=== PATIENT | female | born 1950 | race Caucasian/White ===

== ENCOUNTER 2016-06-29 18:26 | Inpatient (IN) | payer MEDICARE, BC ==
[2016-06-29] MEDS ORDERED: NITROGLYCERIN/D5W 250 ML IV PRN (18:30)
[2016-06-29] MEDS ORDERED: IPRATROPIUM/ALBUTEROL 0.5-2.5 MG/3 ML AMPUL NEB ONE (18:30)
[2016-06-29] MEDS ORDERED: METHYLPREDNISOLONE INJ 125 MG/2 ML SDV IV ONE (18:30)
[2016-06-29] MEDS ORDERED: ALBUTEROL SULFATE 0.083% NEB 2.5 MG/3 ML AMPUL NEB ONE (18:30)
--- NOTE | 2016-06-29 18:35 | ER Document Report ---
ED Respiratory Problem - General Stated Complaint: RESPIRATORY DISTRESS Time seen by provider: 18:32 Mode of Arrival: Medic Information source: Emergency Med Personnel TRAVEL OUTSIDE OF THE [place] IN LAST 30 DAYS: No - HPI Patient complains to provider of: CHF, COPD, Cough, Short of breath Onset: Other - Worsening over the past few days Duration: Worse/persistent Quality of pain: No pain Severity: Severe Context: Hx CHF, Hx COPD Short of Breath: Severe Chest pain/discomfort: Tightness Cough: Nonproductive Associated symptoms: Congestion, Cough, Difficulty breathing, Short of breath, Wheezing Similar symptoms previously: Yes Notes: Patient is a 66-year-old female who was brought to the emergency room by EMS in respiratory distress, patient's respiratory symptoms are worsening over the past few days, when EMS arrived at the house patient was hypoxic, prompting emergency, patient denies any chest pain, otherwise information is difficult to obtain because of her level of respiratory distress - Related Data Allergies/Adverse Reactions: Heparin Analogues [Heparin Agents] Allergy (Unknown, Verified 03/29/15 12:22) latex [Latex] Allergy (Unknown, Verified 03/29/15 12:22) Penicillins Allergy (Unknown, Verified 03/29/15 12:22) vancomycin [Vancomycin] Allergy (Unknown, Verified 04/01/15 22:46) itching rash egg [Egg] Allergy (Verified 03/29/15 12:22) sulfamethoxazole [From Bactrim] Allergy (Verified 03/29/15 12:22) trimethoprim [From Bactrim] Allergy (Verified 03/29/15 12:22) Home Medications: Current Home Medications Albuterol Sulfate [Ventolin 0.042% Neb 1.25 mg/3 ml Ampul] 1 vial NEB Q4HP PRN 06/29/16 [History] Alprazolam [Alprazolam] 0.5 mg PO TIDP PRN 06/29/16 [History] Fish Oil/Dha/Epa [Fish Oil 1,200 mg Fish Oil] 2 cap PO DAILY 06/29/16 [History] Fluticasone Propionate [Flovent Hfa] 2 puff IH BID 06/29/16 [History] Hydrocodone/Acetaminophen [Hydrocodon-Acetaminoph 7.5-325] 1 each PO Q4HP PRN [History] Insulin Aspart [Novolog Flexpen] 15 - 30 unit SUBCUT AC 06/29/16 [History] Insulin Glargine,Hum.rec.anlog [Bear Gorman] 60 unit SUBCUT DAILY 06/29/16 [ History] Metoprolol Tartrate 12.5 mg PO BID 06/29/16 [History] Warfarin Sodium [Warfarin Sodium] 5 mg PO ASDIR 06/29/16 [History] Past Medical History - General Information source: Emergency Med Personnel - Social History Smoking Status: Unknown if Ever Smoked Family History: Reviewed & Not Pertinent - Past Medical History Cardiac Medical History: Reports: Hx Atrial Fibrillation, Hx Hypercholesterolemia Pulmonary Medical History: Reports: Hx Asthma, Hx COPD, Hx Pneumonia, Hx Respiratory Failure, Hx Sleep Apnea Neurological Medical History: Denies: Hx Seizures Endocrine Medical History: Reports: Hx Diabetes Mellitus Type 2 Musculoskeltal Medical History: Reports Hx Arthritis Past Surgical History: Reports: Hx Cholecystectomy, Hx Hysterectomy, Hx Orthopedic Surgery - right rotator cuff. Denies: Hx Pacemaker - Immunizations Hx Diphtheria, Pertussis, Tetanus Vaccination: Yes Hx Pneumococcal Vaccination: 03/21/12 Review of Systems - Review of Systems Constitutional: No symptoms reported EENT: No symptoms reported Cardiovascular: No symptoms reported Respiratory: See HPI Gastrointestinal: No symptoms reported Genitourinary: No symptoms reported Female Genitourinary: No symptoms reported Musculoskeletal: No symptoms reported Skin: No symptoms reported Hematologic/Lymphatic: No symptoms reported Neurological/Psychological: No symptoms reported -: Yes All other systems reviewed and negative Physical Exam - Vital signs Vitals: Resp Pulse Ox 28 H 97 06/29/16 18:30 06/29/16 18:30 Interpretation: Normal - General General appearance: Alert In distress: Moderate - HEENT Head: Normocephalic, Atraumatic Eyes: Normal Conjunctiva: Normal Extraocular movements intact: Yes Eyelashes: Normal Pupils: PERRL Nasal: Normal Mouth/Lips: Normal Mucous membranes: Normal Pharynx: Normal Neck: Normal - Respiratory Respiratory status: Respiratory distress Chest status: Nontender Breath sounds: Decreased air movement, Rales, Wheezing Chest palpation: Normal - Cardiovascular Rhythm: Regular Heart sounds: Normal auscultation Murmur: No - Abdominal Inspection: Morbidly Obese Distension: Distended Bowel sounds: Normal Tenderness: Nontender Organomegaly: No organomegaly - Back Back: Normal - Extremities General upper extremity: Normal inspection, Nontender, Normal color, Normal ROM , Normal temperature General lower extremity: Normal inspection, Nontender, Edema, Normal color, Normal ROM, Normal temperature. No: Maggi's sign - Neurological Neuro grossly intact: Yes Cognition: Normal [place] Coma Scale Eye Opening: Spontaneous [place] Coma Scale Verbal: Oriented [place] Coma Scale Motor: Obeys Commands [place] Coma Scale Total: 15 Sensory: Normal - Psychological Associated symptoms: Normal affect, Normal mood - Skin Skin Temperature: Warm Skin Moisture: Dry Skin Color: Normal Location of irregularity: Generalized - Eczema Course - Vital Signs Vital signs: Temp Pulse Resp BP Pulse Ox 98.0 F 69 22 H 134/67 H 99 06/29/16 18:58 06/30/16 02:07 06/30/16 03:47 06/30/16 03:47 06/30/16 03:47 - Laboratory Result Diagrams: 06/29/16 18:30 06/29/16 18:30 Laboratory results interpreted by me: 06/29/16 06/29/16 06/29/16 18:30 18:30 18:30 WBC 17.9 H RBC 3.57 L Hgb 10.9 L Hct 34.0 L RDW 17.2 H Seg Neutrophils % 90.6 H Lymphocytes % 5.2 L Absolute Neutrophils 16.2 H PT APTT Carbonic Acid ABG pH ABG pCO2 ABG pO2 ABG HCO3 ABG Total CO2 ABG O2 Saturation Sodium 145.1 H Chloride 97 L Carbon Dioxide 38 H Est GFR (Non-Af Amer) 56 L Glucose 246 H Creatine Kinase < 20 L NT-Pro-B Natriuret Pep 2660 H Urine Protein Urine Glucose (UA) 06/29/16 06/29/16 06/29/16 18:30 18:30 21:09 WBC RBC Hgb Hct RDW Seg Neutrophils % Lymphocytes % Absolute Neutrophils PT 32.8 H APTT 43.9 H Carbonic Acid 2.48 H ABG pH 7.28 L ABG pCO2 82.3 H* ABG pO2 181.9 H ABG HCO3 38.0 H ABG Total CO2 40.5 H ABG O2 Saturation 99.0 H Sodium Chloride Carbon Dioxide Est GFR (Non-Af Amer) Glucose Creatine Kinase NT-Pro-B Natriuret Pep Urine Protein 30 H Urine Glucose (UA) 150 H 06/29/16 21:13 WBC RBC Hgb Hct RDW Seg Neutrophils % Lymphocytes % Absolute Neutrophils PT APTT Carbonic Acid 2.18 H ABG pH ABG pCO2 72.3 H* ABG pO2 ABG HCO3 39.3 H ABG Total CO2 41.5 H ABG O2 Saturation Sodium Chloride Carbon Dioxide Est GFR (Non-Af Amer) Glucose Creatine Kinase NT-Pro-B Natriuret Pep Urine Protein Urine Glucose (UA) Procedures - Additional Procedures ABG Time performed: 21:13 Additional Procedures: ABG - Right antecubital space using ultrasound guidance Critical Care Note - Critical Care Note Total time excluding time spent on procedures (mins): 45 Comments: Patient with respiratory distress on arrival, requiring immediate BiPAP placement, multiple re-evaluations and admission to [facility] Discharge - Discharge Clinical Impression: COPD exacerbation Pneumonia Qualifiers: Pneumonia type: due to unspecified organism Laterality: bilateral Lung location : unspecified part of lung Qualified Code(s): J18.9 - Pneumonia, unspecified organism Condition: Serious Disposition: ADMITTED INPATIENT Admitting Provider: Hospitalist Unit Admitted: [facility]
[2016-06-29 18:54] LABS: ABSOLUTE BASOPHILS # (AUTO) 0.1 10^3/uL (0.0-0.2); ABSOLUTE EOSINOPHILS # (AUTO) 0.1 10^3/uL (0.0-0.6); ABSOLUTE LYMPHOCYTES (AUTO) 0.9 10^3/uL (0.5-4.7); ABSOLUTE MONOCYTES (AUTO) 0.6 10^3/uL (0.1-1.4); ABSOLUTE NEUT (AUTO) 16.2 10^3/uL (1.7-8.2); BASOPHILS % (AUTO) 0.3 % (0-2); EOSINOPHILS % (AUTO) 0.3 % (0-6); HEMOGLOBIN 10.9 g/dL (12.0-15.5); HGB HCT DIFFERENCE -1.3; LYMPHOCYTES % (AUTO) 5.2 % (13-45); MEAN CORPUSCULAR HEMOGLOBIN 30.6 pg (27.0-33.4); MEAN CORPUSCULAR HGB CONC 32.2 g/dL (32.0-36.0); MEAN CORPUSCULAR VOLUME 95 fl (80-97); MONOCYTES % (AUTO) 3.6 % (3-13); RED BLOOD COUNT 3.57 10^6/uL (3.72-5.28); RED CELL DISTRIBUTION WIDTH 17.2 % (11.5-14.0); SEGMENTED NEUTROPHILS % (AUTO) 90.6 % (42-78); WHITE BLOOD COUNT 17.9 10^3/uL (4.0-10.5)
[2016-06-29 18:56] LABS: ARTERIAL BLOOD BASE EXCESS 8.5 mmol/L
[2016-06-29 19:05] LABS: PARTIAL THROMBOPLASTIN TIME 43.9 SEC (23.5-35.8); PROTHROMBIN TIME 32.8 SEC (11.4-15.4)
[2016-06-29 19:20] LABS: ALANINE AMINOTRANSFERASE 25 U/L (9-52); ALBUMIN 3.8 g/dL (3.5-5.0); ALKALINE PHOSPHATASE 75 U/L (38-126); ANION GAP 10 (5-19); ASPARTATE AMINO TRANSFERASE 17 U/L (14-36); BILIRUBIN,DIRECT 0.3 mg/dL (0.0-0.4); BILIRUBIN,TOTAL 0.9 mg/dL (0.2-1.3); BLOOD UREA NITROGEN 19 mg/dL (7-20); CALCIUM 9.4 mg/dL (8.4-10.2); CARBON DIOXIDE 38 mmol/L (22-30); CHLORIDE 97 mmol/L (98-107); CREATININE RESULT 0.99 mg/dL (0.52-1.25); GLUCOSE 246 mg/dL (75-110); POTASSIUM 4.6 mmol/L (3.6-5.0); SODIUM 145.1 mmol/L (137-145); TOTAL PROTEIN 7.1 g/dL (6.3-8.2)
[2016-06-29 19:24] LABS: CREATINE KINASE < 20 U/L (30-135)
[2016-06-29 19:32] LABS: CREATINE KINASE MB 0.61 ng/mL (<4.55); TROPONIN I 0.013 ng/mL
[2016-06-29] MEDS ORDERED: LEVOFLOXACIN 750 MG/D5W RTU 150 ML IV ONE (19:50)
[2016-06-29 21:41] LABS: APPEARANCE,URINE CLEAR; BILIRUBIN,URINE NEGATIVE (NEGATIVE); GLUCOSE, URINE 150 mg/dL (NEGATIVE); KETONES,URINE NEGATIVE (NEGATIVE); LEUKOCYTE ESTERASE,URINE NEGATIVE (NEGATIVE); NITRITE,URINE NEGATIVE (NEGATIVE); PROTEIN,URINE 30 mg/dL (NEGATIVE); URINE SPECIFIC GRAVITY 1.009; UROBILINOGEN,URINE NEGATIVE mg/dL (<2.0)
[2016-06-29 21:47] LABS: ARTERIAL BLOOD BASE EXCESS 11.1 mmol/L
[2016-06-29] MEDS ORDERED: IPRATROPIUM/ALBUTEROL 0.5-2.5 MG/3 ML AMPUL NEB PRN (22:19)
[2016-06-29] MEDS: NORMAL SALINE 1000 ML 1,000 ML IV SCH (22:56)
[2016-06-29] MEDS ORDERED: CEFTRIAXONE 1 GM/D5W RTU 1 GM/50 ML RTUPB IV ONE (23:00)
[2016-06-29 23:02] LABS: PROTHROMBIN TIME 33.9 SEC (11.4-15.4)
[2016-06-29 23:23] LABS: CREATINE KINASE MB 0.68 ng/mL (<4.55)
[2016-06-29] MEDS ORDERED: ALPRAZOLAM 0.5 MG TABLET PO PRN (23:29)
[2016-06-29 23:30] LABS: TROPONIN I 0.052 ng/mL
[2016-06-29] MEDS ORDERED: DEXTROSE 40% GEL 15 GM TUBE PO PRN ×2 (23:30)
[2016-06-29] MEDS ORDERED: GLUCAGON,HUMAN RECOMB 1 MG INJ IM PRN (23:30)
[2016-06-29] MEDS ORDERED: DEXTROSE 50%-WATER 25 GM/50 ML DISP.SYRIN IV PRN ×2 (23:30)
[2016-06-29] MEDS ORDERED: METOPROLOL TARTRATE 25 MG TABLET PO ONE (23:59)
--- NOTE | 2016-06-30 00:58 | PDOC H&P ---
History of Present Illness Admission Date/PCP: 06/29/16 22:20 Patient complains of: Shortness of breath History of Present Illness: YAMILETH RENAE is a 66 year old female with an extensive past medical history of mechanical aortic valve on Coumadin, atrial fibrillation, insulin dependent diabetes, obstructive sleep apnea, COPD, anxiety and morbid obesity with a BMI greater than 50. She had been her usual state of health until approximately 12 hours prior to presentation developing shortness of breath and nonproductive cough prompting her to take a dose of alprazolam. Shortly after noted by family in respiratory distress EMS was called and she was brought to the emergency room for evaluation where she's found to have a PCO2 of greater than 80 and difficulty maintaining arousal, a chest x-ray showing edema versus pneumonia she is placed on BiPAP, empiric antibiotics referred to the hospitalist for admission. Patient is currently a poor historian and unable to provide additional history. Past Medical History Cardiac Medical History: Reports: Atrial Fibrillation, Hyperlipidema Pulmonary Medical History: Reports: Asthma, Chronic Obstructive Pulmonary Disease (COPD), Pneumonia, Respiratory Failure, Sleep Apnea Neurological Medical History: Denies: Seizures Endocrine Medical History: Reports: Diabetes Mellitus Type 2 Musculoskeltal Medical History: Reports: Arthritis Psychiatric Medical History: Reports: General Anxiety Disorder Hematology: Reports: Anemia Past Surgical History Past Surgical History: Reports: Cholecystectomy, Hysterectomy, Orthopedic Surgery - right rotator cuff Denies: Pacemaker Social History Information Source: Patient, Relative, [facility] Records Lives with: Family Smoking Status: Unknown if Ever Smoked Frequency of Alcohol Use: None Hx Recreational Drug Use: No Hx Prescription Drug Abuse: No - Advance Directive Resuscitation Status: Full Code Family History Family History: Reviewed & Not Pertinent Parental Family History Reviewed: Yes Children Family History Reviewed: Yes Sibling(s) Family History Reviewed.: Yes Medication/Allergy Home Medications: Albuterol Sulfate [Ventolin Hfa] 1 - 2 puff IH Q4 PRN 03/29/15 Ascorbic Acid [Vitamin C 500 mg Tablet] 500 mg PO BID 03/29/15 Ferrous Sulfate [Feosol 325 mg Tablet] 325 mg PO BID 03/29/15 Loratadine 10 mg PO DAILY 03/29/15 Montelukast Sodium 10 mg PO DAILY 03/29/15 Ranitidine HCl 150 mg PO BID 03/29/15 Simvastatin 80 mg PO DAILY 03/29/15 Sitagliptin Phosphate [Januvia] 100 mg PO DAILY 03/29/15 Acidoph/L.bulg/Bif.b/S.thermop [Bacid Caplet] 1 each PO BID #22 tablet 04/04/15 Albuterol Sulfate [Ventolin 0.042% Neb 1.25 mg/3 ml Ampul] 1 vial NEB Q4HP PRN 06/29/16 Alprazolam [Alprazolam] 0.5 mg PO TIDP PRN 06/29/16 Fish Oil/Dha/Epa [Fish Oil 1,200 mg Fish Oil] 2 cap PO DAILY 06/29/16 Fluticasone Propionate [Flovent Hfa] 2 puff IH BID 06/29/16 Hydrocodone/Acetaminophen [Hydrocodon-Acetaminoph 7.5-325] 1 each PO Q4HP PRN Insulin Aspart [Novolog Flexpen] 15 - 30 unit SUBCUT AC 06/29/16 Insulin Glargine,Hum.rec.anlog [Toujeo Solostar] 60 unit SUBCUT DAILY 06/29/16 Metoprolol Tartrate 12.5 mg PO BID 06/29/16 Warfarin Sodium [Warfarin Sodium] 5 mg PO ASDIR 06/29/16 Allergies/Adverse Reactions: Heparin Analogues [Heparin Agents] Allergy (Unknown, Verified 03/29/15 12:22) latex [Latex] Allergy (Unknown, Verified 03/29/15 12:22) Penicillins Allergy (Unknown, Verified 03/29/15 12:22) vancomycin [Vancomycin] Allergy (Unknown, Verified 04/01/15 22:46) itching rash egg [Egg] Allergy (Verified 03/29/15 12:22) sulfamethoxazole [From Bactrim] Allergy (Verified 03/29/15 12:22) trimethoprim [From Bactrim] Allergy (Verified 03/29/15 12:22) Review of Systems ROS unobtainable: Due to mental status Physical Exam Vital Signs: Temp Pulse Resp BP Pulse Ox 98.0 F 21 H 135/111 H 98 06/29/16 18:58 06/30/16 00:15 06/30/16 00:01 06/30/16 00:15 Intake & Output 06/28/16 06/29/16 06/30/16 11:59 11:59 11:59 Weight 122.8 kg General appearance: PRESENT: disheveled, mild distress, morbidly obese Head exam: PRESENT: atraumatic, normocephalic Eye exam: PRESENT: conjunctiva pink, EOMI, PERRLA. ABSENT: scleral icterus Ear exam: PRESENT: normal external ear exam Mouth exam: PRESENT: moist, tongue midline Neck exam: ABSENT: carotid bruit, JVD, lymphadenopathy, thyromegaly Respiratory exam: PRESENT: accessory muscle use, crackles, decreased breath sounds, prolonged expiratory phas, rales, rhonchi, symmetrical, tachypnea. ABSENT: stridor, wheezes Cardiovascular exam: PRESENT: irregular rhythm, RRR. ABSENT: diastolic murmur, rubs, systolic murmur Pulses: PRESENT: normal dorsalis pedis pul Vascular exam: PRESENT: normal capillary refill GI/Abdominal exam: PRESENT: normal bowel sounds, soft. ABSENT: distended, guarding, mass, organolmegaly, rebound, tenderness Rectal exam: PRESENT: deferred Extremities exam: PRESENT: full ROM, pedal edema, +1 edema, other - Chronic changes of venous insufficiency and stasis. ABSENT: calf tenderness, clubbing Neurological exam: PRESENT: altered, oriented to person, CN II-XII grossly intact Skin exam: PRESENT: dry, intact, warm, other - Right leg significant chronic changes of venous stasis and scarring. ABSENT: cyanosis, rash Results Laboratory Results: 06/29/16 06/29/16 22:43 22:43 Creatine Kinase < 20 L CK-MB (CK-2) 0.68 Troponin I 0.052 Impressions: Chest X-Ray 06/29/16 18:30 IMPRESSION: Worsened [id number] interstitial and small airspace markings may indicate pulmonary edema or multifocal pneumonia. Assessment & Plan - Diagnosis (1) Morbid obesity with alveolar hypoventilation Is this a current diagnosis for this admission?: YesPlan: Acute respiratory failure triggered by use of Xanax, morbid obesity hypoventilation without BiPAP use and pneumonia. Empiric antibiotics, Albuterol Atrovent, BiPAP, avoiding excessive sedation and Xanax discontinued without risk of withdrawal as rarely used. (2) Anxiety Is this a current diagnosis for this admission?: YesPlan: Reassurance avoiding benzodiazepine, mental health referral as outpatient (3) COPD exacerbation Is this a current diagnosis for this admission?: YesPlan: Albuterol and Atrovent, continue BiPAP (4) Pneumonia Qualifiers: Pneumonia type: due to unspecified organism Laterality: bilateral Lung location: unspecified part of lung Qualified Code(s): J18.9 - Pneumonia , unspecified organism Is this a current diagnosis for this admission?: YesPlan: Very faint opacities will monitor follow-up CBC and cultures. Levaquin initiated in the emergency room his change to Rocephin and azithromycin given EKG with prolonged QT interval I'm concerned for recent C. difficile colitis and excessive antibiotic use. (5) Long QT interval Is this a current diagnosis for this admission?: YesPlan: Avoid medications prolonging QT interval (6) Anticoagulated Is this a current diagnosis for this admission?: YesPlan: Patient received Levaquin and will anticipate supratherapeutic INR and reduce Coumadin from 5 mg to 4 mg daily at bedtime, with daily INR - Time Time Spent: 50 to 70 Minutes - Inpatient Certification Medical Necessity: Need Close Monitoring Due to Risk of Patient Decompensation
[2016-06-30] MEDS: IPRATROPIUM/ALBUTEROL 0.5-2.5 MG/3 ML AMPUL NEB SCH ×4 (02:07→20:03)
[2016-06-30] MEDS: NORMAL SALINE 1000 ML 1,000 ML IV SCH ×2 (04:59→11:13)
[2016-06-30 05:21] LABS: HEMATOCRIT 30.6 % (36.0-47.0); HEMOGLOBIN 10.2 g/dL (12.0-15.5); MEAN CORPUSCULAR HEMOGLOBIN 31.3 pg (27.0-33.4); MEAN CORPUSCULAR HGB CONC 33.2 g/dL (32.0-36.0); MEAN CORPUSCULAR VOLUME 94 fl (80-97); RED BLOOD COUNT 3.25 10^6/uL (3.72-5.28); WHITE BLOOD COUNT 9.9 10^3/uL (4.0-10.5)
[2016-06-30 05:32] LABS: ANION GAP 9 (5-19); BLOOD UREA NITROGEN 22 mg/dL (7-20); CALCIUM 8.9 mg/dL (8.4-10.2); CARBON DIOXIDE 35 mmol/L (22-30); CHLORIDE 98 mmol/L (98-107); CREATININE RESULT 0.94 mg/dL (0.52-1.25); GLUCOSE 344 mg/dL (75-110); POTASSIUM 4.5 mmol/L (3.6-5.0)
[2016-06-30 05:34] LABS: CREATINE KINASE < 20 U/L (30-135); CREATINE KINASE MB 0.8 ng/mL (<4.55); TROPONIN I 0.033 ng/mL
[2016-06-30 05:53] LABS: BAND NEUTROPHILS % (MANUAL) 1 % (3-5); BASOPHILS % (MANUAL) 0 % (0-2); EOSINOPHILS % (MANUAL) 0 % (0-6); LYMPHOCYTES % (MANUAL) 3 % (13-45); TOTAL CELLS COUNTED 100; TOXIC GRANULATION 1+
[2016-06-30 05:54] LABS: ANISOCYTOSIS 1+; OVALOCYTES SLIGHT; POIKILOCYTOSIS SLIGHT; POLYCHROMASIA SLIGHT; TEAR DROP CELLS SLIGHT
[2016-06-30 07:06] LABS: APPEARANCE,URINE CLEAR; BILIRUBIN,URINE NEGATIVE (NEGATIVE); GLUCOSE, URINE >=500 mg/dL (NEGATIVE); KETONES,URINE NEGATIVE (NEGATIVE); LEUKOCYTE ESTERASE,URINE NEGATIVE (NEGATIVE); NITRITE,URINE NEGATIVE (NEGATIVE); PROTEIN,URINE 30 mg/dL (NEGATIVE); URINE SPECIFIC GRAVITY 1.009; UROBILINOGEN,URINE NEGATIVE mg/dL (<2.0)
--- NOTE | 2016-06-30 07:32 | EKG REPORT ---
SEVERITY:- ABNORMAL ECG - ATRIAL FLUTTER, A-RATE 312 REPOL ABNRM SUGGESTS ISCHEMIA, LATERAL LEADS BORDERLINE PROLONGED QT INTERVAL : Confirmed by: Dario Solis MD 30-Jun-2016 07:32:20
[2016-06-30] MEDS: INSULIN LISPRO 100 UNIT/ML 3 ML VIAL SUBCUT PRN ×4 (09:20→23:20)
[2016-06-30] MEDS: MONTELUKAST SODIUM 10 MG TABLET PO SCH (09:31)
[2016-06-30] MEDS: GUAIFENESIN 600 MG TABLET.SA PO SCH ×2 (09:31→21:52)
[2016-06-30] MEDS: FERROUS SULFATE 325 MG TABLET PO SCH ×2 (09:31→18:34)
[2016-06-30] MEDS: AZITHROMYCIN 500 MG in DEXTROSE 5%-WATER 250 ML IV SCH (09:33)
[2016-06-30] MEDS: METOPROLOL TARTRATE 25 MG TABLET PO SCH ×2 (09:48→18:34)
[2016-06-30] MEDS: LACTOBACILLUS ACIDOPHILUS 250 MG TAB PO SCH ×2 (09:48→18:34)
[2016-06-30] MEDS ORDERED: INSULIN GLARGINE,HUM.REC.ANLOG 300 UNIT/3 ML INSULN.PEN SUBCUT SCH ×2 (10:00)
[2016-06-30 11:22] LABS: CREATINE KINASE MB 0.98 ng/mL (<4.55); TROPONIN I 0.016 ng/mL
--- NOTE | 2016-06-30 17:33 | PDOC PROGRESS REPORT ---
Subjective Progress Note for:: 06/30/16 Subjective:: Patient states she's feeling better He still has a lot of wheezing But she can tolerate being off BiPAP during meals Mentation is excellent No fever no chills Physical Exam Vital Signs: Temp Pulse Resp BP Pulse Ox 99.1 F 76 22 H 127/32 H 93 06/30/16 16:57 06/30/16 16:57 06/30/16 16:57 06/30/16 16:57 06/30/16 16:57 Intake & Output 06/29/16 06/30/16 07/01/16 00:59 00:59 00:59 Weight 122.8 kg 121.5 kg General appearance: PRESENT: mild distress, well-developed, well-nourished Head exam: PRESENT: atraumatic, normocephalic Eye exam: PRESENT: conjunctiva pink, EOMI, PERRLA. ABSENT: scleral icterus Ear exam: PRESENT: normal external ear exam Mouth exam: PRESENT: moist, tongue midline Neck exam: ABSENT: carotid bruit, JVD, lymphadenopathy, thyromegaly Respiratory exam: PRESENT: decreased breath sounds, wheezes. ABSENT: accessory muscle use, rales, rhonchi Cardiovascular exam: PRESENT: RRR. ABSENT: diastolic murmur, rubs, systolic murmur Pulses: PRESENT: normal dorsalis pedis pul Vascular exam: PRESENT: normal capillary refill GI/Abdominal exam: PRESENT: normal bowel sounds, soft. ABSENT: distended, guarding, mass, organolmegaly, rebound, tenderness Rectal exam: PRESENT: deferred Extremities exam: PRESENT: full ROM. ABSENT: calf tenderness, clubbing, pedal edema Neurological exam: PRESENT: alert, awake, oriented to person, oriented to place , oriented to time, oriented to situation, CN II-XII grossly intact. ABSENT: motor sensory deficit Psychiatric exam: PRESENT: appropriate affect, normal mood Skin exam: PRESENT: dry, intact, warm. ABSENT: cyanosis, rash Results Laboratory Results: 06/30/16 04:53 06/30/16 04:53 06/30/16 06/30/16 06/30/16 04:53 04:53 06:34 WBC 9.9 RBC 3.25 L Hgb 10.2 L Hct 30.6 L MCV 94 MCH 31.3 MCHC 33.2 RDW 17.0 H Plt Count 131 L Seg Neutrophils % Not Reportable Lymphocytes % Not Reportable Monocytes % Not Reportable Eosinophils % Not Reportable Basophils % Not Reportable Absolute Neutrophils Not Reportable Absolute Lymphocytes Not Reportable Absolute Monocytes Not Reportable Absolute Eosinophils Not Reportable Absolute Basophils Not Reportable Sodium 142.0 Potassium 4.5 Chloride 98 Carbon Dioxide 35 H Anion Gap 9 BUN 22 H Creatinine 0.94 Est GFR ( Amer) > 60 Est GFR (Non-Af Amer) > 60 Glucose 344 H Calcium 8.9 Urine Color YELLOW Urine Appearance CLEAR Urine pH 5.0 Ur Specific Richards 1.009 Urine Protein 30 H Urine Glucose (UA) >=500 H Urine Ketones NEGATIVE Urine Blood NEGATIVE Urine Nitrite NEGATIVE Ur Leukocyte Esterase NEGATIVE Urine WBC (Auto) 1 Urine RBC (Auto) 0 06/29/16 06/29/16 06/30/16 22:43 22:43 04:53 Creatine Kinase < 20 L < 20 L CK-MB (CK-2) 0.68 Troponin I 0.052 06/30/16 06/30/16 06/30/16 04:53 10:35 10:35 Creatine Kinase 22 L CK-MB (CK-2) 0.80 0.98 Troponin I 0.033 0.016 Impressions: Chest X-Ray 06/29/16 18:30 IMPRESSION: Worsened [id number] interstitial and small airspace markings may indicate pulmonary edema or multifocal pneumonia. Assessment & Plan - Diagnosis (1) COPD exacerbation Is this a current diagnosis for this admission?: Yes (2) Pneumonia Qualifiers: Pneumonia type: due to unspecified organism Laterality: bilateral Lung location: unspecified part of lung Qualified Code(s): J18.9 - Pneumonia , unspecified organism Is this a current diagnosis for this admission?: Yes (3) Morbid obesity with alveolar hypoventilation Is this a current diagnosis for this admission?: Yes (5) Anticoagulated Is this a current diagnosis for this admission?: Yes - Time Time Spent with patient: Continue present management We will add inhaled steroids Increase Lantus as her blood sugars are over 300; BiPAP when necessary Time Spent with patient: 25-34 minutes
[2016-06-30] MEDS: CEFTRIAXONE 1 GM/D5W RTU 50 ML IV SCH (17:55)
[2016-06-30] MEDS: BUDESONIDE NEB 0.5 MG/2 ML AMPUL NEB SCH (20:07)
[2016-06-30] MEDS ORDERED: CALCIUM CARBONATE 500 MG TABLET PO PRN (20:54)
[2016-06-30] MEDS ORDERED: LACTULOSE SYRUP 20 GM/30 ML UDCUP PO ONE (21:15)
[2016-06-30 21:48] LABS: CREATINE KINASE MB 1.14 ng/mL (<4.55); TROPONIN I 0.015 ng/mL
[2016-06-30] MEDS: SIMVASTATIN 40 MG TABLET PO SCH (21:51)
[2016-06-30] MEDS: CALCIUM CARBONATE 500 MG TAB.CHEW PO PRN (21:52)
[2016-06-30] MEDS ORDERED: WARFARIN SODIUM 4 MG TABLET PO SCH (22:00)
[2016-07-01] MEDS: IPRATROPIUM/ALBUTEROL 0.5-2.5 MG/3 ML AMPUL NEB SCH ×4 (02:16→19:05)
[2016-07-01] MEDS: INSULIN GLARGINE,HUM.REC.ANLOG 300 UNIT/3 ML INSULN.PEN SUBCUT SCH (05:30)
[2016-07-01 05:44] LABS: PROTHROMBIN TIME 34.3 SEC (11.4-15.4)
[2016-07-01 06:16] LABS: CREATINE KINASE MB 0.87 ng/mL (<4.55); TROPONIN I 0.019 ng/mL
[2016-07-01] MEDS: BUDESONIDE NEB 0.5 MG/2 ML AMPUL NEB SCH ×2 (07:52→19:05)
[2016-07-01] MEDS: INSULIN LISPRO 100 UNIT/ML 3 ML VIAL SUBCUT PRN ×3 (08:16→18:09)
[2016-07-01] MEDS: CALCIUM CARBONATE 500 MG TAB.CHEW PO PRN (09:59)
[2016-07-01] MEDS: METOPROLOL TARTRATE 25 MG TABLET PO SCH (10:00)
[2016-07-01] MEDS: GUAIFENESIN 600 MG TABLET.SA PO SCH ×2 (10:00→21:17)
[2016-07-01] MEDS: LACTOBACILLUS ACIDOPHILUS 250 MG TAB PO SCH ×2 (10:01→18:09)
[2016-07-01] MEDS: MONTELUKAST SODIUM 10 MG TABLET PO SCH (10:01)
[2016-07-01] MEDS: FERROUS SULFATE 325 MG TABLET PO SCH ×2 (10:02→18:08)
[2016-07-01] MEDS: CEFTRIAXONE 1 GM/D5W RTU 50 ML IV SCH (10:02)
[2016-07-01] MEDS: AZITHROMYCIN 500 MG in DEXTROSE 5%-WATER 250 ML IV SCH (10:04)
[2016-07-01] MEDS ORDERED: BUMETANIDE INJ/PF 1 MG/4 ML SDV IV SCH ×2 (10:30→22:00)
--- NOTE | 2016-07-01 10:35 | Physician Advisory Note ---
Physician Advisor ProgressNote .: Pursuant to the plan for [facility], I have reviewed the medical record for this patient. Physician Advisor Statement: Very nice H&P documentation of Ac REsp Failure w/hypercapnea, accessory muscle use, difficulty maintaining arousal, needing Bipap. Possible documentation opportunities if attending agrees: 1. "Acute Hypercapneic Respiratory Failure" 2. "Bilat shafer-lobar PNA, suspect gram-neg given underlying COPD" As always, if concerned about any unstable VS or abnormal labs, please comment on them & note what doing about them, & please document each day the potential clinical problems you are concerned could occur if pt not kept in hospital for tx at this time. Thanks for your help with documentation accuracy/specificity improvement! Marce Griffith MD [facility] Physician Advisor, Fellow of Hospital Medicine
[2016-07-01] MEDS ORDERED: BUMETANIDE INJ/PF 1 MG/4 ML SDV IV ONE (11:30)
[2016-07-01 14:00] LABS: CREATINE KINASE MB 1.02 ng/mL (<4.55)
[2016-07-01 14:02] LABS: TROPONIN I < 0.012 ng/mL
[2016-07-01] MEDS ORDERED: PANTOPRAZOLE SODIUM 40 MG VIAL IV ONE (16:00)
[2016-07-01] MEDS: NORMAL SALINE 100 ML with PANTOPRAZOLE SODIUM 80 MG IV PRN ×2 (16:13)
[2016-07-01] MEDS ORDERED: PHYTONADIONE 5 MG TABLET PO ONE (19:00)
--- NOTE | 2016-07-01 19:04 | PDOC CONSULTATION ---
Consultation Consult Date: 07/01/16 Attending physician:: LEONOR GONZALEZ Consult reason:: Possible GI bleed. chronic anemia. previous history of Dieulafoy lesion History of Present Illness Admission Date/PCP: 06/29/16 22:20 History of Present Illness: Patient is admitted by Dr Dozier has been having respiratory difficulty, however when I saw her she was comfortable on room air she has a chronic anemia and was noted to have low H/H. she had previous had a Dieulafoy lesion cauterized by Dr Andres in the past she has an aortic valve replacement and is on chronic anticoagulation Coumadin is being adjusted spoke with Dr Dozier patient having some dark stools patient states has nausea and no appetite denies any weight loss patient denies any dysphagia or odynophagia ? if does have a source of bleeding which may need repeat ablation patient is willing to proceed will adjust her INR slightly downwards prior to her procedure due to her mechanical aortic valve, INR should be between 2.5 and 3.5 Past Medical History Cardiac Medical History: Reports: Atrial Fibrillation, Hyperlipidema Pulmonary Medical History: Reports: Asthma, Chronic Obstructive Pulmonary Disease (COPD), Pneumonia, Respiratory Failure, Sleep Apnea Neurological Medical History: Denies: Seizures Endocrine Medical History: Reports: Diabetes Mellitus Type 2 Musculoskeltal Medical History: Reports: Arthritis Psychiatric Medical History: Reports: General Anxiety Disorder Denies: Depression Hematology: Reports: Anemia Past Surgical History Past Surgical History: Reports: Cholecystectomy, Hysterectomy, Orthopedic Surgery - right rotator cuff Denies: Pacemaker Social History Lives with: Family Smoking Status: Former Smoker Cigarettes Packs Per Day: 3 Number of Years Smokin Last Time Smoked: 2006 Frequency of Alcohol Use: None Hx Recreational Drug Use: No Drugs: None Hx Prescription Drug Abuse: No - Advance Directive Resuscitation Status: Full Code Family History Family History: Reviewed & Not Pertinent Parental Family History Reviewed: Yes Children Family History Reviewed: Unknown Sibling(s) Family History Reviewed.: Unknown Medication/Allergy Home Medications: Acidoph/L.bulg/Bif.b/S.thermop [Bacid Caplet] 1 tab PO BID 06/30/16 Albuterol Sulfate [Ventolin 0.042% Neb 1.25 mg/3 ml Ampul] 1 vial NEB RTQ6HP PRN 06/30/16 Albuterol Sulfate [Ventolin HFA MDI 18 GM] 1 puff IH Q4HP PRN 06/30/16 Alprazolam [Xanax 0.5 mg Tablet] 0.5 mg PO TIDP PRN 06/30/16 Ascorbic Acid [Vitamin C 500 mg Tablet] 500 mg PO BID 06/30/16 Ferrous Sulfate [Feosol 325 mg Tablet] 325 mg PO BID 06/30/16 Fish Oil/Dha/Epa [Fish Oil 1,200 mg Fish Oil] 2 each PO DAILY 06/30/16 Fluticasone Propionate [Flonase Nasal [place] 50 Mcg/[place] 16 gm] 2 spray NASL DAILY 06/30/16 Fluticasone Propionate [Flovent HFA 220 mcg MDI] 2 puff IH BID 06/30/16 Furosemide [Lasix] 80 mg PO DAILY 06/30/16 Gabapentin [Neurontin 300 mg Capsule] 300 mg PO Q8 06/30/16 Hydrocodone/Acetaminophen [[place] 7.5-325 mg Tablet] 1 tab PO Q6HP PRN 06/30/16 Insulin Aspart [Novolog Flexpen] 15 unit SUBCUT AC 06/30/16 Insulin Glargine,Hum.rec.anlog [[place] Solostar] 60 unit SQ DAILY 06/30/16 Loratadine [Claritin 10 mg Tablet] 10 mg PO DAILY 06/30/16 Metoprolol Tartrate [Lopressor 25 mg Tablet] 12.5 mg PO Q12 06/30/16 Montelukast Sodium [Singulair 10 mg Tablet] 10 mg PO QHS 06/30/16 Olopatadine HCl [Pataday] 1 drop OU DAILY 06/30/16 Ranitidine HCl [Zantac] 150 mg PO BID 06/30/16 Simvastatin [Zocor 80 mg Tablet] 80 mg PO QHS 06/30/16 Sitagliptin Phosphate [Januvia] 100 mg PO DAILY 06/30/16 Warfarin Sodium [Coumadin 5 mg Tablet] 2.5 mg PO MOWEFR@219906/30/16 Warfarin Sodium [Coumadin 5 mg Tablet] 5 mg PO SUTUTHSA@219906/30/16 Allergies/Adverse Reactions: Heparin Analogues [Heparin Agents] Allergy (Unknown, Verified 03/29/15 12:22) latex [Latex] Allergy (Unknown, Verified 03/29/15 12:22) Penicillins Allergy (Unknown, Verified 03/29/15 12:22) vancomycin [Vancomycin] Allergy (Unknown, Verified 04/01/15 22:46) itching rash egg [Egg] Allergy (Verified 03/29/15 12:22) sulfamethoxazole [From Bactrim] Allergy (Verified 03/29/15 12:22) trimethoprim [From Bactrim] Allergy (Verified 03/29/15 12:22) Review of Systems Constitutional: ABSENT: fever(s), headache(s), night sweats, weakness Eyes: ABSENT: visual disturbances Ears: ABSENT: hearing changes Nose, Mouth, and Throat: ABSENT: mouth pain Cardiovascular: PRESENT: dyspnea on exertion, orthropnea Respiratory: ABSENT: hemoptysis Gastrointestinal: PRESENT: melena. ABSENT: diarrhea, dysphagia, hematochezia Genitourinary: ABSENT: dysuria, hematuria Integumentary: ABSENT: lesions, pruritus Endocrine: ABSENT: polydipsia, polyphagia, polyuria Hematologic/Lymphatic: ABSENT: easy bruising Physical Exam Vital Signs: Temp Pulse Resp BP Pulse Ox 99.0 F 68 20 144/83 H 97 07/01/16 15:46 07/01/16 15:46 07/01/16 15:46 07/01/16 15:46 07/01/16 16:00 Intake & Output 06/30/16 07/01/16 07/02/16 06:59 06:59 06:59 Intake Total 402 400 Output Total 600 1800 Balance -198 -1400 Weight 122.8 kg 121.8 kg General appearance: PRESENT: mild distress, morbidly obese Head exam: PRESENT: atraumatic, normocephalic Eye exam: PRESENT: EOMI, PERRLA. ABSENT: nystagmus, periorbital swelling, scleral icterus Mouth exam: ABSENT: neck supple Throat exam: ABSENT: tonsillar exudate, tonsillogmegaly Neck exam: ABSENT: meningismus, tenderness, thyromegaly Respiratory exam: PRESENT: rales, symmetrical, tachypnea Cardiovascular exam: PRESENT: RRR, +S1, +S2 GI/Abdominal exam: PRESENT: diminished bowel sounds, soft. ABSENT: Piña's sign, rebound, rigid, tenderness Musculoskeletal exam: PRESENT: full ROM Neurological exam: PRESENT: oriented to time, oriented to situation, reflexes normal, CN II-XII grossly intact Psychiatric exam: PRESENT: appropriate affect Skin exam: PRESENT: normal color. ABSENT: mottled, pallor, petechiae, urticaria , vesicles Results Laboratory Results: 06/30/16 04:53 06/30/16 04:53 07/01/16 11:30 Stool Occult Blood POSITIVE 07/01/16 11:30 Sputum Gram Stain - Final 07/01/16 11:30 Sputum Sputum Culture - Final 06/29/16 06/29/16 06/30/16 22:43 22:43 04:53 Creatine Kinase < 20 L < 20 L CK-MB (CK-2) 0.68 Troponin I 0.052 06/30/16 06/30/16 06/30/16 04:53 10:35 10:35 Creatine Kinase 22 L CK-MB (CK-2) 0.80 0.98 Troponin I 0.033 0.016 06/30/16 06/30/16 07/01/16 21:10 21:10 05:10 Creatine Kinase 27 L 21 L CK-MB (CK-2) 1.14 Troponin I 0.015 07/01/16 07/01/16 07/01/16 05:10 13:10 13:10 Creatine Kinase 30 CK-MB (CK-2) 0.87 1.02 Troponin I 0.019 < 0.012 Impressions: Chest X-Ray 06/29/16 18:30 IMPRESSION: Worsened [id number] interstitial and small airspace markings may indicate pulmonary edema or multifocal pneumonia. Assessment & Plan - Diagnosis (1) GI bleed Qualifiers: GI bleed type/associated pathology: melena Qualified Code(s): K92.1 - Melena Plan: history of Dieulafoy's lesion in the past having symptoms of bleeding and needs anticoagulation she will need EGD to see if there is a lesion that needs to be ablated Dr Dozier to make corrections in her INR prior to her procedure Risks, benefits and alternatives are explained to the patient in detail Further recommendations to follow patient is willing to proceed - Time Time Spent: 50 to 70 Minutes
--- NOTE | 2016-07-01 20:09 | PDOC PROGRESS REPORT ---
Subjective Progress Note for:: 07/01/16 Subjective:: Patient's breathing is a lot better, but she started having tarry stools She did have a history of GI bleed with Dieulafoy lesions that had to be cauterized on the prior admission She remains hemodynamically stable with a stable H&H A GI consult was called and Dr. Herrera will perform endoscopy in a.m. Physical Exam Vital Signs: Temp Pulse Resp BP Pulse Ox 99.0 F 79 28 H 144/83 H 99 07/01/16 15:46 07/01/16 19:03 07/01/16 19:03 07/01/16 15:46 07/01/16 19:03 Intake & Output 06/30/16 07/01/16 07/02/16 00:59 00:59 00:59 Intake Total 10 792 Output Total 2400 Balance 10 -1608 Weight 122.8 kg 121.5 kg 121.8 kg General appearance: PRESENT: no acute distress, well-developed, well-nourished Head exam: PRESENT: atraumatic, normocephalic Eye exam: PRESENT: conjunctiva pink, EOMI, PERRLA. ABSENT: scleral icterus Ear exam: PRESENT: normal external ear exam Mouth exam: PRESENT: moist, tongue midline Neck exam: ABSENT: carotid bruit, JVD, lymphadenopathy, thyromegaly Respiratory exam: PRESENT: decreased breath sounds. ABSENT: rales, rhonchi, wheezes Cardiovascular exam: PRESENT: RRR. ABSENT: diastolic murmur, rubs, systolic murmur Pulses: PRESENT: normal dorsalis pedis pul Vascular exam: PRESENT: normal capillary refill GI/Abdominal exam: PRESENT: normal bowel sounds, soft. ABSENT: distended, guarding, mass, organolmegaly, rebound, tenderness Rectal exam: PRESENT: deferred Extremities exam: PRESENT: full ROM. ABSENT: calf tenderness, clubbing, pedal edema Neurological exam: PRESENT: alert, awake, oriented to person, oriented to place , oriented to time, oriented to situation, CN II-XII grossly intact. ABSENT: motor sensory deficit Psychiatric exam: PRESENT: appropriate affect, normal mood. ABSENT: homicidal ideation, suicidal ideation Skin exam: PRESENT: dry, intact, warm. ABSENT: cyanosis, rash Results Laboratory Results: 06/30/16 04:53 06/30/16 04:53 07/01/16 11:30 Stool Occult Blood POSITIVE 07/01/16 11:30 Sputum Gram Stain - Final 07/01/16 11:30 Sputum Sputum Culture - Final 06/29/16 06/29/16 06/30/16 22:43 22:43 04:53 Creatine Kinase < 20 L < 20 L CK-MB (CK-2) 0.68 Troponin I 0.052 06/30/16 06/30/16 06/30/16 04:53 10:35 10:35 Creatine Kinase 22 L CK-MB (CK-2) 0.80 0.98 Troponin I 0.033 0.016 06/30/16 06/30/16 07/01/16 21:10 21:10 05:10 Creatine Kinase 27 L 21 L CK-MB (CK-2) 1.14 Troponin I 0.015 07/01/16 07/01/16 07/01/16 05:10 13:10 13:10 Creatine Kinase 30 CK-MB (CK-2) 0.87 1.02 Troponin I 0.019 < 0.012 Impressions: Chest X-Ray 06/29/16 18:30 IMPRESSION: Worsened [id number] interstitial and small airspace markings may indicate pulmonary edema or multifocal pneumonia. Assessment & Plan - Diagnosis (1) COPD exacerbation Is this a current diagnosis for this admission?: Yes (2) Pneumonia Qualifiers: Pneumonia type: due to unspecified organism Laterality: bilateral Lung location: unspecified part of lung Qualified Code(s): J18.9 - Pneumonia , unspecified organism Is this a current diagnosis for this admission?: Yes (3) Morbid obesity with alveolar hypoventilation Is this a current diagnosis for this admission?: Yes (5) Anticoagulated Is this a current diagnosis for this admission?: YesPlan: We INR is 3 We will give the patient 2.5 mg of vitamin K to reverse mildly Recheck PT INR in a.m. Patient may need FFP prior to endoscopy Serial H&H (6) Upper GI bleed Is this a current diagnosis for this admission?: Yes - Time Time Spent with patient: 25-34 minutes
[2016-07-01] MEDS: SIMVASTATIN 40 MG TABLET PO SCH (21:17)
--- NOTE | 2016-07-01 23:04 | CONSULTATION REPORT E ---
Consultation Report NAME: YAMILETH RENAE : 1950 AGE: 66Y DATE: 07/01/2016 305 A TO: PERCY PENNY M.D. FROM: ORIANA SALINAS M.D. Requesting Physician REASON FOR CONSULTATION: Patient with history of Dieulafoy lesion in the gastric area. HISTORY OF PRESENT ILLNESS: The patient noted to have dark stools several times this morning, positive for Hemoccult. The patient initially admitted for respiratory difficulty. PAST MEDICAL HISTORY: History of cauterization of Dieulafoy bleeding. She had at least 3 and the last one was done by Dr. Andres about 3 years ago. These apparently were cauterized. The patient has been on Coumadin for aortic valve replacements since 2002 and her INR is 3.2. The rest of the past medical history: History of atrial fibrillation, hyperlipidemia, history of asthma, COPD, pneumonia, respiratory failure, sleep apnea. Endocrine history: Diabetes mellitus type 2. Musculoskeletal history: Arthritis. PAST SURGICAL HISTORY: Aortic valve replacement at [facility] in [place] in 2002 and since then has been on Coumadin, cholecystectomy, hysterectomy, and right rotator cuff surgery. SOCIAL HISTORY: She lives with her family. Former smoker, about 3 packs a day. Number of years of smoking: about 40 years. Last time smoked was in 2006. Denies alcohol or drug use. FAMILY HISTORY: Noncontributory. ALLERGIES: HEPARIN ANALOGS, LATEX, PENICILLINS, VANCOMYCIN, SULFAS. REVIEW OF SYSTEMS: The patient denies any abdominal pain. Denies any fever or night sweats, no hemoptysis. Positive melena, dyspnea on exertion, orthopnea and difficulty breathing. PHYSICAL EXAMINATION: VITAL SIGNS: Temperature 99 degrees Fahrenheit, pulse 68, respiratory 20, BP 144/83, pulse oximetry 97. GENERAL: The patient is alert and oriented x3. Appears to be in mild distress and morbidly obese. HEENT: Normocephalic. NECK: Supple. No thyromegaly. LUNGS: Occasional rales and tachypneic. HEART: Regular sinus rhythm. ABDOMEN: Soft, nontender. EXTREMITIES: Full range of motion. NEUROLOGIC: Alert and oriented x3. PSYCHIATRIC: Appropriate affect. SKIN: Normal in color. LABORATORY DATA: INR is 3.2. Her hemoglobin yesterday was 10.2. Platelet count is 131 yesterday. IMPRESSION: Upper GI bleeding most likely due to Dieulafoy syndrome. PLAN: The patient is supposed to have endoscopy by Dr. Herrera tomorrow. We will be available to stand by for any bleeding that cannot be controlled. We will need to improve the INR, may need fresh frozen plasma versus vitamin K. DICTATING PHYSICIAN: PERCY PENNY M.D. [id number] PHY#: [id number] ID: [id number] JOB#: [id number] ACCT: [id number] cc:PERCY PENNY M.D. >
[2016-07-02] MEDS: IPRATROPIUM/ALBUTEROL 0.5-2.5 MG/3 ML AMPUL NEB SCH ×4 (02:10→20:01)
[2016-07-02] MEDS: NORMAL SALINE 100 ML with PANTOPRAZOLE SODIUM 80 MG IV PRN ×2 (02:23)
[2016-07-02] MEDS: ACETAMINOPHEN 325 MG TABLET PO PRN (02:25)
[2016-07-02 05:23] LABS: PROTHROMBIN TIME 26.9 SEC (11.4-15.4)
[2016-07-02] MEDS: INSULIN GLARGINE,HUM.REC.ANLOG 300 UNIT/3 ML INSULN.PEN SUBCUT SCH (06:25)
[2016-07-02] MEDS ORDERED: NORMAL SALINE 250 ML IV PRN ×2 (07:38)
[2016-07-02] MEDS: BUDESONIDE NEB 0.5 MG/2 ML AMPUL NEB SCH ×2 (08:05→20:01)
[2016-07-02 08:09] LABS: HEMATOCRIT 31.5 % (36.0-47.0); HEMOGLOBIN 10.4 g/dL (12.0-15.5); HGB HCT DIFFERENCE -0.3; MEAN CORPUSCULAR VOLUME 94 fl (80-97); RED BLOOD COUNT 3.36 10^6/uL (3.72-5.28)
--- NOTE | 2016-07-02 09:46 | PDOC PROGRESS REPORT ---
Subjective Progress Note for:: 07/02/16 Subjective:: Patient is somewhat dyspneic this morning; she is extremely anxious She has no chest pain no shortness of breath She did not have any recurrent tarry stools She is scheduled for a gastroscopy Physical Exam Vital Signs: Temp Pulse Resp BP Pulse Ox 98.7 F 85 22 H 136/51 H 96 07/02/16 08:47 07/02/16 08:47 07/02/16 08:47 07/02/16 08:04 07/02/16 08:47 Intake & Output 07/01/16 07/02/16 07/03/16 00:59 00:59 00:59 Intake Total 10 1617 130 Output Total 4000 650 Balance 30 -6214 -567 Weight 121.5 kg 121.8 kg 121.8 kg General appearance: PRESENT: mild distress Head exam: PRESENT: atraumatic, normocephalic Eye exam: PRESENT: conjunctiva pink, EOMI, PERRLA. ABSENT: scleral icterus Neck exam: ABSENT: carotid bruit, JVD, lymphadenopathy, thyromegaly Respiratory exam: PRESENT: decreased breath sounds, tachypnea. ABSENT: prolonged expiratory phas - I, rales Cardiovascular exam: PRESENT: RRR, tachycardia. ABSENT: systolic murmur Pulses: PRESENT: normal dorsalis pedis pul GI/Abdominal exam: PRESENT: normal bowel sounds, soft. ABSENT: distended, guarding, mass, organolmegaly, rebound, tenderness Neurological exam: PRESENT: alert, awake, oriented to person, oriented to place , oriented to time, oriented to situation, CN II-XII grossly intact. ABSENT: motor sensory deficit Results Laboratory Results: 07/02/16 07:55 06/30/16 04:53 07/01/16 07/02/16 07/02/16 11:30 07:55 07:55 WBC 10.0 RBC 3.36 L Hgb 10.4 L Hct 31.5 L MCV 94 MCH 31.0 MCHC 33.0 RDW 17.0 H Plt Count 132 L Stool Occult Blood POSITIVE Blood Type O POSITIVE 07/01/16 11:30 Sputum Gram Stain - Final 07/01/16 11:30 Sputum Sputum Culture - Final 06/29/16 06/29/16 06/30/16 22:43 22:43 04:53 Creatine Kinase < 20 L < 20 L CK-MB (CK-2) 0.68 Troponin I 0.052 06/30/16 06/30/16 06/30/16 04:53 10:35 10:35 Creatine Kinase 22 L CK-MB (CK-2) 0.80 0.98 Troponin I 0.033 0.016 06/30/16 06/30/16 07/01/16 21:10 21:10 05:10 Creatine Kinase 27 L 21 L CK-MB (CK-2) 1.14 Troponin I 0.015 07/01/16 07/01/16 07/01/16 05:10 13:10 13:10 Creatine Kinase 30 CK-MB (CK-2) 0.87 1.02 Troponin I 0.019 < 0.012 Impressions: Chest X-Ray 06/29/16 18:30 IMPRESSION: Worsened [id number] interstitial and small airspace markings may indicate pulmonary edema or multifocal pneumonia. Assessment & Plan - Diagnosis (1) COPD exacerbation Is this a current diagnosis for this admission?: YesPlan: Continue present management (2) Pneumonia Qualifiers: Pneumonia type: due to unspecified organism Laterality: bilateral Lung location: unspecified part of lung Qualified Code(s): J18.9 - Pneumonia, unspecified organism Is this a current diagnosis for this admission?: YesPlan: Is improving continue present management (3) Morbid obesity with alveolar hypoventilation Is this a current diagnosis for this admission?: Yes (4) Status post left AV valve repair Is this a current diagnosis for this admission?: YesPlan: Patient is anticoagulated on Coumadin We are reversing the Coumadin slightly prior to endoscopy A unit of FFP will be given (5) Anticoagulated Is this a current diagnosis for this admission?: Yes (6) Upper GI bleed Is this a current diagnosis for this admission?: YesPlan: Secondary to Dieulafoy lesions Continue Protonix Endoscopy this a.m; follow-up H&H closely. (7) Acute on chronic diastolic CHF (congestive heart failure) Is this a current diagnosis for this admission?: YesPlan: Continue Bumex We will decrease it to 1 mg daily this patient has evidence GI bleed - Time Time Spent with patient: 35 or more minutes
[2016-07-02] MEDS: AZITHROMYCIN 500 MG in DEXTROSE 5%-WATER 250 ML IV SCH (10:10)
[2016-07-02] MEDS: FERROUS SULFATE 325 MG TABLET PO SCH ×2 (10:10→17:54)
[2016-07-02] MEDS: LACTOBACILLUS ACIDOPHILUS 250 MG TAB PO SCH ×2 (10:10→17:54)
[2016-07-02] MEDS: CEFTRIAXONE 1 GM/D5W RTU 50 ML IV SCH (10:10)
[2016-07-02] MEDS: LORAZEPAM 1 MG TABLET PO SCH ×2 (11:08→23:04)
[2016-07-02] MEDS ORDERED: FENTANYL CITRATE INJ/PF 100 MCG/2 ML AMPUL ONE (11:19)
[2016-07-02] MEDS ORDERED: MIDAZOLAM 2 MG/2 ML INJ ONE (11:19)
[2016-07-02] MEDS ORDERED: NALOXONE HCL INJ/PF 0.4 MG/1 ML SDV ONE (11:19)
[2016-07-02] MEDS ORDERED: ONDANSETRON HCL INJ/PF 4 MG/2 ML SDV ONE (11:19)
[2016-07-02] MEDS ORDERED: DIPHENHYDRAMINE HCL 50 MG/ML VIAL ONE (11:19)
[2016-07-02] MEDS ORDERED: GLUCAGON,HUMAN RECOMB 1 MG INJ ONE (11:20)
[2016-07-02] MEDS ORDERED: FLUMAZENIL INJ 0.5 MG/5 ML VIAL IV ONE (11:20)
[2016-07-02] MEDS ORDERED: EPINEPHRINE INJ 1 MG/10 ML DISP.SYRIN ONE (11:20)
[2016-07-02] MEDS: GUAIFENESIN 600 MG TABLET.SA PO SCH ×2 (12:13→23:04)
[2016-07-02] MEDS: MONTELUKAST SODIUM 10 MG TABLET PO SCH (12:14)
[2016-07-02] MEDS: BUMETANIDE INJ/PF 1 MG/4 ML SDV IV SCH (12:14)
[2016-07-02] MEDS: MIDAZOLAM 2 MG/2 ML INJ ONE ×2 (12:53→12:57)
--- NOTE | 2016-07-02 13:26 | Operative Report ---
Operative Report DATE OF SURGERY: 07/02/16 Operative Report: The risks benefits and alternatives of the procedure explained to the patient in detail and informed consent is obtained that GIF Olympus video scope was inserted into the patient's mouth and hypopharynx the esophagus is identified intubated and insufflated the scope was then advanced through the esophagus stomach and duodenum retroflexion maneuver is done the esophagus stomach and first and second portions of the duodenum examined PREOPERATIVE DIAGNOSIS: GI bleeding POSTOPERATIVE DIAGNOSIS: Dieulafoy lesion noted. Status post Endo Clip placement plus ablation to control hemorrhage OPERATION: EGD with ablation. EGD with Endo Clip placement SURGEON: LEONOR GONZALEZ ANESTHESIA: Moderate Sedation - 4 mg of Versed, 25 g of fentanyl. 0.5 mg of glucagon. Conscious sedation monitoring time 30 minutes. TISSUE REMOVED OR ALTERED: None. COMPLICATIONS: None. ESTIMATED BLOOD LOSS: none. INTRAOPERATIVE FINDINGS: As described above. No gastric ulcers noted PROCEDURE: Patient tolerated procedure well. No immediate postprocedure complications are noted. Patient sent back to her room in good condition. If she does rebleed due to her need for anticoagulation she may need transfer to tertiary center for possible embolization. Therapeutic endoscopy is somewhat limited. Hopefully with placement of the Endo Clip plus ablation the lesion will not bleed anymore. Speak with Dr. Dozier.
[2016-07-02] MEDS ORDERED: DILTIAZEM HCL INJ 25 MG/5 ML VIAL IV ONE ×3 (15:38→15:51)
[2016-07-02] MEDS ORDERED: LORAZEPAM INJ 2 MG/1 ML VIAL IV ONE (15:38)
[2016-07-02] MEDS ORDERED: LORAZEPAM INJ 2 MG/1 ML VIAL ONE (15:39)
[2016-07-02] MEDS ORDERED: NORMAL SALINE 250 ML IV ONE (15:40)
[2016-07-02] MEDS ORDERED: DILTIAZEM HCL INJ 25 MG/5 ML VIAL ONE ×2 (15:41→15:54)
[2016-07-02] MEDS ORDERED: DILTIAZEM HCL/D5W 125 ML IV PRN ×2 (15:44→16:01)
[2016-07-02] MEDS ORDERED: DIGOXIN INJ 0.5 MG/2 ML AMPULE ONE (16:08)
[2016-07-02 16:19] LABS: HEMATOCRIT 33.1 % (36.0-47.0); HEMOGLOBIN 10.9 g/dL (12.0-15.5); HGB HCT DIFFERENCE -0.4; MEAN CORPUSCULAR HEMOGLOBIN 30.8 pg (27.0-33.4); MEAN CORPUSCULAR VOLUME 94 fl (80-97); RED BLOOD COUNT 3.54 10^6/uL (3.72-5.28); RED CELL DISTRIBUTION WIDTH 16.8 % (11.5-14.0); WHITE BLOOD COUNT 12.2 10^3/uL (4.0-10.5)
[2016-07-02] MEDS ORDERED: DIGOXIN INJ 0.5 MG/2 ML AMPULE IV ONE (16:30)
[2016-07-02 16:40] LABS: ANION GAP 11 (5-19); BLOOD UREA NITROGEN 23 mg/dL (7-20); CALCIUM 9.4 mg/dL (8.4-10.2); CARBON DIOXIDE 35 mmol/L (22-30); CHLORIDE 101 mmol/L (98-107); CREATININE RESULT 0.94 mg/dL (0.52-1.25); GLUCOSE 172 mg/dL (75-110); POTASSIUM 3.6 mmol/L (3.6-5.0); SODIUM 146.9 mmol/L (137-145)
[2016-07-02] MEDS ORDERED: METOPROLOL TARTRATE PF/INJ 5 MG/5 ML SDV IV ONE ×2 (17:16→17:17)
[2016-07-02] MEDS: INSULIN LISPRO 100 UNIT/ML 3 ML VIAL SUBCUT PRN ×2 (17:54→23:02)
[2016-07-02 19:00] LABS: PROTHROMBIN TIME 17.1 SEC (11.4-15.4)
[2016-07-02] MEDS ORDERED: WARFARIN SODIUM 5 MG TABLET PO SCH (22:00)
[2016-07-02] MEDS: SIMVASTATIN 40 MG TABLET PO SCH (23:04)
--- NOTE | 2016-07-03 00:10 | EKG REPORT ---
SEVERITY:- OTHERWISE NORMAL ECG - SINUS ARRHYTHMIA, RATE 56-74 VENTRICULAR PREMATURE COMPLEX : Confirmed by: Dario Solis MD 03-Jul-2016 00:09:17
[2016-07-03] MEDS: IPRATROPIUM/ALBUTEROL 0.5-2.5 MG/3 ML AMPUL NEB SCH ×4 (02:42→19:52)
[2016-07-03 04:31] LABS: HEMATOCRIT 31.7 % (36.0-47.0); HEMOGLOBIN 10.7 g/dL (12.0-15.5); HGB HCT DIFFERENCE 0.4; MEAN CORPUSCULAR HEMOGLOBIN 31.6 pg (27.0-33.4); MEAN CORPUSCULAR HGB CONC 33.8 g/dL (32.0-36.0); MEAN CORPUSCULAR VOLUME 93 fl (80-97); RED BLOOD COUNT 3.39 10^6/uL (3.72-5.28); RED CELL DISTRIBUTION WIDTH 16.9 % (11.5-14.0); WHITE BLOOD COUNT 8.7 10^3/uL (4.0-10.5)
[2016-07-03 04:39] LABS: PROTHROMBIN TIME 14.8 SEC (11.4-15.4)
[2016-07-03 04:51] LABS: ANION GAP 10 (5-19); BLOOD UREA NITROGEN 21 mg/dL (7-20); CALCIUM 9.1 mg/dL (8.4-10.2); CARBON DIOXIDE 36 mmol/L (22-30); CHLORIDE 100 mmol/L (98-107); CREATININE RESULT 1.01 mg/dL (0.52-1.25); GLUCOSE 149 mg/dL (75-110); SODIUM 145.9 mmol/L (137-145)
[2016-07-03] MEDS: ACETAMINOPHEN 325 MG TABLET PO PRN ×3 (04:51→14:40)
[2016-07-03] MEDS: GUAIFENESIN SYRP 200 MG/10 ML UDC PO PRN ×3 (05:57→14:39)
[2016-07-03] MEDS: INSULIN GLARGINE,HUM.REC.ANLOG 300 UNIT/3 ML INSULN.PEN SUBCUT SCH (05:58)
[2016-07-03] MEDS: BUDESONIDE NEB 0.5 MG/2 ML AMPUL NEB SCH ×2 (08:27→19:52)
[2016-07-03] MEDS: INSULIN LISPRO 100 UNIT/ML 3 ML VIAL SUBCUT PRN ×2 (09:43→23:13)
[2016-07-03] MEDS: AZITHROMYCIN 500 MG in DEXTROSE 5%-WATER 250 ML IV SCH (09:43)
[2016-07-03] MEDS: CEFTRIAXONE 1 GM/D5W RTU 50 ML IV SCH (09:44)
[2016-07-03] MEDS: FERROUS SULFATE 325 MG TABLET PO SCH ×2 (09:44→17:01)
[2016-07-03] MEDS: GUAIFENESIN 600 MG TABLET.SA PO SCH ×2 (09:44→23:00)
[2016-07-03] MEDS: LACTOBACILLUS ACIDOPHILUS 250 MG TAB PO SCH ×2 (09:45→17:01)
[2016-07-03] MEDS: LORAZEPAM 1 MG TABLET PO SCH ×2 (09:45→23:02)
[2016-07-03] MEDS: MONTELUKAST SODIUM 10 MG TABLET PO SCH (09:45)
[2016-07-03] MEDS: BUMETANIDE INJ/PF 1 MG/4 ML SDV IV SCH (09:45)
--- NOTE | 2016-07-03 13:40 | PDOC PROGRESS REPORT ---
Subjective Progress Note for:: 07/03/16 Subjective:: Patient underwent endoscopy yesterday Dr. Gonzalez See operative note "Operative Report DATE OF SURGERY: 07/02/16 Operative Report: The risks benefits and alternatives of the procedure explained to the patient in detail and informed consent is obtained that GIF Olympus video scope was inserted into the patient's mouth and hypopharynx the esophagus is identified intubated and insufflated the scope was then advanced through the esophagus stomach and duodenum retroflexion maneuver is done the esophagus stomach and first and second portions of the duodenum examined PREOPERATIVE DIAGNOSIS: GI bleeding POSTOPERATIVE DIAGNOSIS: Dieulafoy lesion noted. Status post Endo Clip placement plus ablation to control hemorrhage OPERATION: EGD with ablation. EGD with Endo Clip placement SURGEON: LEONOR GONZALEZ ANESTHESIA: Moderate Sedation - 4 mg of Versed, 25 g of fentanyl. 0.5 mg of glucagon. Conscious sedation monitoring time 30 minutes. TISSUE REMOVED OR ALTERED: None. COMPLICATIONS: None. ESTIMATED BLOOD LOSS: none. INTRAOPERATIVE FINDINGS: As described above. No gastric ulcers noted PROCEDURE: Patient tolerated procedure well. No immediate postprocedure complications are noted. Patient sent back to her room in good condition. If she does rebleed due to her need for anticoagulation she may need transfer to tertiary center for possible embolization. Therapeutic endoscopy is somewhat limited. Hopefully with placement of the Endo Clip plus ablation the lesion will not bleed anymore. Speak with Dr. Dozier." Patient was asymptomatic early during the day after procedure In the evening patient went into atrial fibrillation with rapid ventricular rate at the rate 140-160 She was treated with Cardizem IV Cardizem drip ; digoxin 0.25 and Lopressor 5 mg were administered as rate was extremely difficult to control Eventually she stabilized This morning she is in A. fib with controlled ventricular rate 60-70 and is feeling better Anticoagulation was interrupted as patient had acute GI bleed Coumadin was resumed last night Today she has no chest pain no shortness of breath; no cough is still hiking and persistent She is comfortable on a nasal cannula Physical Exam Vital Signs: Temp Pulse Resp BP Pulse Ox 98.6 F 72 20 151/60 H 93 07/03/16 07:34 07/03/16 08:27 07/03/16 08:27 07/03/16 07:34 07/03/16 08:27 Intake & Output 07/02/16 07/03/1617 00:59 00:59 00:59 Intake Total 1617 829 280 Output Total 6262 3725 300 [facility] -0743 -2896 -20 Weight 121.8 kg 121.8 kg 119.5 kg General appearance: PRESENT: mild distress, morbidly obese, other - Chronically ill-looking Head exam: PRESENT: atraumatic, normocephalic Eye exam: PRESENT: conjunctiva pink, EOMI, PERRLA. ABSENT: scleral icterus Neck exam: ABSENT: carotid bruit, JVD, lymphadenopathy, thyromegaly Respiratory exam: PRESENT: decreased breath sounds, tachypnea, wheezes Cardiovascular exam: PRESENT: irregular rhythm, systolic murmur Pulses: PRESENT: normal dorsalis pedis pul Vascular exam: PRESENT: normal capillary refill Extremities exam: PRESENT: full ROM. ABSENT: calf tenderness, clubbing, pedal edema Neurological exam: PRESENT: alert, awake, oriented to person, oriented to place , oriented to time, oriented to situation, CN II-XII grossly intact. ABSENT: motor sensory deficit Results Laboratory Results: 07/03/16 04:03 07/03/16 04:03 07/02/16 07/02/16 07/02/16 07:55 16:10 16:10 WBC 12.2 H RBC 3.54 L Hgb 10.9 L Hct 33.1 L MCV 94 MCH 30.8 MCHC 33.0 RDW 16.8 H Plt Count 145 L Sodium 146.9 H Potassium 3.6 Chloride 101 Carbon Dioxide 35 H Anion Gap 11 BUN 23 H Creatinine 0.94 Est GFR ( Amer) > 60 Est GFR (Non-Af Amer) > 60 Glucose 172 H Calcium 9.4 Blood Type O POSITIVE 07/03/16 07/03/16 04:03 04:03 WBC 8.7 RBC 3.39 L Hgb 10.7 L Hct 31.7 L MCV 93 MCH 31.6 MCHC 33.8 RDW 16.9 H Plt Count 125 L Sodium 145.9 H Potassium 4.0 Chloride 100 Carbon Dioxide 36 H Anion Gap 10 BUN 21 H Creatinine 1.01 Est GFR ( Amer) > 60 Est GFR (Non-Af Amer) 55 L Glucose 149 H Calcium 9.1 Blood Type 06/29/16 06/29/16 06/30/16 22:43 22:43 04:53 Creatine Kinase < 20 L < 20 L CK-MB (CK-2) 0.68 Troponin I 0.052 06/30/16 06/30/16 06/30/16 04:53 10:35 10:35 Creatine Kinase 22 L CK-MB (CK-2) 0.80 0.98 Troponin I 0.033 0.016 06/30/16 06/30/16 07/01/16 21:10 21:10 05:10 Creatine Kinase 27 L 21 L CK-MB (CK-2) 1.14 Troponin I 0.015 07/01/16 07/01/16 07/01/16 05:10 13:10 13:10 Creatine Kinase 30 CK-MB (CK-2) 0.87 1.02 Troponin I 0.019 < 0.012 Impressions: Chest X-Ray 06/29/16 18:30 IMPRESSION: Worsened [id number] interstitial and small airspace markings may indicate pulmonary edema or multifocal pneumonia. Assessment & Plan - Diagnosis (1) COPD exacerbation Is this a current diagnosis for this admission?: Yes (2) Pneumonia Qualifiers: Pneumonia type: due to unspecified organism Laterality: bilateral Lung location: unspecified part of lung Qualified Code(s): J18.9 - Pneumonia, unspecified organism Is this a current diagnosis for this admission?: Yes (3) Morbid obesity with alveolar hypoventilation Is this a current diagnosis for this admission?: Yes (4) Status post left AV valve repair Is this a current diagnosis for this admission?: Yes (5) Anticoagulated Is this a current diagnosis for this admission?: Yes (6) Upper GI bleed Is this a current diagnosis for this admission?: Yes (7) Acute on chronic diastolic CHF (congestive heart failure) Is this a current diagnosis for this admission?: Yes - Time Time Spent with patient: Changed IV antibiotics to doxycycline by mouth Increased Coumadin to 7.5 mg daily at bedtime Continue other medical management Continue diuresis with Bumex Discontinued protonic strip for Protonix IV every 12 Patient may be discharged in 2-3 days if still she remains stable Time Spent with patient: 35 or more minutes
[2016-07-03] MEDS: BENZONATATE 100 MG CAPSULE PO SCH ×2 (14:39→23:19)
[2016-07-03] MEDS ORDERED: DIPHENHYDRAMINE HCL 25 MG CAPSULE ONE (18:46)
[2016-07-03] MEDS: WARFARIN SODIUM 5 MG TABLET PO SCH (22:59)
[2016-07-03] MEDS: DOXYCYCLINE HYCLATE 100 MG TABLET PO SCH (23:00)
[2016-07-03] MEDS: METOPROLOL TARTRATE 25 MG TABLET PO SCH (23:01)
[2016-07-03] MEDS: SIMVASTATIN 40 MG TABLET PO SCH (23:01)
[2016-07-03] MEDS: PANTOPRAZOLE SODIUM 40 MG VIAL IV SCH (23:02)
[2016-07-04] MEDS: IPRATROPIUM/ALBUTEROL 0.5-2.5 MG/3 ML AMPUL NEB SCH ×4 (01:01→23:12)
[2016-07-04 05:17] LABS: ABSOLUTE EOSINOPHILS # (AUTO) 0.7 10^3/uL (0.0-0.6); ABSOLUTE LYMPHOCYTES (AUTO) 0.8 10^3/uL (0.5-4.7); ABSOLUTE MONOCYTES (AUTO) 0.6 10^3/uL (0.1-1.4); ABSOLUTE NEUT (AUTO) 11.7 10^3/uL (1.7-8.2); BASOPHILS % (AUTO) 0.3 % (0-2); EOSINOPHILS % (AUTO) 5.1 % (0-6); HEMATOCRIT 35.1 % (36.0-47.0); HEMOGLOBIN 11.7 g/dL (12.0-15.5); LYMPHOCYTES % (AUTO) 6.1 % (13-45); MEAN CORPUSCULAR HEMOGLOBIN 31.1 pg (27.0-33.4); MEAN CORPUSCULAR HGB CONC 33.3 g/dL (32.0-36.0); MEAN CORPUSCULAR VOLUME 93 fl (80-97); RED BLOOD COUNT 3.76 10^6/uL (3.72-5.28); RED CELL DISTRIBUTION WIDTH 16.7 % (11.5-14.0); SEGMENTED NEUTROPHILS % (AUTO) 84.5 % (42-78); WHITE BLOOD COUNT 13.8 10^3/uL (4.0-10.5)
[2016-07-04] MEDS: BENZONATATE 100 MG CAPSULE PO SCH (05:39)
[2016-07-04 05:40] LABS: ALANINE AMINOTRANSFERASE 35 U/L (9-52); ALBUMIN 3.6 g/dL (3.5-5.0); ALKALINE PHOSPHATASE 64 U/L (38-126); ANION GAP 11 (5-19); ASPARTATE AMINO TRANSFERASE 23 U/L (14-36); BILIRUBIN,DIRECT 0.4 mg/dL (0.0-0.4); BILIRUBIN,TOTAL 1.1 mg/dL (0.2-1.3); BLOOD UREA NITROGEN 18 mg/dL (7-20); CALCIUM 9.2 mg/dL (8.4-10.2); CARBON DIOXIDE 33 mmol/L (22-30); CHLORIDE 100 mmol/L (98-107); CREATININE RESULT 1.03 mg/dL (0.52-1.25); GLUCOSE 168 mg/dL (75-110); POTASSIUM 3.9 mmol/L (3.6-5.0); SODIUM 144.1 mmol/L (137-145); TOTAL PROTEIN 6.7 g/dL (6.3-8.2)
[2016-07-04] MEDS: INSULIN GLARGINE,HUM.REC.ANLOG 300 UNIT/3 ML INSULN.PEN SUBCUT SCH (06:22)
[2016-07-04] MEDS ORDERED: DIPHENHYDRAMINE HCL 50 MG CAPSULE PO PRN (07:49)
[2016-07-04] MEDS: FERROUS SULFATE 325 MG TABLET PO SCH ×2 (08:05→16:54)
[2016-07-04] MEDS: LORAZEPAM 1 MG TABLET PO SCH ×2 (08:06→21:51)
[2016-07-04] MEDS: MONTELUKAST SODIUM 10 MG TABLET PO SCH (08:06)
[2016-07-04] MEDS: METOPROLOL TARTRATE 25 MG TABLET PO SCH ×2 (08:06→21:52)
[2016-07-04] MEDS: GUAIFENESIN 600 MG TABLET.SA PO SCH ×2 (08:06→21:52)
[2016-07-04] MEDS: BUMETANIDE INJ/PF 1 MG/4 ML SDV IV SCH (08:07)
[2016-07-04] MEDS: PANTOPRAZOLE SODIUM 40 MG VIAL IV SCH (08:07)
[2016-07-04] MEDS: DOXYCYCLINE HYCLATE 100 MG TABLET PO SCH (08:08)
[2016-07-04] MEDS: LACTOBACILLUS ACIDOPHILUS 250 MG TAB PO SCH ×2 (08:08→16:54)
[2016-07-04] MEDS: BUDESONIDE NEB 0.5 MG/2 ML AMPUL NEB SCH ×2 (08:35→23:12)
[2016-07-04] MEDS: ACETAMINOPHEN 325 MG TABLET PO PRN ×3 (11:13→23:42)
[2016-07-04] MEDS ORDERED: FAMOTIDINE 20 MG TABLET PO SCH (12:15)
[2016-07-04] MEDS ORDERED: CETIRIZINE 10 MG TABLET PO ONE (12:30)
[2016-07-04] MEDS ORDERED: FAMOTIDINE 20 MG TABLET PO ONE (12:30)
[2016-07-04] MEDS ORDERED: PREDNISONE 20 MG TABLET PO ONE (12:30)
--- NOTE | 2016-07-04 16:08 | PDOC PROGRESS REPORT ---
Subjective Progress Note for:: 07/04/16 Subjective:: Patient is improved clinically her breathing is easier she has no chest pain The GI bleed has resolved H&H is improved Unfortunately PT INR is still not therapeutic patient is allergic to heparin and bridging with Lovenox was not possible Physical Exam Vital Signs: Temp Pulse Resp BP Pulse Ox 97.8 F 83 24 H 135/48 H 95 07/04/16 13:13 07/04/16 14:00 07/04/16 13:13 07/04/16 13:13 07/04/16 13:13 Intake & Output 07/03/16 07/04/16 07/05/16 00:59 00:59 00:59 Intake Total 268 283 4287 Output Total 3725 1000 1800 Balance -2896 -420 -761 Weight 121.8 kg 119.5 kg 119 kg General appearance: PRESENT: no acute distress, well-developed, well-nourished Head exam: PRESENT: atraumatic, normocephalic Eye exam: PRESENT: conjunctiva pink, EOMI, PERRLA. ABSENT: scleral icterus Ear exam: PRESENT: normal external ear exam Mouth exam: PRESENT: moist, tongue midline Neck exam: ABSENT: carotid bruit, JVD, lymphadenopathy, thyromegaly Respiratory exam: PRESENT: decreased breath sounds. ABSENT: rales, rhonchi, wheezes Cardiovascular exam: PRESENT: RRR. ABSENT: diastolic murmur, rubs, systolic murmur Pulses: PRESENT: normal dorsalis pedis pul Vascular exam: PRESENT: normal capillary refill GI/Abdominal exam: PRESENT: normal bowel sounds, soft. ABSENT: distended, guarding, mass, organolmegaly, rebound, tenderness Rectal exam: PRESENT: deferred Extremities exam: PRESENT: full ROM. ABSENT: calf tenderness, clubbing, pedal edema Neurological exam: PRESENT: alert, awake, oriented to person, oriented to place , oriented to time, oriented to situation, CN II-XII grossly intact. ABSENT: motor sensory deficit Psychiatric exam: PRESENT: appropriate affect, normal mood. ABSENT: homicidal ideation, suicidal ideation Skin exam: PRESENT: dry, intact, warm. ABSENT: cyanosis, rash Results Laboratory Results: 07/04/16 04:10 07/04/16 04:10 07/04/16 07/04/16 04:10 04:10 WBC 13.8 H RBC 3.76 Hgb 11.7 L Hct 35.1 L MCV 93 MCH 31.1 MCHC 33.3 RDW 16.7 H Plt Count 154 Seg Neutrophils % 84.5 H Lymphocytes % 6.1 L Monocytes % 4.0 Eosinophils % 5.1 Basophils % 0.3 Absolute Neutrophils 11.7 H Absolute Lymphocytes 0.8 Absolute Monocytes 0.6 Absolute Eosinophils 0.7 H Absolute Basophils 0.0 Sodium 144.1 Potassium 3.9 Chloride 100 Carbon Dioxide 33 H Anion Gap 11 BUN 18 Creatinine 1.03 Est GFR ( Amer) > 60 Est GFR (Non-Af Amer) 54 L Glucose 168 H Calcium 9.2 Total Bilirubin 1.1 AST 23 ALT 35 Alkaline Phosphatase 64 Total Protein 6.7 Albumin 3.6 06/29/16 06/29/16 06/30/16 22:43 22:43 04:53 Creatine Kinase < 20 L < 20 L CK-MB (CK-2) 0.68 Troponin I 0.052 06/30/16 06/30/16 06/30/16 04:53 10:35 10:35 Creatine Kinase 22 L CK-MB (CK-2) 0.80 0.98 Troponin I 0.033 0.016 06/30/16 06/30/16 07/01/16 21:10 21:10 05:10 Creatine Kinase 27 L 21 L CK-MB (CK-2) 1.14 Troponin I 0.015 07/01/16 07/01/16 07/01/16 05:10 13:10 13:10 Creatine Kinase 30 CK-MB (CK-2) 0.87 1.02 Troponin I 0.019 < 0.012 Impressions: Chest X-Ray 07/03/16 12:22 IMPRESSION: Old sternotomy, aortic valve replacement. Stable mild cardiomegaly. No acute infiltrates Assessment & Plan - Diagnosis (1) COPD exacerbation Is this a current diagnosis for this admission?: Yes (2) Pneumonia Qualifiers: Pneumonia type: due to unspecified organism Laterality: bilateral Lung location: unspecified part of lung Qualified Code(s): J18.9 - Pneumonia, unspecified organism Is this a current diagnosis for this admission?: Yes (3) Morbid obesity with alveolar hypoventilation Is this a current diagnosis for this admission?: Yes (4) Status post left AV valve repair Is this a current diagnosis for this admission?: Yes (5) Anticoagulated Is this a current diagnosis for this admission?: YesPlan: Increased Coumadin to 7-1/2 mg daily at bedtime repeat PT/INR in a.m. (6) Upper GI bleed Is this a current diagnosis for this admission?: Yes (7) Acute on chronic diastolic CHF (congestive heart failure) Is this a current diagnosis for this admission?: Yes - Time Time Spent with patient: Patient may be discharged home in a.m. if still stable Time Spent with patient: 15-24 minutes
[2016-07-04] MEDS: DIPHENHYDRAMINE HCL 50 MG CAPSULE PO SCH ×2 (16:54→23:24)
[2016-07-04] MEDS: INSULIN LISPRO 100 UNIT/ML 3 ML VIAL SUBCUT PRN ×2 (16:55→22:38)
[2016-07-04] MEDS: GUAIFENESIN SYRP 200 MG/10 ML UDC PO PRN (18:54)
[2016-07-04] MEDS: WARFARIN SODIUM 5 MG TABLET PO SCH (21:52)
[2016-07-04] MEDS: SIMVASTATIN 40 MG TABLET PO SCH (21:55)
[2016-07-05] MEDS: IPRATROPIUM/ALBUTEROL 0.5-2.5 MG/3 ML AMPUL NEB SCH ×3 (01:00→14:08)
[2016-07-05] MEDS: DIPHENHYDRAMINE HCL 50 MG CAPSULE PO SCH ×2 (05:46→11:19)
[2016-07-05] MEDS: INSULIN GLARGINE,HUM.REC.ANLOG 300 UNIT/3 ML INSULN.PEN SUBCUT SCH (05:47)
[2016-07-05] MEDS: BUDESONIDE NEB 0.5 MG/2 ML AMPUL NEB SCH (08:25)
[2016-07-05] MEDS: INSULIN LISPRO 100 UNIT/ML 3 ML VIAL SUBCUT PRN ×2 (09:29→12:29)
[2016-07-05] MEDS: BUMETANIDE INJ/PF 1 MG/4 ML SDV IV SCH (09:29)
[2016-07-05] MEDS: MONTELUKAST SODIUM 10 MG TABLET PO SCH (09:30)
[2016-07-05] MEDS: FERROUS SULFATE 325 MG TABLET PO SCH (09:30)
[2016-07-05] MEDS: METOPROLOL TARTRATE 25 MG TABLET PO SCH (09:31)
[2016-07-05] MEDS: LORAZEPAM 1 MG TABLET PO SCH (09:31)
[2016-07-05] MEDS: GUAIFENESIN 600 MG TABLET.SA PO SCH (09:32)
[2016-07-05] MEDS: LACTOBACILLUS ACIDOPHILUS 250 MG TAB PO SCH (09:32)
[2016-07-05] MEDS ORDERED: FAMOTIDINE 20 MG TABLET PO SCH (10:00)
[2016-07-05] MEDS ORDERED: PREDNISONE 20 MG TABLET PO SCH (10:00)
[2016-07-05] MEDS ORDERED: CETIRIZINE 10 MG TABLET PO SCH (10:00)
[2016-07-05 11:01] LABS: ABSOLUTE EOSINOPHILS # (AUTO) 0.5 10^3/uL (0.0-0.6); ABSOLUTE LYMPHOCYTES (AUTO) 1.5 10^3/uL (0.5-4.7); ABSOLUTE MONOCYTES (AUTO) 0.7 10^3/uL (0.1-1.4); ABSOLUTE NEUT (AUTO) 13.4 10^3/uL (1.7-8.2); BASOPHILS % (AUTO) 0.2 % (0-2); HEMATOCRIT 35.1 % (36.0-47.0); HEMOGLOBIN 11.6 g/dL (12.0-15.5); HGB HCT DIFFERENCE -0.3; LYMPHOCYTES % (AUTO) 9.4 % (13-45); MEAN CORPUSCULAR HEMOGLOBIN 30.8 pg (27.0-33.4); MEAN CORPUSCULAR HGB CONC 32.9 g/dL (32.0-36.0); MEAN CORPUSCULAR VOLUME 93 fl (80-97); MONOCYTES % (AUTO) 4.4 % (3-13); RED BLOOD COUNT 3.76 10^6/uL (3.72-5.28); WHITE BLOOD COUNT 16.1 10^3/uL (4.0-10.5)
[2016-07-05 11:22] LABS: ANION GAP 13 (5-19); BLOOD UREA NITROGEN 21 mg/dL (7-20); CALCIUM 9.5 mg/dL (8.4-10.2); CARBON DIOXIDE 32 mmol/L (22-30); CHLORIDE 100 mmol/L (98-107); CREATININE RESULT 1.12 mg/dL (0.52-1.25); GLUCOSE 196 mg/dL (75-110); POTASSIUM 4.4 mmol/L (3.6-5.0); SODIUM 144.6 mmol/L (137-145)
[2016-07-05 12:02] LABS: PROTHROMBIN TIME 22.3 SEC (11.4-15.4)
[2016-07-05 13:29] VITALS: BP 135/48
--- NOTE | 2016-07-05 14:20 | PDOC PROGRESS REPORT ---
Subjective Progress Note for:: 07/05/16 Subjective:: Patient underwent upper endoscopy. She had dieulafoy's lesion noted in the second portion of the duodenum. Endoclips were placed. The area was cauterized. She did not have any further bleeding thereafter. She has received no further transfusions over the weekend. Her H&H has been stable. Coumadin is going to be restarted. No nausea and vomiting, she is tolerating a diet. No further bleeding is noted. Physical Exam Vital Signs: Temp Pulse Resp BP Pulse Ox 98.6 F 70 22 H 135/48 H 100 07/05/16 13:08 07/05/16 14:00 07/05/16 13:08 07/05/16 13:08 07/05/16 13:08 Intake & Output 07/04/16 07/05/16 07/06/16 06:59 06:59 06:59 Intake Total 748 1560 593 Output Total 1300 3500 1500 Balance -552 -0020 -907 Weight 119 kg General appearance: PRESENT: no acute distress, well-developed, well-nourished Head exam: PRESENT: atraumatic, normocephalic Eye exam: PRESENT: EOMI, PERRLA. ABSENT: nystagmus, periorbital swelling, scleral icterus Mouth exam: PRESENT: moist Throat exam: ABSENT: tonsillar exudate, tonsillogmegaly Neck exam: ABSENT: meningismus, tenderness, thyromegaly Respiratory exam: PRESENT: clear to auscultation erick, symmetrical, unlabored. ABSENT: tachypnea, wheezes Cardiovascular exam: PRESENT: RRR, +S1, +S2 GI/Abdominal exam: PRESENT: soft. ABSENT: guarding, rebound, rigid, tenderness Extremities exam: ABSENT: joint swelling Musculoskeletal exam: PRESENT: full ROM Neurological exam: PRESENT: oriented to time, oriented to situation, CN II-XII grossly intact Skin exam: PRESENT: normal color. ABSENT: cyanosis, jaundice, mottled, pallor, vesicles Results Laboratory Results: 07/05/16 10:49 07/05/16 10:49 07/05/16 07/05/16 10:49 10:49 WBC 16.1 H RBC 3.76 Hgb 11.6 L Hct 35.1 L MCV 93 MCH 30.8 MCHC 32.9 RDW 17.0 H Plt Count 174 Seg Neutrophils % 83.0 H Lymphocytes % 9.4 L Monocytes % 4.4 Eosinophils % 3.0 Basophils % 0.2 Absolute Neutrophils 13.4 H Absolute Lymphocytes 1.5 Absolute Monocytes 0.7 Absolute Eosinophils 0.5 Absolute Basophils 0.0 Sodium 144.6 Potassium 4.4 Chloride 100 Carbon Dioxide 32 H Anion Gap 13 BUN 21 H Creatinine 1.12 Est GFR ( Amer) 59 L Est GFR (Non-Af Amer) 49 L Glucose 196 H Calcium 9.5 06/29/16 06/29/16 06/30/16 22:43 22:43 04:53 Creatine Kinase < 20 L < 20 L CK-MB (CK-2) 0.68 Troponin I 0.052 06/30/16 06/30/16 06/30/16 04:53 10:35 10:35 Creatine Kinase 22 L CK-MB (CK-2) 0.80 0.98 Troponin I 0.033 0.016 06/30/16 06/30/16 07/01/16 21:10 21:10 05:10 Creatine Kinase 27 L 21 L CK-MB (CK-2) 1.14 Troponin I 0.015 07/01/16 07/01/16 07/01/16 05:10 13:10 13:10 Creatine Kinase 30 CK-MB (CK-2) 0.87 1.02 Troponin I 0.019 < 0.012 Impressions: Chest X-Ray 07/03/16 12:22 IMPRESSION: Old sternotomy, aortic valve replacement. Stable mild cardiomegaly. No acute infiltrates Assessment & Plan - Diagnosis (1) GI bleed Qualifiers: GI bleed type/associated pathology: melena Qualified Code(s): K92.1 - Melena Plan: Secondary to the duodenal dieulafoy lesion. Repeat upper endoscopy had to be performed. No further bleeding is noted. Seems to have resolved. Would restart the Coumadin as discussed with Dr. Dozier. Watch for further bleeding If she does rebleed she may need embolization at a tertiary center. She'll need a PPI. Follow-up upper endoscopy in 6 weeks - Time Time Spent with patient: 15-24 minutes
--- NOTE | 2016-07-05 18:19 | PDOC DISCHARGE SUMMARY ---
General - Admit/Disc Date/PCP Admission Date/Primary Care Provider: 06/29/16 22:20 Discharge Date: 07/05/16 - Discharge Diagnosis (1) COPD exacerbation Is this a current diagnosis for this admission?: YesSummary: Patient initially needed to be on BiPAP on and off During the hospitalization she improved and was oxygenating adequately on nasal cannula Patient does have oxygen at home (2) Pneumonia Is this a current diagnosis for this admission?: YesSummary: Resolved during hospitalization (3) Morbid obesity with alveolar hypoventilation Is this a current diagnosis for this admission?: Yes (4) Status post left AV valve repair Is this a current diagnosis for this admission?: YesSummary: Patient is status post mechanical aortic valve replacement Chronically anticoagulated on Coumadin Anticoagulation had to be held as patient started having upper GI Upon discharge the INR was 1.8 (5) Anticoagulated Is this a current diagnosis for this admission?: YesSummary: Anticoagulation was resumed 2 days prior to discharge Patient to follow-up with primary care the PT/INR injected into days he is (6) Upper GI bleed Is this a current diagnosis for this admission?: YesSummary: Patient had endoscopy and 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 patient did not have any bleeding after the procedure and upon discharge her H& H was stable (7) Acute on chronic diastolic CHF (congestive heart failure) Is this a current diagnosis for this admission?: Yes - Additional Information Resuscitation Status: Full Code Discharge Activity: Activity As Tolerated, Balance Activity w/Rest, Energy Conservation, Slowly Increase Activity Home Medications: Albuterol Sulfate [Ventolin 0.042% Neb 1.25 mg/3 ml Ampul] 1 vial NEB RTQ6HP PRN 06/30/16 Albuterol Sulfate [Ventolin HFA MDI 18 GM] 1 puff IH Q4HP PRN 06/30/16 Alprazolam [Xanax 0.5 mg Tablet] 0.5 mg PO TIDP PRN 06/30/16 Fish Oil/Dha/Epa [Fish Oil 1,200 mg Fish Oil] 2 each PO DAILY 06/30/16 Fluticasone Propionate [Flonase Nasal [place] 50 Mcg/[place] 16 gm] 2 spray NASL DAILY 06/30/16 Fluticasone Propionate [Flovent HFA 220 mcg MDI] 2 puff IH BID 06/30/16 Furosemide [Lasix] 80 mg PO DAILY 06/30/16 Gabapentin [Neurontin 300 mg Capsule] 300 mg PO Q8 06/30/16 Hydrocodone/Acetaminophen [[place] 7.5-325 mg Tablet] 1 tab PO Q6HP PRN 06/30/16 Insulin Aspart [Novolog Flexpen] 15 unit SUBCUT AC 06/30/16 Insulin Glargine,Hum.rec.anlog [[place] Solostar] 60 unit SQ DAILY 06/30/16 Loratadine [Claritin 10 mg Tablet] 10 mg PO DAILY 06/30/16 Montelukast Sodium [Singulair 10 mg Tablet] 10 mg PO QHS 06/30/16 Olopatadine HCl [Pataday] 1 drop OU DAILY 06/30/16 Ranitidine HCl [Zantac] 150 mg PO BID 06/30/16 Simvastatin [Zocor 80 mg Tablet] 80 mg PO QHS 06/30/16 Sitagliptin Phosphate [Januvia] 100 mg PO DAILY 06/30/16 Budesonide [Pulmicort Neb 0.5 mg/2 ml Ampul] 0.5 mg NEB RTQ12 #30 ampul.neb Diphenhydramine HCl [Benadryl 50 mg Capsule] 50 mg PO Q6 PRN #30 capsule Famotidine [Pepcid 20 mg Tablet] 40 mg PO DAILY #20 tablet 07/05/16 Ferrous Sulfate [Feosol 325 mg Tablet] 325 mg PO DAILY #30 tablet 07/05/16 Guaifenesin [Mucinex Sr 600 mg Tablet.sa] 1,200 mg PO Q12 #60 tablet.sa Metoprolol Tartrate [Lopressor 25 mg Tablet] 25 mg PO Q12 #60 tablet 07/05/16 Prednisone [Deltasone 20 mg Tablet] 60 mg PO DAILY #6 tablet 07/05/16 Warfarin Sodium [Coumadin 5 mg Tablet] 5 mg PO QHS #30 tablet 07/05/16 History of Present Illness Patient complains of: Shortness of breath History of Present Illness: YAMILETH RENAE is a 66 year old female with an extensive past medical history of mechanical aortic valve on Coumadin, atrial fibrillation, insulin dependent diabetes, obstructive sleep apnea, COPD, anxiety and morbid obesity with a BMI greater than 50. She had been her usual state of health until approximately 12 hours prior to presentation developing shortness of breath and nonproductive cough prompting her to take a dose of alprazolam. Shortly after noted by family in respiratory distress EMS was called and she was brought to the emergency room for evaluation where she's found to have a PCO2 of greater than 80 and difficulty maintaining arousal, a chest x-ray showing edema versus pneumonia she is placed on BiPAP, empiric antibiotics referred to the hospitalist for admission. Patient is currently a poor historian and unable to provide additional history. Patient was subsequently admitted to [facility] for further care Hospital Course Hospital Course: see above Physical Exam Vital Signs: Temp Pulse Resp BP Pulse Ox 98.6 F 89 20 135/48 H 96 07/05/16 13:08 07/05/16 14:08 07/05/16 14:08 07/05/16 13:08 07/05/16 14:08 Intake & Output 07/04/16 07/05/16 07/06/16 00:59 00:59 00:59 Intake Total 580 1763 838 Output Total 1000 3300 2300 Balance -420 -1537 -1462 Weight 119.5 kg 119 kg General appearance: PRESENT: no acute distress, morbidly obese Head exam: PRESENT: atraumatic, normocephalic Eye exam: PRESENT: conjunctiva pink, EOMI, PERRLA. ABSENT: scleral icterus Ear exam: PRESENT: normal external ear exam Mouth exam: PRESENT: moist, tongue midline Neck exam: ABSENT: carotid bruit, JVD, lymphadenopathy, thyromegaly Respiratory exam: PRESENT: decreased breath sounds. ABSENT: rales, rhonchi, wheezes Cardiovascular exam: PRESENT: RRR. ABSENT: diastolic murmur, rubs, systolic murmur Pulses: PRESENT: normal dorsalis pedis pul Vascular exam: PRESENT: normal capillary refill GI/Abdominal exam: PRESENT: normal bowel sounds, soft. ABSENT: distended, guarding, mass, organolmegaly, rebound, tenderness Rectal exam: PRESENT: deferred Extremities exam: PRESENT: full ROM. ABSENT: calf tenderness, clubbing, pedal edema Neurological exam: PRESENT: alert, awake, oriented to person, oriented to place , oriented to time, oriented to situation, CN II-XII grossly intact. ABSENT: motor sensory deficit Psychiatric exam: PRESENT: appropriate affect, normal mood. ABSENT: homicidal ideation, suicidal ideation Skin exam: PRESENT: dry, intact, warm. ABSENT: cyanosis, rash Results Laboratory Results: 07/05/16 10:49 07/05/16 10:49 07/05/16 07/05/16 10:49 10:49 WBC 16.1 H RBC 3.76 Hgb 11.6 L Hct 35.1 L MCV 93 MCH 30.8 MCHC 32.9 RDW 17.0 H Plt Count 174 Seg Neutrophils % 83.0 H Lymphocytes % 9.4 L Monocytes % 4.4 Eosinophils % 3.0 Basophils % 0.2 Absolute Neutrophils 13.4 H Absolute Lymphocytes 1.5 Absolute Monocytes 0.7 Absolute Eosinophils 0.5 Absolute Basophils 0.0 Sodium 144.6 Potassium 4.4 Chloride 100 Carbon Dioxide 32 H Anion Gap 13 BUN 21 H Creatinine 1.12 Est GFR ( Amer) 59 L Est GFR (Non-Af Amer) 49 L Glucose 196 H Calcium 9.5 06/29/16 06/29/16 06/30/16 22:43 22:43 04:53 Creatine Kinase < 20 L < 20 L CK-MB (CK-2) 0.68 Troponin I 0.052 06/30/16 06/30/16 06/30/16 04:53 10:35 10:35 Creatine Kinase 22 L CK-MB (CK-2) 0.80 0.98 Troponin I 0.033 0.016 06/30/16 06/30/16 07/01/16 21:10 21:10 05:10 Creatine Kinase 27 L 21 L CK-MB (CK-2) 1.14 Troponin I 0.015 07/01/16 07/01/16 07/01/16 05:10 13:10 13:10 Creatine Kinase 30 CK-MB (CK-2) 0.87 1.02 Troponin I 0.019 < 0.012 07/05/16 10:49 07/05/16 10:49 Blood Type O POSITIVE 07/02/16 07:55 MCV 93 fl (80-97) 07/05/16 10:49 MCH 30.8 pg (27.0-33.4) 07/05/16 10:49 MCHC 32.9 g/dL (32.0-36.0) 07/05/16 10:49 RDW 17.0 % (11.5-14.0) H 07/05/16 10:49 Seg Neutrophils % 83.0 % (42-78) H 07/05/16 10:49 Lymphocytes % 9.4 % (13-45) L 07/05/16 10:49 Monocytes % 4.4 % (3-13) 07/05/16 10:49 Eosinophils % 3.0 % (0-6) 07/05/16 10:49 Basophils % 0.2 % (0-2) 07/05/16 10:49 Absolute Neutrophils 13.4 10^3/uL (1.7-8.2) H 07/05/16 10:49 Absolute Lymphocytes 1.5 10^3/uL (0.5-4.7) 07/05/16 10:49 Absolute Monocytes 0.7 10^3/uL (0.1-1.4) 07/05/16 10:49 Absolute Eosinophils 0.5 10^3/uL (0.0-0.6) 07/05/16 10:49 Absolute Basophils 0.0 10^3/uL (0.0-0.2) 07/05/16 10:49 Carbonic Acid 2.18 mmol/L (1.05-1.35) H 06/29/16 21:13 HCO3/H2CO3 Ratio 18:1 06/29/16 21:13 ABG pH 7.35 (7.35-7.45) 06/29/16 21:13 ABG pCO2 72.3 mmHg (35-45) H* 06/29/16 21:13 ABG pO2 mmHg (80-100) 06/29/16 21:13 ABG HCO3 39.3 mmol/L (20-26) H 06/29/16 21:13 ABG O2 Saturation % (94-98) 06/29/16 21:13 ABG Base Excess 11.1 mmol/L 06/29/16 21:13 FiO2 65% 06/29/16 21:13 Chloride 100 mmol/L (98-107) 07/05/16 10:49 Carbon Dioxide 32 mmol/L (22-30) H 07/05/16 10:49 Anion Gap 13 (5-19) 07/05/16 10:49 Est GFR ( Amer) 59 (>60) L 07/05/16 10:49 Est GFR (Non-Af Amer) 49 (>60) L 07/05/16 10:49 Glucose 196 mg/dL (75-110) H 07/05/16 10:49 Calcium 9.5 mg/dL (8.4-10.2) 07/05/16 10:49 Total Bilirubin 1.1 mg/dL (0.2-1.3) 07/04/16 04:10 AST 23 U/L (14-36) 07/04/16 04:10 ALT 35 U/L (9-52) 07/04/16 04:10 Alkaline Phosphatase 64 U/L (38-126) 07/04/16 04:10 Total Protein 6.7 g/dL (6.3-8.2) 07/04/16 04:10 Albumin 3.6 g/dL (3.5-5.0) 07/04/16 04:10 Urine Color YELLOW 06/30/16 06:34 Urine Appearance CLEAR 06/30/16 06:34 Urine pH 5.0 (5.0-9.0) 06/30/16 06:34 Ur Specific [place] 1.009 06/30/16 06:34 Urine Protein 30 mg/dL (NEGATIVE) H 06/30/16 06:34 Urine Glucose (UA) >=500 mg/dL (NEGATIVE) H 06/30/16 06:34 Urine Ketones NEGATIVE mg/dL (NEGATIVE) 06/30/16 06:34 Urine Blood NEGATIVE (NEGATIVE) 06/30/16 06:34 Urine Nitrite NEGATIVE (NEGATIVE) 06/30/16 06:34 Ur Leukocyte Esterase NEGATIVE (NEGATIVE) 06/30/16 06:34 Urine WBC (Auto) 1 /HPF 06/30/16 06:34 Urine RBC (Auto) 0 /HPF 06/30/16 06:34 Stool Occult Blood POSITIVE (NEGATIVE) 07/03/16 14:37 06/29/16 19:44 Blood Blood Culture - Final NO GROWTH IN 5 DAYS 06/29/16 18:30 Blood Blood Culture - Final NO GROWTH IN 5 DAYS 06/29/16 06/29/16 06/29/16 18:30 18:30 22:43 Creatine Kinase < 20 L < 20 L CK-MB (CK-2) 0.61 Troponin I 0.013 NT-Pro-B Natriuret Pep 2660 H 06/29/16 06/30/16 06/30/16 22:43 04:53 04:53 Creatine Kinase < 20 L CK-MB (CK-2) 0.68 0.80 Troponin I 0.052 0.033 NT-Pro-B Natriuret Pep 06/30/16 06/30/16 06/30/16 10:35 10:35 21:10 Creatine Kinase 22 L 27 L CK-MB (CK-2) 0.98 Troponin I 0.016 NT-Pro-B Natriuret Pep 06/30/16 07/01/16 07/01/16 21:10 05:10 05:10 Creatine Kinase 21 L CK-MB (CK-2) 1.14 0.87 Troponin I 0.015 0.019 NT-Pro-B Natriuret Pep 07/01/16 07/01/16 13:10 13:10 Creatine Kinase 30 CK-MB (CK-2) 1.02 Troponin I < 0.012 NT-Pro-B Natriuret Pep Labs- Entire Visit 06/29/16 06/29/16 06/29/16 18:30 18:30 18:30 WBC 17.9 H RBC 3.57 L Hgb 10.9 L Hct 34.0 L MCV 95 MCH 30.6 MCHC 32.2 RDW 17.2 H Plt Count 163 Total Counted Seg Neutrophils % 90.6 H Seg Neuts % (Manual) Band Neutrophils % Lymphocytes % 5.2 L Lymphocytes % (Manual) Monocytes % 3.6 Monocytes % (Manual) Eosinophils % 0.3 Eosinophils % (Manual) Basophils % 0.3 Basophils % (Manual) Absolute Neutrophils 16.2 H Abs Neuts (Manual) Absolute Lymphocytes 0.9 Abs Lymphs (Manual) Absolute Monocytes 0.6 Abs Monocytes (Manual) Absolute Eosinophils 0.1 Absolute Eos (Manual) Absolute Basophils 0.1 Abs Basophils (Manual) Toxic Granulation Platelet Comment Polychromasia Poikilocytosis Anisocytosis Tear Drop Cells Ovalocytes PT INR APTT Carbonic Acid HCO3/H2CO3 Ratio ABG pH ABG pCO2 ABG pO2 ABG HCO3 ABG Total CO2 ABG O2 Saturation ABG Base Excess FiO2 Sodium 145.1 H Potassium 4.6 Chloride 97 L Carbon Dioxide 38 H Anion Gap 10 BUN 19 Creatinine 0.99 Est GFR ( Amer) > 60 Est GFR (Non-Af Amer) 56 L Glucose 246 H POC Glucose Calcium 9.4 Total Bilirubin 0.9 Direct Bilirubin 0.3 Indirect Bilirubin Not Reportable Neonat Total Bilirubin Not Reportable AST 17 ALT 25 Alkaline Phosphatase 75 Creatine Kinase < 20 L CK-MB (CK-2) 0.61 Troponin I 0.013 NT-Pro-B Natriuret Pep 2660 H Total Protein 7.1 Albumin 3.8 Urine Color Urine Appearance Urine pH Ur Specific [place] Urine Protein Urine Glucose (UA) Urine Ketones Urine Blood Urine Nitrite Urine Bilirubin Urine Urobilinogen Ur Leukocyte Esterase Urine WBC (Auto) Urine RBC (Auto) Urine Bacteria (Auto) Squamous Epi Cells Auto Urine Ascorbic Acid Stool Occult Blood Influenza A (Rapid) Influenza B (Rapid) Blood Type 06/29/16 06/29/16 06/29/16 18:30 18:30 21:09 WBC RBC Hgb Hct MCV MCH MCHC RDW Plt Count Total Counted Seg Neutrophils % Seg Neuts % (Manual) Band Neutrophils % Lymphocytes % Lymphocytes % (Manual) Monocytes % Monocytes % (Manual) Eosinophils % Eosinophils % (Manual) Basophils % Basophils % (Manual) Absolute Neutrophils Abs Neuts (Manual) Absolute Lymphocytes Abs Lymphs (Manual) Absolute Monocytes Abs Monocytes (Manual) Absolute Eosinophils Absolute Eos (Manual) Absolute Basophils Abs Basophils (Manual) Toxic Granulation Platelet Comment Polychromasia Poikilocytosis Anisocytosis Tear Drop Cells Ovalocytes PT 32.8 H INR 3.03 APTT 43.9 H Carbonic Acid 2.48 H HCO3/H2CO3 Ratio 15:1 ABG pH 7.28 L ABG pCO2 82.3 H* ABG pO2 181.9 H ABG HCO3 38.0 H ABG Total CO2 40.5 H ABG O2 Saturation 99.0 H ABG Base Excess 8.5 FiO2 70% Sodium Potassium Chloride Carbon Dioxide Anion Gap BUN Creatinine Est GFR ( Amer) Est GFR (Non-Af Amer) Glucose POC Glucose Calcium Total Bilirubin Direct Bilirubin Indirect Bilirubin Neonat Total Bilirubin AST ALT Alkaline Phosphatase Creatine Kinase CK-MB (CK-2) Troponin I NT-Pro-B Natriuret Pep Total Protein Albumin Urine Color YELLOW Urine Appearance CLEAR Urine pH 5.0 Ur Specific [place] 1.009 Urine Protein 30 H Urine Glucose (UA) 150 H Urine Ketones NEGATIVE Urine Blood NEGATIVE Urine Nitrite NEGATIVE Urine Bilirubin NEGATIVE Urine Urobilinogen NEGATIVE Ur Leukocyte Esterase NEGATIVE Urine WBC (Auto) 1 Urine RBC (Auto) 1 Urine Bacteria (Auto) Squamous Epi Cells Auto <1 Urine Ascorbic Acid NEGATIVE Stool Occult Blood Influenza A (Rapid) Influenza B (Rapid) Blood Type 06/29/16 06/29/16 06/29/16 21:13 22:41 22:43 WBC RBC Hgb Hct MCV MCH MCHC RDW Plt Count Total Counted Seg Neutrophils % Seg Neuts % (Manual) Band Neutrophils % Lymphocytes % Lymphocytes % (Manual) Monocytes % Monocytes % (Manual) Eosinophils % Eosinophils % (Manual) Basophils % Basophils % (Manual) Absolute Neutrophils Abs Neuts (Manual) Absolute Lymphocytes Abs Lymphs (Manual) Absolute Monocytes Abs Monocytes (Manual) Absolute Eosinophils Absolute Eos (Manual) Absolute Basophils Abs Basophils (Manual) Toxic Granulation Platelet Comment Polychromasia Poikilocytosis Anisocytosis Tear Drop Cells Ovalocytes PT 33.9 H INR 3.17 APTT Carbonic Acid 2.18 H HCO3/H2CO3 Ratio 18:1 ABG pH 7.35 ABG pCO2 72.3 H* ABG pO2 ABG HCO3 39.3 H ABG Total CO2 41.5 H ABG O2 Saturation ABG Base Excess 11.1 FiO2 65% Sodium Potassium Chloride Carbon Dioxide Anion Gap BUN Creatinine Est GFR ( Amer) Est GFR (Non-Af Amer) Glucose POC Glucose Calcium Total Bilirubin Direct Bilirubin Indirect Bilirubin Neonat Total Bilirubin AST ALT Alkaline Phosphatase Creatine Kinase CK-MB (CK-2) Troponin I NT-Pro-B Natriuret Pep Total Protein Albumin Urine Color Urine Appearance Urine pH Ur Specific [place] Urine Protein Urine Glucose (UA) Urine Ketones Urine Blood Urine Nitrite Urine Bilirubin Urine Urobilinogen Ur Leukocyte Esterase Urine WBC (Auto) Urine RBC (Auto) Urine Bacteria (Auto) Squamous Epi Cells Auto Urine Ascorbic Acid Stool Occult Blood Influenza A (Rapid) NEGATIVE Influenza B (Rapid) POSITIVE Blood Type 06/29/16 06/29/16 06/30/16 22:43 22:43 04:53 WBC RBC Hgb Hct MCV MCH MCHC RDW Plt Count Total Counted Seg Neutrophils % Seg Neuts % (Manual) Band Neutrophils % Lymphocytes % Lymphocytes % (Manual) Monocytes % Monocytes % (Manual) Eosinophils % Eosinophils % (Manual) Basophils % Basophils % (Manual) Absolute Neutrophils Abs Neuts (Manual) Absolute Lymphocytes Abs Lymphs (Manual) Absolute Monocytes Abs Monocytes (Manual) Absolute Eosinophils Absolute Eos (Manual) Absolute Basophils Abs Basophils (Manual) Toxic Granulation Platelet Comment Polychromasia Poikilocytosis Anisocytosis Tear Drop Cells Ovalocytes PT INR APTT Carbonic Acid HCO3/H2CO3 Ratio ABG pH ABG pCO2 ABG pO2 ABG HCO3 ABG Total CO2 ABG O2 Saturation ABG Base Excess FiO2 Sodium 142.0 Potassium 4.5 Chloride 98 Carbon Dioxide 35 H Anion Gap 9 BUN 22 H Creatinine 0.94 Est GFR ( Amer) > 60 Est GFR (Non-Af Amer) > 60 Glucose 344 H POC Glucose Calcium 8.9 Total Bilirubin Direct Bilirubin Indirect Bilirubin Neonat Total Bilirubin AST ALT Alkaline Phosphatase Creatine Kinase < 20 L < 20 L CK-MB (CK-2) 0.68 Troponin I 0.052 NT-Pro-B Natriuret Pep Total Protein Albumin Urine Color Urine Appearance Urine pH Ur Specific [place] Urine Protein Urine Glucose (UA) Urine Ketones Urine Blood Urine Nitrite Urine Bilirubin Urine Urobilinogen Ur Leukocyte Esterase Urine WBC (Auto) Urine RBC (Auto) Urine Bacteria (Auto) Squamous Epi Cells Auto Urine Ascorbic Acid Stool Occult Blood Influenza A (Rapid) Influenza B (Rapid) Blood Type 06/30/16 06/30/16 06/30/16 04:53 04:53 06:34 WBC 9.9 RBC 3.25 L Hgb 10.2 L Hct 30.6 L MCV 94 MCH 31.3 MCHC 33.2 RDW 17.0 H Plt Count 131 L Total Counted 100 Seg Neutrophils % Not Reportable Seg Neuts % (Manual) 95 H Band Neutrophils % 1 L Lymphocytes % Not Reportable Lymphocytes % (Manual) 3 L Monocytes % Not Reportable Monocytes % (Manual) 1 L Eosinophils % Not Reportable Eosinophils % (Manual) 0 Basophils % Not Reportable Basophils % (Manual) 0 Absolute Neutrophils Not Reportable Abs Neuts (Manual) 9.5 H Absolute Lymphocytes Not Reportable Abs Lymphs (Manual) 0.3 L Absolute Monocytes Not Reportable Abs Monocytes (Manual) 0.1 Absolute Eosinophils Not Reportable Absolute Eos (Manual) 0.0 Absolute Basophils Not Reportable Abs Basophils (Manual) 0.0 Toxic Granulation 1+ Platelet Comment DECREASED Polychromasia SLIGHT Poikilocytosis SLIGHT Anisocytosis 1+ Tear Drop Cells SLIGHT Ovalocytes SLIGHT PT INR APTT Carbonic Acid HCO3/H2CO3 Ratio ABG pH ABG pCO2 ABG pO2 ABG HCO3 ABG Total CO2 ABG O2 Saturation ABG Base Excess FiO2 Sodium Potassium Chloride Carbon Dioxide Anion Gap BUN Creatinine Est GFR ( Amer) Est GFR (Non-Af Amer) Glucose POC Glucose Calcium Total Bilirubin Direct Bilirubin Indirect Bilirubin Neonat Total Bilirubin AST ALT Alkaline Phosphatase Creatine Kinase CK-MB (CK-2) 0.80 Troponin I 0.033 NT-Pro-B Natriuret Pep Total Protein Albumin Urine Color YELLOW Urine Appearance CLEAR Urine pH 5.0 Ur Specific [place] 1.009 Urine Protein 30 H Urine Glucose (UA) >=500 H Urine Ketones NEGATIVE Urine Blood NEGATIVE Urine Nitrite NEGATIVE Urine Bilirubin NEGATIVE Urine Urobilinogen NEGATIVE Ur Leukocyte Esterase NEGATIVE Urine WBC (Auto) 1 Urine RBC (Auto) 0 Urine Bacteria (Auto) TRACE Squamous Epi Cells Auto Urine Ascorbic Acid NEGATIVE Stool Occult Blood Influenza A (Rapid) Influenza B (Rapid) Blood Type 06/30/16 06/30/16 06/30/16 08:59 10:35 10:35 WBC RBC Hgb Hct MCV MCH MCHC RDW Plt Count Total Counted Seg Neutrophils % Seg Neuts % (Manual) Band Neutrophils % Lymphocytes % Lymphocytes % (Manual) Monocytes % Monocytes % (Manual) Eosinophils % Eosinophils % (Manual) Basophils % Basophils % (Manual) Absolute Neutrophils Abs Neuts (Manual) Absolute Lymphocytes Abs Lymphs (Manual) Absolute Monocytes Abs Monocytes (Manual) Absolute Eosinophils Absolute Eos (Manual) Absolute Basophils Abs Basophils (Manual) Toxic Granulation Platelet Comment Polychromasia Poikilocytosis Anisocytosis Tear Drop Cells Ovalocytes PT INR APTT Carbonic Acid HCO3/H2CO3 Ratio ABG pH ABG pCO2 ABG pO2 ABG HCO3 ABG Total CO2 ABG O2 Saturation ABG Base Excess FiO2 Sodium Potassium Chloride Carbon Dioxide Anion Gap BUN Creatinine Est GFR ( Amer) Est GFR (Non-Af Amer) Glucose POC Glucose 310 H Calcium Total Bilirubin Direct Bilirubin Indirect Bilirubin Neonat Total Bilirubin AST ALT Alkaline Phosphatase Creatine Kinase 22 L CK-MB (CK-2) 0.98 Troponin I 0.016 NT-Pro-B Natriuret Pep Total Protein Albumin Urine Color Urine Appearance Urine pH Ur Specific [place] Urine Protein Urine Glucose (UA) Urine Ketones Urine Blood Urine Nitrite Urine Bilirubin Urine Urobilinogen Ur Leukocyte Esterase Urine WBC (Auto) Urine RBC (Auto) Urine Bacteria (Auto) Squamous Epi Cells Auto Urine Ascorbic Acid Stool Occult Blood Influenza A (Rapid) Influenza B (Rapid) Blood Type 06/30/16 06/30/1617 11:56 17:46 21:10 WBC RBC Hgb Hct MCV MCH MCHC RDW Plt Count Total Counted Seg Neutrophils % Seg Neuts % (Manual) Band Neutrophils % Lymphocytes % Lymphocytes % (Manual) Monocytes % Monocytes % (Manual) Eosinophils % Eosinophils % (Manual) Basophils % Basophils % (Manual) Absolute Neutrophils Abs Neuts (Manual) Absolute Lymphocytes Abs Lymphs (Manual) Absolute Monocytes Abs Monocytes (Manual) Absolute Eosinophils Absolute Eos (Manual) Absolute Basophils Abs Basophils (Manual) Toxic Granulation Platelet Comment Polychromasia Poikilocytosis Anisocytosis Tear Drop Cells Ovalocytes PT INR APTT Carbonic Acid HCO3/H2CO3 Ratio ABG pH ABG pCO2 ABG pO2 ABG HCO3 ABG Total CO2 ABG O2 Saturation ABG Base Excess FiO2 Sodium Potassium Chloride Carbon Dioxide Anion Gap BUN Creatinine Est GFR ( Amer) Est GFR (Non-Af Amer) Glucose POC Glucose 304 H 271 H Calcium Total Bilirubin Direct Bilirubin Indirect Bilirubin Neonat Total Bilirubin AST ALT Alkaline Phosphatase Creatine Kinase 27 L CK-MB (CK-2) Troponin I NT-Pro-B Natriuret Pep Total Protein Albumin Urine Color Urine Appearance Urine pH Ur Specific [place] Urine Protein Urine Glucose (UA) Urine Ketones Urine Blood Urine Nitrite Urine Bilirubin Urine Urobilinogen Ur Leukocyte Esterase Urine WBC (Auto) Urine RBC (Auto) Urine Bacteria (Auto) Squamous Epi Cells Auto Urine Ascorbic Acid Stool Occult Blood Influenza A (Rapid) Influenza B (Rapid) Blood Type 06/30/16 06/30/16 07/01/16 21:10 21:59 05:10 WBC RBC Hgb Hct MCV MCH MCHC RDW Plt Count Total Counted Seg Neutrophils % Seg Neuts % (Manual) Band Neutrophils % Lymphocytes % Lymphocytes % (Manual) Monocytes % Monocytes % (Manual) Eosinophils % Eosinophils % (Manual) Basophils % Basophils % (Manual) Absolute Neutrophils Abs Neuts (Manual) Absolute Lymphocytes Abs Lymphs (Manual) Absolute Monocytes Abs Monocytes (Manual) Absolute Eosinophils Absolute Eos (Manual) Absolute Basophils Abs Basophils (Manual) Toxic Granulation Platelet Comment Polychromasia Poikilocytosis Anisocytosis Tear Drop Cells Ovalocytes PT 34.3 H INR 3.21 APTT Carbonic Acid HCO3/H2CO3 Ratio ABG pH ABG pCO2 ABG pO2 ABG HCO3 ABG Total CO2 ABG O2 Saturation ABG Base Excess FiO2 Sodium Potassium Chloride Carbon Dioxide Anion Gap BUN Creatinine Est GFR ( Amer) Est GFR (Non-Af Amer) Glucose POC Glucose 258 H Calcium Total Bilirubin Direct Bilirubin Indirect Bilirubin Neonat Total Bilirubin AST ALT Alkaline Phosphatase Creatine Kinase CK-MB (CK-2) 1.14 Troponin I 0.015 NT-Pro-B Natriuret Pep Total Protein Albumin Urine Color Urine Appearance Urine pH Ur Specific [place] Urine Protein Urine Glucose (UA) Urine Ketones Urine Blood Urine Nitrite Urine Bilirubin Urine Urobilinogen Ur Leukocyte Esterase Urine WBC (Auto) Urine RBC (Auto) Urine Bacteria (Auto) Squamous Epi Cells Auto Urine Ascorbic Acid Stool Occult Blood Influenza A (Rapid) Influenza B (Rapid) Blood Type 07/01/16 07/01/16 07/01/16 05:10 05:10 05:30 WBC RBC Hgb Hct MCV MCH MCHC RDW Plt Count Total Counted Seg Neutrophils % Seg Neuts % (Manual) Band Neutrophils % Lymphocytes % Lymphocytes % (Manual) Monocytes % Monocytes % (Manual) Eosinophils % Eosinophils % (Manual) Basophils % Basophils % (Manual) Absolute Neutrophils Abs Neuts (Manual) Absolute Lymphocytes Abs Lymphs (Manual) Absolute Monocytes Abs Monocytes (Manual) Absolute Eosinophils Absolute Eos (Manual) Absolute Basophils Abs Basophils (Manual) Toxic Granulation Platelet Comment Polychromasia Poikilocytosis Anisocytosis Tear Drop Cells Ovalocytes PT INR APTT Carbonic Acid HCO3/H2CO3 Ratio ABG pH ABG pCO2 ABG pO2 ABG HCO3 ABG Total CO2 ABG O2 Saturation ABG Base Excess FiO2 Sodium Potassium Chloride Carbon Dioxide Anion Gap BUN Creatinine Est GFR ( Amer) Est GFR (Non-Af Amer) Glucose POC Glucose 190 H Calcium Total Bilirubin Direct Bilirubin Indirect Bilirubin Neonat Total Bilirubin AST ALT Alkaline Phosphatase Creatine Kinase 21 L CK-MB (CK-2) 0.87 Troponin I 0.019 NT-Pro-B Natriuret Pep Total Protein Albumin Urine Color Urine Appearance Urine pH Ur Specific [place] Urine Protein Urine Glucose (UA) Urine Ketones Urine Blood Urine Nitrite Urine Bilirubin Urine Urobilinogen Ur Leukocyte Esterase Urine WBC (Auto) Urine RBC (Auto) Urine Bacteria (Auto) Squamous Epi Cells Auto Urine Ascorbic Acid Stool Occult Blood Influenza A (Rapid) Influenza B (Rapid) Blood Type 07/01/16 07/01/16 07/01/16 11:30 11:39 13:10 WBC RBC Hgb Hct MCV MCH MCHC RDW Plt Count Total Counted Seg Neutrophils % Seg Neuts % (Manual) Band Neutrophils % Lymphocytes % Lymphocytes % (Manual) Monocytes % Monocytes % (Manual) Eosinophils % Eosinophils % (Manual) Basophils % Basophils % (Manual) Absolute Neutrophils Abs Neuts (Manual) Absolute Lymphocytes Abs Lymphs (Manual) Absolute Monocytes Abs Monocytes (Manual) Absolute Eosinophils Absolute Eos (Manual) Absolute Basophils Abs Basophils (Manual) Toxic Granulation Platelet Comment Polychromasia Poikilocytosis Anisocytosis Tear Drop Cells Ovalocytes PT INR APTT Carbonic Acid HCO3/H2CO3 Ratio ABG pH ABG pCO2 ABG pO2 ABG HCO3 ABG Total CO2 ABG O2 Saturation ABG Base Excess FiO2 Sodium Potassium Chloride Carbon Dioxide Anion Gap BUN Creatinine Est GFR ( Amer) Est GFR (Non-Af Amer) Glucose POC Glucose 230 H Calcium Total Bilirubin Direct Bilirubin Indirect Bilirubin Neonat Total Bilirubin AST ALT Alkaline Phosphatase Creatine Kinase 30 CK-MB (CK-2) Troponin I NT-Pro-B Natriuret Pep Total Protein Albumin Urine Color Urine Appearance Urine pH Ur Specific [place] Urine Protein Urine Glucose (UA) Urine Ketones Urine Blood Urine Nitrite Urine Bilirubin Urine Urobilinogen Ur Leukocyte Esterase Urine WBC (Auto) Urine RBC (Auto) Urine Bacteria (Auto) Squamous Epi Cells Auto Urine Ascorbic Acid Stool Occult Blood POSITIVE Influenza A (Rapid) Influenza B (Rapid) Blood Type 07/01/16 07/01/16 07/01/16 13:10 17:38 21:42 WBC RBC Hgb Hct MCV MCH MCHC RDW Plt Count Total Counted Seg Neutrophils % Seg Neuts % (Manual) Band Neutrophils % Lymphocytes % Lymphocytes % (Manual) Monocytes % Monocytes % (Manual) Eosinophils % Eosinophils % (Manual) Basophils % Basophils % (Manual) Absolute Neutrophils Abs Neuts (Manual) Absolute Lymphocytes Abs Lymphs (Manual) Absolute Monocytes Abs Monocytes (Manual) Absolute Eosinophils Absolute Eos (Manual) Absolute Basophils Abs Basophils (Manual) Toxic Granulation Platelet Comment Polychromasia Poikilocytosis Anisocytosis Tear Drop Cells Ovalocytes PT INR APTT Carbonic Acid HCO3/H2CO3 Ratio ABG pH ABG pCO2 ABG pO2 ABG HCO3 ABG Total CO2 ABG O2 Saturation ABG Base Excess FiO2 Sodium Potassium Chloride Carbon Dioxide Anion Gap BUN Creatinine Est GFR ( Amer) Est GFR (Non-Af Amer) Glucose POC Glucose 165 H 251 H Calcium Total Bilirubin Direct Bilirubin Indirect Bilirubin Neonat Total Bilirubin AST ALT Alkaline Phosphatase Creatine Kinase CK-MB (CK-2) 1.02 Troponin I < 0.012 NT-Pro-B Natriuret Pep Total Protein Albumin Urine Color Urine Appearance Urine pH Ur Specific [place] Urine Protein Urine Glucose (UA) Urine Ketones Urine Blood Urine Nitrite Urine Bilirubin Urine Urobilinogen Ur Leukocyte Esterase Urine WBC (Auto) Urine RBC (Auto) Urine Bacteria (Auto) Squamous Epi Cells Auto Urine Ascorbic Acid Stool Occult Blood Influenza A (Rapid) Influenza B (Rapid) Blood Type 07/02/16 07/02/16 07/02/16 05:07 06:21 07:55 WBC 10.0 RBC 3.36 L Hgb 10.4 L Hct 31.5 L MCV 94 MCH 31.0 MCHC 33.0 RDW 17.0 H Plt Count 132 L Total Counted Seg Neutrophils % Seg Neuts % (Manual) Band Neutrophils % Lymphocytes % Lymphocytes % (Manual) Monocytes % Monocytes % (Manual) Eosinophils % Eosinophils % (Manual) Basophils % Basophils % (Manual) Absolute Neutrophils Abs Neuts (Manual) Absolute Lymphocytes Abs Lymphs (Manual) Absolute Monocytes Abs Monocytes (Manual) Absolute Eosinophils Absolute Eos (Manual) Absolute Basophils Abs Basophils (Manual) Toxic Granulation Platelet Comment Polychromasia Poikilocytosis Anisocytosis Tear Drop Cells Ovalocytes PT 26.9 H INR 2.37 APTT Carbonic Acid HCO3/H2CO3 Ratio ABG pH ABG pCO2 ABG pO2 ABG HCO3 ABG Total CO2 ABG O2 Saturation ABG Base Excess FiO2 Sodium Potassium Chloride Carbon Dioxide Anion Gap BUN Creatinine Est GFR ( Amer) Est GFR (Non-Af Amer) Glucose POC Glucose 166 H Calcium Total Bilirubin Direct Bilirubin Indirect Bilirubin Neonat Total Bilirubin AST ALT Alkaline Phosphatase Creatine Kinase CK-MB (CK-2) Troponin I NT-Pro-B Natriuret Pep Total Protein Albumin Urine Color Urine Appearance Urine pH Ur Specific [place] Urine Protein Urine Glucose (UA) Urine Ketones Urine Blood Urine Nitrite Urine Bilirubin Urine Urobilinogen Ur Leukocyte Esterase Urine WBC (Auto) Urine RBC (Auto) Urine Bacteria (Auto) Squamous Epi Cells Auto Urine Ascorbic Acid Stool Occult Blood Influenza A (Rapid) Influenza B (Rapid) Blood Type 07/02/16 07/02/16 07/02/16 07:55 11:16 16:10 WBC 12.2 H RBC 3.54 L Hgb 10.9 L Hct 33.1 L MCV 94 MCH 30.8 MCHC 33.0 RDW 16.8 H Plt Count 145 L Total Counted Seg Neutrophils % Seg Neuts % (Manual) Band Neutrophils % Lymphocytes % Lymphocytes % (Manual) Monocytes % Monocytes % (Manual) Eosinophils % Eosinophils % (Manual) Basophils % Basophils % (Manual) Absolute Neutrophils Abs Neuts (Manual) Absolute Lymphocytes Abs Lymphs (Manual) Absolute Monocytes Abs Monocytes (Manual) Absolute Eosinophils Absolute Eos (Manual) Absolute Basophils Abs Basophils (Manual) Toxic Granulation Platelet Comment Polychromasia Poikilocytosis Anisocytosis Tear Drop Cells Ovalocytes PT INR APTT Carbonic Acid HCO3/H2CO3 Ratio ABG pH ABG pCO2 ABG pO2 ABG HCO3 ABG Total CO2 ABG O2 Saturation ABG Base Excess FiO2 Sodium Potassium Chloride Carbon Dioxide Anion Gap BUN Creatinine Est GFR ( Amer) Est GFR (Non-Af Amer) Glucose POC Glucose 179 H Calcium Total Bilirubin Direct Bilirubin Indirect Bilirubin Neonat Total Bilirubin AST ALT Alkaline Phosphatase Creatine Kinase CK-MB (CK-2) Troponin I NT-Pro-B Natriuret Pep Total Protein Albumin Urine Color Urine Appearance Urine pH Ur Specific [place] Urine Protein Urine Glucose (UA) Urine Ketones Urine Blood Urine Nitrite Urine Bilirubin Urine Urobilinogen Ur Leukocyte Esterase Urine WBC (Auto) Urine RBC (Auto) Urine Bacteria (Auto) Squamous Epi Cells Auto Urine Ascorbic Acid Stool Occult Blood Influenza A (Rapid) Influenza B (Rapid) Blood Type O POSITIVE 07/02/16 07/02/16 07/02/16 16:10 16:57 18:40 WBC RBC Hgb Hct MCV MCH MCHC RDW Plt Count Total Counted Seg Neutrophils % Seg Neuts % (Manual) Band Neutrophils % Lymphocytes % Lymphocytes % (Manual) Monocytes % Monocytes % (Manual) Eosinophils % Eosinophils % (Manual) Basophils % Basophils % (Manual) Absolute Neutrophils Abs Neuts (Manual) Absolute Lymphocytes Abs Lymphs (Manual) Absolute Monocytes Abs Monocytes (Manual) Absolute Eosinophils Absolute Eos (Manual) Absolute Basophils Abs Basophils (Manual) Toxic Granulation Platelet Comment Polychromasia Poikilocytosis Anisocytosis Tear Drop Cells Ovalocytes PT 17.1 H INR 1.35 APTT Carbonic Acid HCO3/H2CO3 Ratio ABG pH ABG pCO2 ABG pO2 ABG HCO3 ABG Total CO2 ABG O2 Saturation ABG Base Excess FiO2 Sodium 146.9 H Potassium 3.6 Chloride 101 Carbon Dioxide 35 H Anion Gap 11 BUN 23 H Creatinine 0.94 Est GFR ( Amer) > 60 Est GFR (Non-Af Amer) > 60 Glucose 172 H POC Glucose 200 H Calcium 9.4 Total Bilirubin Direct Bilirubin Indirect Bilirubin Neonat Total Bilirubin AST ALT Alkaline Phosphatase Creatine Kinase CK-MB (CK-2) Troponin I NT-Pro-B Natriuret Pep Total Protein Albumin Urine Color Urine Appearance Urine pH Ur Specific [place] Urine Protein Urine Glucose (UA) Urine Ketones Urine Blood Urine Nitrite Urine Bilirubin Urine Urobilinogen Ur Leukocyte Esterase Urine WBC (Auto) Urine RBC (Auto) Urine Bacteria (Auto) Squamous Epi Cells Auto Urine Ascorbic Acid Stool Occult Blood Influenza A (Rapid) Influenza B (Rapid) Blood Type 07/02/16 07/03/16 07/03/16 22:24 04:03 04:03 WBC 8.7 RBC 3.39 L Hgb 10.7 L Hct 31.7 L MCV 93 MCH 31.6 MCHC 33.8 RDW 16.9 H Plt Count 125 L Total Counted Seg Neutrophils % Seg Neuts % (Manual) Band Neutrophils % Lymphocytes % Lymphocytes % (Manual) Monocytes % Monocytes % (Manual) Eosinophils % Eosinophils % (Manual) Basophils % Basophils % (Manual) Absolute Neutrophils Abs Neuts (Manual) Absolute Lymphocytes Abs Lymphs (Manual) Absolute Monocytes Abs Monocytes (Manual) Absolute Eosinophils Absolute Eos (Manual) Absolute Basophils Abs Basophils (Manual) Toxic Granulation Platelet Comment Polychromasia Poikilocytosis Anisocytosis Tear Drop Cells Ovalocytes PT 14.8 INR 1.12 APTT Carbonic Acid HCO3/H2CO3 Ratio ABG pH ABG pCO2 ABG pO2 ABG HCO3 ABG Total CO2 ABG O2 Saturation ABG Base Excess FiO2 Sodium Potassium Chloride Carbon Dioxide Anion Gap BUN Creatinine Est GFR ( Amer) Est GFR (Non-Af Amer) Glucose POC Glucose 175 H Calcium Total Bilirubin Direct Bilirubin Indirect Bilirubin Neonat Total Bilirubin AST ALT Alkaline Phosphatase Creatine Kinase CK-MB (CK-2) Troponin I NT-Pro-B Natriuret Pep Total Protein Albumin Urine Color Urine Appearance Urine pH Ur Specific [place] Urine Protein Urine Glucose (UA) Urine Ketones Urine Blood Urine Nitrite Urine Bilirubin Urine Urobilinogen Ur Leukocyte Esterase Urine WBC (Auto) Urine RBC (Auto) Urine Bacteria (Auto) Squamous Epi Cells Auto Urine Ascorbic Acid Stool Occult Blood Influenza A (Rapid) Influenza B (Rapid) Blood Type 07/03/16 07/03/16 07/03/16 04:03 05:39 14:37 WBC RBC Hgb Hct MCV MCH MCHC RDW Plt Count Total Counted Seg Neutrophils % Seg Neuts % (Manual) Band Neutrophils % Lymphocytes % Lymphocytes % (Manual) Monocytes % Monocytes % (Manual) Eosinophils % Eosinophils % (Manual) Basophils % Basophils % (Manual) Absolute Neutrophils Abs Neuts (Manual) Absolute Lymphocytes Abs Lymphs (Manual) Absolute Monocytes Abs Monocytes (Manual) Absolute Eosinophils Absolute Eos (Manual) Absolute Basophils Abs Basophils (Manual) Toxic Granulation Platelet Comment Polychromasia Poikilocytosis Anisocytosis Tear Drop Cells Ovalocytes PT INR APTT Carbonic Acid HCO3/H2CO3 Ratio ABG pH ABG pCO2 ABG pO2 ABG HCO3 ABG Total CO2 ABG O2 Saturation ABG Base Excess FiO2 Sodium 145.9 H Potassium 4.0 Chloride 100 Carbon Dioxide 36 H Anion Gap 10 BUN 21 H Creatinine 1.01 Est GFR ( Amer) > 60 Est GFR (Non-Af Amer) 55 L Glucose 149 H POC Glucose 171 H Calcium 9.1 Total Bilirubin Direct Bilirubin Indirect Bilirubin Neonat Total Bilirubin AST ALT Alkaline Phosphatase Creatine Kinase CK-MB (CK-2) Troponin I NT-Pro-B Natriuret Pep Total Protein Albumin Urine Color Urine Appearance Urine pH Ur Specific [place] Urine Protein Urine Glucose (UA) Urine Ketones Urine Blood Urine Nitrite Urine Bilirubin Urine Urobilinogen Ur Leukocyte Esterase Urine WBC (Auto) Urine RBC (Auto) Urine Bacteria (Auto) Squamous Epi Cells Auto Urine Ascorbic Acid Stool Occult Blood POSITIVE Influenza A (Rapid) Influenza B (Rapid) Blood Type 07/03/16 07/03/16 07/04/16 17:01 22:53 04:10 WBC 13.8 H RBC 3.76 Hgb 11.7 L Hct 35.1 L MCV 93 MCH 31.1 MCHC 33.3 RDW 16.7 H Plt Count 154 Total Counted Seg Neutrophils % 84.5 H Seg Neuts % (Manual) Band Neutrophils % Lymphocytes % 6.1 L Lymphocytes % (Manual) Monocytes % 4.0 Monocytes % (Manual) Eosinophils % 5.1 Eosinophils % (Manual) Basophils % 0.3 Basophils % (Manual) Absolute Neutrophils 11.7 H Abs Neuts (Manual) Absolute Lymphocytes 0.8 Abs Lymphs (Manual) Absolute Monocytes 0.6 Abs Monocytes (Manual) Absolute Eosinophils 0.7 H Absolute Eos (Manual) Absolute Basophils 0.0 Abs Basophils (Manual) Toxic Granulation Platelet Comment Polychromasia Poikilocytosis Anisocytosis Tear Drop Cells Ovalocytes PT INR APTT Carbonic Acid HCO3/H2CO3 Ratio ABG pH ABG pCO2 ABG pO2 ABG HCO3 ABG Total CO2 ABG O2 Saturation ABG Base Excess FiO2 Sodium Potassium Chloride Carbon Dioxide Anion Gap BUN Creatinine Est GFR ( Amer) Est GFR (Non-Af Amer) Glucose POC Glucose 155 H 177 H Calcium Total Bilirubin Direct Bilirubin Indirect Bilirubin Neonat Total Bilirubin AST ALT Alkaline Phosphatase Creatine Kinase CK-MB (CK-2) Troponin I NT-Pro-B Natriuret Pep Total Protein Albumin Urine Color Urine Appearance Urine pH Ur Specific [place] Urine Protein Urine Glucose (UA) Urine Ketones Urine Blood Urine Nitrite Urine Bilirubin Urine Urobilinogen Ur Leukocyte Esterase Urine WBC (Auto) Urine RBC (Auto) Urine Bacteria (Auto) Squamous Epi Cells Auto Urine Ascorbic Acid Stool Occult Blood Influenza A (Rapid) Influenza B (Rapid) Blood Type 07/04/16 07/04/16 07/04/16 04:10 06:18 11:48 WBC RBC Hgb Hct MCV MCH MCHC RDW Plt Count Total Counted Seg Neutrophils % Seg Neuts % (Manual) Band Neutrophils % Lymphocytes % Lymphocytes % (Manual) Monocytes % Monocytes % (Manual) Eosinophils % Eosinophils % (Manual) Basophils % Basophils % (Manual) Absolute Neutrophils Abs Neuts (Manual) Absolute Lymphocytes Abs Lymphs (Manual) Absolute Monocytes Abs Monocytes (Manual) Absolute Eosinophils Absolute Eos (Manual) Absolute Basophils Abs Basophils (Manual) Toxic Granulation Platelet Comment Polychromasia Poikilocytosis Anisocytosis Tear Drop Cells Ovalocytes PT INR APTT Carbonic Acid HCO3/H2CO3 Ratio ABG pH ABG pCO2 ABG pO2 ABG HCO3 ABG Total CO2 ABG O2 Saturation ABG Base Excess FiO2 Sodium 144.1 Potassium 3.9 Chloride 100 Carbon Dioxide 33 H Anion Gap 11 BUN 18 Creatinine 1.03 Est GFR ( Amer) > 60 Est GFR (Non-Af Amer) 54 L Glucose 168 H POC Glucose 176 H 201 H Calcium 9.2 Total Bilirubin 1.1 Direct Bilirubin 0.4 Indirect Bilirubin Not Reportable Neonat Total Bilirubin Not Reportable AST 23 ALT 35 Alkaline Phosphatase 64 Creatine Kinase CK-MB (CK-2) Troponin I NT-Pro-B Natriuret Pep Total Protein 6.7 Albumin 3.6 Urine Color Urine Appearance Urine pH Ur Specific [place] Urine Protein Urine Glucose (UA) Urine Ketones Urine Blood Urine Nitrite Urine Bilirubin Urine Urobilinogen Ur Leukocyte Esterase Urine WBC (Auto) Urine RBC (Auto) Urine Bacteria (Auto) Squamous Epi Cells Auto Urine Ascorbic Acid Stool Occult Blood Influenza A (Rapid) Influenza B (Rapid) Blood Type 07/04/16 07/04/16 07/04/16 12:25 16:28 22:19 WBC RBC Hgb Hct MCV MCH MCHC RDW Plt Count Total Counted Seg Neutrophils % Seg Neuts % (Manual) Band Neutrophils % Lymphocytes % Lymphocytes % (Manual) Monocytes % Monocytes % (Manual) Eosinophils % Eosinophils % (Manual) Basophils % Basophils % (Manual) Absolute Neutrophils Abs Neuts (Manual) Absolute Lymphocytes Abs Lymphs (Manual) Absolute Monocytes Abs Monocytes (Manual) Absolute Eosinophils Absolute Eos (Manual) Absolute Basophils Abs Basophils (Manual) Toxic Granulation Platelet Comment Polychromasia Poikilocytosis Anisocytosis Tear Drop Cells Ovalocytes PT 17.0 H INR 1.34 APTT Carbonic Acid HCO3/H2CO3 Ratio ABG pH ABG pCO2 ABG pO2 ABG HCO3 ABG Total CO2 ABG O2 Saturation ABG Base Excess FiO2 Sodium Potassium Chloride Carbon Dioxide Anion Gap BUN Creatinine Est GFR ( Amer) Est GFR (Non-Af Amer) Glucose POC Glucose 226 H 346 H Calcium Total Bilirubin Direct Bilirubin Indirect Bilirubin Neonat Total Bilirubin AST ALT Alkaline Phosphatase Creatine Kinase CK-MB (CK-2) Troponin I NT-Pro-B Natriuret Pep Total Protein Albumin Urine Color Urine Appearance Urine pH Ur Specific [place] Urine Protein Urine Glucose (UA) Urine Ketones Urine Blood Urine Nitrite Urine Bilirubin Urine Urobilinogen Ur Leukocyte Esterase Urine WBC (Auto) Urine RBC (Auto) Urine Bacteria (Auto) Squamous Epi Cells Auto Urine Ascorbic Acid Stool Occult Blood Influenza A (Rapid) Influenza B (Rapid) Blood Type 07/05/16 07/05/16 07/05/16 05:37 10:49 10:49 WBC 16.1 H RBC 3.76 Hgb 11.6 L Hct 35.1 L MCV 93 MCH 30.8 MCHC 32.9 RDW 17.0 H Plt Count 174 Total Counted Seg Neutrophils % 83.0 H Seg Neuts % (Manual) Band Neutrophils % Lymphocytes % 9.4 L Lymphocytes % (Manual) Monocytes % 4.4 Monocytes % (Manual) Eosinophils % 3.0 Eosinophils % (Manual) Basophils % 0.2 Basophils % (Manual) Absolute Neutrophils 13.4 H Abs Neuts (Manual) Absolute Lymphocytes 1.5 Abs Lymphs (Manual) Absolute Monocytes 0.7 Abs Monocytes (Manual) Absolute Eosinophils 0.5 Absolute Eos (Manual) Absolute Basophils 0.0 Abs Basophils (Manual) Toxic Granulation Platelet Comment Polychromasia Poikilocytosis Anisocytosis Tear Drop Cells Ovalocytes PT 22.3 H INR 1.87 APTT Carbonic Acid HCO3/H2CO3 Ratio ABG pH ABG pCO2 ABG pO2 ABG HCO3 ABG Total CO2 ABG O2 Saturation ABG Base Excess FiO2 Sodium Potassium Chloride Carbon Dioxide Anion Gap BUN Creatinine Est GFR ( Amer) Est GFR (Non-Af Amer) Glucose POC Glucose 256 H Calcium Total Bilirubin Direct Bilirubin Indirect Bilirubin Neonat Total Bilirubin AST ALT Alkaline Phosphatase Creatine Kinase CK-MB (CK-2) Troponin I NT-Pro-B Natriuret Pep Total Protein Albumin Urine Color Urine Appearance Urine pH Ur Specific [place] Urine Protein Urine Glucose (UA) Urine Ketones Urine Blood Urine Nitrite Urine Bilirubin Urine Urobilinogen Ur Leukocyte Esterase Urine WBC (Auto) Urine RBC (Auto) Urine Bacteria (Auto) Squamous Epi Cells Auto Urine Ascorbic Acid Stool Occult Blood Influenza A (Rapid) Influenza B (Rapid) Blood Type 07/05/16 07/05/16 10:49 11:43 WBC RBC Hgb Hct MCV MCH MCHC RDW Plt Count Total Counted Seg Neutrophils % Seg Neuts % (Manual) Band Neutrophils % Lymphocytes % Lymphocytes % (Manual) Monocytes % Monocytes % (Manual) Eosinophils % Eosinophils % (Manual) Basophils % Basophils % (Manual) Absolute Neutrophils Abs Neuts (Manual) Absolute Lymphocytes Abs Lymphs (Manual) Absolute Monocytes Abs Monocytes (Manual) Absolute Eosinophils Absolute Eos (Manual) Absolute Basophils Abs Basophils (Manual) Toxic Granulation Platelet Comment Polychromasia Poikilocytosis Anisocytosis Tear Drop Cells Ovalocytes PT INR APTT Carbonic Acid HCO3/H2CO3 Ratio ABG pH ABG pCO2 ABG pO2 ABG HCO3 ABG Total CO2 ABG O2 Saturation ABG Base Excess FiO2 Sodium 144.6 Potassium 4.4 Chloride 100 Carbon Dioxide 32 H Anion Gap 13 BUN 21 H Creatinine 1.12 Est GFR ( Amer) 59 L Est GFR (Non-Af Amer) 49 L Glucose 196 H POC Glucose 202 H Calcium 9.5 Total Bilirubin Direct Bilirubin Indirect Bilirubin Neonat Total Bilirubin AST ALT Alkaline Phosphatase Creatine Kinase CK-MB (CK-2) Troponin I NT-Pro-B Natriuret Pep Total Protein Albumin Urine Color Urine Appearance Urine pH Ur Specific [place] Urine Protein Urine Glucose (UA) Urine Ketones Urine Blood Urine Nitrite Urine Bilirubin Urine Urobilinogen Ur Leukocyte Esterase Urine WBC (Auto) Urine RBC (Auto) Urine Bacteria (Auto) Squamous Epi Cells Auto Urine Ascorbic Acid Stool Occult Blood Influenza A (Rapid) Influenza B (Rapid) Blood Type Impressions: Chest X-Ray 07/03/16 12:22 IMPRESSION: Old sternotomy, aortic valve replacement. Stable mild cardiomegaly. No acute infiltrates Plan Discharge Plan: follow up with PMD PT/INR in 48H Time Spent: Greater than 30 Minutes
== END 2016-07-05 15:30 | disposition home health service (06) | DRG 190 ==
LOC: ER 18:26 → EH 22:20 → UNDOADMIN 22:24 → 3N 06-30 16:45
PROVIDERS: ADMIT Internal Medicine; ATTEND Internal Medicine
PROC: 5A09557 Assistance with Respiratory Ventilation, Greater than 96 Consecutive Hours, Continuous Positive Airway Pressure (ICD-10-PCS; principal; 2016-06-29)
PROC: 3E0F73Z Introduction of Anti-inflammatory into Respiratory Tract, Via Natural or Artificial Opening (ICD-10-PCS; 2016-06-30)
PROC: 0W3P8ZZ Control Bleeding in Gastrointestinal Tract, Via Natural or Artificial Opening Endoscopic (ICD-10-PCS; 2016-07-02)
PROC: 30233L1 Transfusion of Nonautologous Fresh Plasma into Peripheral Vein, Percutaneous Approach (ICD-10-PCS; 2016-07-02)
DX: J44.0 Chronic obstructive pulmonary disease with (acute) lower respiratory infection (principal); K31.82 Dieulafoy lesion (hemorrhagic) of stomach and duodenum; J18.9 Pneumonia, unspecified organism; I50.33 Acute on chronic diastolic (congestive) heart failure; I48.92 Unspecified atrial flutter; E66.2 Morbid (severe) obesity with alveolar hypoventilation; Z68.43 Body mass index [BMI] 50.0-59.9, adult; K92.1 Melena; J44.1 Chronic obstructive pulmonary disease with (acute) exacerbation; D64.9 Anemia, unspecified; I48.91 Unspecified atrial fibrillation; E11.9 Type 2 diabetes mellitus without complications; E78.5 Hyperlipidemia, unspecified; M19.90 Unspecified osteoarthritis, unspecified site; F41.1 Generalized anxiety disorder; I45.81 Long QT syndrome; Z95.2 Presence of prosthetic heart valve; Z79.01 Long term (current) use of anticoagulants; Z79.4 Long term (current) use of insulin; Z79.899 Other long term (current) drug therapy; Z90.49 Acquired absence of other specified parts of digestive tract; Z90.710 Acquired absence of both cervix and uterus; Z87.891 Personal history of nicotine dependence; Z88.0 Allergy status to penicillin; Z88.2 Allergy status to sulfonamides; Z88.8 Allergy status to other drugs, medicaments and biological substances; Z88.3 Allergy status to other anti-infective agents; Z91.012 Allergy to eggs; Z91.040 Latex allergy status
CPT/HCPCS: 36415; 36430; 43255; 51702; 71010; 80048; 80053; 81001; 82272; 82550; 82553; 82803; 82962; 83880; 84484; 85025; 85027; 85610; 85730; 86900; 86901; 87040; 87086; 87205; 87804; 93005; 93010; 94640; 94660; 94799; 96365; 96375; 99291; J0171; J0456; J0696; J1200; J1610; J1815; J1956; J2060; J2250; J2310; J2405; J2930; J3010; J3490; J7030; J7060; J7512; J7620; P9017; S0164

== ENCOUNTER → 2016-07-15 | Outpatient (CLI) | payer MEDICARE, BC ==
[2016-07-15 18:14] LABS: APPEARANCE,URINE CLOUDY; BILIRUBIN,URINE NEGATIVE (NEGATIVE); GLUCOSE, URINE NEGATIVE (NEGATIVE); KETONES,URINE NEGATIVE (NEGATIVE); LEUKOCYTE ESTERASE,URINE LARGE (NEGATIVE); NITRITE,URINE NEGATIVE (NEGATIVE); PROTEIN,URINE NEGATIVE (NEGATIVE); URINE SPECIFIC GRAVITY 1.006; UROBILINOGEN,URINE NEGATIVE mg/dL (<2.0)
== END ==
LOC: HH 17:52
PROVIDERS: ATTEND Internal Medicine
DX: N39.0 Urinary tract infection, site not specified (principal)
CPT/HCPCS: 81001; 87086; 87088; 87186

== ENCOUNTER 2016-07-21 17:35 | Emergency (ER) | payer MEDICARE, BC ==
[2016-07-21] MEDS ORDERED: NORMAL SALINE 500 ML IV ONE ×2 (18:25→22:31)
[2016-07-21] MEDS ORDERED: PANTOPRAZOLE SODIUM 40 MG VIAL IV ONE (18:28)
--- NOTE | 2016-07-21 18:28 | ER Document Report ---
ED General - General Mode of Arrival: Medic Information source: Patient, Relative TRAVEL OUTSIDE OF THE [place] IN LAST 30 DAYS: No <EFRAÍN YAN - Last Filed: 07/22/16 05:39> <MANDY JULIO - Last Filed: 07/22/16 06:35> - General Chief Complaint: Abdominal Pain Stated Complaint: COUGH Notes: This is a 66-year-old female with multiple medical problems including insulin- dependent diabetes, COPD, A. fib, chronic anticoagulation on Coumadin with mechanical aortic valve and recent pneumonia, who presents to the emergency department via EMS for increasing cough and dyspnea as well as right-sided abdominal pain. Of note she had a recent admission to this facility from June 29 to July 05 for pneumonia and CHF. That hospitalization was complicated by an upper GI bleed the patient's Coumadin was held briefly but she is now back on her Coumadin. She states that since returning home she has had right flank pain when she coughs. The pain feels like a tearing sensation. Today the pain was much worse into her right abdomen, prompting her son to call EMS. She denies any red blood in her stool and her last bowel movement was today. She is on chronic 2 L nasal cannula of oxygen at home. (EFRAÍN YAN) - Related Data Allergies/Adverse Reactions: Heparin Analogues [Heparin Agents] Allergy (Unknown, Verified 03/29/15 12:22) latex [Latex] Allergy (Unknown, Verified 03/29/15 12:22) Penicillins Allergy (Unknown, Verified 03/29/15 12:22) vancomycin [Vancomycin] Allergy (Unknown, Verified 04/01/15 22:46) itching rash doxycycline Allergy (Verified 07/04/16 12:13) Urticaria egg [Egg] Allergy (Verified 03/29/15 12:22) sulfamethoxazole [From Bactrim] Allergy (Verified 03/29/15 12:22) trimethoprim [From Bactrim] Allergy (Verified 03/29/15 12:22) Past Medical History - Social History Smoking Status: Never Smoker Chew tobacco use (# tins/day): No Frequency of alcohol use: None Drug Abuse: None Family History: Reviewed & Not Pertinent - Past Medical History Cardiac Medical History: Reports: Hx Atrial Fibrillation, Hx Congestive Heart Failure, Hx Hypercholesterolemia Pulmonary Medical History: Reports: Hx Asthma, Hx COPD, Hx Pneumonia, Hx Respiratory Failure, Hx Sleep Apnea Neurological Medical History: Denies: Hx Seizures Endocrine Medical History: Reports: Hx Diabetes Mellitus Type 2 Musculoskeltal Medical History: Reports Hx Arthritis Psychiatric Medical History: Denies: Hx Depression Past Surgical History: Reports: Hx Cholecystectomy, Hx Hysterectomy, Hx Orthopedic Surgery - right rotator cuff. Denies: Hx Pacemaker - Immunizations Hx Diphtheria, Pertussis, Tetanus Vaccination: Yes Hx Pneumococcal Vaccination: 03/21/12 <EFRAÍN YAN - Last Filed: 07/22/16 05:39> Physical Exam <EFRAÍN YAN - Last Filed: 07/22/16 05:39> <MANDY JULIO - Last Filed: 07/22/16 06:35> - Vital signs Vitals: Temp Pulse Resp BP Pulse Ox 98.1 F 70 18 115/48 L 96 07/21/16 17:48 07/21/16 17:48 07/21/16 17:48 07/21/16 17:48 07/21/16 17:48 - Notes Notes: PHYSICAL EXAMINATION: GENERAL: Ill appearing elderly female, pale, alert and conversant and in no acute distress HEAD: Atraumatic, normocephalic. EYES: Pupils equal round and reactive to light, extraocular movements intact, sclera anicteric, conjunctiva pale ENT: nares patent, oropharynx clear without exudates. Mucous membranes somewhat dry. NECK: Normal range of motion, supple without lymphadenopathy LUNGS: Breath sounds clear to auscultation bilaterally and equal. No wheezes rales or rhonchi. HEART: Regular rate and rhythm with 3/6 systolic murmur ABDOMEN: Soft, obese, normoactive bowel sounds. TTP suprapubic and R side of abdomen/flank, with bruising noted in RLQ. No guarding, no rebound. EXTREMITIES: Normal range of motion. 2+ edema BLE, symmetric NEUROLOGICAL: Cranial nerves grossly intact. Normal speech. No gross focal motor or sensory deficits appreciated. PSYCH: Normal mood, normal affect. SKIN: Warm, Dry, very pale (EFRAÍN YAN) Course - Laboratory Result Diagrams: 07/21/16 18:50 07/21/16 18:50 <EFRAÍN YAN - Last Filed: 07/22/16 05:39> - Laboratory Result Diagrams: 07/22/16 04:50 07/21/16 18:50 <MANDY JULIO - Last Filed: 07/22/16 06:35> - Re-evaluation Re-evalutation: 07/21/16 19:15 Patient appears ill and very pale. Her stool is black on exam. She is on Coumadin and has history of GI bleeding. Protonix IV is ordered as well as type and cross. 07/21/16 22:[address] scan with radiologist. There is a large soft tissue hematoma in the right flank. It does not involve the retro-peritoneum or the abdominal cavity. However there is some concern that there may be active hemorrhage in the area. Vitamin K has already been given, and FFP has been ordered. Discussed with the surgeon Dr. Murdock who is available to consult however he states there is no surgical intervention to be done at this time. Hospitalist has been paged. 07/21/16 22:58 I discussed with the hospitalist Dr. Olvera and also with the blood bank. Apparently the patient is very difficult to crossmatch secondary to antibodies in the lab is still having difficulty with this. It still may be several more hours before blood is available if at all. As of this and with discussion with Dr. Olvera this determined that patient may be better served at a tertiary care center. Her family states that she has been to [facility] before, I have discussed the case with the transfer center at [facility] who will call me back shortly. I did discuss with the blood bank that I still want to proceed with the type and crossmatch here this patient does need to get blood started as soon as possible. Also the FFP should be ready soon. 07/22/16 00:01 Discussed the case with hospitalist at [facility], Dr Knowles, who states that pt will be placed on list for a bed, (not ICU criteria for that hospital given not intubated and no pressers) but should pt deteriorate and require ICU bed to call the transfer center back to arrange acceptance to ICU. Still awaiting blood from blood bank... discussed with lab again and they are closer to having blood available. FFP is thawing. 07/22/16 04:32 Pt states that she is breathing better on the bipap. No new complaints. She has remained hemodynamically stable (manual BP's have been more accurate) and her first unit of PRBC's is almost complete. dant states that they do not anticipate bed availability until after discharges this afternoon. Discussed with transfer center at [facility] and will await bed availability there. 07/22/16 05:[address] Goel at [facility] who accepts pt to ICU bed there... awaiting to hear from bed placement re: timeframe of bed availability 07/22/16 05:40 Bed assignment ICU 51, awaiting flight transport to [facility]. Repeat H/H has dropped. 2nd unit of blood transfusing now, 3rd unit of FFP. Pt conversant on bipap although continues to look ill. Protonix drip ordered. Discussed platelet availability with blood bank, they have 1 unit of platelets ready now that is not assigned to anyone, will transfuse that now, and they state further platelets will take at least 4 hours to be ready. Awaiting air transport to [facility]. (EFRAÍN YAN) 07/22/16 06:34 Transport crew has arrived. Patient is currently receiving infusion of platelets and another unit of blood. Blood pressure remains the upper 90s according to nursing staff patient is more alert now. Patient remains on BiPAP. Patient remains in critical condition but is otherwise stabilized to the best o four ability at this facility (MANDY JULIO) - Vital Signs Vital signs: Temp Pulse Resp BP Pulse Ox 98.1 F 82 16 98/38 L 100 07/22/16 06:20 07/22/16 06:20 07/22/16 06:20 07/22/16 06:20 07/22/16 06:20 - Laboratory Laboratory results interpreted by me: 07/21/16 07/21/16 07/21/16 18:50 18:50 18:50 WBC 17.0 H RBC 2.24 L Hgb 6.9 L Hct 21.4 L RDW 18.2 H Plt Count Seg Neutrophils % 78.7 H Absolute Neutrophils 13.4 H Abs Neuts (Manual) PT INR APTT Carbonic Acid ABG pH ABG pCO2 ABG pO2 ABG HCO3 ABG Total CO2 ABG O2 Saturation Chloride 97 L Carbon Dioxide 35 H BUN 34 H Creatinine 1.56 H Est GFR ( Amer) 40 L Est GFR (Non-Af Amer) 33 L Glucose 216 H Calcium 8.3 L Creatine Kinase < 20 L NT-Pro-B Natriuret Pep 1520 H Total Protein 5.2 L Albumin 2.8 L Urine Protein Urine Glucose (UA) Crossmatch 07/21/16 07/21/16 07/21/16 19:00 19:56 20:15 WBC RBC Hgb Hct RDW Plt Count Seg Neutrophils % Absolute Neutrophils Abs Neuts (Manual) PT 50.4 H* INR 5.19 H* APTT 50.1 H Carbonic Acid ABG pH ABG pCO2 ABG pO2 ABG HCO3 ABG Total CO2 ABG O2 Saturation Chloride Carbon Dioxide BUN Creatinine Est GFR ( Amer) Est GFR (Non-Af Amer) Glucose Calcium Creatine Kinase NT-Pro-B Natriuret Pep Total Protein Albumin Urine Protein 30 H Urine Glucose (UA) 50 H Crossmatch See Detail 07/21/16 07/22/16 07/22/16 20:40 03:10 04:50 WBC 10.8 H RBC 1.75 L Hgb 5.4 L Hct 16.2 L RDW 19.6 H Plt Count 90 L Seg Neutrophils % Absolute Neutrophils Abs Neuts (Manual) 8.5 H PT INR APTT Carbonic Acid 1.49 H 1.46 H ABG pH 7.49 H 7.51 H ABG pCO2 49.4 H 48.6 H ABG pO2 105.6 H 105.5 H ABG HCO3 36.4 H 38.0 H ABG Total CO2 37.9 H 39.5 H ABG O2 Saturation 98.1 H 98.2 H Chloride Carbon Dioxide BUN Creatinine Est GFR ( Amer) Est GFR (Non-Af Amer) Glucose Calcium Creatine Kinase NT-Pro-B Natriuret Pep Total Protein Albumin Urine Protein Urine Glucose (UA) Crossmatch - EKG Interpretation by Me Additional EKG results interpreted by me: 07/21/16 19:15 EKG at 1839 demonstrates normal sinus rhythm with a rate of 74. There are nonspecific T-wave changes. There is no ST elevation or depression. (EFRAÍN YAN) Critical Care Note - Critical Care Note Total time excluding time spent on procedures (mins): 120 - minutes of critical care time spent in direct contact evaluating and reevaluating the patient, treating symptoms, reviewing labs and studies and speaking with family and consultants excluding any procedures <EFRAÍN YAN - Last Filed: 07/22/16 05:39> Discharge <EFRAÍN YAN Rebekah - Last Filed: 07/22/16 05:39> <MANDY JULIO - Last Filed: 07/22/16 06:35> - Discharge Clinical Impression: Supratherapeutic INR, Symptomatic anemia Right flank hematoma Qualifiers: Encounter type: initial encounter Qualified Code(s): S30.1XXA - Contusion of abdominal wall, initial encounter GI bleed Qualifiers: GI bleed type/associated pathology: melena Qualified Code(s): K92.1 - Melena COPD (chronic obstructive pulmonary disease) Qualifiers: COPD type: unspecified COPD Qualified Code(s): J44.9 - Chronic obstructive pulmonary disease, unspecified Condition: Critical
[2016-07-21 19:07] LABS: ABSOLUTE BASOPHILS # (AUTO) 0.1 10^3/uL (0.0-0.2); ABSOLUTE EOSINOPHILS # (AUTO) 0.2 10^3/uL (0.0-0.6); ABSOLUTE LYMPHOCYTES (AUTO) 2.5 10^3/uL (0.5-4.7); ABSOLUTE MONOCYTES (AUTO) 0.9 10^3/uL (0.1-1.4); ABSOLUTE NEUT (AUTO) 13.4 10^3/uL (1.7-8.2); BASOPHILS % (AUTO) 0.6 % (0-2); EOSINOPHILS % (AUTO) 1.2 % (0-6); HEMATOCRIT 21.4 % (36.0-47.0); HGB HCT DIFFERENCE -0.7; LYMPHOCYTES % (AUTO) 14.5 % (13-45); MEAN CORPUSCULAR HEMOGLOBIN 30.9 pg (27.0-33.4); MEAN CORPUSCULAR HGB CONC 32.2 g/dL (32.0-36.0); MEAN CORPUSCULAR VOLUME 96 fl (80-97); RED BLOOD COUNT 2.24 10^6/uL (3.72-5.28); RED CELL DISTRIBUTION WIDTH 18.2 % (11.5-14.0); SEGMENTED NEUTROPHILS % (AUTO) 78.7 % (42-78)
[2016-07-21] MEDS ORDERED: NORMAL SALINE 250 ML IV PRN ×4 (19:07→22:24)
[2016-07-21 19:09] LABS: HEMOGLOBIN 6.9 g/dL (12.0-15.5)
--- NOTE | 2016-07-21 19:09 | EKG REPORT ---
SEVERITY:- ABNORMAL ECG - SINUS RHYTHM NONSPECIFIC ST-T CHANGES LATERAL LEADS. : Confirmed by: Dario Solis MD 21-Jul-2016 19:08:14
[2016-07-21 19:34] LABS: CREATINE KINASE MB 0.39 ng/mL (<4.55); TROPONIN I 0.015 ng/mL
[2016-07-21 20:08] LABS: ALANINE AMINOTRANSFERASE 27 U/L (9-52); ALBUMIN 2.8 g/dL (3.5-5.0); ALKALINE PHOSPHATASE 47 U/L (38-126); ANION GAP 10 (5-19); ASPARTATE AMINO TRANSFERASE 19 U/L (14-36); BILIRUBIN,TOTAL 0.5 mg/dL (0.2-1.3); BLOOD UREA NITROGEN 34 mg/dL (7-20); CALCIUM 8.3 mg/dL (8.4-10.2); CARBON DIOXIDE 35 mmol/L (22-30); CHLORIDE 97 mmol/L (98-107); CREATININE RESULT 1.56 mg/dL (0.52-1.25); GLUCOSE 216 mg/dL (75-110); POTASSIUM 4.9 mmol/L (3.6-5.0); SODIUM 141.6 mmol/L (137-145); TOTAL PROTEIN 5.2 g/dL (6.3-8.2)
[2016-07-21 20:09] LABS: CREATINE KINASE < 20 U/L (30-135)
[2016-07-21 20:14] LABS: PARTIAL THROMBOPLASTIN TIME 50.1 SEC (23.5-35.8)
[2016-07-21 20:32] LABS: PROTHROMBIN TIME 50.4 SEC (11.4-15.4)
[2016-07-21] MEDS ORDERED: PHYTONADIONE INJ 10 MG/1 ML AMPULE IV ONE (20:44)
[2016-07-21 20:46] LABS: APPEARANCE,URINE SLIGHTLY-CLOUDY; BILIRUBIN,URINE NEGATIVE (NEGATIVE); GLUCOSE, URINE 50 mg/dL (NEGATIVE); KETONES,URINE NEGATIVE (NEGATIVE); LEUKOCYTE ESTERASE,URINE NEGATIVE (NEGATIVE); NITRITE,URINE NEGATIVE (NEGATIVE); PROTEIN,URINE 30 mg/dL (NEGATIVE); URINE SPECIFIC GRAVITY 1.012; UROBILINOGEN,URINE NEGATIVE mg/dL (<2.0)
[2016-07-21 20:57] LABS: ARTERIAL BLOOD BASE EXCESS 11.8 mmol/L; ARTERIAL BLOOD O2 SATURATION 98.1 % (94-98)
[2016-07-21] MEDS ORDERED: LEVOFLOXACIN 750 MG/D5W RTU 150 ML IV ONE (22:34)
[2016-07-22 03:26] LABS: ARTERIAL BLOOD BASE EXCESS 13.7 mmol/L; ARTERIAL BLOOD O2 SATURATION 98.2 % (94-98)
[2016-07-22] MEDS ORDERED: NORMAL SALINE 250 ML IV PRN ×4 (03:44→05:41)
[2016-07-22] MEDS ORDERED: PHYTONADIONE INJ 10 MG/1 ML AMPULE IV ONE (04:30)
[2016-07-22 05:22] LABS: HEMATOCRIT 16.2 % (36.0-47.0); MEAN CORPUSCULAR HGB CONC 33.4 g/dL (32.0-36.0); MEAN CORPUSCULAR VOLUME 93 fl (80-97); RED BLOOD COUNT 1.75 10^6/uL (3.72-5.28); RED CELL DISTRIBUTION WIDTH 19.6 % (11.5-14.0); WHITE BLOOD COUNT 10.8 10^3/uL (4.0-10.5)
[2016-07-22] MEDS ORDERED: PANTOPRAZOLE SODIUM 40 MG VIAL IV PRN (05:30)
[2016-07-22 05:32] LABS: HEMOGLOBIN 5.4 g/dL (12.0-15.5)
[2016-07-22 05:37] LABS: BAND NEUTROPHILS % (MANUAL) 5 % (3-5); BASOPHILS % (MANUAL) 0 % (0-2); EOSINOPHILS % (MANUAL) 2 % (0-6); LYMPHOCYTES % (MANUAL) 15 % (13-45); TOTAL CELLS COUNTED 100
[2016-07-22 05:40] LABS: HYPOCHROMASIA SLIGHT; POIKILOCYTOSIS SLIGHT; TOXIC GRANULATION SLIGHT; TOXIC VACUOLATION PRESENT
[2016-07-22 05:41] LABS: ANISOCYTOSIS 2+; BURR CELLS SLIGHT; OVALOCYTES SLIGHT; POLYCHROMASIA 1+; SCHISTOCYTES SLIGHT; TEAR DROP CELLS SLIGHT
[2016-07-22 06:26] VITALS: BP 98/38
== END 2016-07-22 07:03 | disposition short-term general hospital (02) ==
LOC: ER 17:35
DX: K92.2 Gastrointestinal hemorrhage, unspecified (principal); D64.9 Anemia, unspecified; S30.1XXA Contusion of abdominal wall, initial encounter; X58.XXXA Exposure to other specified factors, initial encounter; I48.91 Unspecified atrial fibrillation; Z79.01 Long term (current) use of anticoagulants; E11.9 Type 2 diabetes mellitus without complications; Z79.4 Long term (current) use of insulin; J44.9 Chronic obstructive pulmonary disease, unspecified; Z99.81 Dependence on supplemental oxygen; Z95.2 Presence of prosthetic heart valve; Z88.8 Allergy status to other drugs, medicaments and biological substances; Z91.040 Latex allergy status; Z88.0 Allergy status to penicillin; Z88.1 Allergy status to other antibiotic agents; Z91.012 Allergy to eggs
CPT/HCPCS: 93005; 99291; 99292; 96375; 96365; 96366; 86900; 86901; 36415; 87040; 82553; 36430; 86870; 86850; 86922; 82803; 82550; 85025; 85610; 85730; 82272; 80053; 81001; 84484; 86920; 83880; 71010; 74176; 93010; 36600 ×2; 94660 ×2; P9017; P9016; P9035; J3430 ×2; C9113 ×2; J7040; J1956; S0164

== ENCOUNTER 2016-08-29 19:56 | Inpatient (IN) | payer MEDICARE, BC ==
[2016-08-29] MEDS ORDERED: IPRATROPIUM/ALBUTEROL 0.5-2.5 MG/3 ML AMPUL NEB ONE ×2 (20:13→20:33)
[2016-08-29] MEDS ORDERED: METHYLPREDNISOLONE INJ 125 MG/2 ML SDV IV ONE (20:13)
--- NOTE | 2016-08-29 20:15 | ER Document Report ---
ED Respiratory Problem - General Chief Complaint: Breathing Difficulty Stated Complaint: DIFFICULTY BREATHING Time Seen by Provider: 08/29/16 20:06 Notes: Patient is a 66-year-old female with a past medical history of COPD that comes emergency department by EMS for chief complaint of respiratory distress. Patient was found on her nasal cannula with labored breathing, hypoxia in the low 80s, and son states that she suddenly started breathing poorly this evening. Patient giving 1 tab SL nitro by EMS. No fever, no cough, no chest pain reported. Patient with bilateral lower extremity swelling which is mild. Patient states she has been compliant with all her medications. Past medical history also includes hypertension, type 2 diabetes, obesity with hypoventilation syndrome, mechanical aortic valve, coumadin use. Difficult to get additional history from patient on initial evaluation due to her respiratory condition. TRAVEL OUTSIDE OF THE [place] IN LAST 30 DAYS: No - Related Data Allergies/Adverse Reactions: Heparin Analogues [Heparin Agents] Allergy (Unknown, Verified 03/29/15 12:22) latex [Latex] Allergy (Unknown, Verified 03/29/15 12:22) Penicillins Allergy (Unknown, Verified 03/29/15 12:22) vancomycin [Vancomycin] Allergy (Unknown, Verified 04/01/15 22:46) itching rash doxycycline Allergy (Verified 07/04/16 12:13) Urticaria egg [Egg] Allergy (Verified 03/29/15 12:22) sulfamethoxazole [From Bactrim] Allergy (Verified 03/29/15 12:22) trimethoprim [From Bactrim] Allergy (Verified 03/29/15 12:22) Past Medical History - General Information source: Patient - Social History Smoking Status: Never Smoker Frequency of alcohol use: None Drug Abuse: None Lives with: Family Family History: Reviewed & Not Pertinent - Past Medical History Cardiac Medical History: Reports: Hx Atrial Fibrillation, Hx Congestive Heart Failure, Hx Hypercholesterolemia Pulmonary Medical History: Reports: Hx Asthma, Hx COPD, Hx Pneumonia, Hx Respiratory Failure, Hx Sleep Apnea Neurological Medical History: Denies: Hx Seizures Endocrine Medical History: Reports: Hx Diabetes Mellitus Type 2 Musculoskeltal Medical History: Reports Hx Arthritis Psychiatric Medical History: Denies: Hx Depression Past Surgical History: Reports: Hx Cholecystectomy, Hx Hysterectomy, Hx Orthopedic Surgery - right rotator cuff. Denies: Hx Pacemaker - Immunizations Hx Diphtheria, Pertussis, Tetanus Vaccination: Yes Hx Pneumococcal Vaccination: 03/21/12 Review of Systems - Review of Systems Constitutional: See HPI EENT: No symptoms reported Cardiovascular: No symptoms reported Respiratory: See HPI Gastrointestinal: No symptoms reported Genitourinary: No symptoms reported Female Genitourinary: No symptoms reported Musculoskeletal: No symptoms reported Skin: No symptoms reported Hematologic/Lymphatic: No symptoms reported Neurological/Psychological: No symptoms reported Physical Exam - Vital signs Vitals: Pulse Ox 100 08/29/16 20:01 Interpretation: Normal - General General appearance: Anxious In distress: Mild - HEENT Head: Normocephalic, Atraumatic Eyes: Normal Conjunctiva: Normal Extraocular movements intact: Yes Eyelashes: Normal Pupils: PERRL Nasal: Normal Mouth/Lips: Normal Mucous membranes: Normal Pharynx: Normal Neck: Normal - Respiratory Respiratory status: Respiratory distress, Labored, Tachypnea Breath sounds: Decreased air movement, Rhonchi Chest palpation: Normal - Cardiovascular Rhythm: Regular, Extrasystoles. No: Tachycardia Heart sounds: Normal auscultation, S1 appreciated, S2 appreciated Murmur: Yes - Abdominal Inspection: Normal Distension: No distension Bowel sounds: Normal Tenderness: Nontender Organomegaly: No organomegaly - Back Back: Normal, Nontender - Extremities General upper extremity: Normal inspection, Nontender, Normal color, Normal ROM , Normal temperature General lower extremity: Normal inspection, Nontender, Normal color, Normal ROM , Normal temperature, Normal weight bearing. No: Maggi's sign - Neurological Neuro grossly intact: Yes Cognition: Normal Orientation: AAOx4 [place] Coma Scale Eye Opening: Spontaneous [place]osh Coma Scale Verbal: Oriented [place] Coma Scale Motor: Obeys Commands Ashutosh Coma Scale Total: 15 Speech: Normal Motor strength normal: LUE, RUE, LLE, RLE Sensory: Normal - Psychological Associated symptoms: Normal affect, Normal mood - Skin Skin Temperature: Warm Skin Moisture: Dry Skin Color: Normal Course - Re-evaluation Re-evalutation: On initial evaluation patient immediately placed on bipap with labored breathing , tachypnea, and rhonchi throughout lung bello. Hypoxia resolved with bipap. Labored breathing resolved after bipap, duoneb treatments, solu-medrol. Due to patient's difficulty with mobility a Chen catheter was placed, patient was found to have a fever, antibiotics initiated. Blood cultures drawn. Venous blood gas shows hypercarbia with hypoxia and suspected respiratory acidosis. CBC shows leukocytosis with elevation of neutrophils, shows anemia, however anemia significantly improved from prior. BNP is elevated but not significantly compared to the previous 2 tests of this. Cardiac enzyme indeterminate. Clinical picture is consistent with pneumonia including rhonchi, fever, respiratory distress, leukocytosis, although chest x-ray does not show this at this time with no acute abnormalities on x-ray. On reevaluation patient continues to improve, she is now calm and relaxed on the BiPAP. No hypoxia. Patient was discussed with Dr. Choe. Discussed patient with Dr. Martinez, internal medicine, patient will be admitted to the [facility]. Patient and family state satisfaction and agreement with this plan. - Vital Signs Vital signs: Temp Pulse Resp BP Pulse Ox 97.3 F 48 L 20 116/75 99 08/30/16 04:23 08/30/16 04:24 08/30/16 04:23 08/30/16 04:24 08/30/16 04:24 - Laboratory Result Diagrams: 08/30/16 05:08 08/29/16 20:05 Laboratory results interpreted by me: 08/29/16 08/29/16 08/29/16 20:05 20:05 20:05 WBC 14.7 H RBC 3.12 L Hgb 9.2 L Hct 30.9 L MCV 99 H MCHC 29.9 L RDW 20.4 H Seg Neutrophils % 88.9 H Lymphocytes % 5.8 L Absolute Neutrophils 13.1 H PT VBG pCO2 VBG HCO3 Chloride 91 L Carbon Dioxide 40 H* BUN 28 H Creatinine 1.44 H Est GFR ( Amer) 44 L Est GFR (Non-Af Amer) 36 L Glucose 222 H Creatine Kinase < 20 L NT-Pro-B Natriuret Pep 2840 H Albumin 3.4 L Ur Leukocyte Esterase 08/29/16 08/29/16 08/29/16 20:05 20:05 20:34 WBC RBC Hgb Hct MCV MCHC RDW Seg Neutrophils % Lymphocytes % Absolute Neutrophils PT 28.6 H VBG pCO2 71.1 H* VBG HCO3 43.6 H Chloride Carbon Dioxide BUN Creatinine Est GFR ( Amer) Est GFR (Non-Af Amer) Glucose Creatine Kinase NT-Pro-B Natriuret Pep Albumin Ur Leukocyte Esterase MODERATE H Critical Care Note - Critical Care Note Total time excluding time spent on procedures (mins): 35 - Respiratory distress , hypoxia, respiratory failure, pneumonia Comments: Please allow 35 minutes of critical care time for evaluation and management of patient with respiratory distress requiring bipap therapy, duonebs, steroids, antibiotics, multiple re-evaluations, consultation and admission to the hospital. Discharge - Discharge Clinical Impression: Respiratory distress, Hypoxia Fever Qualifiers: Fever type: unspecified Qualified Code(s): R50.9 - Fever, unspecified Acute respiratory failure Qualifiers: Respiratory failure complication: hypercapnia Qualified Code(s): J96.02 - Acute respiratory failure with hypercapnia Condition: Stable Disposition: ADMITTED INPATIENT Admitting Provider: Hospitalist Unit Admitted: [facility]
[2016-08-29 20:25] LABS: VENOUS BLOOD BASE EXCESS 15.8 mmol/L; VENOUS BLOOD HCO3 43.6 mmol/L (20-32); VENOUS BLOOD PH 7.41 (7.30-7.42)
[2016-08-29 20:27] LABS: VENOUS BLOOD PCO2 71.1 mmHg (35-63)
[2016-08-29 20:29] LABS: ABSOLUTE BASOPHILS # (AUTO) 0.1 10^3/uL (0.0-0.2); ABSOLUTE EOSINOPHILS # (AUTO) 0.1 10^3/uL (0.0-0.6); ABSOLUTE LYMPHOCYTES (AUTO) 0.8 10^3/uL (0.5-4.7); ABSOLUTE MONOCYTES (AUTO) 0.6 10^3/uL (0.1-1.4); ABSOLUTE NEUT (AUTO) 13.1 10^3/uL (1.7-8.2); BASOPHILS % (AUTO) 0.7 % (0-2); EOSINOPHILS % (AUTO) 0.4 % (0-6); HEMATOCRIT 30.9 % (36.0-47.0); HEMOGLOBIN 9.2 g/dL (12.0-15.5); HGB HCT DIFFERENCE -3.3; LYMPHOCYTES % (AUTO) 5.8 % (13-45); MEAN CORPUSCULAR HEMOGLOBIN 29.6 pg (27.0-33.4); MEAN CORPUSCULAR HGB CONC 29.9 g/dL (32.0-36.0); MEAN CORPUSCULAR VOLUME 99 fl (80-97); MONOCYTES % (AUTO) 4.2 % (3-13); RED BLOOD COUNT 3.12 10^6/uL (3.72-5.28); RED CELL DISTRIBUTION WIDTH 20.4 % (11.5-14.0); SEGMENTED NEUTROPHILS % (AUTO) 88.9 % (42-78); WHITE BLOOD COUNT 14.7 10^3/uL (4.0-10.5)
[2016-08-29 20:39] LABS: ALBUMIN 3.4 g/dL (3.5-5.0); CHLORIDE 91 mmol/L (98-107); GLUCOSE 222 mg/dL (75-110); POTASSIUM 4.3 mmol/L (3.6-5.0); PROTHROMBIN TIME 28.6 SEC (11.4-15.4); SODIUM 141.6 mmol/L (137-145); TOTAL PROTEIN 7.6 g/dL (6.3-8.2)
[2016-08-29 20:40] LABS: ANION GAP 11 (5-19)
[2016-08-29 20:42] LABS: ALANINE AMINOTRANSFERASE 21 U/L (9-52); ALKALINE PHOSPHATASE 75 U/L (38-126); ASPARTATE AMINO TRANSFERASE 20 U/L (14-36); BILIRUBIN,DIRECT 0.4 mg/dL (0.0-0.4); BILIRUBIN,TOTAL 0.8 mg/dL (0.2-1.3); BLOOD UREA NITROGEN 28 mg/dL (7-20); CALCIUM 8.5 mg/dL (8.4-10.2); CREATINE KINASE < 20 U/L (30-135); CREATININE RESULT 1.44 mg/dL (0.52-1.25)
[2016-08-29 20:48] LABS: CARBON DIOXIDE 40 mmol/L (22-30)
[2016-08-29 20:53] LABS: CREATINE KINASE MB 0.22 ng/mL (<4.55); TROPONIN I 0.013 ng/mL
[2016-08-29 21:00] LABS: AMORPHOUS SEDIMENT,URINE TRACE /HPF; APPEARANCE,URINE CLEAR; BILIRUBIN,URINE NEGATIVE (NEGATIVE); GLUCOSE, URINE NEGATIVE (NEGATIVE); KETONES,URINE NEGATIVE (NEGATIVE); LEUKOCYTE ESTERASE,URINE MODERATE (NEGATIVE); NITRITE,URINE NEGATIVE (NEGATIVE); PROTEIN,URINE NEGATIVE (NEGATIVE); URINE SPECIFIC GRAVITY 1.005; UROBILINOGEN,URINE NEGATIVE mg/dL (<2.0)
[2016-08-29] MEDS ORDERED: LEVOFLOXACIN 750 MG/D5W RTU 150 ML IV ONE (21:04)
[2016-08-29] MEDS ORDERED: ACETAMINOPHEN 325 MG TABLET PO ONE (21:04)
--- NOTE | 2016-08-29 21:08 | RADIOLOGY REPORT (SQ) ---
EXAM DESCRIPTION: CHEST SINGLE VIEW COMPLETED DATE/TIME: 08/29/2016 9:00 pm REASON FOR STUDY: difficulty breathing COMPARISON: 07/21/2016. NUMBER OF VIEWS: One view. TECHNIQUE: Single frontal radiographic view of the chest acquired. LIMITATIONS: None. FINDINGS: LUNGS AND PLEURA: No opacities, masses or pneumothorax. No pleural effusion. MEDIASTINUM AND HILAR STRUCTURES: No masses. Contour normal. HEART AND VASCULAR STRUCTURES: Heart normal in size. Normal vasculature. BONES: No acute findings. HARDWARE: Multiple malleable plate and screw fixation along the sternum and anterior ribs. OTHER: No other significant finding. IMPRESSION: NO SIGNIFICANT RADIOGRAPHIC FINDING IN THE CHEST. TECHNICAL DOCUMENTATION: JOB ID: [id number] [employer]- All Rights Reserved
[2016-08-29] MEDS ORDERED: ALPRAZOLAM 0.5 MG TABLET PO PRN (21:47)
[2016-08-29] MEDS ORDERED: ACETAMINOPHEN 325 MG TABLET PO PRN (21:49)
[2016-08-29] MEDS ORDERED: DEXTROSE 50%-WATER 25 GM/50 ML DISP.SYRIN IV PRN ×2 (21:49)
[2016-08-29] MEDS ORDERED: GLUCAGON,HUMAN RECOMB 1 MG INJ IM PRN (21:49)
[2016-08-29] MEDS ORDERED: IPRATROPIUM/ALBUTEROL 0.5-2.5 MG/3 ML AMPUL NEB PRN (21:49)
[2016-08-29] MEDS ORDERED: DEXTROSE 40% GEL 15 GM TUBE PO PRN ×2 (21:49)
[2016-08-29] MEDS ORDERED: WARFARIN SODIUM 5 MG TABLET PO SCH (22:00)
[2016-08-29] MEDS ORDERED: CEFEPIME 2 GM/D5W RTU 2 GM/50 ML RTUPB IV ONE ×2 (22:36→22:45)
[2016-08-29] MEDS: MONTELUKAST SODIUM 10 MG TABLET PO SCH (22:46)
[2016-08-29] MEDS: METOPROLOL TARTRATE 25 MG TABLET PO SCH (22:46)
[2016-08-29] MEDS: GABAPENTIN 300 MG CAPSULE PO SCH (22:47)
[2016-08-29] MEDS: GUAIFENESIN 600 MG TABLET.SA PO SCH (22:47)
[2016-08-29] MEDS: SIMVASTATIN 40 MG TABLET PO SCH (22:48)
[2016-08-30] MEDS: IPRATROPIUM/ALBUTEROL 0.5-2.5 MG/3 ML AMPUL NEB SCH ×4 (02:17→20:19)
--- NOTE | 2016-08-30 04:59 | PDOC H&P ---
History of Present Illness Admission Date/PCP: 08/29/16 21:49 KIMI ANAND PA-C Patient complains of: Shortness of breath History of Present Illness: YAMILETH RENAE is a 66 year old female with a past medical history of mechanical aortic valve on Coumadin, atrial fibrillation, insulin-dependent diabetes, morbid obesity obstructive sleep apnea, COPD and oxygen dependence and anxiety. She has been in her usual state of health until approximately 8 hours prior to presentation developing shortness of breath and a nonproductive cough associated with rhinorrhea prompting her to take Vistaril and Xanax without improvement she called EMS. Plan to have pulse oximetry in the 80s in the emergency room she is placed on BiPAP and has audible rhonchi and a nonproductive cough she receives empiric antibiotics and referred to the hospitalist for admission. The patient denies chest pain nausea vomiting or change in medications. Past Medical History Cardiac Medical History: Reports: Atrial Fibrillation, Congestive Heart Failure , Hyperlipidema Pulmonary Medical History: Reports: Asthma, Chronic Obstructive Pulmonary Disease (COPD), Pneumonia, Respiratory Failure, Sleep Apnea Neurological Medical History: Denies: Seizures Endocrine Medical History: Reports: Diabetes Mellitus Type 2 Musculoskeltal Medical History: Reports: Arthritis Psychiatric Medical History: Denies: Depression Hematology: Reports: Anemia Past Surgical History Past Surgical History: Reports: Cholecystectomy, Hysterectomy, Orthopedic Surgery - right rotator cuff Denies: Pacemaker Social History Information Source: [facility] Records Lives with: Family Smoking Status: Former Smoker Frequency of Alcohol Use: None Hx Recreational Drug Use: No Drugs: None Hx Prescription Drug Abuse: No - Advance Directive Resuscitation Status: Full Code Family History Family History: COPD Parental Family History Reviewed: Yes Children Family History Reviewed: Yes Sibling(s) Family History Reviewed.: Yes Medication/Allergy Home Medications: Albuterol Sulfate [Ventolin 0.042% Neb 1.25 mg/3 ml Ampul] 1 vial NEB RTQ6HP PRN 06/30/16 Albuterol Sulfate [Ventolin HFA MDI 18 GM] 1 puff IH Q4HP PRN 06/30/16 Alprazolam [Xanax 0.5 mg Tablet] 0.5 mg PO TIDP PRN 06/30/16 Fish Oil/Dha/Epa [Fish Oil 1,200 mg Fish Oil] 2 each PO DAILY 06/30/16 Fluticasone Propionate [Flonase Nasal [place] 50 Mcg/[place] 16 gm] 2 spray NASL DAILY 06/30/16 Fluticasone Propionate [Flovent HFA 220 mcg MDI] 2 puff IH BID 06/30/16 Furosemide [Lasix] 80 mg PO DAILY 06/30/16 Gabapentin [Neurontin 300 mg Capsule] 300 mg PO Q8 06/30/16 Hydrocodone/Acetaminophen [[place] 7.5-325 mg Tablet] 1 tab PO Q6HP PRN 06/30/16 Insulin Aspart [Novolog Flexpen] 15 unit SUBCUT AC 06/30/16 Insulin Glargine,Hum.rec.anlog [[place] Solostar] 60 unit SQ DAILY 06/30/16 Loratadine [Claritin 10 mg Tablet] 10 mg PO DAILY 06/30/16 Montelukast Sodium [Singulair 10 mg Tablet] 10 mg PO QHS 06/30/16 Olopatadine HCl [Pataday] 1 drop OU DAILY 06/30/16 Ranitidine HCl [Zantac] 150 mg PO BID 06/30/16 Simvastatin [Zocor 80 mg Tablet] 80 mg PO QHS 06/30/16 Sitagliptin Phosphate [Januvia] 100 mg PO DAILY 06/30/16 Budesonide [Pulmicort Neb 0.5 mg/2 ml Ampul] 0.5 mg NEB RTQ12 #30 ampul.neb Diphenhydramine HCl [Benadryl 50 mg Capsule] 50 mg PO Q6 PRN #30 capsule Famotidine [Pepcid 20 mg Tablet] 40 mg PO DAILY #20 tablet 07/05/16 Ferrous Sulfate [Feosol 325 mg Tablet] 325 mg PO DAILY #30 tablet 07/05/16 Guaifenesin [Mucinex Sr 600 mg Tablet.sa] 1,200 mg PO Q12 #60 tablet.sa Metoprolol Tartrate [Lopressor 25 mg Tablet] 25 mg PO Q12 #60 tablet 07/05/16 Prednisone [Deltasone 20 mg Tablet] 60 mg PO DAILY #6 tablet 07/05/16 Warfarin Sodium [Coumadin 5 mg Tablet] 5 mg PO QHS #30 tablet 07/05/16 Allergies/Adverse Reactions: Heparin Analogues [Heparin Agents] Allergy (Unknown, Verified 03/29/15 12:22) latex [Latex] Allergy (Unknown, Verified 03/29/15 12:22) Penicillins Allergy (Unknown, Verified 03/29/15 12:22) vancomycin [Vancomycin] Allergy (Unknown, Verified 04/01/15 22:46) itching rash doxycycline Allergy (Verified 07/04/16 12:13) Urticaria egg [Egg] Allergy (Verified 03/29/15 12:22) sulfamethoxazole [From Bactrim] Allergy (Verified 03/29/15 12:22) trimethoprim [From Bactrim] Allergy (Verified 03/29/15 12:22) Review of Systems ROS unobtainable: Other - To extraordinary shortness of breath Physical Exam Vital Signs: Temp Pulse Resp BP Pulse Ox 98.5 F 58 L 20 106/33 L 97 08/30/16 00:58 08/30/16 02:15 08/30/16 04:00 08/30/16 00:58 08/30/16 04:00 Intake & Output 08/28/16 08/29/16 08/30/16 11:59 11:59 11:59 Weight 121 kg General appearance: PRESENT: cooperative, disheveled, morbidly obese, severe distress Head exam: PRESENT: atraumatic, normocephalic Eye exam: PRESENT: conjunctiva pink, EOMI, PERRLA. ABSENT: scleral icterus Ear exam: PRESENT: normal external ear exam Mouth exam: PRESENT: moist, tongue midline Neck exam: ABSENT: carotid bruit, JVD, lymphadenopathy, thyromegaly Respiratory exam: PRESENT: accessory muscle use, crackles, decreased breath sounds, prolonged expiratory phas, rales, retraction, rhonchi, tachypnea. ABSENT: chest wall tenderness, stridor, symmetrical, wheezes Cardiovascular exam: PRESENT: gallop, +S1, +S2, systolic murmur Pulses: PRESENT: normal dorsalis pedis pul Vascular exam: PRESENT: normal capillary refill GI/Abdominal exam: PRESENT: diminished bowel sounds, distended, hernia, hypoactive bowel sounds. ABSENT: ascites, guarding, tenderness Rectal exam: PRESENT: deferred Extremities exam: PRESENT: full ROM, +2 edema, other - Bilateral lower extremity erythema with blistering vesicles. ABSENT: calf tenderness, clubbing , pedal edema Musculoskeletal exam: PRESENT: full ROM Neurological exam: PRESENT: alert, awake, oriented to person, oriented to place , oriented to time, oriented to situation, CN II-XII grossly intact. ABSENT: motor sensory deficit Psychiatric exam: PRESENT: flat affect Skin exam: PRESENT: other - Bilateral lower extremity +2 edema with blistering vesicles Results Impressions: Chest X-Ray 08/29/16 20:01 IMPRESSION: NO SIGNIFICANT RADIOGRAPHIC FINDING IN THE CHEST. Assessment & Plan - Diagnosis (1) Pneumonia Qualifiers: Pneumonia type: due to unspecified organism Laterality: bilateral Lung location: unspecified part of lung Qualified Code(s): J18.9 - Pneumonia, unspecified organism Is this a current diagnosis for this admission?: YesPlan: Pneumonia by physical exam complicated by COPD, morbid obesity, obstructive sleep apnea and URI. She will receive chlorpheniramine, Flonase, flutter valve , DuoNeb and empiric antibiotics and supplemental oxygen. Follow-up CBC and blood culture (2) JAMEEL (obstructive sleep apnea) Is this a current diagnosis for this admission?: YesPlan: BiPAP while asleep (3) Venous stasis dermatitis of both lower extremities Is this a current diagnosis for this admission?: YesPlan: HECTOR stockings (4) Cellulitis and abscess of leg Is this a current diagnosis for this admission?: YesPlan: Vides antibiotics initiated without significant coverage for gram-positive if worsening consider beta-lactam. (5) COPD (chronic obstructive pulmonary disease) Is this a current diagnosis for this admission?: YesPlan: Supplemental oxygen, flutter valve consider steroids. (6) History of mechanical aortic valve replacement Is this a current diagnosis for this admission?: YesPlan: Continue outpatient Coumadin follow INR given antibiotic use. (7) Anxiety Is this a current diagnosis for this admission?: YesPlan: Very significantly complicating the patient's respiratory status minimize benzodiazepine to avoid withdrawal, optimize reassurance and mental health. Consider trazodone. - Time Time Spent: 50 to 70 Minutes - Inpatient Certification Medical Necessity: Need Close Monitoring Due to Risk of Patient Decompensation
[2016-08-30] MEDS: GABAPENTIN 300 MG CAPSULE PO SCH ×3 (05:16→21:48)
[2016-08-30 05:50] LABS: ABSOLUTE LYMPHOCYTES (AUTO) 0.8 10^3/uL (0.5-4.7); ABSOLUTE MONOCYTES (AUTO) 0.1 10^3/uL (0.1-1.4); BASOPHILS % (AUTO) 0.3 % (0-2); HEMATOCRIT 28.8 % (36.0-47.0); HEMOGLOBIN 8.7 g/dL (12.0-15.5); HGB HCT DIFFERENCE -2.7; LYMPHOCYTES % (AUTO) 7.7 % (13-45); MEAN CORPUSCULAR HEMOGLOBIN 30.2 pg (27.0-33.4); MEAN CORPUSCULAR HGB CONC 30.2 g/dL (32.0-36.0); MEAN CORPUSCULAR VOLUME 100 fl (80-97); MONOCYTES % (AUTO) 1.3 % (3-13); RED BLOOD COUNT 2.88 10^6/uL (3.72-5.28); RED CELL DISTRIBUTION WIDTH 20.1 % (11.5-14.0); SEGMENTED NEUTROPHILS % (AUTO) 90.7 % (42-78); WHITE BLOOD COUNT 9.9 10^3/uL (4.0-10.5)
[2016-08-30] MEDS: INSULIN LISPRO 100 UNIT/ML 3 ML VIAL SUBCUT SCH ×3 (08:23→18:18)
[2016-08-30] MEDS: INSULIN LISPRO 100 UNIT/ML 3 ML VIAL SUBCUT PRN ×4 (08:23→23:10)
[2016-08-30] MEDS: FLUTICASONE NASAL SPRAY 50 MCG/SPRY 120 SPRAY/16 GM NASL SCH (09:49)
--- NOTE | 2016-08-30 09:49 | EKG REPORT ---
SEVERITY:- ABNORMAL ECG - POSSIBLE SR VS A-FLUTTER/FIBRILLATION W/ COMPLETE AV BLOCK REC REPEAT EKG : Confirmed by: Saumya Mckeon 30-Aug-2016 09:48:38
[2016-08-30] MEDS: IRON POLYSACCHARIDES COMPLEX 150 MG CAPSULE PO SCH (09:52)
[2016-08-30] MEDS: LORATADINE 10 MG TABLET PO SCH (09:52)
[2016-08-30] MEDS: FAMOTIDINE 20 MG TABLET PO SCH ×2 (09:53→21:48)
[2016-08-30] MEDS: GUAIFENESIN 600 MG TABLET.SA PO SCH ×2 (09:54→21:48)
[2016-08-30] MEDS: METOPROLOL TARTRATE 25 MG TABLET PO SCH ×2 (09:55→21:35)
[2016-08-30] MEDS ORDERED: LEVOFLOXACIN 750 MG/D5W RTU 750 MG/150 ML RTUPB IV SCH ×2 (10:00→18:00)
[2016-08-30] MEDS ORDERED: CHLORPHENIRAMINE MALEATE 4 MG TABLET PO SCH (10:00)
[2016-08-30] MEDS ORDERED: FUROSEMIDE 80 MG TABLET PO SCH (10:00)
[2016-08-30] MEDS ORDERED: (PENDING PHARMACY ID) (Insulin Glargine,Hum.Rec.Anlog [Toujeo Solostar] 60 UNIT) SQ SCH (10:00)
[2016-08-30] MEDS ORDERED: CEFEPIME 2 GM/D5W RTU 2 GM/50 ML RTUPB IV ONE (10:30)
[2016-08-30] MEDS: CEFEPIME 2 GM/D5W RTU 2 GM/50 ML RTUPB IV SCH ×2 (11:40→21:48)
[2016-08-30] MEDS ORDERED: ALPRAZOLAM 0.5 MG TABLET PO PRN (18:48)
--- NOTE | 2016-08-30 18:48 | PDOC PROGRESS REPORT ---
Subjective Progress Note for:: 08/30/16 Subjective:: Follow-up visit for COPD evaluation. See admission note for details. Feels that she is less short of breath morning. No complaints of chest pain or worsening shortness of breath. Physical Exam Vital Signs: Temp Pulse Resp BP Pulse Ox 98.2 F 58 L 16 112/36 L 96 08/30/16 07:04 08/30/16 08:36 08/30/16 08:36 08/30/16 07:04 08/30/16 08:36 Intake & Output 08/29/16 08/30/16 08/31/16 06:59 06:59 06:59 Intake Total 5 Output Total 850 Balance -845 Weight 122 kg Physical exam: General: Well-developed well-nourished morbidly obese white female resting in bed with a revolving fan blowing on her currently in no acute distress. Heart: Regular rate and rhythm. 2/6 systolic ejection murmur best heard over the right upper sternal border. Click is AUSCULTATED on exam. No gallops or rubs. Lungs: Diminished at the bases bilaterally otherwise clear with equal rise and fall of the chest. Abdomen: Obese soft, nontender nondistended. Normal active bowel sounds. Extremities: Clubbing cyanosis. The patient has a 2-3+ pitting edema of the lower extremities extending from the feet all the way up to the top of the knees. Neuro: Awake alert oriented 3. Cranial nerves II through XII are grossly intact. Results Laboratory Results: 08/30/16 05:08 08/30/16 05:08 WBC 9.9 RBC 2.88 L Hgb 8.7 L Hct 28.8 L MCV 100 H MCH 30.2 MCHC 30.2 L RDW 20.1 H Plt Count 181 Seg Neutrophils % 90.7 H Lymphocytes % 7.7 L Monocytes % 1.3 L Eosinophils % 0.0 Basophils % 0.3 Absolute Neutrophils 9.0 H Absolute Lymphocytes 0.8 Absolute Monocytes 0.1 Absolute Eosinophils 0.0 Absolute Basophils 0.0 Impressions: Chest X-Ray 08/29/16 20:01 IMPRESSION: NO SIGNIFICANT RADIOGRAPHIC FINDING IN THE CHEST. Assessment & Plan - Diagnosis (1) Acute respiratory failure Qualifiers: Respiratory failure complication: hypercapnia Qualified Code(s): J96.02 - Acute respiratory failure with hypercapnia Plan: Continue BiPAP as needed. Continue nebulizer treatments as needed. The patient feels better overall at this point. No steroids are currently on board. This is multifactorial from underlying heart failure as well as COPD. There is usually on 80 mg p.o. of Lasix. We will change this to 40 IV every 12. Hopefully she will get better diuresis with IV. If not, consider going up to 60 twice daily. (2) Acute on chronic diastolic CHF (congestive heart failure) Plan: Continue diuresis. (3) COPD exacerbation Plan: Patient seems to be doing better as compared to on admission. Off on steroids for now. If she begins wheezing we can add this on - Time Time Spent with patient: 25-34 minutes - Inpatient Certification Medical Necessity: Need Close Monitoring Due to Risk of Patient Decompensation
[2016-08-30] MEDS: BUDESONIDE NEB 0.5 MG/2 ML AMPUL NEB SCH (20:18)
[2016-08-30] MEDS: HYDROCODONE/ACETAMINOPHEN 7.5-325 MG TABLET PO PRN (20:56)
[2016-08-30] MEDS: MONTELUKAST SODIUM 10 MG TABLET PO SCH (21:48)
[2016-08-30] MEDS: OMEGA-3 ACID ETHYL ESTERS 1 GM CAPSULE PO SCH (21:48)
[2016-08-30] MEDS: FUROSEMIDE INJ/PF 40 MG/4 ML SDV IV SCH (21:48)
[2016-08-30] MEDS: SIMVASTATIN 40 MG TABLET PO SCH (21:48)
[2016-08-30] MEDS ORDERED: FUROSEMIDE INJ/PF 20 MG/2 ML SDV IV SCH (22:00)
[2016-08-30] MEDS ORDERED: (PENDING PHARMACY ID) (Fish Oil/Dha/Epa [Fish Oil 1,200 Mg Fish Oil] 1,200 MG) PO SCH (22:00)
[2016-08-30] MEDS ORDERED: GUAIFENESIN PO SCH (22:00)
[2016-08-30] MEDS ORDERED: (PENDING PHARMACY ID) (Simvastatin [Zocor 80 Mg Tablet] 80 MG) PO SCH (22:00)
[2016-08-30] MEDS ORDERED: SIMVASTATIN 40 MG TABLET PO SCH (22:00)
[2016-08-30] MEDS ORDERED: [UNRECOGNIZED DRUG - OTHER] PO SCH (22:00)
[2016-08-30] MEDS ORDERED: WARFARIN SODIUM 2.5 MG TABLET PO SCH (22:00)
[2016-08-30] MEDS ORDERED: DEXTROMETHORPHAN PO SCH (22:00)
[2016-08-31] MEDS: IPRATROPIUM/ALBUTEROL 0.5-2.5 MG/3 ML AMPUL NEB SCH ×4 (02:11→20:18)
[2016-08-31] MEDS: LANSOPRAZOLE 30 MG TAB.RAP.DR PO SCH (06:07)
[2016-08-31] MEDS: GABAPENTIN 300 MG CAPSULE PO SCH ×3 (06:07→21:24)
[2016-08-31 06:44] LABS: ANION GAP 11 (5-19); BLOOD UREA NITROGEN 41 mg/dL (7-20); CALCIUM 8.9 mg/dL (8.4-10.2); CARBON DIOXIDE 38 mmol/L (22-30); CHLORIDE 90 mmol/L (98-107); CREATININE RESULT 1.43 mg/dL (0.52-1.25); GLUCOSE 263 mg/dL (75-110); MAGNESIUM 2.2 mg/dL (1.6-2.3); POTASSIUM 4.5 mmol/L (3.6-5.0); SODIUM 138.7 mmol/L (137-145)
[2016-08-31 07:25] LABS: HEMATOCRIT 27.1 % (36.0-47.0); HEMOGLOBIN 8.3 g/dL (12.0-15.5); HGB HCT DIFFERENCE -2.2; MEAN CORPUSCULAR HEMOGLOBIN 29.8 pg (27.0-33.4); MEAN CORPUSCULAR HGB CONC 30.8 g/dL (32.0-36.0); MEAN CORPUSCULAR VOLUME 97 fl (80-97); RED BLOOD COUNT 2.79 10^6/uL (3.72-5.28); RED CELL DISTRIBUTION WIDTH 19.2 % (11.5-14.0); WHITE BLOOD COUNT 11.7 10^3/uL (4.0-10.5)
[2016-08-31] MEDS: INSULIN LISPRO 100 UNIT/ML 3 ML VIAL SUBCUT PRN ×4 (07:40→23:00)
[2016-08-31] MEDS: INSULIN LISPRO 100 UNIT/ML 3 ML VIAL SUBCUT SCH ×3 (07:40→17:51)
[2016-08-31] MEDS: HYDROCODONE/ACETAMINOPHEN 7.5-325 MG TABLET PO PRN ×3 (07:41→21:25)
[2016-08-31 07:45] LABS: BASOPHILS % (MANUAL) 0 % (0-2); EOSINOPHILS % (MANUAL) 0 % (0-6); LYMPHOCYTES % (MANUAL) 7 % (13-45); TOTAL CELLS COUNTED 100
[2016-08-31 07:46] LABS: ANISOCYTOSIS 2+
[2016-08-31 07:47] LABS: HYPOCHROMASIA SLIGHT; OVALOCYTES SLIGHT; POIKILOCYTOSIS SLIGHT; POLYCHROMASIA SLIGHT; TEAR DROP CELLS SLIGHT
[2016-08-31] MEDS ORDERED: (PENDING PHARMACY ID) (Insulin Aspart [Novolog Flexpen] 15 UNIT) SUBCUT SCH (08:00)
[2016-08-31] MEDS: BUDESONIDE NEB 0.5 MG/2 ML AMPUL NEB SCH ×2 (08:16→20:17)
[2016-08-31] MEDS ORDERED: (PENDING PHARMACY ID) (Fluticasone Propionate [Flovent Hfa 220 Mcg Mdi] 1 PUFF) IH SCH (10:00)
[2016-08-31] MEDS ORDERED: (PENDING PHARMACY ID) (Warfarin Sodium 5 MG) PO SCH (10:00)
[2016-08-31] MEDS ORDERED: (PENDING PHARMACY ID) (Olopatadine Hcl [Pataday] 2.5 ML) OU SCH (10:00)
[2016-08-31] MEDS ORDERED: (PENDING PHARMACY ID) (Ranitidine Hcl [Zantac 150 Mg Tablet] 150 MG) PO SCH (10:00)
[2016-08-31] MEDS: SITAGLIPTIN PHOSPHATE 50 MG TABLET PO SCH (11:01)
[2016-08-31] MEDS: GUAIFENESIN 600 MG TABLET.SA PO SCH ×2 (11:01→21:24)
[2016-08-31] MEDS: FUROSEMIDE INJ/PF 40 MG/4 ML SDV IV SCH ×2 (11:01→21:21)
[2016-08-31] MEDS: LORATADINE 10 MG TABLET PO SCH (11:01)
[2016-08-31] MEDS: OMEGA-3 ACID ETHYL ESTERS 1 GM CAPSULE PO SCH ×2 (11:02→21:24)
[2016-08-31] MEDS: FAMOTIDINE 20 MG TABLET PO SCH ×3 (11:02→21:25)
[2016-08-31] MEDS: IRON POLYSACCHARIDES COMPLEX 150 MG CAPSULE PO SCH (11:02)
[2016-08-31] MEDS: CEFEPIME 2 GM/D5W RTU 2 GM/50 ML RTUPB IV SCH ×2 (11:03→21:20)
[2016-08-31] MEDS: FLUTICASONE NASAL SPRAY 50 MCG/SPRY 120 SPRAY/16 GM NASL SCH (11:05)
[2016-08-31] MEDS: FLUTICASONE PROPIONATE HFA 110 MCG/PUFF 12 GM MDI IH SCH (11:07)
[2016-08-31] MEDS: METOPROLOL TARTRATE 25 MG TABLET PO SCH ×2 (11:07→21:24)
--- NOTE | 2016-08-31 13:31 | PDOC PROGRESS REPORT ---
Subjective Progress Note for:: 08/31/16 Subjective:: reason for visit: f/u CODP exac, CHF, acute bronchitis hospital course: per H/P: "YAMILETH RENAE is a 66 year old female with a past medical history of mechanical aortic valve on Coumadin, atrial fibrillation , insulin-dependent diabetes, morbid obesity obstructive sleep apnea, COPD and oxygen dependence and anxiety. She has been in her usual state of health until approximately 8 hours prior to presentation developing shortness of breath and a nonproductive cough associated with rhinorrhea prompting her to take Vistaril and Xanax without improvement she called EMS. Plan to have pulse oximetry in the 80s in the emergency room she is placed on BiPAP and has audible rhonchi and a nonproductive cough she receives empiric antibiotics and referred to the hospitalist for admission. The patient denies chest pain nausea vomiting or change in medications." I inherited her care Tuesday and she is feeling some better, breathing easier. ROS: she denies chest pain, n/v/d, palpitations, fever/chills; still has cough but not productive this morning, still wheezing; total 10 systems reviewed, remaining systems negative. Physical Exam Vital Signs: Temp Pulse Resp BP Pulse Ox 97.4 F 62 16 106/38 L 99 08/31/16 07:04 08/31/16 08:20 08/31/16 08:20 08/31/16 07:04 08/31/16 08:20 Intake & Output 08/30/16 08/31/16 09/01/16 06:59 06:59 06:59 Intake Total 5 2892 Output Total 850 3600 Balance -845 -708 Weight 122 kg 122 kg General appearance: PRESENT: no acute distress, morbidly obese, well-developed, well-nourished Head exam: PRESENT: atraumatic, normocephalic Eye exam: PRESENT: EOMI. ABSENT: conjunctival injection, scleral icterus Mouth exam: PRESENT: moist, neck supple Neck exam: PRESENT: full ROM. ABSENT: tracheal deviation Respiratory exam: PRESENT: wheezes - exp, bilat. ABSENT: accessory muscle use, rhonchi, tachypnea, unlabored Cardiovascular exam: PRESENT: RRR. ABSENT: systolic murmur Pulses: PRESENT: normal radial pulses, normal dorsalis pedis pul GI/Abdominal exam: PRESENT: normal bowel sounds, soft. ABSENT: tenderness Extremities exam: PRESENT: +1 edema. ABSENT: calf tenderness Musculoskeletal exam: PRESENT: full ROM. ABSENT: tenderness Neurological exam: PRESENT: alert, awake, oriented to person, oriented to place , oriented to time Psychiatric exam: PRESENT: appropriate affect, normal mood Skin exam: PRESENT: dry, warm Results Laboratory Results: 08/31/16 05:27 08/31/16 05:27 08/31/16 08/31/16 05:27 05:27 WBC 11.7 H RBC 2.79 L Hgb 8.3 L Hct 27.1 L MCV 97 MCH 29.8 MCHC 30.8 L RDW 19.2 H Plt Count 174 Seg Neutrophils % Not Reportable Lymphocytes % Not Reportable Monocytes % Not Reportable Eosinophils % Not Reportable Basophils % Not Reportable Absolute Neutrophils Not Reportable Absolute Lymphocytes Not Reportable Absolute Monocytes Not Reportable Absolute Eosinophils Not Reportable Absolute Basophils Not Reportable Sodium 138.7 Potassium 4.5 Chloride 90 L Carbon Dioxide 38 H Anion Gap 11 BUN 41 H Creatinine 1.43 H Est GFR ( Amer) 44 L Est GFR (Non-Af Amer) 37 L Glucose 263 H Calcium 8.9 Magnesium 2.2 Impressions: Chest X-Ray 08/29/16 20:01 IMPRESSION: NO SIGNIFICANT RADIOGRAPHIC FINDING IN THE CHEST. Status: Imported from PACS Assessment & Plan - Diagnosis (1) Cellulitis and abscess of leg Is this a current diagnosis for this admission?: YesPlan: unchanged; complicated by venous stasis; continue broad spectrum abx and attempts at diuresis (2) Venous stasis dermatitis of both lower extremities Is this a current diagnosis for this admission?: YesPlan: as above (3) COPD exacerbation Is this a current diagnosis for this admission?: YesPlan: some improved, hold on steroids for now due to infection. (4) Anxiety Is this a current diagnosis for this admission?: Yes (5) Pneumonia Qualifiers: Pneumonia type: due to unspecified organism Laterality: bilateral Lung location: unspecified part of lung Qualified Code(s): J18.9 - Pneumonia, unspecified organism Is this a current diagnosis for this admission?: YesPlan: improved but not back to baseline; possible RLL airspace disease on CXR, difficult to auscultate due to her body habitus; continue pulm toilet and abx for now. (6) History of mechanical aortic valve replacement Is this a current diagnosis for this admission?: YesPlan: INR upper limit of target/goal, hold today's dose of coumadin as INR will likely continue to increase due to abx use; daily dosing of coumadin (7) JAMEEL (obstructive sleep apnea) Is this a current diagnosis for this admission?: YesPlan: continue nocturnal BiPAP per usual home dose/regimen (8) Positive blood culture Is this a current diagnosis for this admission?: YesPlan: 1 of 2, probable contaminant; repeat today and monitor final results (9) Constipation Qualifiers: Constipation type: unspecified constipation type Qualified Code(s): K59.00 - Constipation, unspecified Is this a current diagnosis for this admission?: YesPlan: stool softener and monitor for effect (10) Acute on chronic respiratory failure with hypoxemia Is this a current diagnosis for this admission?: YesPlan: uses home O2 at 2L/min, not quite back to baseline - Time Time Spent with patient: 25-34 minutes Medications reviewed and adjusted accordingly: Yes - Plan Summary Plan Summary: start PT
[2016-08-31] MEDS: SENNOSIDES/DOCUSATE 8.6-50 MG 1 EACH TABLET PO SCH (17:52)
[2016-08-31] MEDS: LEVOFLOXACIN 750 MG TABLET PO SCH (17:52)
[2016-08-31] MEDS: SIMVASTATIN 40 MG TABLET PO SCH (21:23)
[2016-08-31] MEDS: MONTELUKAST SODIUM 10 MG TABLET PO SCH (21:24)
[2016-08-31] MEDS ORDERED: WARFARIN SODIUM 5 MG TABLET PO SCH (22:00)
[2016-09-01] MEDS: IPRATROPIUM/ALBUTEROL 0.5-2.5 MG/3 ML AMPUL NEB SCH ×4 (02:06→20:33)
[2016-09-01 05:51] LABS: ABSOLUTE EOSINOPHILS # (AUTO) 0.4 10^3/uL (0.0-0.6); ABSOLUTE LYMPHOCYTES (AUTO) 0.6 10^3/uL (0.5-4.7); ABSOLUTE MONOCYTES (AUTO) 0.5 10^3/uL (0.1-1.4); ABSOLUTE NEUT (AUTO) 7.3 10^3/uL (1.7-8.2); BASOPHILS % (AUTO) 0.4 % (0-2); EOSINOPHILS % (AUTO) 4.3 % (0-6); HEMOGLOBIN 9.1 g/dL (12.0-15.5); HGB HCT DIFFERENCE -0.7; LYMPHOCYTES % (AUTO) 6.6 % (13-45); MEAN CORPUSCULAR HEMOGLOBIN 30.8 pg (27.0-33.4); MEAN CORPUSCULAR HGB CONC 32.3 g/dL (32.0-36.0); MEAN CORPUSCULAR VOLUME 95 fl (80-97); MONOCYTES % (AUTO) 5.6 % (3-13); RED BLOOD COUNT 2.94 10^6/uL (3.72-5.28); RED CELL DISTRIBUTION WIDTH 19.7 % (11.5-14.0); SEGMENTED NEUTROPHILS % (AUTO) 83.1 % (42-78); WHITE BLOOD COUNT 8.8 10^3/uL (4.0-10.5)
[2016-09-01] MEDS: HYDROCODONE/ACETAMINOPHEN 7.5-325 MG TABLET PO PRN ×3 (05:54→23:59)
[2016-09-01] MEDS: GABAPENTIN 300 MG CAPSULE PO SCH ×3 (05:54→23:51)
[2016-09-01] MEDS: LANSOPRAZOLE 30 MG TAB.RAP.DR PO SCH (05:54)
[2016-09-01 06:05] LABS: BLOOD UREA NITROGEN 45 mg/dL (7-20); CALCIUM 8.9 mg/dL (8.4-10.2); CHLORIDE 89 mmol/L (98-107); CREATININE RESULT 1.55 mg/dL (0.52-1.25); GLUCOSE 199 mg/dL (75-110); POTASSIUM 4.1 mmol/L (3.6-5.0); SODIUM 138.6 mmol/L (137-145)
[2016-09-01 06:16] LABS: ANION GAP 13 (5-19)
[2016-09-01 06:19] LABS: CARBON DIOXIDE 37 mmol/L (22-30)
[2016-09-01] MEDS: BUDESONIDE NEB 0.5 MG/2 ML AMPUL NEB SCH ×2 (08:20→20:33)
[2016-09-01 10:03] LABS: PROTHROMBIN TIME 31.9 SEC (11.4-15.4)
[2016-09-01] MEDS: CEFEPIME 2 GM/D5W RTU 2 GM/50 ML RTUPB IV SCH (10:32)
[2016-09-01] MEDS: FLUTICASONE NASAL SPRAY 50 MCG/SPRY 120 SPRAY/16 GM NASL SCH (10:32)
[2016-09-01] MEDS: INSULIN LISPRO 100 UNIT/ML 3 ML VIAL SUBCUT SCH ×3 (10:32→17:18)
[2016-09-01] MEDS: SODIUM CHLORIDE NASAL SPRAY 44 ML NASL SCH ×3 (10:32→23:53)
[2016-09-01] MEDS: SITAGLIPTIN PHOSPHATE 50 MG TABLET PO SCH (10:33)
[2016-09-01] MEDS: SENNOSIDES/DOCUSATE 8.6-50 MG 1 EACH TABLET PO SCH ×2 (10:33→17:17)
[2016-09-01] MEDS: OMEGA-3 ACID ETHYL ESTERS 1 GM CAPSULE PO SCH ×2 (10:33→23:53)
[2016-09-01] MEDS: FLUTICASONE PROPIONATE HFA 110 MCG/PUFF 12 GM MDI IH SCH (10:33)
[2016-09-01] MEDS: METOPROLOL TARTRATE 25 MG TABLET PO SCH ×2 (10:34→23:50)
[2016-09-01] MEDS: LORATADINE 10 MG TABLET PO SCH (10:34)
[2016-09-01] MEDS: IRON POLYSACCHARIDES COMPLEX 150 MG CAPSULE PO SCH (10:34)
[2016-09-01] MEDS: GUAIFENESIN 600 MG TABLET.SA PO SCH ×2 (10:35→23:52)
[2016-09-01] MEDS: FAMOTIDINE 20 MG TABLET PO SCH ×2 (10:35→23:49)
[2016-09-01] MEDS: INSULIN LISPRO 100 UNIT/ML 3 ML VIAL SUBCUT PRN (12:01)
--- NOTE | 2016-09-01 12:04 | PDOC PROGRESS REPORT ---
Subjective Progress Note for:: 09/01/16 Subjective:: reason for visit: f/u CODP [facility], CHF, acute bronchitis hospital course: per H/P: "YAMILETH RENAE is a 66 year old female with a past medical history of mechanical aortic valve on Coumadin, atrial fibrillation , insulin-dependent diabetes, morbid obesity obstructive sleep apnea, COPD and oxygen dependence and anxiety. She has been in her usual state of health until approximately 8 hours prior to presentation developing shortness of breath and a nonproductive cough associated with rhinorrhea prompting her to take Vistaril and Xanax without improvement she called EMS. Plan to have pulse oximetry in the 80s in the emergency room she is placed on BiPAP and has audible rhonchi and a nonproductive cough she receives empiric antibiotics and referred to the hospitalist for admission. The patient denies chest pain nausea vomiting or change in medications." I inherited her care Tuesday and she is feeling some better, breathing easier. she is getting anxious and wants to go home, states she thinks she can manage at home. uses [employer] and has family living with her for support. she still reports breathlessness with ADLs, denies cough or wheezing today. ROS: she denies chest pain, n/v/d, palpitations, fever/chills; all systems reviewed, remaining systems negative. Physical Exam Vital Signs: Temp Pulse Resp BP Pulse Ox 97.9 F 68 16 115/75 98 09/01/16 07:28 09/01/16 08:22 09/01/16 08:22 09/01/16 07:28 09/01/16 08:22 Intake & Output 08/31/16 09/01/16 09/02/16 06:59 06:59 06:59 Intake Total 2892 3500 Output Total 3600 7000 Balance -708 -3500 Weight 114.9 kg General appearance: PRESENT: no acute distress, morbidly obese, well-developed, well-nourished Head exam: PRESENT: atraumatic, normocephalic Eye exam: PRESENT: EOMI. ABSENT: conjunctival injection, scleral icterus Mouth exam: PRESENT: moist, neck supple Neck exam: PRESENT: full ROM. ABSENT: tracheal deviation Respiratory exam: ABSENT: wheezes, accessory muscle use, rhonchi, tachypnea, unlabored Cardiovascular exam: PRESENT: RRR. ABSENT: systolic murmur Pulses: PRESENT: normal radial pulses, normal dorsalis pedis pul GI/Abdominal exam: PRESENT: normal bowel sounds, soft. ABSENT: tenderness Extremities exam: PRESENT: trace edema. ABSENT: calf tenderness Musculoskeletal exam: PRESENT: full ROM. ABSENT: tenderness Neurological exam: PRESENT: alert, awake, oriented to person, oriented to place , oriented to time Psychiatric exam: PRESENT: appropriate affect, normal mood Skin exam: PRESENT: dry, warm Results Laboratory Results: 09/01/16 05:30 09/01/16 05:30 09/01/16 09/01/16 05:30 05:30 WBC 8.8 RBC 2.94 L Hgb 9.1 L Hct 28.0 L MCV 95 MCH 30.8 MCHC 32.3 RDW 19.7 H Plt Count 167 Seg Neutrophils % 83.1 H Lymphocytes % 6.6 L Monocytes % 5.6 Eosinophils % 4.3 Basophils % 0.4 Absolute Neutrophils 7.3 Absolute Lymphocytes 0.6 Absolute Monocytes 0.5 Absolute Eosinophils 0.4 Absolute Basophils 0.0 Sodium 138.6 Potassium 4.1 Chloride 89 L Carbon Dioxide 37 H Anion Gap 13 BUN 45 H Creatinine 1.55 H Est GFR ( Amer) 40 L Est GFR (Non-Af Amer) 33 L Glucose 199 H Calcium 8.9 08/30/16 10:00 Sputum Gram Stain - Final 08/30/16 10:00 Sputum Sputum Culture - Final NORMAL EMMANUEL Assessment & Plan - Diagnosis (1) Cellulitis and abscess of leg Is this a current diagnosis for this admission?: YesPlan: improved; complicated by venous stasis; continue broad spectrum abx for full 48 hrs and diurese (2) Venous stasis dermatitis of both lower extremities Is this a current diagnosis for this admission?: YesPlan: adjust diuresis due to worsening renal function/CrCl (3) COPD exacerbation Is this a current diagnosis for this admission?: YesPlan: some improved, hold on steroids for now due to infection. (4) Anxiety Is this a current diagnosis for this admission?: YesPlan: a little worse, encourage use of her anxiolytics as needed, we need another day in hospital for the reasons noted above it seems (5) Pneumonia Qualifiers: Pneumonia type: due to unspecified organism Laterality: bilateral Lung location: unspecified part of lung Qualified Code(s): J18.9 - Pneumonia, unspecified organism Is this a current diagnosis for this admission?: YesPlan: improved but not back to baseline; chg to oral regimen tomorrow, anticipate d/c home at that time (6) History of mechanical aortic valve replacement Is this a current diagnosis for this admission?: YesPlan: INR at target/goal, resume dose of coumadin and monitor as INR will likely fluctuate due to abx use; daily dosing of coumadin (7) JAMEEL (obstructive sleep apnea) Is this a current diagnosis for this admission?: Yes (8) Positive blood culture Is this a current diagnosis for this admission?: YesPlan: awaiting repeat culx results (9) Constipation Qualifiers: Constipation type: unspecified constipation type Qualified Code(s): K59.00 - Constipation, unspecified Is this a current diagnosis for this admission?: YesPlan: resolved with treatment (10) Acute on chronic respiratory failure with hypoxemia Is this a current diagnosis for this admission?: Yes - Time Time Spent with patient: 25-34 minutes Anticipated discharge: Home with Homehealth Within: within 24 hours
[2016-09-01] MEDS: LEVOFLOXACIN 750 MG TABLET PO SCH (17:17)
[2016-09-01] MEDS ORDERED: WARFARIN SODIUM 3 MG TABLET PO SCH (22:00)
[2016-09-01] MEDS ORDERED: CEFEPIME 1 GM/D5W RTU 1 GM/50 ML RTUPB IV ONE (23:34)
[2016-09-01] MEDS: MONTELUKAST SODIUM 10 MG TABLET PO SCH (23:51)
[2016-09-01] MEDS: SIMVASTATIN 40 MG TABLET PO SCH (23:51)
[2016-09-02] MEDS ORDERED: CEFEPIME 2 GM/D5W RTU 2 GM/50 ML RTUPB IV ONE (00:32)
[2016-09-02] MEDS: CEFEPIME 2 GM/D5W RTU 2 GM/50 ML RTUPB IV SCH ×2 (00:50→10:31)
[2016-09-02] MEDS: IPRATROPIUM/ALBUTEROL 0.5-2.5 MG/3 ML AMPUL NEB SCH ×2 (02:18→08:16)
[2016-09-02 04:56] LABS: PROTHROMBIN TIME 22.8 SEC (11.4-15.4)
[2016-09-02 05:11] LABS: BLOOD UREA NITROGEN 44 mg/dL (7-20); CALCIUM 8.8 mg/dL (8.4-10.2); CHLORIDE 92 mmol/L (98-107); GLUCOSE 188 mg/dL (75-110); POTASSIUM 3.8 mmol/L (3.6-5.0); SODIUM 138.6 mmol/L (137-145)
[2016-09-02 05:18] LABS: ANION GAP 9 (5-19)
[2016-09-02 05:21] LABS: CARBON DIOXIDE 38 mmol/L (22-30)
[2016-09-02] MEDS: GABAPENTIN 300 MG CAPSULE PO SCH (05:36)
[2016-09-02] MEDS: LANSOPRAZOLE 30 MG TAB.RAP.DR PO SCH (05:36)
[2016-09-02 08:08] VITALS: BP 118/70
[2016-09-02] MEDS: BUDESONIDE NEB 0.5 MG/2 ML AMPUL NEB SCH (08:16)
[2016-09-02] MEDS: IRON POLYSACCHARIDES COMPLEX 150 MG CAPSULE PO SCH (10:31)
[2016-09-02] MEDS: FLUTICASONE NASAL SPRAY 50 MCG/SPRY 120 SPRAY/16 GM NASL SCH (10:31)
[2016-09-02] MEDS: SITAGLIPTIN PHOSPHATE 50 MG TABLET PO SCH (10:31)
[2016-09-02] MEDS: GUAIFENESIN 600 MG TABLET.SA PO SCH (10:31)
[2016-09-02] MEDS: FLUTICASONE PROPIONATE HFA 110 MCG/PUFF 12 GM MDI IH SCH (10:31)
[2016-09-02] MEDS: LORATADINE 10 MG TABLET PO SCH (10:31)
[2016-09-02] MEDS: INSULIN LISPRO 100 UNIT/ML 3 ML VIAL SUBCUT SCH (10:31)
[2016-09-02] MEDS: OMEGA-3 ACID ETHYL ESTERS 1 GM CAPSULE PO SCH (10:31)
[2016-09-02] MEDS: METOPROLOL TARTRATE 25 MG TABLET PO SCH (10:31)
[2016-09-02] MEDS: FAMOTIDINE 20 MG TABLET PO SCH (10:31)
[2016-09-02] MEDS: SODIUM CHLORIDE NASAL SPRAY 44 ML NASL SCH (10:31)
[2016-09-02] MEDS: SENNOSIDES/DOCUSATE 8.6-50 MG 1 EACH TABLET PO SCH (10:31)
--- NOTE | 2016-09-02 10:41 | PDOC DISCHARGE SUMMARY ---
General - Admit/Disc Date/PCP Admission Date/Primary Care Provider: 08/29/16 21:49 KIMI ANAND PA-C Discharge Date: 09/02/16 - Discharge Diagnosis (1) Cellulitis and abscess of leg Is this a current diagnosis for this admission?: YesSummary: improved, continue topical care via her PCP as outpt, continue Abx (2) Pneumonia Is this a current diagnosis for this admission?: YesSummary: improved; continue 10d course of levaquin and f/u with her PCP next week (3) Venous stasis dermatitis of both lower extremities Is this a current diagnosis for this admission?: Yes (4) COPD exacerbation Is this a current diagnosis for this admission?: Yes (5) Anxiety Is this a current diagnosis for this admission?: Yes (6) History of mechanical aortic valve replacement Is this a current diagnosis for this admission?: YesSummary: INR slightly subTx, resume home regimen and needs oupt INR early next week for dose adjustment while on abx particularly (7) JAMEEL (obstructive sleep apnea) Is this a current diagnosis for this admission?: Yes (8) Positive blood culture Is this a current diagnosis for this admission?: YesSummary: contaminant; repeat culx's negative. (9) Constipation Is this a current diagnosis for this admission?: Yes (10) Acute on chronic respiratory failure with hypoxemia Is this a current diagnosis for this admission?: Yes - Additional Information Resuscitation Status: Full Code Discharge Diet: Cardiac Discharge Activity: Slowly Increase Activity, Supervised Activity Home Medications: Albuterol Sulfate [Ventolin 0.042% Neb 1.25 mg/3 mL Ampul] 1 vial NEB RTQ6HP PRN 08/30/16 Albuterol Sulfate [Ventolin Hfa] 1 puff IH Q6HP PRN 08/30/16 Alprazolam [Xanax 0.5 mg Tablet] 0.5 mg PO Q8HP PRN 08/30/16 Budesonide [Pulmicort Neb 0.5 mg/2 ml Ampul] 0.5 mg NEB RTQ12 08/30/16 Famotidine [Pepcid 20 mg Tablet] 40 mg PO HSP PRN 08/30/16 Ferrous Sulfate [Iron] 325 mg PO Q12 08/30/16 Fish Oil/Dha/Epa [Fish Oil 1,200 mg Fish Oil] 1,200 mg PO Q12 08/30/16 Fluticasone Propionate [Flonase Nasal [place] 50 Mcg/[place] 16 gm] 2 sprays NASL DAILY 08/30/16 Fluticasone Propionate [Flovent HFA 220 mcg MDI] 1 puff IH DAILY 08/30/16 Furosemide [Lasix 80 mg Tablet] 80 mg PO DAILY 08/30/16 Gabapentin [Neurontin 300 mg Capsule] 300 mg PO Q8 08/30/16 Guaifenesin/Dextromethorphan [Guaifenesin Dm 400-20 mg Tab] 1 tab PO Q12 Hydrocodone/Acetaminophen [[place] 7.5-325 mg Tablet] 1 tab PO Q4HP PRN 08/30/16 Insulin Aspart [Novolog Flexpen] 15 unit SUBCUT AC 08/30/16 Insulin Glargine,Hum.rec.anlog [Toujeo Solostar] 60 unit SQ DAILY 08/30/16 L.acidoph & Paracasei,B.lactis [Probiotic] 1 cap PO Q2DAYS@1000 08/30/16 Loratadine [Claritin 10 mg Tablet] 10 mg PO DAILY 08/30/16 Metolazone [Zaroxolyn 5 mg Tablet] 5 mg PO NORTH@1000 08/30/16 Montelukast Sodium [Singulair 10 mg Tablet] 10 mg PO QHS 08/30/16 Olopatadine HCl [Pataday] 2.5 ml OU DAILY 08/30/16 Pantoprazole Sodium [Protonix] 40 mg PO DAILY 08/30/16 Ranitidine HCl [Zantac 150 mg Tablet] 150 mg PO BID 08/30/16 Simvastatin [Zocor 80 mg Tablet] 80 mg PO QHS 08/30/16 Sitagliptin Phosphate [Januvia 50 mg Tablet] 100 mg PO DAILY 08/30/16 Warfarin Sodium [Coumadin 2.5 mg Tablet] 2.5 mg PO MOWEFR@1000 08/30/16 Warfarin Sodium [Coumadin 5 mg Tablet] 5 mg PO SUTUTHSA@1000 08/30/16 Levofloxacin [Levaquin 750 mg Tablet] 750 mg PO QPM #7 tablet 09/02/16 Metoprolol Tartrate [Lopressor 25 mg Tablet] 12.5 mg PO Q12 #60 09/02/16 Sennosides/Docusate 8.6-50 mg [Senna Plus Tablet] 2 each PO BID tablet History of Present Illness Patient complains of: SOA History of Present Illness: YAMILETH RENAE is a 66 year old female with a past medical history of mechanical aortic valve on Coumadin, atrial fibrillation, insulin-dependent diabetes, morbid obesity obstructive sleep apnea, COPD and oxygen dependence and anxiety. She has been in her usual state of health until approximately 8 hours prior to presentation developing shortness of breath and a nonproductive cough associated with rhinorrhea prompting her to take Vistaril and Xanax without improvement she called EMS. Plan to have pulse oximetry in the 80s in the emergency room she is placed on BiPAP and has audible rhonchi and a nonproductive cough she receives empiric antibiotics and referred to the hospitalist for admission. The patient denies chest pain nausea vomiting or change in medications." Hospital Course Hospital Course: I inherited her care Gilma and she is feeling some better, breathing easier. she is getting anxious and wants to go home, states she thinks she can manage at home. uses [employer] and has family living with her for support. she still reports breathlessness with ADLs, denies cough or wheezing. she made remarkable improvement with treatments started and by the day of d/c had returned to her baseline and is stable for d/c home. Physical Exam Vital Signs: Temp Pulse Resp BP Pulse Ox 97.7 F 66 24 H 118/70 100 09/02/16 08:28 09/02/16 08:28 09/02/16 08:28 09/02/16 08:28 09/02/16 08:28 Intake & Output 09/01/16 09/02/16 09/03/16 06:59 06:59 06:59 Intake Total 3500 2610 Output Total 7000 2900 Balance -3500 -290 Weight 114.9 kg 118 kg General appearance: PRESENT: no acute distress, morbidly obese, well-developed, well-nourished Head exam: PRESENT: atraumatic, normocephalic Eye exam: ABSENT: conjunctival injection, scleral icterus Respiratory exam: PRESENT: crackles - bases. ABSENT: accessory muscle use, rhonchi, wheezes GI/Abdominal exam: PRESENT: normal bowel sounds, soft. ABSENT: tenderness Extremities exam: PRESENT: pedal edema. ABSENT: calf tenderness Results Laboratory Results: 09/01/16 05:30 09/02/16 04:35 09/02/16 04:35 Sodium 138.6 Potassium 3.8 Chloride 92 L Carbon Dioxide 38 H Anion Gap 9 BUN 44 H Creatinine 1.40 H Est GFR ( Amer) 46 L Est GFR (Non-Af Amer) 38 L Glucose 188 H Calcium 8.8 08/30/16 10:00 Sputum Gram Stain - Final 08/30/16 10:00 Sputum Sputum Culture - Final NORMAL EMMANUEL Impressions: Chest X-Ray 08/29/16 20:01 IMPRESSION: NO SIGNIFICANT RADIOGRAPHIC FINDING IN THE CHEST. Qualifiers PATEINT BEING DISCHARGED WITH ANY OF THE FOLLOWING DIAGNOSIS?: No VTE patient discharged on overlapping Therapy?: Yes Plan Discharge Plan: d/c home, already has home O2, nebs and DME in the home; resume [facility] upon her arrival. f/u PCP early next week to make sure she is progressing. needs repeat INR to dose adjust her coumadin, especailly while on the abx Time Spent: Greater than 30 Minutes
[2016-09-05] MEDS ORDERED: METOLAZONE 5 MG TABLET PO SCH (10:00)
== END 2016-09-02 11:10 | disposition home health service (06) | DRG 190 ==
LOC: ER 19:56 → EH 21:49 → UNDOADMIN 21:55 → EH 21:55 → 3S 23:55
PROVIDERS: ADMIT Internal Medicine; ATTEND Internal Medicine
PROC: 5A09457 Assistance with Respiratory Ventilation, 24-96 Consecutive Hours, Continuous Positive Airway Pressure (ICD-10-PCS; principal; 2016-08-29)
PROC: 3E0F73Z Introduction of Anti-inflammatory into Respiratory Tract, Via Natural or Artificial Opening (ICD-10-PCS; 2016-08-30)
DX: J44.0 Chronic obstructive pulmonary disease with (acute) lower respiratory infection (principal); J18.9 Pneumonia, unspecified organism; J96.02 Acute respiratory failure with hypercapnia; J96.21 Acute and chronic respiratory failure with hypoxia; I50.33 Acute on chronic diastolic (congestive) heart failure; Z68.42 Body mass index [BMI] 45.0-49.9, adult; L03.119 Cellulitis of unspecified part of limb; E66.2 Morbid (severe) obesity with alveolar hypoventilation; J44.1 Chronic obstructive pulmonary disease with (acute) exacerbation; I87.2 Venous insufficiency (chronic) (peripheral); F41.9 Anxiety disorder, unspecified; K59.00 Constipation, unspecified; I48.91 Unspecified atrial fibrillation; E11.9 Type 2 diabetes mellitus without complications; I11.0 Hypertensive heart disease with heart failure; E78.5 Hyperlipidemia, unspecified; M19.90 Unspecified osteoarthritis, unspecified site; D64.9 Anemia, unspecified; Z99.81 Dependence on supplemental oxygen; Z88.0 Allergy status to penicillin; Z79.899 Other long term (current) drug therapy; Z91.040 Latex allergy status; Z95.2 Presence of prosthetic heart valve; Z79.01 Long term (current) use of anticoagulants; Z79.4 Long term (current) use of insulin; Z90.49 Acquired absence of other specified parts of digestive tract; Z90.710 Acquired absence of both cervix and uterus; Z87.891 Personal history of nicotine dependence; Z88.2 Allergy status to sulfonamides; Z88.8 Allergy status to other drugs, medicaments and biological substances; Z88.3 Allergy status to other anti-infective agents; Z88.1 Allergy status to other antibiotic agents; Z91.012 Allergy to eggs; Z83.6 Family history of other diseases of the respiratory system
CPT/HCPCS: 36415; 71010; 80048; 80053; 81001; 82550; 82553; 82803; 82962; 83735; 83880; 84484; 85025; 85610; 87040; 87070; 87077; 87086; 87205; 93005; 93010; 94660; 94667; 94668; 94799; 96365; 96375; 99291; G8978-GP; G8979-GP; J0692; J1815; J1940; J1956; J2930; J3490; J7620

== ENCOUNTER 2016-10-03 23:01 | Inpatient (IN) | payer MEDICARE, BC ==
[2016-10-03] MEDS ORDERED: GLUCAGON,HUMAN RECOMB 1 MG INJ IM PRN (23:42)
[2016-10-03] MEDS ORDERED: DEXTROSE 50%-WATER 25 GM/50 ML DISP.SYRIN IV PRN ×2 (23:42)
[2016-10-03] MEDS ORDERED: DEXTROSE 40% GEL 15 GM TUBE PO PRN ×2 (23:42)
[2016-10-03] MEDS ORDERED: PHARMACY COMMUNICATION ORDER MC SCH (23:45)
[2016-10-03] MEDS ORDERED: DEXTROSE 5%-WATER 250 ML with NOREPINEPHRINE BITARTRATE 4 MG IV PRN ×2 (23:53)
[2016-10-03] MEDS ORDERED: NORMAL SALINE 1000 ML 1,000 ML IV PRN (23:57)
[2016-10-03] MEDS ORDERED: ALBUTEROL SULFATE 0.083% NEB 2.5 MG/3 ML AMPUL NEB PRN (23:57)
[2016-10-04 00:05] LABS: ARTERIAL BLOOD BASE EXCESS 2.2 mmol/L
[2016-10-04] MEDS: MIDAZOLAM HCL 100 ML IV PRN ×3 (00:05→18:32)
[2016-10-04] MEDS ORDERED: LINEZOLID 300 ML IV ONE ×2 (00:10→00:15)
[2016-10-04] MEDS ORDERED: ALBUTEROL SULFATE 0.083% NEB 2.5 MG/3 ML AMPUL NEB PRN (00:19)
[2016-10-04 00:23] LABS: PROTHROMBIN TIME 31.8 SEC (11.4-15.4)
[2016-10-04 00:24] LABS: HEMATOCRIT 33.1 % (36.0-47.0); HEMOGLOBIN 9.9 g/dL (12.0-15.5); HGB HCT DIFFERENCE -3.4; MEAN CORPUSCULAR HEMOGLOBIN 27.8 pg (27.0-33.4); MEAN CORPUSCULAR VOLUME 93 fl (80-97); PARTIAL THROMBOPLASTIN TIME 53.9 SEC (23.5-35.8); RED BLOOD COUNT 3.57 10^6/uL (3.72-5.28); RED CELL DISTRIBUTION WIDTH 19.5 % (11.5-14.0); WHITE BLOOD COUNT 18.7 10^3/uL (4.0-10.5)
[2016-10-04 00:32] LABS: ALANINE AMINOTRANSFERASE 21 U/L (9-52); ALBUMIN 3.3 g/dL (3.5-5.0); ALKALINE PHOSPHATASE 77 U/L (38-126); ANION GAP 8 (5-19); ASPARTATE AMINO TRANSFERASE 18 U/L (14-36); BILIRUBIN,DIRECT 0.4 mg/dL (0.0-0.4); BILIRUBIN,TOTAL 0.6 mg/dL (0.2-1.3); BLOOD UREA NITROGEN 21 mg/dL (7-20); CALCIUM 7.9 mg/dL (8.4-10.2); CARBON DIOXIDE 35 mmol/L (22-30); CHLORIDE 99 mmol/L (98-107); CREATININE RESULT 1.23 mg/dL (0.52-1.25); GLUCOSE 255 mg/dL (75-110); POTASSIUM 4.6 mmol/L (3.6-5.0); SODIUM 141.6 mmol/L (137-145); TOTAL PROTEIN 6.9 g/dL (6.3-8.2)
[2016-10-04 00:37] LABS: BAND NEUTROPHILS % (MANUAL) 2 % (3-5); BASOPHILS % (MANUAL) 0 % (0-2); EOSINOPHILS % (MANUAL) 0 % (0-6); LYMPHOCYTES % (MANUAL) 0 % (13-45); TOTAL CELLS COUNTED 100
[2016-10-04 00:38] LABS: ANISOCYTOSIS 2+; OVALOCYTES 1+; POIKILOCYTOSIS 2+; POLYCHROMASIA SLIGHT; STOMATOCYTES 2+; TOXIC GRANULATION 1+
--- NOTE | 2016-10-04 00:50 | RADIOLOGY REPORT (SQ) ---
EXAM DESCRIPTION: CHEST SINGLE VIEW COMPLETED DATE/TIME: 10/04/2016 12:35 am REASON FOR STUDY: INTUBATED COMPARISON: Chest x-ray 08/29/2016 EXAM PARAMETERS: NUMBER OF VIEWS: One view TECHNIQUE: Single frontal radiograph of the chest. RADIATION DOSE: N/A LIMITATIONS: None. FINDINGS: TEMPORARY SUPPORT DEVICES:Endotracheal tube with the tip at the perri. NG tube courses b elow the left edgardo-diaphragm in to the stomach. LUNGS AND PLEURA: There are bilateral perihilar airspace opacities. There are bilateral small pleura l effusions. No pneumothorax. MEDIASTINUM AND HILAR STRUCTURES: No obvious masses. HEART AND VASCULAR STRUCTURES: The heart is enlarged. There is vascular congestion. BONES: Orthopedic hardware noted along the sternal and anterior ribs. IMPRESSION: Bilateral perihilar airspace opacities, may represent pulmonary edema, superimposed pneu monia is not excludable. Small bilateral pleural effusions. Cardiomegaly. Vascular congestion. Low lying endotracheal tube. Retraction by approximately 2- 3 cm recommended. RECOMMENDATIONS: Retraction of the endotracheal tube. TECHNICAL DOCUMENTATION: JOB ID: [id number] 2010 [employer] All Rights Reserved
[2016-10-04 00:56] LABS: APPEARANCE,URINE CLEAR; BILIRUBIN,URINE NEGATIVE (NEGATIVE); GLUCOSE, URINE 150 mg/dL (NEGATIVE); KETONES,URINE NEGATIVE (NEGATIVE); LEUKOCYTE ESTERASE,URINE NEGATIVE (NEGATIVE); NITRITE,URINE NEGATIVE (NEGATIVE); PROTEIN,URINE 100 mg/dL (NEGATIVE); URINE SPECIFIC GRAVITY 1.015; UROBILINOGEN,URINE NEGATIVE mg/dL (<2.0)
--- NOTE | 2016-10-04 01:36 | PDOC H&P ---
History of Present Illness Admission Date/PCP: 10/03/16 23:01 KIMI ANAND PA-C Patient complains of: resp failure after aspiration History of Present Illness: YAMILETH RENAE is a 66 year old morbidly obese insulin-dependent diabetic female, with underlying home O2 dependent COPD, status post mechanical aortic valve replacement, on Coumadin for same, with underlying heparin allergy and difficult to crossmatch blood who presents in direct transfer from [facility] emergency room intubated and on Levophed drip, for acute respiratory failure from aspiration pneumonia, when she aspirated soup earlier today. Accepted by day hospitalist. Patient has been discussed with the hospitalist who discussed the patient with emergency room physician at [facility]. Patient is intubated and sedated and is able to provide no history whatsoever in terms of acute or chronic events , review of systems, personal habits, family history, etc. No friends or family are present. Old inpatient records are reviewed. No further information available this point in time. Laboratory results from [facility] are reviewed; our labs are pending. Portable x-ray has been reviewed; formal reading pending. EKG reviewed. Social history/personal habits: Per old records, she is . 4 children, on disability. no use of alcohol tobacco or illicit drugs. Allergies/adverse reactions are listed in [employer] and are reviewed. Home medications initially autopopulated into [employer] may not accurately reflect patient's true medications, dosages, and/or frequencies. altitude chamber technician to reconcile medications. Unfortunately, patient not able to provide any information related to her medications/dosages/frequencies. REVIEW OF SYSTEMS: See history and present illness. No further information available this point in time. PHYSICAL EXAMINATION: 125.4 kg. Height is not recorded on the chart. Blood pressure 125/39. Pulse 47 and regular. 99% saturation on FiO2 60%, tidal volume 450 rate of 12 PEEP of 5 pressure support 10. Respiratory rate of 20. Morbidly obese chronically ill-appearing female who appears a bit older than her stated age. Intubated and sedated. Does not respond when name is called. Skin is warm and dry. No grossly obvious evidence of rash in areas of skin examined. No subcutaneous nodules palpated. ENT: Hearing cannot be adequately evaluated due to her current status. Eyes: No scleral icterus. Pupils equal and reactive to light at 4 mm. [place] conjunctivae. Neck is nontender to palpation. Midline trachea. No palpable thyroid nodule mass enlargement or tenderness. Lymphatic: No palpable cervical or clavicular nodes. Neck and lymphatic exams limited by patient body habitus. Psychiatric: cannot be adequately evaluated due to her current status. Lungs: Auscultation reveals equal breath sounds bilaterally. No use of accessory respiratory muscles. Mildly coarse breath sounds bilaterally. Cardiovascular: Heart regular rate and rhythm, without gallop murmur or rub. No carotid or abdominal aortic bruits. Moderate bilateral symmetric slightly pitting ankle and pedal edema. Faintly palpable dorsalis pedis pulses. Abdomen:soft quite obese nontender with positive bowel sounds. Unable to adequately evaluate abdomen for masses or organomegaly due to body habitus. Extremities: Feet are warm and dry. No calf tenderness to compression. No grossly obvious visual evidence of calf swelling. Gentle manipulation of lower extremities fails to reveal any obvious evidence of injury or instability to knees hips or ankles. Neurologic: Patellar reflexes absent. Absent Babinski. Light touch cannot be adequately evaluated due to her current status. Past Medical History Past Medical History: Information her current and old records; patient obviously unable to provide any information. Cardiac Medical History: Reports: Atrial Fibrillation, Congestive Heart Failure - Diastolic, Hyperlipidema Pulmonary Medical History: Reports: Asthma, Chronic Obstructive Pulmonary Disease (COPD), Pneumonia, Respiratory Failure, Sleep Apnea EENT Medical History: Reports: Eyes - Glasses Denies: Ears, Throat Neurological Medical History: Denies: Hemorrhagic CVA, Ischemic CVA, Seizures Endocrine Medical History: Reports: Diabetes Mellitus Type 1 Denies: Diabetes Mellitus Type 2, Hyperthyroidism, Hypothyroidism Renal/ Medical History: Reports: Chronic Kidney Disease - Stage III GI Medical History: Reports: Other - History of AV malformations of small intestine, per prior patient report Denies: Cirrhosis, Hepatitis, Peptic Ulcer Disease Musculoskeltal Medical History: Reports: Arthritis Skin Medical History: Reports: None Psychiatric Medical History: Reports: Depression, General Anxiety Disorder Denies: Alcohol Dependency, Substance Abuse, Tobacco Dependency Hematology: Reports: Anemia, Other - Easy bruising Infectious Medical History: Denies: Hepatitis B, Hepatitis C Past Surgical History Past Surgical History: Information her current and old records; patient obviously unable to provide any information. Past Surgical History: Reports: Cholecystectomy, Hysterectomy, Orthopedic Surgery - right rotator cuff, Valve Replacement - Mechanical aortic Social History Information Source: Emergency Med Personnel, [facility] Records Smoking Status: Unknown if Ever Smoked Frequency of Alcohol Use: None Hx Recreational Drug Use: No Drugs: None Hx Prescription Drug Abuse: No - Advance Directive Resuscitation Status: Full Code Surrogate healthcare decision maker:: Son, per old records Family History Family History: Reviewed & Not Pertinent Parental Family History Reviewed: Yes - Father of [place]; mother of urinary tract infection complications Children Family History Reviewed: Yes - Son is diabetic Sibling(s) Family History Reviewed.: Yes - Sister of cancer. Medication/Allergy Home Medications: Albuterol Sulfate [Ventolin 0.042% Neb 1.25 mg/3 ml Ampul] 1.25 mg NEB RTQ6HP PRN 10/04/16 Albuterol Sulfate [Ventolin HFA MDI 18 GM] 2 puff IH Q4HP PRN 10/04/16 Budesonide [Pulmicort Neb 0.5 mg/2 ml Ampul] 0.5 mg NEB RTQ12 10/04/16 Fluticasone Propionate [Flonase Nasal [place] 50 Mcg/[place] 16 gm] 2 sprays NAREB Q12 10/04/16 Furosemide [Lasix 80 mg Tablet] 80 mg PO QAM 10/04/16 Gabapentin [Neurontin 300 mg Capsule] 300 mg PO Q8 10/04/16 Hydrocodone/Acetaminophen [Hydrocodon-Acetaminoph 7.5-325] 1 tab PO Q4HP PRN Insulin Aspart [Novolog Flexpen] 15 unit SUBCUT MEALS MDD 90 UNITS 10/04/16 Insulin Glargine,Hum.rec.anlog [Toujeo Solostar] 60 unit SQ DAILY 10/04/16 Loratadine [Claritin 10 mg Tablet] 10 mg PO DAILY 10/04/16 Metolazone [Zaroxolyn 5 Mg Tablet] 5 mg PO Q7D 10/04/16 Metoprolol Tartrate [Lopressor 25 mg Tablet] 12.5 mg PO Q12 10/04/16 Montelukast Sodium [Singulair 10 mg Tablet] 10 mg PO QHS 10/04/16 Olopatadine HCl [Pataday] 1 drop OU DAILY 10/04/16 Ranitidine HCl [Zantac 150 mg Tablet] 150 mg PO BID 10/04/16 Simvastatin [Zocor 80 mg Tablet] 80 mg PO QHS 10/04/16 Sitagliptin Phosphate [Januvia] 100 mg PO DAILY 10/04/16 Warfarin Sodium [Coumadin 2.5 mg Tablet] 2.5 mg PO MOFR@1000 10/04/16 Warfarin Sodium [Coumadin 5 mg Tablet] 5 mg PO SUTUWETHSA 10/04/16 Allergies/Adverse Reactions: Heparin Analogues [Heparin Agents] Allergy (Unknown, Verified 03/29/15 12:22) latex [Latex] Allergy (Unknown, Verified 10/03/16 23:42) Penicillins Allergy (Unknown, Verified 10/03/16 23:41) vancomycin [Vancomycin] Allergy (Unknown, Verified 04/01/15 22:46) itching rash doxycycline Allergy (Verified 07/04/16 12:13) Urticaria egg [Egg] Allergy (Verified 03/29/15 12:22) sulfamethoxazole [From Bactrim] Allergy (Verified 03/29/15 12:22) trimethoprim [From Bactrim] Allergy (Verified 03/29/15 12:22) Physical Exam Vital Signs: Temp Pulse Resp BP Pulse Ox 20 135/63 H 100 10/03/16 23:46 10/03/16 23:46 10/03/16 23:46 Results Laboratory Results: 10/03/16 23:49 10/03/16 10/03/16 23:49 23:50 Carbonic Acid 1.85 H HCO3/H2CO3 Ratio 16:1 ABG pH 7.30 L ABG pCO2 61.3 H ABG pO2 121.9 H ABG HCO3 29.7 H ABG O2 Saturation 98.0 ABG Base Excess 2.2 FiO2 60% Sodium 141.6 Potassium 4.6 Chloride 99 Carbon Dioxide 35 H Anion Gap 8 BUN 21 H Creatinine 1.23 Est GFR ( Amer) 53 L Est GFR (Non-Af Amer) 44 L Glucose 255 H Calcium 7.9 L Magnesium 2.0 Total Bilirubin 0.6 AST 18 ALT 21 Alkaline Phosphatase 77 Total Protein 6.9 Albumin 3.3 L Assessment & Plan - Diagnosis (1) Acute respiratory failure with hypoxemia Is this a current diagnosis for this admission?: YesPlan: Patient will be admitted under pneumonia protocol. Incentive spirometry twice a day. Scheduled DuoNeb's. As needed albuterol nebs. Antibiotics will consist of intravenous clindamycin, along with intravenous Zyvox, and cefepime. Pharmacy to assist with dosing. Pulmonology consult. Patient is a full code. Knee high SCDs for DVT prophylaxis; patient anticoagulated on Coumadin. Time spent in evaluation and management of patient: 73 critical-care minutes. (2) Aspiration pneumonia Qualifiers: Aspiration pneumonia type: unspecified Laterality: bilateral Lung location: unspecified part of lung Qualified Code(s): J69.0 - Pneumonitis due to inhalation of food and vomit Is this a current diagnosis for this admission?: Yes (3) Heparin allergy Is this a current diagnosis for this admission?: Yes (4) Anticoagulated Is this a current diagnosis for this admission?: YesPlan: Resume home medications as appropriate once these have been determined and reviewed. (5) CKD (chronic kidney disease), stage III Is this a current diagnosis for this admission?: Yes (6) Diabetes mellitus type 1 Qualifiers: Diabetes mellitus complication status: with unspecified complications Qualified Code(s): E10.8 - Type 1 diabetes mellitus with unspecified complications Is this a current diagnosis for this admission?: YesPlan: Accu-Cheks with appropriate sliding scale coverage. Resume home medications as appropriate once these have been determined and reviewed. (7) Diastolic CHF Qualifiers: Congestive heart failure chronicity: chronic Qualified Code(s): I50.32 - Chronic diastolic (congestive) heart failure Is this a current diagnosis for this admission?: Yes (8) difficult to crossmatch blood Is this a current diagnosis for this admission?: Yes - Inpatient Certification Based on my medical assessment, after consideration of the patient's comorbidities, presenting symptoms, or acuity I expect that the services needed warrant INPATIENT care.: Yes I certify that my determination is in accordance with my understanding of Medicare's requirements for reasonable and necessary INPATIENT services [42 CFR 412.3e].: Yes Medical Necessity: Need Close Monitoring Due to Risk of Patient Decompensation, Need For IV Fluids, Need For Continuous Telemetry Monitoring, Need for Nebulizer Therapy and Monitoring of Response, Need for IV Antibiotics, Risk of Diagnosis Which Will Require Inpatient Eval/Care/Monitoring Post Hospital Care: D/C or Transfer Summary
[2016-10-04] MEDS: IPRATROPIUM/ALBUTEROL 0.5-2.5 MG/3 ML AMPUL NEB SCH ×4 (01:45→20:33)
--- NOTE | 2016-10-04 02:53 | RADIOLOGY REPORT (SQ) ---
EXAM DESCRIPTION: CHEST SINGLE VIEW COMPLETED DATE/TIME: 10/04/2016 2:26 am REASON FOR STUDY: ETT placement COMPARISON: Chest x-ray at 00:13 hours on 10/04/2016 EXAM PARAMETERS: NUMBER OF VIEWS: One view TECHNIQUE: Single frontal radiograph of the chest at 02:12 hours on 10/04/2016. RADIATION DOSE: N/A LIMITATIONS: None. FINDINGS: TEMPORARY SUPPORT DEVICES:ETT in expected location. NG tube courses below the edgardo-diaphr agm in to the stomach. LUNGS AND PLEURA: There are bilateral perihilar ground-glass opacities. Small bilateral pleural effu sions. No pneumothorax. MEDIASTINUM AND HILAR STRUCTURES: No obvious masses. HEART AND VASCULAR STRUCTURES: The heart is mildly enlarged. There is mild vascular congestion. BONES: Orthopedic hardware noted along the sternum and anterior ribs. IMPRESSION: Bilateral perihilar airspace opacities, may represent pulmonary edema, superimposed pneu monia is not excludable. Small bilateral pleural effusions. Mild cardiomegaly and vascular congesti on. Support devices in expected locations. TECHNICAL DOCUMENTATION: JOB ID: [id number] 2010 [email or web address]- All Rights Reserved
[2016-10-04] MEDS ORDERED: CLINDAMYCIN 600 MG/D5W RTU 600 MG/50 ML RTUPB IV ONE (03:00)
[2016-10-04 04:49] LABS: VENOUS BLOOD BASE EXCESS 2.5 mmol/L; VENOUS BLOOD HCO3 29.8 mmol/L (20-32); VENOUS BLOOD PCO2 57.6 mmHg (35-63); VENOUS BLOOD PH 7.33 (7.30-7.42)
[2016-10-04 05:01] LABS: HEMATOCRIT 30.2 % (36.0-47.0); HEMOGLOBIN 9.3 g/dL (12.0-15.5); HGB HCT DIFFERENCE -2.3; MEAN CORPUSCULAR HEMOGLOBIN 28.1 pg (27.0-33.4); MEAN CORPUSCULAR HGB CONC 30.8 g/dL (32.0-36.0); MEAN CORPUSCULAR VOLUME 91 fl (80-97); RED BLOOD COUNT 3.31 10^6/uL (3.72-5.28); RED CELL DISTRIBUTION WIDTH 19.1 % (11.5-14.0); WHITE BLOOD COUNT 16.7 10^3/uL (4.0-10.5)
[2016-10-04 05:05] LABS: ANION GAP 11 (5-19); BLOOD UREA NITROGEN 23 mg/dL (7-20); CALCIUM 7.7 mg/dL (8.4-10.2); CARBON DIOXIDE 30 mmol/L (22-30); CHLORIDE 100 mmol/L (98-107); CREATININE RESULT 1.12 mg/dL (0.52-1.25); GLUCOSE 306 mg/dL (75-110); POTASSIUM 4.4 mmol/L (3.6-5.0); SODIUM 140.5 mmol/L (137-145)
[2016-10-04 05:57] LABS: BASOPHILS % (MANUAL) 0 % (0-2); EOSINOPHILS % (MANUAL) 0 % (0-6); LYMPHOCYTES % (MANUAL) 4 % (13-45); TOTAL CELLS COUNTED 100
[2016-10-04 05:58] LABS: ANISOCYTOSIS 2+; OVALOCYTES 1+; POIKILOCYTOSIS 1+; POLYCHROMASIA SLIGHT; STOMATOCYTES 1+
[2016-10-04] MEDS: INSULIN LISPRO 100 UNIT/ML 3 ML VIAL SUBCUT PRN ×3 (06:45→23:40)
--- NOTE | 2016-10-04 07:26 | EKG REPORT ---
SEVERITY:- NORMAL ECG - SINUS RHYTHM : Confirmed by: Saumya Mckeon 04-Oct-2016 07:25:29
[2016-10-04] MEDS ORDERED: CLINDAMYCIN 600 MG/D5W RTU 600 MG/50 ML RTUPB IV SCH (10:00)
[2016-10-04] MEDS ORDERED: LINEZOLID 300 ML IV SCH (10:00)
[2016-10-04] MEDS ORDERED: CEFEPIME 2 GM/D5W RTU 50 ML IV SCH (10:00)
[2016-10-04 11:08] LABS: ARTERIAL BLOOD BASE EXCESS 8.6 mmol/L; ARTERIAL BLOOD O2 SATURATION 96.6 % (94-98)
[2016-10-04] MEDS: LINEZOLID 300 ML IV SCH ×2 (11:17→21:21)
[2016-10-04] MEDS: FAMOTIDINE INJ/PF 20 MG/2 ML SDV IV SCH ×2 (11:18→21:21)
[2016-10-04] MEDS: LEVOFLOXACIN 750 MG/D5W RTU 150 ML IV SCH (13:49)
[2016-10-04] MEDS ORDERED: AZTREONAM 1 GM in DEXTROSE 5%-WATER 50 ML IV SCH (14:00)
--- NOTE | 2016-10-04 15:04 | PDOC PROGRESS REPORT ---
Subjective Progress Note for:: 10/04/16 Subjective:: reason for visit: f/u pneumonia, acute hypoxic resp failure, septic shock hospital course: per other's notes - "YAMILETH RENAE is a 66 year old morbidly obese insulin-dependent diabetic female, with underlying home O2 dependent COPD, status post mechanical aortic valve replacement, on Coumadin for same, with underlying heparin allergy and difficult to crossmatch blood who presents in direct transfer from [facility] emergency room intubated and on Levophed drip, for acute respiratory failure from aspiration pneumonia, when she aspirated soup earlier today. Accepted by day hospitalist. Patient has been discussed with the hospitalist who discussed the patient with emergency room physician at [facility]. Patient is intubated and sedated and is able to provide no history whatsoever in terms of acute or chronic events, review of systems, personal habits, family history, etc. No friends or family are present. Old inpatient records are reviewed. No further information available this point in time." I assumed her care this morning by which time she is weaned off the levophed with MAP >60; she remains sedated on versed gtt and unable to give hx or ROS but is comfortable on the vent; IVFs currently NS at 75ml/hr; remains on the vent with FiO2 60% on AC settings. alcaraz in place with clear dark yellow urine. cxr this morning shows persistent bilat airspace disease, small bilat effusions, cardiomegaly and vascular congestion. she was scheduled to receive cefepime but chart shows allergy to PCN of unknown severity so abx changed initially to aztreonam, levaquin and zyvox but with high risk for anaerobic organisms due to the possible aspiration then changed to levaquin for CAP pathogens and usual culprits, clinda for the anaerobes and zyvox for possible MRSA exposure and complete Gm positive coverage. Keep in mind she was d/c'd after treatment of pneumonia and cellulitis from this hospital 31 days prior to this admission, sent home on additional 10d of levaquin. Dr Crowell consulted for intensive and pulmonary care. ROS: unobtainable due to pts mental state Physical Exam Vital Signs: Temp Pulse Resp BP Pulse Ox 98.1 F 65 16 101/34 L 99 10/04/16 14:00 10/04/16 14:02 10/04/16 14:16 10/04/16 14:15 10/04/16 14:16 Intake & Output 10/03/16 10/04/16 10/05/16 06:59 06:59 06:59 Intake Total 1607 Output Total 580 345 Balance 1027 -345 Weight 125.8 kg General appearance: PRESENT: no acute distress - sedated, morbidly obese, well- developed Head exam: PRESENT: atraumatic, normocephalic Eye exam: PRESENT: PERRLA - sluggish, other - no deviation Mouth exam: PRESENT: dry mucosa, neck supple Neck exam: ABSENT: JVD, lymphadenopathy, tracheal deviation Respiratory exam: PRESENT: crackles, unlabored - no attempt to breath over the vent at this time, wheezes. ABSENT: accessory muscle use Cardiovascular exam: PRESENT: RRR Pulses: PRESENT: normal radial pulses, normal dorsalis pedis pul, +2 pedal pulses bilateral GI/Abdominal exam: PRESENT: normal bowel sounds, soft. ABSENT: distended, rigid Gentrourinary exam: PRESENT: indwelling catheter Musculoskeletal exam: PRESENT: normal inspection Neurological exam: PRESENT: altered Skin exam: PRESENT: other - cool and damp Results Laboratory Results: 10/04/16 04:30 10/04/16 04:30 10/03/16 10/03/16 10/03/16 23:49 23:49 23:49 WBC 18.7 H RBC 3.57 L Hgb 9.9 L Hct 33.1 L MCV 93 MCH 27.8 MCHC 30.0 L RDW 19.5 H Plt Count 215 Seg Neutrophils % Not Reportable Lymphocytes % Not Reportable Monocytes % Not Reportable Eosinophils % Not Reportable Basophils % Not Reportable Absolute Neutrophils Not Reportable Absolute Lymphocytes Not Reportable Absolute Monocytes Not Reportable Absolute Eosinophils Not Reportable Absolute Basophils Not Reportable Carbonic Acid HCO3/H2CO3 Ratio ABG pH ABG pCO2 ABG pO2 ABG HCO3 ABG O2 Saturation ABG Base Excess VBG pH VBG pCO2 VBG HCO3 VBG Base Excess FiO2 Sodium 141.6 Potassium 4.6 Chloride 99 Carbon Dioxide 35 H Anion Gap 8 BUN 21 H Creatinine 1.23 Est GFR ( Amer) 53 L Est GFR (Non-Af Amer) 44 L Glucose 255 H Calcium 7.9 L Magnesium 2.0 Total Bilirubin 0.6 AST 18 ALT 21 Alkaline Phosphatase 77 Total Protein 6.9 Albumin 3.3 L TSH 2.35 Urine Color Urine Appearance Urine pH Ur Specific [place] Urine Protein Urine Glucose (UA) Urine Ketones Urine Blood Urine Nitrite Ur Leukocyte Esterase Urine WBC (Auto) Urine RBC (Auto) 10/03/16 10/04/16 10/04/16 23:50 00:35 04:30 WBC 16.7 H RBC 3.31 L Hgb 9.3 L Hct 30.2 L MCV 91 MCH 28.1 MCHC 30.8 L RDW 19.1 H Plt Count 197 Seg Neutrophils % Not Reportable Lymphocytes % Not Reportable Monocytes % Not Reportable Eosinophils % Not Reportable Basophils % Not Reportable Absolute Neutrophils Not Reportable Absolute Lymphocytes Not Reportable Absolute Monocytes Not Reportable Absolute Eosinophils Not Reportable Absolute Basophils Not Reportable Carbonic Acid 1.85 H HCO3/H2CO3 Ratio 16:1 ABG pH 7.30 L ABG pCO2 61.3 H ABG pO2 121.9 H ABG HCO3 29.7 H ABG O2 Saturation 98.0 ABG Base Excess 2.2 VBG pH VBG pCO2 VBG HCO3 VBG Base Excess FiO2 60% Sodium Potassium Chloride Carbon Dioxide Anion Gap BUN Creatinine Est GFR ( Amer) Est GFR (Non-Af Amer) Glucose Calcium Magnesium Total Bilirubin AST ALT Alkaline Phosphatase Total Protein Albumin TSH Urine Color YELLOW Urine Appearance CLEAR Urine pH 5.0 Ur Specific [place] 1.015 Urine Protein 100 H Urine Glucose (UA) 150 H Urine Ketones NEGATIVE Urine Blood SMALL H Urine Nitrite NEGATIVE Ur Leukocyte Esterase NEGATIVE Urine WBC (Auto) 2 Urine RBC (Auto) 8 10/04/16 10/04/16 10/04/16 04:30 04:30 10:50 WBC RBC Hgb Hct MCV MCH MCHC RDW Plt Count Seg Neutrophils % Lymphocytes % Monocytes % Eosinophils % Basophils % Absolute Neutrophils Absolute Lymphocytes Absolute Monocytes Absolute Eosinophils Absolute Basophils Carbonic Acid 1.75 H HCO3/H2CO3 Ratio 19:1 ABG pH 7.40 ABG pCO2 58.1 H ABG pO2 89.8 ABG HCO3 34.8 H ABG O2 Saturation 96.6 ABG Base Excess 8.6 VBG pH 7.33 VBG pCO2 57.6 VBG HCO3 29.8 VBG Base Excess 2.5 FiO2 50% Sodium 140.5 Potassium 4.4 Chloride 100 Carbon Dioxide 30 Anion Gap 11 BUN 23 H Creatinine 1.12 Est GFR ( Amer) 59 L Est GFR (Non-Af Amer) 49 L Glucose 306 H Calcium 7.7 L Magnesium Total Bilirubin AST ALT Alkaline Phosphatase Total Protein Albumin TSH Urine Color Urine Appearance Urine pH Ur Specific [place] Urine Protein Urine Glucose (UA) Urine Ketones Urine Blood Urine Nitrite Ur Leukocyte Esterase Urine WBC (Auto) Urine RBC (Auto) 10/03/16 10/04/16 23:49 04:30 Troponin I 0.027 NT-Pro-B Natriuret Pep 3990 H Impressions: Chest X-Ray 10/04/16 00:00 IMPRESSION: Bilateral perihilar airspace opacities, may represent pulmonary edema, superimposed pneumonia is not excludable. Small bilateral pleural effusions. Mild cardiomegaly and vascular congestion. Support devices in expected locations. Status: Image reviewed by me - agree with rads Assessment & Plan - Diagnosis (1) Acute respiratory failure with hypoxemia Is this a current diagnosis for this admission?: Yes (2) Aspiration pneumonia Qualifiers: Aspiration pneumonia type: unspecified Laterality: bilateral Lung location: unspecified part of lung Qualified Code(s): J69.0 - Pneumonitis due to inhalation of food and vomit Is this a current diagnosis for this admission?: Yes (3) Acute on chronic diastolic CHF (congestive heart failure) Is this a current diagnosis for this admission?: Yes (4) Anticoagulated Is this a current diagnosis for this admission?: Yes (5) CKD (chronic kidney disease), stage III Is this a current diagnosis for this admission?: Yes (6) COPD (chronic obstructive pulmonary disease) Qualifiers: COPD type: emphysema Emphysema type: unspecified Qualified Code( s): J43.9 - Emphysema, unspecified Is this a current diagnosis for this admission?: Yes (7) Diabetes mellitus type 1 Qualifiers: Diabetes mellitus complication status: with unspecified complications Qualified Code(s): E10.8 - Type 1 diabetes mellitus with unspecified complications Is this a current diagnosis for this admission?: Yes (8) History of mechanical aortic valve replacement Is this a current diagnosis for this admission?: Yes (9) JAMEEL (obstructive sleep apnea) Is this a current diagnosis for this admission?: Yes - Time Time Spent with patient: 35 or more minutes Medications reviewed and adjusted accordingly: Yes - Plan Summary Plan Summary: levaquin for CAP clinda for anaerobes/1st line agent for aspiration zyvox (vanc allergy) for prior MRSA exposure f/u cultures and narrow abx as her condition will allow. defer to pulmonary for vent weaning and need for bronch/BAL continue warfarin via NGT and monitor INR daily while on abx looks like a long slow wean, will start TFs with oxepa at 15ml/hr and consult dietary for their rec's SL IVFs and hydrate with TFs; may need lasix due to hypervolemia clinically but not until her shock subsides further.
[2016-10-04] MEDS: CLINDAMYCIN 600 MG/D5W RTU 50 ML IV SCH (21:21)
[2016-10-04] MEDS ORDERED: WARFARIN SODIUM 2.5 MG TABLET PO SCH (22:00)
--- NOTE | 2016-10-04 22:05 | PDOC CONSULTATION ---
Consultation Consult Date: 10/04/16 Attending physician:: NORBERTO PANCHAL Consult reason:: resp fail/jameel/obesity hypoventilation/aspiration History of Present Illness Admission Date/PCP: 10/03/16 23:01 KIMI ANAND PA-C History of Present Illness: YAMILETH RENAE is a 66 year ol female morbidy obeity ,oxygen depent,insulin dependentpatient admitted through ED for pneumonia and subsequently intubated all information from chart no family members at bedside Past Medical History Cardiac Medical History: Reports: Atrial Fibrillation, Congestive Heart Failure - Diastolic, Hyperlipidema Pulmonary Medical History: Reports: Asthma, Chronic Obstructive Pulmonary Disease (COPD), Pneumonia, Respiratory Failure, Sleep Apnea EENT Medical History: Reports: Eyes - Glasses, Other - Easy bruising Denies: Ears, Throat Neurological Medical History: Denies: Hemorrhagic CVA, Ischemic CVA, Seizures Endocrine Medical History: Reports: Diabetes Mellitus Type 1 Denies: Diabetes Mellitus Type 2, Hyperthyroidism, Hypothyroidism Renal/ Medical History: Reports: Chronic Kidney Disease - Stage III GI Medical History: Reports: Other - History of AV malformations of small intestine, per prior patient report Denies: Cirrhosis, Hepatitis, Peptic Ulcer Disease Musculoskeltal Medical History: Reports: Arthritis Skin Medical History: Reports: None Psychiatric Medical History: Reports: Depression, General Anxiety Disorder Denies: Alcohol Dependency, Substance Abuse, Tobacco Dependency Hematology: Reports: Anemia, Other - Easy bruising Infectious Medical History: Denies: Hepatitis B, Hepatitis C Past Surgical History Past Surgical History: Reports: Cholecystectomy, Hysterectomy, Orthopedic Surgery - right rotator cuff, Valve Replacement - Mechanical aortic Denies: Pacemaker Social History Smoking Status: Unknown if Ever Smoked Frequency of Alcohol Use: None Hx Recreational Drug Use: No Drugs: None Hx Prescription Drug Abuse: No - Advance Directive Resuscitation Status: Full Code Family History Family History: Reviewed & Not Pertinent Parental Family History Reviewed: No Children Family History Reviewed: No Sibling(s) Family History Reviewed.: No Medication/Allergy Home Medications: Albuterol Sulfate [Ventolin 0.042% Neb 1.25 mg/3 ml Ampul] 1.25 mg NEB RTQ6HP PRN 10/04/16 Albuterol Sulfate [Ventolin HFA MDI 18 GM] 2 puff IH Q4HP PRN 10/04/16 Budesonide [Pulmicort Neb 0.5 mg/2 ml Ampul] 0.5 mg NEB RTQ12 10/04/16 Fluticasone Propionate [Flonase Nasal [place] 50 Mcg/[place] 16 gm] 2 sprays NAREB Q12 10/04/16 Furosemide [Lasix 80 mg Tablet] 80 mg PO QAM 10/04/16 Gabapentin [Neurontin 300 mg Capsule] 300 mg PO Q8 10/04/16 Hydrocodone/Acetaminophen [Hydrocodon-Acetaminoph 7.5-325] 1 tab PO Q4HP PRN Insulin Aspart [Novolog Flexpen] 15 unit SUBCUT MEALS MDD 90 UNITS 10/04/16 Insulin Glargine,Hum.rec.anlog [Toujeo Solostar] 60 unit SQ DAILY 10/04/16 Loratadine [Claritin 10 mg Tablet] 10 mg PO DAILY 10/04/16 Metolazone [Zaroxolyn 5 Mg Tablet] 5 mg PO NORTH@1000 10/04/16 Metoprolol Tartrate [Lopressor 25 mg Tablet] 12.5 mg PO Q12 10/04/16 Montelukast Sodium [Singulair 10 mg Tablet] 10 mg PO QHS 10/04/16 Olopatadine HCl [Pataday] 1 drop OU DAILY 10/04/16 Ranitidine HCl [Zantac 150 mg Tablet] 150 mg PO BID 10/04/16 Simvastatin [Zocor 80 mg Tablet] 80 mg PO QHS 10/04/16 Sitagliptin Phosphate [Januvia] 100 mg PO DAILY 10/04/16 Warfarin Sodium [Coumadin 2.5 mg Tablet] 2.5 mg PO MOFR@1000 10/04/16 Warfarin Sodium [Coumadin 5 mg Tablet] 5 mg PO SUTUWETHSA 10/04/16 Allergies/Adverse Reactions: Heparin Analogues [Heparin Agents] Allergy (Unknown, Verified 03/29/15 12:22) latex [Latex] Allergy (Unknown, Verified 10/03/16 23:42) Penicillins Allergy (Unknown, Verified 10/03/16 23:41) vancomycin [Vancomycin] Allergy (Unknown, Verified 04/01/15 22:46) itching rash doxycycline Allergy (Verified 07/04/16 12:13) Urticaria egg [Egg] Allergy (Verified 03/29/15 12:22) sulfamethoxazole [From Bactrim] Allergy (Verified 03/29/15 12:22) trimethoprim [From Bactrim] Allergy (Verified 03/29/15 12:22) Review of Systems ROS unobtainable: Due to endotracheal tube Physical Exam Vital Signs: Temp Pulse Resp BP Pulse Ox 97.9 F 63 16 115/40 L 100 10/04/16 08:00 10/04/16 08:28 10/04/16 08:28 10/04/16 08:00 10/04/16 08:28 Intake & Output 10/03/16 10/04/16 10/05/16 06:59 06:59 06:59 Intake Total 1607 Output Total 580 100 Balance 1027 -100 Weight 125.8 kg General appearance: PRESENT: no acute distress, disheveled, morbidly obese Head exam: PRESENT: atraumatic, normocephalic Eye exam: PRESENT: conjunctiva pale Mouth exam: PRESENT: dry mucosa, neck supple, tongue midline, other - ET tube Neck exam: ABSENT: carotid bruit, JVD, lymphadenopathy, thyromegaly Respiratory exam: PRESENT: decreased breath sounds, prolonged expiratory phas, rales - r base, rhonchi, unlabored Cardiovascular exam: PRESENT: RRR, +S1, +S2 Pulses: PRESENT: normal radial pulses GI/Abdominal exam: PRESENT: diminished bowel sounds, other - massive obesity Rectal exam: PRESENT: deferred Gentrourinary exam: PRESENT: indwelling catheter Extremities exam: PRESENT: +1 edema Skin exam: PRESENT: other - Cellulitis bilateral lower extremities Results Laboratory Results: 10/04/16 04:30 10/04/16 04:30 10/03/16 10/03/16 10/03/16 23:49 23:49 23:49 WBC 18.7 H RBC 3.57 L Hgb 9.9 L Hct 33.1 L MCV 93 MCH 27.8 MCHC 30.0 L RDW 19.5 H Plt Count 215 Seg Neutrophils % Not Reportable Lymphocytes % Not Reportable Monocytes % Not Reportable Eosinophils % Not Reportable Basophils % Not Reportable Absolute Neutrophils Not Reportable Absolute Lymphocytes Not Reportable Absolute Monocytes Not Reportable Absolute Eosinophils Not Reportable Absolute Basophils Not Reportable Carbonic Acid HCO3/H2CO3 Ratio ABG pH ABG pCO2 ABG pO2 ABG HCO3 ABG O2 Saturation ABG Base Excess VBG pH VBG pCO2 VBG HCO3 VBG Base Excess FiO2 Sodium 141.6 Potassium 4.6 Chloride 99 Carbon Dioxide 35 H Anion Gap 8 BUN 21 H Creatinine 1.23 Est GFR ( Amer) 53 L Est GFR (Non-Af Amer) 44 L Glucose 255 H Calcium 7.9 L Magnesium 2.0 Total Bilirubin 0.6 AST 18 ALT 21 Alkaline Phosphatase 77 Total Protein 6.9 Albumin 3.3 L TSH 2.35 Urine Color Urine Appearance Urine pH Ur Specific [place] Urine Protein Urine Glucose (UA) Urine Ketones Urine Blood Urine Nitrite Ur Leukocyte Esterase Urine WBC (Auto) Urine RBC (Auto) 10/03/16 10/04/16 10/04/16 23:50 00:35 04:30 WBC 16.7 H RBC 3.31 L Hgb 9.3 L Hct 30.2 L MCV 91 MCH 28.1 MCHC 30.8 L RDW 19.1 H Plt Count 197 Seg Neutrophils % Not Reportable Lymphocytes % Not Reportable Monocytes % Not Reportable Eosinophils % Not Reportable Basophils % Not Reportable Absolute Neutrophils Not Reportable Absolute Lymphocytes Not Reportable Absolute Monocytes Not Reportable Absolute Eosinophils Not Reportable Absolute Basophils Not Reportable Carbonic Acid 1.85 H HCO3/H2CO3 Ratio 16:1 ABG pH 7.30 L ABG pCO2 61.3 H ABG pO2 121.9 H ABG HCO3 29.7 H ABG O2 Saturation 98.0 ABG Base Excess 2.2 VBG pH VBG pCO2 VBG HCO3 VBG Base Excess FiO2 60% Sodium Potassium Chloride Carbon Dioxide Anion Gap BUN Creatinine Est GFR ( Amer) Est GFR (Non-Af Amer) Glucose Calcium Magnesium Total Bilirubin AST ALT Alkaline Phosphatase Total Protein Albumin TSH Urine Color YELLOW Urine Appearance CLEAR Urine pH 5.0 Ur Specific [place] 1.015 Urine Protein 100 H Urine Glucose (UA) 150 H Urine Ketones NEGATIVE Urine Blood SMALL H Urine Nitrite NEGATIVE Ur Leukocyte Esterase NEGATIVE Urine WBC (Auto) 2 Urine RBC (Auto) 8 10/04/16 10/04/16 04:30 04:30 WBC RBC Hgb Hct MCV MCH MCHC RDW Plt Count Seg Neutrophils % Lymphocytes % Monocytes % Eosinophils % Basophils % Absolute Neutrophils Absolute Lymphocytes Absolute Monocytes Absolute Eosinophils Absolute Basophils Carbonic Acid HCO3/H2CO3 Ratio ABG pH ABG pCO2 ABG pO2 ABG HCO3 ABG O2 Saturation ABG Base Excess VBG pH 7.33 VBG pCO2 57.6 VBG HCO3 29.8 VBG Base Excess 2.5 FiO2 Sodium 140.5 Potassium 4.4 Chloride 100 Carbon Dioxide 30 Anion Gap 11 BUN 23 H Creatinine 1.12 Est GFR ( Amer) 59 L Est GFR (Non-Af Amer) 49 L Glucose 306 H Calcium 7.7 L Magnesium Total Bilirubin AST ALT Alkaline Phosphatase Total Protein Albumin TSH Urine Color Urine Appearance Urine pH Ur Specific [place] Urine Protein Urine Glucose (UA) Urine Ketones Urine Blood Urine Nitrite Ur Leukocyte Esterase Urine WBC (Auto) Urine RBC (Auto) 10/03/16 10/04/16 23:49 04:30 Troponin I 0.027 NT-Pro-B Natriuret Pep 3990 H Impressions: Chest X-Ray 10/04/16 00:00 IMPRESSION: Bilateral perihilar airspace opacities, may represent pulmonary edema, superimposed pneumonia is not excludable. Small bilateral pleural effusions. Mild cardiomegaly and vascular congestion. Support devices in expected locations. Assessment & Plan - Diagnosis (1) Obesity hypoventilation syndrome Is this a current diagnosis for this admission?: YesPlan: will need NIPPV (2) Acute respiratory failure with hypoxemia Is this a current diagnosis for this admission?: YesPlan: high pressures high fio2 requirements (3) Aspiration pneumonia Qualifiers: Aspiration pneumonia type: unspecified Laterality: bilateral Lung location: unspecified part of lung Qualified Code(s): J69.0 - Pneumonitis due to inhalation of food and vomit Is this a current diagnosis for this admission?: YesPlan: no RT aspirate CXR RLL infiltrate (4) Cellulitis and abscess of leg Is this a current diagnosis for this admission?: Yes (5) JAMEEL (obstructive sleep apnea) Is this a current diagnosis for this admission?: YesPlan: will need NIPPV
[2016-10-05] MEDS: IPRATROPIUM/ALBUTEROL 0.5-2.5 MG/3 ML AMPUL NEB SCH ×4 (01:37→20:54)
[2016-10-05] MEDS: MIDAZOLAM HCL 100 ML IV PRN ×6 (02:39→22:31)
[2016-10-05 04:52] LABS: ARTERIAL BLOOD BASE EXCESS 12.1 mmol/L; ARTERIAL BLOOD O2 SATURATION 96.5 % (94-98)
[2016-10-05] MEDS: CLINDAMYCIN 600 MG/D5W RTU 50 ML IV SCH ×3 (05:15→21:54)
[2016-10-05] MEDS: INSULIN LISPRO 100 UNIT/ML 3 ML VIAL SUBCUT PRN ×2 (06:38→23:39)
[2016-10-05 06:50] LABS: HEMATOCRIT 26.3 % (36.0-47.0); HGB HCT DIFFERENCE -2.3; MEAN CORPUSCULAR HEMOGLOBIN 27.7 pg (27.0-33.4); MEAN CORPUSCULAR HGB CONC 30.4 g/dL (32.0-36.0); MEAN CORPUSCULAR VOLUME 91 fl (80-97); RED BLOOD COUNT 2.89 10^6/uL (3.72-5.28); RED CELL DISTRIBUTION WIDTH 18.7 % (11.5-14.0); WHITE BLOOD COUNT 12.5 10^3/uL (4.0-10.5)
[2016-10-05 07:08] LABS: ALANINE AMINOTRANSFERASE 23 U/L (9-52); ALBUMIN 2.7 g/dL (3.5-5.0); ALKALINE PHOSPHATASE 54 U/L (38-126); ANION GAP 8 (5-19); ASPARTATE AMINO TRANSFERASE 12 U/L (14-36); BILIRUBIN,DIRECT 0.4 mg/dL (0.0-0.4); BILIRUBIN,TOTAL 0.5 mg/dL (0.2-1.3); BLOOD UREA NITROGEN 24 mg/dL (7-20); CALCIUM 8.1 mg/dL (8.4-10.2); CARBON DIOXIDE 32 mmol/L (22-30); CHLORIDE 99 mmol/L (98-107); CREATININE RESULT 1.13 mg/dL (0.52-1.25); GLUCOSE 246 mg/dL (75-110); MAGNESIUM 2.1 mg/dL (1.6-2.3); SODIUM 138.6 mmol/L (137-145); TOTAL PROTEIN 5.7 g/dL (6.3-8.2)
[2016-10-05 07:17] LABS: BAND NEUTROPHILS % (MANUAL) 4 % (3-5); BASOPHILS % (MANUAL) 0 % (0-2); EOSINOPHILS % (MANUAL) 0 % (0-6); LYMPHOCYTES % (MANUAL) 5 % (13-45); TOTAL CELLS COUNTED 100
[2016-10-05 07:21] LABS: HYPOCHROMASIA 1+; OVALOCYTES SLIGHT; POIKILOCYTOSIS SLIGHT; TEAR DROP CELLS SLIGHT; TOXIC GRANULATION 1+; TOXIC VACUOLATION PRESENT
[2016-10-05 07:22] LABS: ANISOCYTOSIS 2+
--- NOTE | 2016-10-05 07:26 | RADIOLOGY REPORT (SQ) ---
EXAM DESCRIPTION: CHEST SINGLE VIEW COMPLETED DATE/TIME: 10/05/2016 7:02 am REASON FOR STUDY: pna/resp fail COMPARISON: 10/04/2016. NUMBER OF VIEWS: One view. TECHNIQUE: Single frontal radiographic view of the chest acquired. LIMITATIONS: None. FINDINGS: LUNGS AND PLEURA: Bilateral parenchymal opacities and pleural effusions unchanged. MEDIASTINUM AND HILAR STRUCTURES: No masses or contour abnormality. HEART AND VASCULATURE: Cardiac enlargement. Vascular congestion. BONES: No acute findings. HARDWARE: Stable endotracheal tube and nasogastric tube. Hardware in the chest wall. OTHER: No other significant finding. IMPRESSION: NO CHANGE IN APPEARANCE OF THE CHEST. TECHNICAL DOCUMENTATION: JOB ID: [id number] [employer]- All Rights Reserved
[2016-10-05 07:32] LABS: PROTHROMBIN TIME 62.6 SEC (11.4-15.4)
[2016-10-05] MEDS: FAMOTIDINE INJ/PF 20 MG/2 ML SDV IV SCH ×2 (09:13→21:54)
[2016-10-05] MEDS: LINEZOLID 300 ML IV SCH ×2 (09:14→21:53)
--- NOTE | 2016-10-05 09:30 | PDOC PROGRESS REPORT ---
Subjective Progress Note for:: 10/05/16 Subjective:: Follow-up visit for acute respiratory failure secondary to aspiration. Patient only on a ventilator on Versed. She tries to mouth words and does have fairly decent diabetic. I am able to ascertain that her wrists hurt from the restraints that are in place. Quickly drifts back off. Pulmonary side and we have discussed switching her to propofol, however, she has an allergy to eggs and we will not be able to do this. Acute events overnight Physical Exam Vital Signs: Temp Pulse Resp BP Pulse Ox 99.9 F 85 18 107/30 L 97 10/05/16 06:00 10/05/16 08:53 10/05/16 08:53 10/05/16 06:06 10/05/16 08:53 Intake & Output 10/04/16 10/05/16 10/06/16 06:59 06:59 06:59 Intake Total 1607 1732 Output Total 580 1260 Balance 1027 472 Weight 125.8 kg 126.4 kg Vent: AC Lines: The patient has 2 peripheral IVs Drips: Levophed off. Versed continues Abx: Aztreonam, Linezolid, Levaquin NGT: glucerna at 10 General: Well developed, well-nourished morbidly obese white female resting in bed currently in no acute distress. Heart: Regular rate and rhythm. A 2/6 systolic ejection murmur heard best over the left upper sternal border. Lungs: Occasional expiratory wheeze. Coarse breath sounds at the bases. Otherwise clear with equal rise and fall of the chest. ET tube is appropriately in place. Abdomen: Obese. Nondistended. Dependent edema of the pannus. Soft. Extremities: No clubbing, cyanosis, 1 plus edema. Neuro: The patient is sedated on Versed. She is able to be awakened and tries to mouth words. But she quickly drifts off to sleep. : Chen catheter is in place and draining daljit colored urine. Skin: Beginning of fungal elements seen in the folds of the pannus. Large ecchymoses on the back of the thighs. Multiple ecchymoses on the forearms. Results Laboratory Results: 10/05/16 06:28 10/05/16 06:28 10/04/16 10/05/16 10/05/16 10:50 04:45 06:28 WBC 12.5 H RBC 2.89 L Hgb 8.0 L Hct 26.3 L MCV 91 MCH 27.7 MCHC 30.4 L RDW 18.7 H Plt Count 175 Seg Neutrophils % Not Reportable Lymphocytes % Not Reportable Monocytes % Not Reportable Eosinophils % Not Reportable Basophils % Not Reportable Absolute Neutrophils Not Reportable Absolute Lymphocytes Not Reportable Absolute Monocytes Not Reportable Absolute Eosinophils Not Reportable Absolute Basophils Not Reportable Carbonic Acid 1.75 H 1.66 H HCO3/H2CO3 Ratio 19:1 22:1 ABG pH 7.40 7.45 ABG pCO2 58.1 H 55.1 H ABG pO2 89.8 84.4 ABG HCO3 34.8 H 37.5 H ABG O2 Saturation 96.6 96.5 ABG Base Excess 8.6 12.1 FiO2 50% 35% Sodium Potassium Chloride Carbon Dioxide Anion Gap BUN Creatinine Est GFR ( Amer) Est GFR (Non-Af Amer) Glucose Calcium Magnesium Total Bilirubin AST ALT Alkaline Phosphatase Total Protein Albumin 10/05/16 06:28 WBC RBC Hgb Hct MCV MCH MCHC RDW Plt Count Seg Neutrophils % Lymphocytes % Monocytes % Eosinophils % Basophils % Absolute Neutrophils Absolute Lymphocytes Absolute Monocytes Absolute Eosinophils Absolute Basophils Carbonic Acid HCO3/H2CO3 Ratio ABG pH ABG pCO2 ABG pO2 ABG HCO3 ABG O2 Saturation ABG Base Excess FiO2 Sodium 138.6 Potassium 4.0 Chloride 99 Carbon Dioxide 32 H Anion Gap 8 BUN 24 H Creatinine 1.13 Est GFR ( Amer) 58 L Est GFR (Non-Af Amer) 48 L Glucose 246 H Calcium 8.1 L Magnesium 2.1 Total Bilirubin 0.5 AST 12 L ALT 23 Alkaline Phosphatase 54 Total Protein 5.7 L Albumin 2.7 L 10/04/16 03:45 Nasophary (Mrsa Only) MRSA Surveillance Culture - Final NO MRSA RECOVERED 10/03/16 10/04/16 23:49 04:30 Troponin I 0.027 NT-Pro-B Natriuret Pep 3990 H Impressions: Chest X-Ray 10/05/16 06:00 IMPRESSION: NO CHANGE IN APPEARANCE OF THE CHEST. Assessment & Plan - Diagnosis (1) Acute respiratory failure with hypoxemia Plan: The patient is currently on a ventilator. This is being managed by pulmonology service. Continue to wean as appropriate. (2) Aspiration pneumonia Qualifiers: Aspiration pneumonia type: unspecified Laterality: bilateral Lung location: unspecified part of lung Qualified Code(s): J69.0 - Pneumonitis due to inhalation of food and vomit Plan: Patient is currently ventilated. Continue aztreonam, Levaquin, Linezolid. (3) Obesity hypoventilation syndrome Plan: The patient is ventilated. We will have to evaluate her breathing status after she is weaned. Likely she will need either CPAP or bilevel Pap (5) Multiple ecchymoses of thigh Plan: These ecchymoses were present on admission. I am not certain what happened to the back of her thighs but it almost appears as though her legs were pressed against an object while she was in the seated position. We will try and find out more from either the family or the patient when she is more awake. (6) Acute on chronic diastolic CHF (congestive heart failure) Plan: Has anasarca. Currently receiving any diuretics. Her fluids have been stopped. Will add on Lasix. (7) Subtherapeutic anticoagulation Plan: Warfarin for tonight. Had a therapeutic INR yesterday. She is supratherapeutic at 6 today. I suspect this is due to interaction with antibiotics. Mainly Levaquin. (8) Diabetes mellitus type 1 Qualifiers: Diabetes mellitus complication status: with unspecified complications Qualified Code(s): E10.8 - Type 1 diabetes mellitus with unspecified complications Is this a current diagnosis for this admission?: YesPlan: Continue sliding scale insulin. - Time Time Spent with patient: 25-34 minutes - Inpatient Certification Based on my medical assessment, after consideration of the patient's comorbidities, presenting symptoms, or acuity I expect that the services needed warrant INPATIENT care.: Yes Medical Necessity: Need Close Monitoring Due to Risk of Patient Decompensation
[2016-10-05] MEDS ORDERED: FUROSEMIDE INJ/PF 20 MG/2 ML SDV IV SCH (09:45)
--- NOTE | 2016-10-05 10:19 | PDOC PROGRESS REPORT ---
Subjective Progress Note for:: 10/05/16 Subjective:: Intubated and sedated Physical Exam Vital Signs: Temp Pulse Resp BP Pulse Ox 99.9 F 81 16 107/30 L 96 10/05/16 06:00 10/05/16 06:00 10/05/16 06:15 10/05/16 06:06 10/05/16 06:15 Intake & Output 10/04/16 10/05/16 10/06/16 06:59 06:59 06:59 Intake Total 1607 1732 Output Total 580 1260 Balance 1027 472 Weight 125.8 kg 126.4 kg General appearance: PRESENT: no acute distress, disheveled, morbidly obese, well -developed Head exam: PRESENT: atraumatic, normocephalic Eye exam: PRESENT: conjunctiva pale Mouth exam: PRESENT: dry mucosa, neck supple, tongue midline, other - ET tube in place Neck exam: ABSENT: carotid bruit, JVD, lymphadenopathy, thyromegaly Respiratory exam: PRESENT: decreased breath sounds, rales, rhonchi, symmetrical Cardiovascular exam: PRESENT: RRR, +S1, +S2 Pulses: PRESENT: normal radial pulses GI/Abdominal exam: PRESENT: normal bowel sounds, soft. ABSENT: distended, guarding, mass, organolmegaly, rebound, tenderness Rectal exam: PRESENT: deferred Gentrourinary exam: PRESENT: indwelling catheter Skin exam: PRESENT: other - Cellulitis bilateral lower extremities Results Laboratory Results: 10/05/16 06:28 10/05/16 06:28 10/04/16 10/05/16 10/05/16 10:50 04:45 06:28 WBC 12.5 H RBC 2.89 L Hgb 8.0 L Hct 26.3 L MCV 91 MCH 27.7 MCHC 30.4 L RDW 18.7 H Plt Count 175 Seg Neutrophils % Not Reportable Lymphocytes % Not Reportable Monocytes % Not Reportable Eosinophils % Not Reportable Basophils % Not Reportable Absolute Neutrophils Not Reportable Absolute Lymphocytes Not Reportable Absolute Monocytes Not Reportable Absolute Eosinophils Not Reportable Absolute Basophils Not Reportable Carbonic Acid 1.75 H 1.66 H HCO3/H2CO3 Ratio 19:1 22:1 ABG pH 7.40 7.45 ABG pCO2 58.1 H 55.1 H ABG pO2 89.8 84.4 ABG HCO3 34.8 H 37.5 H ABG O2 Saturation 96.6 96.5 ABG Base Excess 8.6 12.1 FiO2 50% 35% Sodium Potassium Chloride Carbon Dioxide Anion Gap BUN Creatinine Est GFR ( Amer) Est GFR (Non-Af Amer) Glucose Calcium Magnesium Total Bilirubin AST ALT Alkaline Phosphatase Total Protein Albumin 10/05/16 06:28 WBC RBC Hgb Hct MCV MCH MCHC RDW Plt Count Seg Neutrophils % Lymphocytes % Monocytes % Eosinophils % Basophils % Absolute Neutrophils Absolute Lymphocytes Absolute Monocytes Absolute Eosinophils Absolute Basophils Carbonic Acid HCO3/H2CO3 Ratio ABG pH ABG pCO2 ABG pO2 ABG HCO3 ABG O2 Saturation ABG Base Excess FiO2 Sodium 138.6 Potassium 4.0 Chloride 99 Carbon Dioxide 32 H Anion Gap 8 BUN 24 H Creatinine 1.13 Est GFR ( Amer) 58 L Est GFR (Non-Af Amer) 48 L Glucose 246 H Calcium 8.1 L Magnesium 2.1 Total Bilirubin 0.5 AST 12 L ALT 23 Alkaline Phosphatase 54 Total Protein 5.7 L Albumin 2.7 L 10/04/16 03:45 Nasophary (Mrsa Only) MRSA Surveillance Culture - Final NO MRSA RECOVERED 10/03/16 10/04/16 23:49 04:30 Troponin I 0.027 NT-Pro-B Natriuret Pep 3990 H Impressions: Chest X-Ray 10/05/16 06:00 IMPRESSION: NO CHANGE IN APPEARANCE OF THE CHEST. Assessment & Plan - Diagnosis (1) Obesity hypoventilation syndrome Is this a current diagnosis for this admission?: Yes (2) Acute respiratory failure with hypoxemia Is this a current diagnosis for this admission?: Yes (3) Aspiration pneumonia Qualifiers: Aspiration pneumonia type: unspecified Laterality: bilateral Lung location: unspecified part of lung Qualified Code(s): J69.0 - Pneumonitis due to inhalation of food and vomit Is this a current diagnosis for this admission?: Yes (4) Cellulitis and abscess of leg Is this a current diagnosis for this admission?: Yes (5) JAMEEL (obstructive sleep apnea) Is this a current diagnosis for this admission?: Yes - Time Critical Time spent with patient: 35 or more minutes - Minutes 40
[2016-10-05] MEDS: FUROSEMIDE INJ/PF 40 MG/4 ML SDV IV SCH ×2 (11:24→21:55)
[2016-10-05] MEDS: MORPHINE SULFATE 10 MG/ML INJ IV PRN (11:29)
[2016-10-05] MEDS: LEVOFLOXACIN 750 MG/D5W RTU 150 ML IV SCH (11:52)
[2016-10-05] MEDS ORDERED: (PENDING PHARMACY ID) (Warfarin Sodium 5 MG) PO SCH (12:16)
[2016-10-05 17:40] LABS: PROTHROMBIN TIME 65.9 SEC (11.4-15.4)
[2016-10-05 19:14] LABS: HEMATOCRIT 25.4 % (36.0-47.0); HGB HCT DIFFERENCE -1.4; MEAN CORPUSCULAR HEMOGLOBIN 28.4 pg (27.0-33.4); MEAN CORPUSCULAR HGB CONC 31.4 g/dL (32.0-36.0); MEAN CORPUSCULAR VOLUME 90 fl (80-97); RED BLOOD COUNT 2.81 10^6/uL (3.72-5.28); RED CELL DISTRIBUTION WIDTH 18.7 % (11.5-14.0); WHITE BLOOD COUNT 10.1 10^3/uL (4.0-10.5)
[2016-10-05 19:25] LABS: D-DIMER 1.42 ug/mL (0.00-0.50)
[2016-10-05] MEDS ORDERED: FENTANYL CITRATE/PF 600 MCG/60 ML BAG IV PRN (19:42)
[2016-10-05] MEDS ORDERED: WARFARIN SODIUM 5 MG TABLET PO SCH (22:00)
--- NOTE | 2016-10-05 22:27 | RADIOLOGY REPORT (SQ) ---
EXAM DESCRIPTION: CT ABD/PELVIS NO ORAL OR IV COMPLETED DATE/TIME: 10/05/2016 9:39 pm REASON FOR STUDY: abdominal pain COMPARISON: 07/21/2016 TECHNIQUE: CT scan of the abdomen and pelvis performed without intravenous or oral contrast. Images reviewed with lung, soft tissue, and bone windows. Reconstructed coronal and sagittal MPR images revi ewed. All images stored on PACS. All CT scanners at this facility use dose modulation, iterative reconstruction, and/or weight based d osing when appropriate to reduce radiation dose to as low as reasonably achievable (ALARA). [facility]: Dose Right [facility]: CareDose [facility]: Dose Right [facility]: Teradose 4D [facility]: Smart Advestigo RADIATION DOSE: Up-to-date CT equipment and radiation dose reduction techniques were employed. CTDIv ol: 26.9 mGy. DLP: 1375 mGy-cm.mGy. LIMITATIONS: None. FINDINGS: LOWER CHEST: Interval development of prominent bilateral pleural effusions and basilar opa cities. NON-CONTRASTED LIVER, SPLEEN, ADRENALS: Evaluation limited by lack of IV contrast. No identified sign ificant masses. PANCREAS: No masses. No peripancreatic inflammatory changes. GALLBLADDER: Surgically absent. RIGHT KIDNEY AND URETER: No suspicious masses. Assessment limited by lack of IV contrast. No signif icant calcifications. No hydronephrosis or hydroureter. LEFT KIDNEY AND URETER: No suspicious masses. Assessment limited by lack of IV contrast. No signifi cant calcifications. No hydronephrosis or hydroureter. AORTA AND RETROPERITONEUM: No aneurysm. No retroperitoneal masses or adenopathy. BOWEL AND PERITONEAL CAVITY: No obvious masses or inflammatory changes. Small amount of free fluid i n the right lower quadrant and pelvis. . APPENDIX: Not seen. PELVIS, BLADDER, AND ABDOMINAL WALL:Chen catheter in the bladder. Small amount of free fluid. BONES: No significant findings. OTHER: Large partially cystic lesion/hematoma/ seroma in the right flank not appreciably decreased in size. Measures 31.4 x 9 cm IMPRESSION: Minimal decrease in the size of the previously noted hematoma/ seroma in the right flank . Interval development of bilateral pleural effusions with basilar opacities. Small amount of free fluid in the pelvis and right lower quadrant. TECHNICAL DOCUMENTATION: JOB ID: [id number] Quality ID # [id number]: Final reports with documentation of one or more dose reduction techniques (e.g., Au tomated exposure control, adjustment of the mA and/or kV according to patient size, use of iterative reconstruction technique) 2010 [employer]- All Rights Reserved
[2016-10-05] MEDS ORDERED: PHYTONADIONE 5 MG TABLET PO ONE (22:45)
[2016-10-05] MEDS ORDERED: PHYTONADIONE 5 MG TABLET NG ONE (22:45)
[2016-10-05 22:52] LABS: ABSOLUTE EOSINOPHILS # (AUTO) 0.2 10^3/uL (0.0-0.6); ABSOLUTE LYMPHOCYTES (AUTO) 0.8 10^3/uL (0.5-4.7); ABSOLUTE MONOCYTES (AUTO) 0.4 10^3/uL (0.1-1.4); ABSOLUTE NEUT (AUTO) 7.3 10^3/uL (1.7-8.2); BASOPHILS % (AUTO) 0.4 % (0-2); EOSINOPHILS % (AUTO) 1.9 % (0-6); HEMATOCRIT 25.4 % (36.0-47.0); LYMPHOCYTES % (AUTO) 9.4 % (13-45); MEAN CORPUSCULAR HEMOGLOBIN 28.2 pg (27.0-33.4); MEAN CORPUSCULAR HGB CONC 30.8 g/dL (32.0-36.0); MEAN CORPUSCULAR VOLUME 92 fl (80-97); MONOCYTES % (AUTO) 4.6 % (3-13); RED BLOOD COUNT 2.77 10^6/uL (3.72-5.28); RED CELL DISTRIBUTION WIDTH 19.1 % (11.5-14.0); SEGMENTED NEUTROPHILS % (AUTO) 83.7 % (42-78); WHITE BLOOD COUNT 8.7 10^3/uL (4.0-10.5)
[2016-10-05 22:54] LABS: HEMOGLOBIN 7.8 g/dL (12.0-15.5)
[2016-10-06] MEDS: IPRATROPIUM/ALBUTEROL 0.5-2.5 MG/3 ML AMPUL NEB SCH ×4 (01:45→21:00)
[2016-10-06] MEDS: MIDAZOLAM HCL 100 ML IV PRN (03:06)
[2016-10-06 04:42] LABS: PROTHROMBIN TIME 43.5 SEC (11.4-15.4)
[2016-10-06 04:43] LABS: PARTIAL THROMBOPLASTIN TIME 55.2 SEC (23.5-35.8)
[2016-10-06 04:45] LABS: ABSOLUTE EOSINOPHILS # (AUTO) 0.2 10^3/uL (0.0-0.6); ABSOLUTE LYMPHOCYTES (AUTO) 0.9 10^3/uL (0.5-4.7); ABSOLUTE MONOCYTES (AUTO) 0.5 10^3/uL (0.1-1.4); ABSOLUTE NEUT (AUTO) 6.6 10^3/uL (1.7-8.2); BASOPHILS % (AUTO) 0.3 % (0-2); EOSINOPHILS % (AUTO) 2.6 % (0-6); HEMOGLOBIN 8.4 g/dL (12.0-15.5); HGB HCT DIFFERENCE -2.8; LYMPHOCYTES % (AUTO) 10.7 % (13-45); MEAN CORPUSCULAR HEMOGLOBIN 27.5 pg (27.0-33.4); MEAN CORPUSCULAR HGB CONC 30.1 g/dL (32.0-36.0); MEAN CORPUSCULAR VOLUME 91 fl (80-97); MONOCYTES % (AUTO) 6.6 % (3-13); RED BLOOD COUNT 3.07 10^6/uL (3.72-5.28); RED CELL DISTRIBUTION WIDTH 19.3 % (11.5-14.0); SEGMENTED NEUTROPHILS % (AUTO) 79.8 % (42-78); WHITE BLOOD COUNT 8.2 10^3/uL (4.0-10.5)
[2016-10-06 04:54] LABS: BLOOD UREA NITROGEN 23 mg/dL (7-20); CALCIUM 8.5 mg/dL (8.4-10.2); CARBON DIOXIDE 36 mmol/L (22-30); CHLORIDE 99 mmol/L (98-107); CREATININE RESULT 1.25 mg/dL (0.52-1.25); GLUCOSE 163 mg/dL (75-110); POTASSIUM 3.7 mmol/L (3.6-5.0)
[2016-10-06 04:55] LABS: ALANINE AMINOTRANSFERASE 18 U/L (9-52); ALBUMIN 3.3 g/dL (3.5-5.0); ALKALINE PHOSPHATASE 61 U/L (38-126); ANION GAP 6 (5-19); ASPARTATE AMINO TRANSFERASE 18 U/L (14-36); BILIRUBIN,DIRECT 0.4 mg/dL (0.0-0.4); BILIRUBIN,TOTAL 0.7 mg/dL (0.2-1.3); MAGNESIUM 2.2 mg/dL (1.6-2.3); SODIUM 141.1 mmol/L (137-145); TOTAL PROTEIN 6.7 g/dL (6.3-8.2)
[2016-10-06] MEDS: CLINDAMYCIN 600 MG/D5W RTU 50 ML IV SCH (05:08)
[2016-10-06 05:23] LABS: ARTERIAL BLOOD BASE EXCESS 13.7 mmol/L; ARTERIAL BLOOD O2 SATURATION 95.9 % (94-98)
[2016-10-06] MEDS: INSULIN LISPRO 100 UNIT/ML 3 ML VIAL SUBCUT PRN (06:50)
--- NOTE | 2016-10-06 07:11 | RADIOLOGY REPORT (SQ) ---
EXAM DESCRIPTION: CHEST SINGLE VIEW COMPLETED DATE/TIME: 10/06/2016 6:58 am REASON FOR STUDY: resp fail/pna COMPARISON: 10/05/2016. NUMBER OF VIEWS: One view. TECHNIQUE: Single frontal radiographic view of the chest acquired. LIMITATIONS: None. FINDINGS: LUNGS AND PLEURA: Diffuse parenchymal opacities with small pleural effusions. MEDIASTINUM AND HILAR STRUCTURES: No masses or contour abnormality. HEART AND VASCULATURE: Cardiac enlargement. Vascular congestion. BONES: No acute findings. HARDWARE: Stable endotracheal tube and nasogastric tube. Hardware in the chest wall. OTHER: No other significant finding. IMPRESSION: NO CHANGE IN APPEARANCE OF THE CHEST. TECHNICAL DOCUMENTATION: JOB ID: [id number] [employer]- All Rights Reserved
[2016-10-06] MEDS: FENTANYL CITRATE/PF 600 MCG/60 ML BAG IV PRN ×2 (08:47→17:23)
--- NOTE | 2016-10-06 09:34 | PDOC PROGRESS REPORT ---
Subjective Progress Note for:: 10/06/16 Subjective:: Follow-up visit for acute respiratory failure secondary to aspiration. Patient only on a ventilator on Versed. And now fentanyl. The patient has been much more calm. She constantly scratches at her bilateral lower quadrants. No acute events overnight. the patient was given vitamin K overnight. This morning the nurse reports some streaking in the sputum. Physical Exam Vital Signs: Temp Pulse Resp BP Pulse Ox 98.4 F 70 16 119/42 L 99 10/06/16 07:55 10/06/16 07:55 10/06/16 07:55 10/06/16 07:55 10/06/16 07:55 Intake & Output 10/05/16 10/06/16 10/07/16 06:59 06:59 06:59 Intake Total 1732 2155 Output Total 1260 4950 240 Balance 868 -2609 -393 Weight 126.4 kg 122.3 kg Vent: AC Lines: The patient has 2 peripheral IVs Drips: Levophed off. Versed at 2. Fentanyl LIFT SLAB OPERATOR with basal rate of 0.5 mcg/kg/ h. Abx: Aztreonam, Linezolid, Levaquin NGT: glucerna at 25 General: Well developed, well-nourished morbidly obese white female resting in bed currently in no acute distress. Heart: Regular rate and rhythm. A 2/6 systolic ejection murmur heard best over the left upper sternal border. Lungs: Coarse breath sounds bilaterally with equal rise and fall of the chest. ET tube is appropriately in place. Abdomen: Obese. Nondistended. Dependent edema of the pannus. Soft. Right lower quadrant hematoma. Extremities: No clubbing, cyanosis, trace edema of the right lower extremity. 1 plus edema on the left. Neuro: The patient is sedated on fentanyl and versed. : Chen catheter is in place and draining daljit colored urine. Skin: Beginning of fungal elements seen in the folds of the pannus. Large ecchymoses on the back of the thighs. Multiple ecchymoses on the forearms. Faint ecchymosis of the right lower quadrant and lower inner quadrant of the right breast. 3 or 4 small petechiae across the chest. Results Laboratory Results: 10/06/16 04:20 10/06/16 04:20 10/05/16 10/05/16 10/06/16 19:00 22:36 04:20 WBC 10.1 8.7 8.2 RBC 2.81 L 2.77 L 3.07 L Hgb 8.0 L 7.8 L 8.4 L Hct 25.4 L 25.4 L 28.0 L MCV 90 92 91 MCH 28.4 28.2 27.5 MCHC 31.4 L 30.8 L 30.1 L RDW 18.7 H 19.1 H 19.3 H Plt Count 167 176 167 Seg Neutrophils % 83.7 H 79.8 H Lymphocytes % 9.4 L 10.7 L Monocytes % 4.6 6.6 Eosinophils % 1.9 2.6 Basophils % 0.4 0.3 Absolute Neutrophils 7.3 6.6 Absolute Lymphocytes 0.8 0.9 Absolute Monocytes 0.4 0.5 Absolute Eosinophils 0.2 0.2 Absolute Basophils 0.0 0.0 Carbonic Acid HCO3/H2CO3 Ratio ABG pH ABG pCO2 ABG pO2 ABG HCO3 ABG O2 Saturation ABG Base Excess FiO2 Sodium Potassium Chloride Carbon Dioxide Anion Gap BUN Creatinine Est GFR ( Amer) Est GFR (Non-Af Amer) Glucose Calcium Magnesium Total Bilirubin AST ALT Alkaline Phosphatase Total Protein Albumin 10/06/16 10/06/16 04:20 05:05 WBC RBC Hgb Hct MCV MCH MCHC RDW Plt Count Seg Neutrophils % Lymphocytes % Monocytes % Eosinophils % Basophils % Absolute Neutrophils Absolute Lymphocytes Absolute Monocytes Absolute Eosinophils Absolute Basophils Carbonic Acid 1.54 H HCO3/H2CO3 Ratio 25:1 ABG pH 7.49 H ABG pCO2 51.2 H ABG pO2 75.5 L ABG HCO3 38.5 H ABG O2 Saturation 95.9 ABG Base Excess 13.7 FiO2 35% Sodium 141.1 Potassium 3.7 Chloride 99 Carbon Dioxide 36 H Anion Gap 6 BUN 23 H Creatinine 1.25 Est GFR ( Amer) 52 L Est GFR (Non-Af Amer) 43 L Glucose 163 H Calcium 8.5 Magnesium 2.2 Total Bilirubin 0.7 AST 18 ALT 18 Alkaline Phosphatase 61 Total Protein 6.7 Albumin 3.3 L 10/04/16 03:45 Nasophary (Mrsa Only) MRSA Surveillance Culture - Final NO MRSA RECOVERED 07/16/17 07/17/17 07/19/17 23:49 04:30 04:20 Troponin I 0.027 NT-Pro-B Natriuret Pep 3990 H 2490 H Impressions: Abdomen/Pelvis CT 10/05/16 00:00 IMPRESSION: Minimal decrease in the size of the previously noted hematoma/ seroma in the right flank. Interval development of bilateral pleural effusions with basilar opacities. Small amount of free fluid in the pelvis and right lower quadrant. Chest X-Ray 10/06/16 06:00 IMPRESSION: NO CHANGE IN APPEARANCE OF THE CHEST. Assessment & Plan - Diagnosis (1) Acute respiratory failure with hypoxemia Is this a current diagnosis for this admission?: YesPlan: Acute hypoxemic respiratory failure secondary to underlying pneumonia. The patient is currently on a ventilator. This is being managed by pulmonology service. Continue to wean as appropriate. (2) Aspiration pneumonia Qualifiers: Aspiration pneumonia type: unspecified Laterality: bilateral Lung location: unspecified part of lung Qualified Code(s): J69.0 - Pneumonitis due to inhalation of food and vomit Is this a current diagnosis for this admission?: YesPlan: Patient is currently ventilated. Continue aztreonam, Levaquin, Linezolid. Also on clindamycin but I think since we have atypical coverage with the Levaquin and MRSA coverage with linezolid I will stop the clindamycin. (3) Acute on chronic diastolic CHF (congestive heart failure) Is this a current diagnosis for this admission?: YesPlan: The patient has anasarca. Currently receiving any diuretics. Her fluids have been stopped. she is diuresing well . She put out 2.7 L overnight. Continue to monitor (4) Obesity hypoventilation syndrome Is this a current diagnosis for this admission?: YesPlan: The patient is ventilated. We will have to evaluate her breathing status after she is weaned. Likely she will need either CPAP or bilevel Pap (5) Multiple ecchymoses of thigh Plan: These ecchymoses were present on admission. I am not certain what happened to the back of her thighs but it almost appears as though her legs were pressed against an object while she was in the seated position. We will try and find out more from either the family or the patient when she is more awake. (6) Subtherapeutic anticoagulation Plan: Continue to hold warfarin for tonight. Had a therapeutic INR yesterday. She is supratherapeutic at 6 today. I suspect this is due to interaction with antibiotics. Mainly Levaquin. She received a dose of vitamin K by the night call center support consultant. Hopefully this will not make it difficult for the patient to maintain an INR between 2-1/2 and 3-1/2 for her aortic valve. Repeat INR is 4 (7) Diabetes mellitus type 1 Qualifiers: Diabetes mellitus complication status: with unspecified complications Qualified Code(s): E10.8 - Type 1 diabetes mellitus with unspecified complications Is this a current diagnosis for this admission?: YesPlan: Continue sliding scale insulin. Improved with changing of the tube feeds. Incidentally the patient has increased residuals even at 25 cc an hour for tube feeds. Residuals thus far are 120. I will let her go to the morning at the current rate without any further titration and see what her residuals are this afternoon. It may be that we will need to cut it down to 10 again. (8) Hematoma of abdominal wall Plan: According to the CAT scan the patient hematoma is minimally decreased from July 2016. I do not see any previous CT scan in the computer. However, it is come to my attention that the patient was transferred out to [facility] and the comparison could have been made to a CAT scan from that visit. I will try to obtain at least the report from [facility]. - Time Time Spent with patient: 25-34 minutes - Inpatient Certification Medical Necessity: Need Close Monitoring Due to Risk of Patient Decompensation
[2016-10-06] MEDS: FAMOTIDINE INJ/PF 20 MG/2 ML SDV IV SCH ×2 (10:56→21:04)
[2016-10-06] MEDS: LINEZOLID 300 ML IV SCH ×2 (10:56→21:04)
[2016-10-06] MEDS: FUROSEMIDE INJ/PF 40 MG/4 ML SDV IV SCH ×2 (10:56→21:05)
--- NOTE | 2016-10-06 11:13 | PDOC PROGRESS REPORT ---
Subjective Progress Note for:: 10/06/16 Subjective:: Intubated and sedated Physical Exam Vital Signs: Temp Pulse Resp BP Pulse Ox 98.4 F 70 16 119/42 L 99 10/06/16 07:55 10/06/16 07:55 10/06/16 07:55 10/06/16 07:55 10/06/16 07:55 Intake & Output 10/05/16 10/06/16 10/07/16 06:59 06:59 06:59 Intake Total 1732 2155 Output Total 1260 4080 240 Balance 840 -8421 -484 Weight 126.4 kg 122.3 kg General appearance: PRESENT: no acute distress, disheveled, morbidly obese, well -nourished Head exam: PRESENT: atraumatic, normocephalic Eye exam: PRESENT: conjunctiva pale Mouth exam: PRESENT: dry mucosa, neck supple, tongue midline, other - ET TUBE Neck exam: ABSENT: carotid bruit, JVD, lymphadenopathy, thyromegaly Respiratory exam: PRESENT: crackles, decreased breath sounds, prolonged expiratory phas, rhonchi, symmetrical, unlabored Cardiovascular exam: PRESENT: RRR, +S1, +S2 Pulses: PRESENT: normal radial pulses GI/Abdominal exam: PRESENT: normal bowel sounds, soft. ABSENT: distended, guarding, mass, organolmegaly, rebound, tenderness Rectal exam: PRESENT: deferred Gentrourinary exam: PRESENT: indwelling catheter Extremities exam: PRESENT: +1 edema Skin exam: PRESENT: other - Cellulitis bilateral lower extremities Results Laboratory Results: 10/06/16 04:20 10/06/16 04:20 10/05/16 10/05/16 10/06/16 19:00 22:36 04:20 WBC 10.1 8.7 8.2 RBC 2.81 L 2.77 L 3.07 L Hgb 8.0 L 7.8 L 8.4 L Hct 25.4 L 25.4 L 28.0 L MCV 90 92 91 MCH 28.4 28.2 27.5 MCHC 31.4 L 30.8 L 30.1 L RDW 18.7 H 19.1 H 19.3 H Plt Count 167 176 167 Seg Neutrophils % 83.7 H 79.8 H Lymphocytes % 9.4 L 10.7 L Monocytes % 4.6 6.6 Eosinophils % 1.9 2.6 Basophils % 0.4 0.3 Absolute Neutrophils 7.3 6.6 Absolute Lymphocytes 0.8 0.9 Absolute Monocytes 0.4 0.5 Absolute Eosinophils 0.2 0.2 Absolute Basophils 0.0 0.0 Carbonic Acid HCO3/H2CO3 Ratio ABG pH ABG pCO2 ABG pO2 ABG HCO3 ABG O2 Saturation ABG Base Excess FiO2 Sodium Potassium Chloride Carbon Dioxide Anion Gap BUN Creatinine Est GFR ( Amer) Est GFR (Non-Af Amer) Glucose Calcium Magnesium Total Bilirubin AST ALT Alkaline Phosphatase Total Protein Albumin 10/06/16 10/06/16 04:20 05:05 WBC RBC Hgb Hct MCV MCH MCHC RDW Plt Count Seg Neutrophils % Lymphocytes % Monocytes % Eosinophils % Basophils % Absolute Neutrophils Absolute Lymphocytes Absolute Monocytes Absolute Eosinophils Absolute Basophils Carbonic Acid 1.54 H HCO3/H2CO3 Ratio 25:1 ABG pH 7.49 H ABG pCO2 51.2 H ABG pO2 75.5 L ABG HCO3 38.5 H ABG O2 Saturation 95.9 ABG Base Excess 13.7 FiO2 35% Sodium 141.1 Potassium 3.7 Chloride 99 Carbon Dioxide 36 H Anion Gap 6 BUN 23 H Creatinine 1.25 Est GFR ( Amer) 52 L Est GFR (Non-Af Amer) 43 L Glucose 163 H Calcium 8.5 Magnesium 2.2 Total Bilirubin 0.7 AST 18 ALT 18 Alkaline Phosphatase 61 Total Protein 6.7 Albumin 3.3 L 10/04/16 03:45 Nasophary ([facility] Only) MRSA Surveillance Culture - Final NO MRSA RECOVERED 10/03/16 10/04/16 10/06/16 23:49 04:30 04:20 Troponin I 0.027 NT-Pro-B Natriuret Pep 3990 H 2490 H Impressions: Abdomen/Pelvis CT 10/05/16 00:00 IMPRESSION: Minimal decrease in the size of the previously noted hematoma/ seroma in the right flank. Interval development of bilateral pleural effusions with basilar opacities. Small amount of free fluid in the pelvis and right lower quadrant. Chest X-Ray 10/06/16 06:00 IMPRESSION: NO CHANGE IN APPEARANCE OF THE CHEST. Assessment & Plan - Diagnosis (1) Obesity hypoventilation syndrome Is this a current diagnosis for this admission?: Yes (2) Acute respiratory failure with hypoxemia Is this a current diagnosis for this admission?: Yes (3) Aspiration pneumonia Qualifiers: Aspiration pneumonia type: unspecified Laterality: bilateral Lung location: unspecified part of lung Qualified Code(s): J69.0 - Pneumonitis due to inhalation of food and vomit Is this a current diagnosis for this admission?: Yes (4) Cellulitis and abscess of leg Is this a current diagnosis for this admission?: Yes (5) JAMEEL (obstructive sleep apnea) Is this a current diagnosis for this admission?: Yes - Time Critical Time spent with patient: 35 or more minutes - 40 MIN
[2016-10-06] MEDS: LEVOFLOXACIN 750 MG/D5W RTU 150 ML IV SCH (14:17)
[2016-10-07] MEDS: INSULIN LISPRO 100 UNIT/ML 3 ML VIAL SUBCUT PRN ×3 (00:16→12:25)
[2016-10-07] MEDS: MIDAZOLAM HCL 100 ML IV PRN (01:28)
[2016-10-07] MEDS: FENTANYL CITRATE/PF 600 MCG/60 ML BAG IV PRN ×3 (01:29→23:25)
[2016-10-07] MEDS: IPRATROPIUM/ALBUTEROL 0.5-2.5 MG/3 ML AMPUL NEB SCH ×4 (02:40→20:52)
[2016-10-07 06:28] LABS: ARTERIAL BLOOD BASE EXCESS 13.1 mmol/L; ARTERIAL BLOOD O2 SATURATION 96.1 % (94-98)
[2016-10-07 06:29] LABS: ALANINE AMINOTRANSFERASE 21 U/L (9-52); ALKALINE PHOSPHATASE 60 U/L (38-126); ANION GAP 9 (5-19); ASPARTATE AMINO TRANSFERASE 16 U/L (14-36); BILIRUBIN,DIRECT 0.4 mg/dL (0.0-0.4); BILIRUBIN,TOTAL 0.9 mg/dL (0.2-1.3); BLOOD UREA NITROGEN 19 mg/dL (7-20); CALCIUM 8.4 mg/dL (8.4-10.2); CARBON DIOXIDE 34 mmol/L (22-30); CHLORIDE 96 mmol/L (98-107); CREATININE RESULT 1.24 mg/dL (0.52-1.25); GLUCOSE 204 mg/dL (75-110); POTASSIUM 3.6 mmol/L (3.6-5.0); SODIUM 138.9 mmol/L (137-145); TOTAL PROTEIN 5.9 g/dL (6.3-8.2)
[2016-10-07 06:36] LABS: ABSOLUTE EOSINOPHILS # (AUTO) 0.3 10^3/uL (0.0-0.6); ABSOLUTE LYMPHOCYTES (AUTO) 0.5 10^3/uL (0.5-4.7); ABSOLUTE MONOCYTES (AUTO) 0.4 10^3/uL (0.1-1.4); ABSOLUTE NEUT (AUTO) 6.5 10^3/uL (1.7-8.2); BASOPHILS % (AUTO) 0.4 % (0-2); EOSINOPHILS % (AUTO) 3.5 % (0-6); HEMATOCRIT 27.7 % (36.0-47.0); HEMOGLOBIN 8.7 g/dL (12.0-15.5); HGB HCT DIFFERENCE -1.6; MEAN CORPUSCULAR HEMOGLOBIN 28.4 pg (27.0-33.4); MEAN CORPUSCULAR HGB CONC 31.3 g/dL (32.0-36.0); MEAN CORPUSCULAR VOLUME 91 fl (80-97); MONOCYTES % (AUTO) 5.1 % (3-13); RED BLOOD COUNT 3.05 10^6/uL (3.72-5.28); RED CELL DISTRIBUTION WIDTH 19.3 % (11.5-14.0); WHITE BLOOD COUNT 7.7 10^3/uL (4.0-10.5)
--- NOTE | 2016-10-07 06:36 | RADIOLOGY REPORT (SQ) ---
EXAM DESCRIPTION: CHEST SINGLE VIEW COMPLETED DATE/TIME: 10/07/2016 6:25 am REASON FOR STUDY: pna/RESP FAIL COMPARISON: 10/06/2016. EXAM PARAMETERS: NUMBER OF VIEWS: One view. TECHNIQUE: Single frontal radiographic view of the chest acquired. RADIATION DOSE: NA LIMITATIONS: None. FINDINGS: LUNGS AND PLEURA: Faint parenchymal opacities unchanged. No large pleural effusion. No p neumothorax. MEDIASTINUM AND HILAR STRUCTURES: No masses. Contour normal. HEART AND VASCULAR STRUCTURES: Heart normal in size. Normal vasculature. BONES: No acute findings. HARDWARE: Endotracheal tube, nasogastric tube, and hardware in the chest wall. OTHER: No other significant finding. IMPRESSION: NO CHANGE IN APPEARANCE OF THE CHEST. TECHNICAL DOCUMENTATION: JOB ID: [id number]
[2016-10-07 07:10] LABS: PARTIAL THROMBOPLASTIN TIME 35.8 SEC (23.5-35.8)
[2016-10-07 07:21] LABS: PROTHROMBIN TIME 18.4 SEC (11.4-15.4)
--- NOTE | 2016-10-07 09:06 | PDOC PROGRESS REPORT ---
Subjective Progress Note for:: 10/07/16 Subjective:: Follow-up visit for acute respiratory failure secondary to aspiration. Patient only on a ventilator on sedation. The patient has been much more calm. She constantly scratches at her bilateral lower quadrants. No acute events overnight. Physical Exam Vital Signs: Temp Pulse Resp BP Pulse Ox 99.9 F 72 11 L 123/29 L 96 10/07/16 06:30 10/07/16 08:33 10/07/16 08:33 10/07/16 06:04 10/07/16 08:33 Intake & Output 10/06/16 10/07/16 10/08/16 06:59 06:59 06:59 Intake Total 2155 1484 Output Total 4950 4315 200 Balance -2795 -2831 -200 Weight 122.3 kg 120.7 kg Vent: AC Lines: The patient has 2 peripheral IVs Drips: Levophed off. Versed is off. Fentanyl SOAKER with basal rate has been cut in half. Abx: Aztreonam, Linezolid, Levaquin NGT: glucerna at 10 General: Well developed, well-nourished morbidly obese white female resting in bed currently in no acute distress. Heart: Regular rate and rhythm. A 2/6 systolic ejection murmur heard best over the left upper sternal border. Lungs: Coarse breath sounds bilaterally with equal rise and fall of the chest. ET tube is appropriately in place. Abdomen: Obese. Nondistended. Dependent edema of the pannus. Soft. Right lower quadrant hematoma no larger than previous exam. Extremities: No clubbing, cyanosis, trace edema of the right lower extremity. 1 plus edema on the left. Neuro: The patient is sedated on fentanyl and versed. : Chen catheter is in place and draining daljit colored urine. Skin: Beginning of fungal elements seen in the folds of the pannus. Large ecchymoses on the back of the thighs. Multiple ecchymoses on the forearms. Faint ecchymosis of the right lower quadrant and lower inner quadrant of the right breast. 3 or 4 small petechiae across the chest. Results Laboratory Results: 10/07/16 04:28 10/07/16 04:28 10/07/16 10/07/16 10/07/16 04:28 04:28 04:40 WBC 7.7 RBC 3.05 L Hgb 8.7 L Hct 27.7 L MCV 91 MCH 28.4 MCHC 31.3 L RDW 19.3 H Plt Count 160 Seg Neutrophils % 84.0 H Lymphocytes % 7.0 L Monocytes % 5.1 Eosinophils % 3.5 Basophils % 0.4 Absolute Neutrophils 6.5 Absolute Lymphocytes 0.5 Absolute Monocytes 0.4 Absolute Eosinophils 0.3 Absolute Basophils 0.0 Carbonic Acid 1.41 H HCO3/H2CO3 Ratio 26:1 ABG pH 7.52 H ABG pCO2 46.8 H ABG pO2 75.2 L ABG HCO3 37.3 H ABG O2 Saturation 96.1 ABG Base Excess 13.1 FiO2 30% Sodium 138.9 Potassium 3.6 Chloride 96 L Carbon Dioxide 34 H Anion Gap 9 BUN 19 Creatinine 1.24 Est GFR ( Amer) 52 L Est GFR (Non-Af Amer) 43 L Glucose 204 H Calcium 8.4 Magnesium 2.0 Total Bilirubin 0.9 AST 16 ALT 21 Alkaline Phosphatase 60 Total Protein 5.9 L Albumin 3.0 L 10/03/16 23:50 Tracheal Aspirate Gram Stain - Final 10/03/16 23:50 Tracheal Aspirate Sputum Culture - Final NO GROWTH 2 DAYS 10/03/16 10/04/16 10/06/16 23:49 04:30 04:20 Troponin I 0.027 NT-Pro-B Natriuret Pep 3990 H 2490 H 10/07/16 04:28 Troponin I NT-Pro-B Natriuret Pep 2020 H Impressions: Abdomen/Pelvis CT 10/05/16 00:00 IMPRESSION: Minimal decrease in the size of the previously noted hematoma/ seroma in the right flank. Interval development of bilateral pleural effusions with basilar opacities. Small amount of free fluid in the pelvis and right lower quadrant. Chest X-Ray 10/07/16 06:00 IMPRESSION: NO CHANGE IN APPEARANCE OF THE CHEST. Assessment & Plan - Diagnosis (1) Acute respiratory failure with hypoxemia Is this a current diagnosis for this admission?: YesPlan: Acute hypoxemic respiratory failure secondary to underlying pneumonia. The patient is currently on a ventilator. This is being managed by pulmonology service. Continue to wean as appropriate. Currently worse than has been turned off and fentanyl has been cut in half. We will try and see how she responds to leaving today. The respiratory service has cut her respiratory rate in half. (2) Aspiration pneumonia Qualifiers: Aspiration pneumonia type: unspecified Laterality: bilateral Lung location: unspecified part of lung Qualified Code(s): J69.0 - Pneumonitis due to inhalation of food and vomit Is this a current diagnosis for this admission?: YesPlan: Patient is currently ventilated. Continue aztreonam, Levaquin, Linezolid. (3) Acute on chronic diastolic CHF (congestive heart failure) Is this a current diagnosis for this admission?: YesPlan: The patient has anasarca. Currently receiving any diuretics. Her fluids have been stopped. she is diuresing well. She put out 2.8 L overnight. (4) Obesity hypoventilation syndrome Is this a current diagnosis for this admission?: YesPlan: The patient is ventilated. We will have to evaluate her breathing status after she is weaned. Likely she will need either CPAP or bilevel Pap (5) Multiple ecchymoses of thigh Plan: These ecchymoses were present on admission. (6) Subtherapeutic anticoagulation Plan: Warfarin has been on hold. Her INR went up to almost 7. I believe that this is a direct result given along with Levaquin. Her INR is now below 2 status post vitamin K. We will resume warfarin this evening. She has an allergy to heparin therefore we will use argatroban. We will need to be cautious with administration of warfarin along with Levaquin. For now I will leave the doses as they were before secondary to the vitamin K and is just along with the Levaquin. (7) Diabetes mellitus type 1 Qualifiers: Diabetes mellitus complication status: with unspecified complications Qualified Code(s): E10.8 - Type 1 diabetes mellitus with unspecified complications Is this a current diagnosis for this admission?: YesPlan: Continue sliding scale insulin. Improved with changing of the tube feeds. Glucerna Is now down to 10 due to high residuals at 25 cc an hour. Residuals have been much better and down to 20. I think we can go ahead and titrate her 10 cc an hour she received goal. (8) Hematoma of abdominal wall Plan: According to the CAT scan the patient hematoma is minimally decreased from July 2016. There has been no precipitous drop in her hemoglobin or hematocrit. Continue to monitor. - Time Time Spent with patient: 25-34 minutes - Inpatient Certification Medical Necessity: Need Close Monitoring Due to Risk of Patient Decompensation
[2016-10-07] MEDS: LINEZOLID 300 ML IV SCH ×2 (09:41→21:14)
[2016-10-07] MEDS: FUROSEMIDE INJ/PF 40 MG/4 ML SDV IV SCH ×2 (09:42→21:00)
[2016-10-07] MEDS: FAMOTIDINE INJ/PF 20 MG/2 ML SDV IV SCH ×2 (09:42→20:59)
[2016-10-07] MEDS: NORMAL SALINE 250 ML with ARGATROBAN 250 MG IV PRN ×2 (10:07)
[2016-10-07] MEDS: LEVOFLOXACIN 750 MG/D5W RTU 150 ML IV SCH (12:22)
[2016-10-07] MEDS: ACETAMINOPHEN SOLN 325 MG/10.15 ML UDCUP NG PRN (20:59)
[2016-10-08] MEDS: NORMAL SALINE 250 ML with ARGATROBAN 250 MG IV PRN ×4 (00:36→17:02)
[2016-10-08] MEDS: IPRATROPIUM/ALBUTEROL 0.5-2.5 MG/3 ML AMPUL NEB SCH ×4 (02:36→20:41)
[2016-10-08 04:36] LABS: ABSOLUTE EOSINOPHILS # (AUTO) 0.3 10^3/uL (0.0-0.6); ABSOLUTE LYMPHOCYTES (AUTO) 0.7 10^3/uL (0.5-4.7); ABSOLUTE MONOCYTES (AUTO) 0.4 10^3/uL (0.1-1.4); BASOPHILS % (AUTO) 0.3 % (0-2); EOSINOPHILS % (AUTO) 3.9 % (0-6); HEMATOCRIT 29.1 % (36.0-47.0); HEMOGLOBIN 9.1 g/dL (12.0-15.5); HGB HCT DIFFERENCE -1.8; LYMPHOCYTES % (AUTO) 8.6 % (13-45); MEAN CORPUSCULAR HEMOGLOBIN 28.1 pg (27.0-33.4); MEAN CORPUSCULAR HGB CONC 31.2 g/dL (32.0-36.0); MEAN CORPUSCULAR VOLUME 90 fl (80-97); MONOCYTES % (AUTO) 4.6 % (3-13); RED BLOOD COUNT 3.22 10^6/uL (3.72-5.28); RED CELL DISTRIBUTION WIDTH 18.9 % (11.5-14.0); SEGMENTED NEUTROPHILS % (AUTO) 82.6 % (42-78); WHITE BLOOD COUNT 8.4 10^3/uL (4.0-10.5)
[2016-10-08 05:20] LABS: ALANINE AMINOTRANSFERASE 28 U/L (9-52); ALBUMIN 3.1 g/dL (3.5-5.0); ALKALINE PHOSPHATASE 60 U/L (38-126); ANION GAP 11 (5-19); ASPARTATE AMINO TRANSFERASE 15 U/L (14-36); BILIRUBIN,DIRECT 0.5 mg/dL (0.0-0.4); BILIRUBIN,TOTAL 0.9 mg/dL (0.2-1.3); BLOOD UREA NITROGEN 17 mg/dL (7-20); CALCIUM 8.9 mg/dL (8.4-10.2); CARBON DIOXIDE 33 mmol/L (22-30); CHLORIDE 95 mmol/L (98-107); CREATININE RESULT 1.25 mg/dL (0.52-1.25); GLUCOSE 221 mg/dL (75-110); MAGNESIUM 2.2 mg/dL (1.6-2.3); POTASSIUM 3.7 mmol/L (3.6-5.0); SODIUM 139.1 mmol/L (137-145)
[2016-10-08 05:43] LABS: ARTERIAL BLOOD BASE EXCESS 11.4 mmol/L; ARTERIAL BLOOD O2 SATURATION 97.3 % (94-98)
--- NOTE | 2016-10-08 07:04 | RADIOLOGY REPORT (SQ) ---
EXAM DESCRIPTION: CHEST SINGLE VIEW COMPLETED DATE/TIME: 10/08/2016 6:54 am REASON FOR STUDY: resp failpna COMPARISON: 10/07/2016. EXAM PARAMETERS: NUMBER OF VIEWS: One view. TECHNIQUE: Single frontal radiographic view of the chest acquired. RADIATION DOSE: NA LIMITATIONS: None. FINDINGS: LUNGS AND PLEURA: No opacities, masses or pneumothorax. No pleural effusion. MEDIASTINUM AND HILAR STRUCTURES: No masses. Contour normal. HEART AND VASCULAR STRUCTURES: Heart normal in size. Normal vasculature. BONES: No acute findings. HARDWARE: Endotracheal tube, nasogastric tube, and hardware in the chest wall. OTHER: No other significant finding. IMPRESSION: NO ACUTE RADIOGRAPHIC FINDING IN THE CHEST. TECHNICAL DOCUMENTATION: JOB ID: [id number]
[2016-10-08 08:29] LABS: PROTHROMBIN TIME 29.9 SEC (11.4-15.4)
--- NOTE | 2016-10-08 08:51 | PDOC PROGRESS REPORT ---
Subjective Progress Note for:: 10/08/16 Subjective:: Follow-up visit for acute respiratory failure secondary to aspiration. Patient is currently on CPAP mode on the ventilator. The patient has been much more calm. Unfortunately, patient had high residuals again at slightly over 100 and they were Held overnight. There is now going at a rate of 20 cc/h. No acute events overnight. Physical Exam Vital Signs: Temp Pulse Resp BP Pulse Ox 98.8 F 73 18 118/42 L 99 10/08/16 06:15 10/08/16 02:40 10/08/16 06:15 10/08/16 06:04 10/08/16 06:15 Intake & Output 10/07/16 10/08/16 10/09/16 06:59 06:59 06:59 Intake Total 1484 1515 149 Output Total 4315 3875 Balance -2831 -8460 149 Weight 120.7 kg 117.7 kg Vent: CPAP mode Lines: The patient has 2 peripheral IVs Drips: Levophed off. Versed is off. Fentanyl ALTERATIONS SUPERVISOR with basal rate has been cut in half. Abx: Aztreonam, Linezolid, Levaquin NGT: glucerna at 20 cc/h General: Well developed, well-nourished morbidly obese white female resting in bed currently in no acute distress. Heart: Regular rate and rhythm. A 2/6 systolic ejection murmur heard best over the left upper sternal border. Click is audible. No gallops or rub Lungs: Coarse breath sounds bilaterally with equal rise and fall of the chest. ET tube is appropriately in place. Abdomen: Obese. Nondistended. Dependent edema of the pannus. Soft. Right lower quadrant hematoma no larger than previous exam. Extremities: No clubbing, cyanosis, trace lower extremity edema bilaterally. Pulses. Neuro: The patient is sedated on fentanyl : Chen catheter is in place and draining daljit colored urine. Skin: Beginning of fungal elements seen in the folds of the pannus. Large ecchymoses on the back of the thighs. Multiple ecchymoses on the forearms. Faint ecchymosis of the right lower quadrant and lower inner quadrant of the right breast. 3 or 4 small petechiae across the chest. Results Laboratory Results: 10/08/16 04:23 10/08/16 04:23 10/08/16 10/08/16 10/08/16 04:23 04:23 05:30 WBC 8.4 RBC 3.22 L Hgb 9.1 L Hct 29.1 L MCV 90 MCH 28.1 MCHC 31.2 L RDW 18.9 H Plt Count 149 L Seg Neutrophils % 82.6 H Lymphocytes % 8.6 L Monocytes % 4.6 Eosinophils % 3.9 Basophils % 0.3 Absolute Neutrophils 7.0 Absolute Lymphocytes 0.7 Absolute Monocytes 0.4 Absolute Eosinophils 0.3 Absolute Basophils 0.0 Carbonic Acid 1.53 H HCO3/H2CO3 Ratio 23:1 ABG pH 7.47 H ABG pCO2 50.7 H ABG pO2 91.5 ABG HCO3 36.3 H ABG O2 Saturation 97.3 ABG Base Excess 11.4 FiO2 30% Sodium 139.1 Potassium 3.7 Chloride 95 L Carbon Dioxide 33 H Anion Gap 11 BUN 17 Creatinine 1.25 Est GFR ( Amer) 52 L Est GFR (Non-Af Amer) 43 L Glucose 221 H Calcium 8.9 Magnesium 2.2 Total Bilirubin 0.9 AST 15 ALT 28 Alkaline Phosphatase 60 Total Protein 6.0 L Albumin 3.1 L 10/03/16 10/04/16 10/06/16 23:49 04:30 04:20 Troponin I 0.027 NT-Pro-B Natriuret Pep 3990 H 2490 H 10/07/16 04:28 Troponin I NT-Pro-B Natriuret Pep 2020 H Impressions: Abdomen/Pelvis CT 10/05/16 00:00 IMPRESSION: Minimal decrease in the size of the previously noted hematoma/ seroma in the right flank. Interval development of bilateral pleural effusions with basilar opacities. Small amount of free fluid in the pelvis and right lower quadrant. Chest X-Ray 10/08/16 06:00 IMPRESSION: NO ACUTE RADIOGRAPHIC FINDING IN THE CHEST. Assessment & Plan - Diagnosis (1) Acute respiratory failure with hypoxemia Is this a current diagnosis for this admission?: YesPlan: Acute hypoxemic respiratory failure secondary to underlying pneumonia. The patient is currently on a ventilator. She is on CPAP mode and tends to be doing well. The plan for today is to extubate her if she is doing well. Hold tube feeds in anticipation of extubation. (2) Aspiration pneumonia Qualifiers: Aspiration pneumonia type: unspecified Laterality: bilateral Lung location: unspecified part of lung Qualified Code(s): J69.0 - Pneumonitis due to inhalation of food and vomit Is this a current diagnosis for this admission?: YesPlan: Patient is currently ventilated. Continue aztreonam, Levaquin, Linezolid. (3) Acute on chronic diastolic CHF (congestive heart failure) Is this a current diagnosis for this admission?: YesPlan: The patient has anasarca. Currently receiving any diuretics. Her fluids have been stopped. she is diuresing well. She put out over 2 L again overnight. (4) Obesity hypoventilation syndrome Is this a current diagnosis for this admission?: YesPlan: The patient is ventilated. We will have to evaluate her breathing status after she is weaned. Likely she will need either CPAP or bilevel Pap (5) Multiple ecchymoses of thigh Plan: These ecchymoses were present on admission. (6) Subtherapeutic anticoagulation Plan: Warfarin has resumed. She has an allergy to heparin therefore we will use argatroban for re-bridging. We will need to be cautious with administration of warfarin along with Levaquin. Continue to adjust warfarin as necessary. INR is currently 2.6. Goal is 2.5-3.5. (7) Diabetes mellitus type 1 Qualifiers: Diabetes mellitus complication status: with unspecified complications Qualified Code(s): E10.8 - Type 1 diabetes mellitus with unspecified complications Is this a current diagnosis for this admission?: YesPlan: Continue sliding scale insulin. Improved with changing of the tube feeds. Glucerna Is now down to 10 due to high residuals at 25 cc an hour. Residuals have been much better and down to 20. I think we can go ahead and titrate her 10 cc an hour she received goal. (8) Hematoma of abdominal wall Plan: According to the CAT scan the patient hematoma is minimally decreased from July 2016. There has been no precipitous drop in her hemoglobin or hematocrit. Continue to monitor. - Time Time Spent with patient: 15-24 minutes - Inpatient Certification Medical Necessity: Need Close Monitoring Due to Risk of Patient Decompensation
[2016-10-08] MEDS ORDERED: BISACODYL 10 MG SUPP.RECT PR ONE (08:59)
[2016-10-08] MEDS: FAMOTIDINE INJ/PF 20 MG/2 ML SDV IV SCH ×2 (10:06→22:05)
[2016-10-08] MEDS: FUROSEMIDE INJ/PF 40 MG/4 ML SDV IV SCH ×2 (10:06→22:05)
[2016-10-08] MEDS: LINEZOLID 300 ML IV SCH (10:07)
[2016-10-08 14:03] LABS: ARTERIAL BLOOD BASE EXCESS 12.4 mmol/L; ARTERIAL BLOOD O2 SATURATION 97.5 % (94-98)
[2016-10-08] MEDS: LEVOFLOXACIN 750 MG/D5W RTU 150 ML IV SCH (14:40)
--- NOTE | 2016-10-08 17:25 | RADIOLOGY REPORT (SQ) ---
EXAM DESCRIPTION: PICC INSERTION COMPLETED DATE/TIME: 10/08/2016 5:16 pm REASON FOR STUDY: IV ACCESS COMPARISON: None. FLUOROSCOPY TIME: 0 minutes 2 images saved to PACS. TECHNIQUE: Fluoroscopic and ultrasound guided PICC placement. LIMITATIONS: None. PROCEDURE: After written consent and assessment were obtained, the patient was brought into [facility] roscopy room and place supine on the table. Ultrasound was used on the patient's right arm for PICC access. The right arm was prepped and draped in a sterile fashion along with the ultrasound probe. Th e entry site was anesthetized with 1% lidocaine. A 21 gauge 7 cm needle was advanced through the skin and into the basilic vein under live ultrasound guidance. An ultrasound image was saved to PACS con firming access site. A .018 guide wire was then inserted through the needle and into the venous syst em. The needle was the removed and an 11 blade scalpel was used to make a 1cm skin incision. A 5 fr peel-away sheath was advanced over the wire and into the venous system. A measurement was then made u sing the existing wire and live fluoroscopic guidance. The wire was then removed and the trimmed. The PICC was advanced through the peel-away sheath and into the venous system. The peel-away sheath was removed and the catheter was adhered to the patients arm with a stat lock. The catheter was then aspi rated and flushed and a sterile bandage was placed over the access site. A fluoroscopic spot image w as saved to PACS confirming the catheter tip within the superior vena cava. IMPRESSION: SUCCESSFUL PLACEMENT OF A 5 FR dual LUMEN 42 CM PICC IN THE basilic VEIN. COMMENT: Patient medication list reviewed: Yes. Quality ID [id number]: Final reports for procedures using fluoroscopy that document radiation exposure clarissa maximo, or exposure time and number of fluorographic images (if radiation exposure indices are not avail able) Quality ID #[id number]: The patient was prepped and draped using maximum sterile barrier technique including cap, mask, sterile gown, sterile gloves, a large sterile sheet, hand hygiene, and 2% Chlorhexidine fo r cutaneous antisepsis. When ultrasound is used, sterile ultrasound techniques are followed requiring sterile gel and sterile probes. TECHNICAL DOCUMENTATION: JOB ID: [id number]- All Rights Reserved
--- NOTE | 2016-10-08 17:26 | RADIOLOGY REPORT (SQ) ---
EXAM DESCRIPTION: U/S GUIDE FOR VASCULAR ACCESS COMPLETE DATE/TIME: 10/08/2016 5:16 pm REASON FOR STUDY: IV ACCESS FINDINGS: Please see combined report for performance of procedure and radiologic supervision and int erpretation. IMPRESSION: Please see combined report for performance of procedure and radiologic supervision and i nterpretation.
[2016-10-08] MEDS: MORPHINE SULFATE 10 MG/ML INJ IV PRN (21:31)
[2016-10-08] MEDS ORDERED: WARFARIN SODIUM 1 MG TABLET PO SCH (22:00)
[2016-10-09] MEDS: IPRATROPIUM/ALBUTEROL 0.5-2.5 MG/3 ML AMPUL NEB SCH ×4 (02:04→20:27)
[2016-10-09 06:40] LABS: ARTERIAL BLOOD BASE EXCESS 6.4 mmol/L; ARTERIAL BLOOD O2 SATURATION 97.9 % (94-98)
[2016-10-09 06:43] LABS: ABSOLUTE EOSINOPHILS # (AUTO) 0.4 10^3/uL (0.0-0.6); ABSOLUTE LYMPHOCYTES (AUTO) 0.7 10^3/uL (0.5-4.7); ABSOLUTE MONOCYTES (AUTO) 0.5 10^3/uL (0.1-1.4); ABSOLUTE NEUT (AUTO) 8.2 10^3/uL (1.7-8.2); BASOPHILS % (AUTO) 0.3 % (0-2); EOSINOPHILS % (AUTO) 4.3 % (0-6); HEMATOCRIT 27.8 % (36.0-47.0); HEMOGLOBIN 9.1 g/dL (12.0-15.5); HGB HCT DIFFERENCE -0.5; LYMPHOCYTES % (AUTO) 6.6 % (13-45); MEAN CORPUSCULAR HEMOGLOBIN 29.4 pg (27.0-33.4); MEAN CORPUSCULAR HGB CONC 32.6 g/dL (32.0-36.0); MEAN CORPUSCULAR VOLUME 90 fl (80-97); MONOCYTES % (AUTO) 5.3 % (3-13); RED BLOOD COUNT 3.09 10^6/uL (3.72-5.28); RED CELL DISTRIBUTION WIDTH 19.1 % (11.5-14.0); SEGMENTED NEUTROPHILS % (AUTO) 83.5 % (42-78); WHITE BLOOD COUNT 9.9 10^3/uL (4.0-10.5)
[2016-10-09 06:47] LABS: PROTHROMBIN TIME 37.9 SEC (11.4-15.4)
--- NOTE | 2016-10-09 06:58 | RADIOLOGY REPORT (SQ) ---
EXAM DESCRIPTION: CHEST SINGLE VIEW COMPLETED DATE/TIME: 10/09/2016 6:47 am REASON FOR STUDY: ACUTE RESP FAILURE COMPARISON: 10/08/2016 EXAM PARAMETERS: NUMBER OF VIEWS: One view. TECHNIQUE: Single frontal radiographic view of the chest acquired. RADIATION DOSE: NA LIMITATIONS: None. FINDINGS: LUNGS AND PLEURA: No opacities, masses or pneumothorax. No pleural effusion. MEDIASTINUM AND HILAR STRUCTURES: No masses. Contour normal. HEART AND VASCULAR STRUCTURES: Heart normal in size. Normal vasculature. BONES: No acute findings. HARDWARE: Right upper extremity PICC noted. NG tube noted with tip in side hole below level of diaph ragm. EKG leads overlie the chest. Postsurgical repair noted along the anterior chest, similar to p rior studies. The endotracheal tube has been removed in the interim. OTHER: No other significant finding. IMPRESSION: 1. Support tubes and lines as above. Interval removal of the endotracheal tube. 2. Otherwise stable evaluation of the chest. TECHNICAL DOCUMENTATION: JOB ID: [id number]
[2016-10-09 07:23] LABS: ALANINE AMINOTRANSFERASE 27 U/L (9-52); ALBUMIN 3.1 g/dL (3.5-5.0); ALKALINE PHOSPHATASE 60 U/L (38-126); ANION GAP 9 (5-19); ASPARTATE AMINO TRANSFERASE 15 U/L (14-36); BILIRUBIN,TOTAL 0.9 mg/dL (0.2-1.3); BLOOD UREA NITROGEN 15 mg/dL (7-20); CALCIUM 8.6 mg/dL (8.4-10.2); CARBON DIOXIDE 36 mmol/L (22-30); CHLORIDE 95 mmol/L (98-107); CREATININE RESULT 1.07 mg/dL (0.52-1.25); GLUCOSE 181 mg/dL (75-110); MAGNESIUM 2.1 mg/dL (1.6-2.3); POTASSIUM 3.3 mmol/L (3.6-5.0); SODIUM 140.1 mmol/L (137-145); TOTAL PROTEIN 6.2 g/dL (6.3-8.2)
[2016-10-09] MEDS: MORPHINE SULFATE 10 MG/ML INJ IV PRN (07:36)
--- NOTE | 2016-10-09 09:18 | PDOC PROGRESS REPORT ---
Subjective Progress Note for:: 10/09/16 Subjective:: Follow-up visit for acute respiratory failure secondary to aspiration. The patient is currently on bilevel Pap. Apparently overnight she had difficulties with delirium. She pulled at her lines and Chen catheter. Was found to be yelling out. She was placed in soft restraints. She is currently asking for water. Physical Exam Vital Signs: Temp Pulse Resp BP Pulse Ox 98.2 F 82 20 115/55 L 96 10/09/16 07:44 10/09/16 07:44 10/09/16 07:44 10/09/16 07:44 10/09/16 07:44 Intake & Output 10/08/16 10/09/16 10/10/16 06:59 06:59 06:59 Intake Total 1515 305 Output Total 3875 4305 75 Balance -2360 -4000 -75 Weight 117.7 kg 114.4 kg Vent: Bilevel Pap is on. Patient is extubated Lines: The patient has 2 peripheral IVs Drips: Levophed off. Versed is off. Fentanyl [employer] HELPER off Abx: Aztreonam, Levaquin NGT: glucerna off General: Well developed, well-nourished morbidly obese white female resting in bed currently in no acute distress. Heart: Regular rate and rhythm. A 2/6 systolic ejection murmur heard best over the left upper sternal border. Click is audible. No gallops or rub Lungs: Coarse breath sounds bilaterally with equal rise and fall of the chest. Bilevel Pap is currently on. Abdomen: Obese. Nondistended. Dependent edema of the pannus. Soft. Right lower quadrant hematoma no larger than previous exam. Extremities: No clubbing, warm to the touch. Toes look discolored. Trace lower extremity edema bilaterally. Pulses 2+. lower extremity edema resolved. Neuro: Awake, alert. She is asking for water. : Chen catheter is in place and draining daljit colored urine. Skin: Fungal elements appear improved on The folds of the pannus. Large ecchymoses on the back of the thighs. Multiple ecchymoses on the forearms. Faint ecchymosis of the right lower quadrant and lower inner quadrant of the right breast. Etechiae resolved Results Laboratory Results: 10/09/16 06:15 10/09/16 06:15 10/08/16 10/09/16 10/09/16 13:30 06:15 06:15 WBC 9.9 RBC 3.09 L Hgb 9.1 L Hct 27.8 L MCV 90 MCH 29.4 MCHC 32.6 RDW 19.1 H Plt Count 162 Seg Neutrophils % 83.5 H Lymphocytes % 6.6 L Monocytes % 5.3 Eosinophils % 4.3 Basophils % 0.3 Absolute Neutrophils 8.2 Absolute Lymphocytes 0.7 Absolute Monocytes 0.5 Absolute Eosinophils 0.4 Absolute Basophils 0.0 Carbonic Acid 1.50 H 1.55 H HCO3/H2CO3 Ratio 24:1 20:1 ABG pH 7.49 H 7.41 ABG pCO2 49.9 H 51.5 H ABG pO2 93.0 106.9 H ABG HCO3 37.3 H 32.0 H ABG O2 Saturation 97.5 97.9 ABG Base Excess 12.4 6.4 FiO2 30% 30% Sodium Potassium Chloride Carbon Dioxide Anion Gap BUN Creatinine Est GFR ( Amer) Est GFR (Non-Af Amer) Glucose Calcium Magnesium Total Bilirubin AST ALT Alkaline Phosphatase Total Protein Albumin 10/09/16 06:15 WBC RBC Hgb Hct MCV MCH MCHC RDW Plt Count Seg Neutrophils % Lymphocytes % Monocytes % Eosinophils % Basophils % Absolute Neutrophils Absolute Lymphocytes Absolute Monocytes Absolute Eosinophils Absolute Basophils Carbonic Acid HCO3/H2CO3 Ratio ABG pH ABG pCO2 ABG pO2 ABG HCO3 ABG O2 Saturation ABG Base Excess FiO2 Sodium 140.1 Potassium 3.3 L Chloride 95 L Carbon Dioxide 36 H Anion Gap 9 BUN 15 Creatinine 1.07 Est GFR ( Amer) > 60 Est GFR (Non-Af Amer) 51 L Glucose 181 H Calcium 8.6 Magnesium 2.1 Total Bilirubin 0.9 AST 15 ALT 27 Alkaline Phosphatase 60 Total Protein 6.2 L Albumin 3.1 L 10/04/16 00:00 Blood Blood Culture - Final NO GROWTH IN 5 DAYS 10/03/16 23:49 Blood Blood Culture - Final NO GROWTH IN 5 DAYS 10/06/16 07:49 Catheterized Urine Urine Culture - Final NO GROWTH 2 DAYS 10/03/16 10/04/16 10/06/16 23:49 04:30 04:20 Troponin I 0.027 NT-Pro-B Natriuret Pep 3990 H 2490 H 10/07/16 04:28 Troponin I NT-Pro-B Natriuret Pep 2020 H Impressions: Abdomen/Pelvis CT 10/05/16 00:00 IMPRESSION: Minimal decrease in the size of the previously noted hematoma/ seroma in the right flank. Interval development of bilateral pleural effusions with basilar opacities. Small amount of free fluid in the pelvis and right lower quadrant. Interventional Vascular Procedure 10/08/16 00:00 IMPRESSION: Please see combined report for performance of procedure and radiologic supervision and interpretation. PICC Line Insertion 10/08/16 00:00 IMPRESSION: SUCCESSFUL PLACEMENT OF A 5 FR dual LUMEN 42 CM PICC IN THE basilic VEIN. Chest X-Ray 10/09/16 06:00 IMPRESSION: 1. Support tubes and lines as above. Interval removal of the endotracheal tube. 2. Otherwise stable evaluation of the chest. Assessment & Plan - Diagnosis (1) Acute respiratory failure with hypoxemia Is this a current diagnosis for this admission?: YesPlan: Acute hypoxemic respiratory failure secondary to underlying pneumonia. The patient is off a ventilator. (2) Aspiration pneumonia Qualifiers: Aspiration pneumonia type: unspecified Laterality: bilateral Lung location: unspecified part of lung Qualified Code(s): J69.0 - Pneumonitis due to inhalation of food and vomit Is this a current diagnosis for this admission?: YesPlan: Continue aztreonam, Levaquin. Discontinue Linezolid. (3) Acute on chronic diastolic CHF (congestive heart failure) Is this a current diagnosis for this admission?: YesPlan: The patient has anasarca. Currently receiving any diuretics. Her fluids have been stopped. she is diuresing well. She put out over 4 L again overnight. (4) Obesity hypoventilation syndrome Is this a current diagnosis for this admission?: YesPlan: Continue bilevel Pap (5) Multiple ecchymoses of thigh Plan: These ecchymoses were present on admission. (6) Subtherapeutic anticoagulation Plan: INR was 3.6 today. Goal is between 2.5 and 3.6. Will hold argatroban. Hold warfarin. Continue to adjust warfarin. (7) Diabetes mellitus type 1 Qualifiers: Diabetes mellitus complication status: with unspecified complications Qualified Code(s): E10.8 - Type 1 diabetes mellitus with unspecified complications Is this a current diagnosis for this admission?: YesPlan: Continue sliding scale insulin. Improved with changing of the tube feeds. Glucerna has been discontinued. We will restart today. And have speech therapy follow-up on Tuesday. (8) Hematoma of abdominal wall Plan: According to the CAT scan the patient hematoma is minimally decreased from July 2016. There has been no precipitous drop in her hemoglobin or hematocrit. Continue to monitor. - Time Time Spent with patient: 15-24 minutes Anticipated discharge: SNF Within: when bed available - Inpatient Certification Medical Necessity: Need Close Monitoring Due to Risk of Patient Decompensation
[2016-10-09] MEDS: POTASSIUM CHLORIDE 20 MEQ/15 ML UDCUP PO SCH (09:21)
[2016-10-09] MEDS: FUROSEMIDE INJ/PF 40 MG/4 ML SDV IV SCH ×2 (09:22→21:18)
[2016-10-09] MEDS: FAMOTIDINE INJ/PF 20 MG/2 ML SDV IV SCH ×2 (09:22→21:19)
[2016-10-09] MEDS: LEVOFLOXACIN 750 MG/D5W RTU 150 ML IV SCH (13:37)
[2016-10-09] MEDS: INSULIN LISPRO 100 UNIT/ML 3 ML VIAL SUBCUT PRN ×2 (14:33→18:23)
[2016-10-09] MEDS: ACETAMINOPHEN SOLN 325 MG/10.15 ML UDCUP NG PRN (14:55)
[2016-10-10] MEDS: MORPHINE SULFATE 10 MG/ML INJ IV PRN ×3 (00:22→22:30)
[2016-10-10] MEDS: INSULIN LISPRO 100 UNIT/ML 3 ML VIAL SUBCUT PRN ×5 (00:32→22:55)
[2016-10-10] MEDS: IPRATROPIUM/ALBUTEROL 0.5-2.5 MG/3 ML AMPUL NEB SCH ×4 (02:43→20:23)
[2016-10-10 05:31] LABS: ABSOLUTE BASOPHILS # (AUTO) 0.1 10^3/uL (0.0-0.2); ABSOLUTE EOSINOPHILS # (AUTO) 0.3 10^3/uL (0.0-0.6); ABSOLUTE LYMPHOCYTES (AUTO) 0.9 10^3/uL (0.5-4.7); ABSOLUTE MONOCYTES (AUTO) 0.7 10^3/uL (0.1-1.4); ABSOLUTE NEUT (AUTO) 9.2 10^3/uL (1.7-8.2); BASOPHILS % (AUTO) 0.5 % (0-2); EOSINOPHILS % (AUTO) 3.1 % (0-6); HEMATOCRIT 31.3 % (36.0-47.0); HGB HCT DIFFERENCE -1.3; LYMPHOCYTES % (AUTO) 7.8 % (13-45); MEAN CORPUSCULAR HEMOGLOBIN 29.1 pg (27.0-33.4); MEAN CORPUSCULAR HGB CONC 31.9 g/dL (32.0-36.0); MEAN CORPUSCULAR VOLUME 91 fl (80-97); RED BLOOD COUNT 3.42 10^6/uL (3.72-5.28); RED CELL DISTRIBUTION WIDTH 19.3 % (11.5-14.0); SEGMENTED NEUTROPHILS % (AUTO) 82.6 % (42-78); WHITE BLOOD COUNT 11.2 10^3/uL (4.0-10.5)
[2016-10-10 05:40] LABS: ANION GAP 9 (5-19); BLOOD UREA NITROGEN 18 mg/dL (7-20); CARBON DIOXIDE 36 mmol/L (22-30); CHLORIDE 94 mmol/L (98-107); CREATININE RESULT 1.06 mg/dL (0.52-1.25); GLUCOSE 210 mg/dL (75-110); POTASSIUM 3.5 mmol/L (3.6-5.0); SODIUM 139.1 mmol/L (137-145)
[2016-10-10 06:00] LABS: PROTHROMBIN TIME 14.9 SEC (11.4-15.4)
[2016-10-10] MEDS ORDERED: WARFARIN SODIUM 1 MG TABLET PO SCH (07:50)
[2016-10-10] MEDS: FAMOTIDINE INJ/PF 20 MG/2 ML SDV IV SCH ×2 (10:50→22:30)
[2016-10-10] MEDS: POTASSIUM CHLORIDE 20 MEQ/15 ML UDCUP PO SCH (10:51)
[2016-10-10] MEDS: FUROSEMIDE INJ/PF 40 MG/4 ML SDV IV SCH ×2 (10:51→22:30)
[2016-10-10] MEDS: LEVOFLOXACIN 750 MG/D5W RTU 150 ML IV SCH (12:05)
[2016-10-10] MEDS: HYDROCODONE/ACETAMINOPHEN 7.5-325 MG TABLET PO PRN ×2 (12:31→17:10)
[2016-10-10] MEDS: LIDOCAINE 2% VISCOUS SOLN 20 ML UDCUP PO PRN ×2 (12:32→17:11)
--- NOTE | 2016-10-10 13:43 | PDOC PROGRESS REPORT ---
Subjective Progress Note for:: 10/10/16 Subjective:: Follow-up visit for acute respiratory failure secondary to aspiration. She complains of sore throat and generalized pain for which she takes hydrocodone at home. She denies any chest pain or shortness of breath. Physical Exam Vital Signs: Temp Pulse Resp BP Pulse Ox 98.0 F 89 14 122/37 L 97 10/10/16 07:42 10/10/16 08:07 10/10/16 08:07 10/10/16 07:42 10/10/16 08:07 Intake & Output 10/09/16 10/10/16 10/11/16 06:59 06:59 06:59 Intake Total 305 460 Output Total 5892 6240 Balance -3150 -5550 Weight 114.4 kg 115.8 kg General: Well developed, well-nourished morbidly obese white female sitting up in bed currently in no acute distress. Heart: Regular rate and rhythm. A 2/6 systolic ejection murmur heard best over the left upper sternal border. Click is audible. No gallops or rub Lungs: Coarse breath sounds bilaterally with equal rise and fall of the chest. Bilevel Pap is currently on. Abdomen: Obese. Nondistended. Dependent edema of the pannus. Soft. Right lower quadrant hematoma no larger than previous exam. Extremities: No clubbing, warm to the touch. Toes look discolored. Trace lower extremity edema bilaterally. Pulses 2+. lower extremity edema resolved. Neuro: Awake, alert. Speech is clear. Cranial nerves are grossly intact. : Chen catheter is in place and draining daljit colored urine. Results Laboratory Results: 10/10/16 05:05 10/10/16 05:05 10/10/16 10/10/16 05:05 05:05 WBC 11.2 H RBC 3.42 L Hgb 10.0 L Hct 31.3 L MCV 91 MCH 29.1 MCHC 31.9 L RDW 19.3 H Plt Count 167 Seg Neutrophils % 82.6 H Lymphocytes % 7.8 L Monocytes % 6.0 Eosinophils % 3.1 Basophils % 0.5 Absolute Neutrophils 9.2 H Absolute Lymphocytes 0.9 Absolute Monocytes 0.7 Absolute Eosinophils 0.3 Absolute Basophils 0.1 Sodium 139.1 Potassium 3.5 L Chloride 94 L Carbon Dioxide 36 H Anion Gap 9 BUN 18 Creatinine 1.06 Est GFR ( Amer) > 60 Est GFR (Non-Af Amer) 52 L Glucose 210 H Calcium 9.0 Magnesium 2.0 10/03/16 10/04/16 10/06/16 23:49 04:30 04:20 Troponin I 0.027 NT-Pro-B Natriuret Pep 3990 H 2490 H 10/07/16 04:28 Troponin I NT-Pro-B Natriuret Pep 2020 H Impressions: Abdomen/Pelvis CT 10/05/16 00:00 IMPRESSION: Minimal decrease in the size of the previously noted hematoma/ seroma in the right flank. Interval development of bilateral pleural effusions with basilar opacities. Small amount of free fluid in the pelvis and right lower quadrant. Interventional Vascular Procedure 10/08/16 00:00 IMPRESSION: Please see combined report for performance of procedure and radiologic supervision and interpretation. PICC Line Insertion 10/08/16 00:00 IMPRESSION: SUCCESSFUL PLACEMENT OF A 5 FR dual LUMEN 42 CM PICC IN THE basilic VEIN. Chest X-Ray 10/09/16 06:00 IMPRESSION: 1. Support tubes and lines as above. Interval removal of the endotracheal tube. 2. Otherwise stable evaluation of the chest. Assessment & Plan - Diagnosis (1) Acute respiratory failure with hypoxemia Is this a current diagnosis for this admission?: YesPlan: Acute hypoxemic respiratory failure secondary to underlying pneumonia. The patient is off a ventilator. (2) Aspiration pneumonia Qualifiers: Aspiration pneumonia type: unspecified Laterality: bilateral Lung location: unspecified part of lung Qualified Code(s): J69.0 - Pneumonitis due to inhalation of food and vomit Is this a current diagnosis for this admission?: YesPlan: Continue aztreonam, Levaquin. Discontinue Linezolid. Continue tube feeds for now consult speech in the morning. (3) Acute on chronic diastolic CHF (congestive heart failure) Is this a current diagnosis for this admission?: YesPlan: The patient has anasarca. Currently receiving diuretics. Her fluids have been stopped. she is diuresing well. She put out 2.3 L again overnight. (4) Obesity hypoventilation syndrome Is this a current diagnosis for this admission?: YesPlan: Continue bilevel Pap (5) Multiple ecchymoses of thigh Plan: These ecchymoses were present on admission. (6) Subtherapeutic anticoagulation Plan: Her argatroban was restarted. The patient's Coumadin was also started at 2.5 mg a day. There was a lengthy discussion with the nursing instant powder supervisor, pharmacy , the floor nurse about the management of her argatroban The patient's INR will likely be greater than 4 while on her argatroban, We will recheck INR on a daily basis. once it is stable and consistent above for we will be able to stop the argatroban and see what her true INR is. (7) Diabetes mellitus type 1 Qualifiers: Diabetes mellitus complication status: with unspecified complications Qualified Code(s): E10.8 - Type 1 diabetes mellitus with unspecified complications Is this a current diagnosis for this admission?: YesPlan: Continue sliding scale insulin. Improved with changing of the tube feeds. Glucerna has been discontinued. We will restart today. And have speech therapy follow-up on Tuesday. (8) Hematoma of abdominal wall Plan: According to the CAT scan the patient hematoma is minimally decreased from July 2016. There has been no precipitous drop in her hemoglobin or hematocrit. Continue to monitor.
[2016-10-10] MEDS: NORMAL SALINE 250 ML with ARGATROBAN 250 MG IV PRN ×2 (13:46)
[2016-10-10] MEDS: NYSTATIN TOPICAL POWDER 15 GM TP SCH (20:20)
[2016-10-10] MEDS: WARFARIN SODIUM 2.5 MG TABLET PO SCH (22:30)
[2016-10-11] MEDS: IPRATROPIUM/ALBUTEROL 0.5-2.5 MG/3 ML AMPUL NEB SCH ×4 (02:08→21:24)
[2016-10-11] MEDS: MORPHINE SULFATE 10 MG/ML INJ IV PRN (02:37)
[2016-10-11] MEDS: LIDOCAINE 2% VISCOUS SOLN 20 ML UDCUP PO PRN (02:44)
[2016-10-11 04:56] LABS: ABSOLUTE EOSINOPHILS # (AUTO) 0.2 10^3/uL (0.0-0.6); ABSOLUTE LYMPHOCYTES (AUTO) 0.8 10^3/uL (0.5-4.7); ABSOLUTE MONOCYTES (AUTO) 0.8 10^3/uL (0.1-1.4); ABSOLUTE NEUT (AUTO) 7.1 10^3/uL (1.7-8.2); BASOPHILS % (AUTO) 0.3 % (0-2); EOSINOPHILS % (AUTO) 2.2 % (0-6); HEMATOCRIT 31.5 % (36.0-47.0); HGB HCT DIFFERENCE -1.5; MEAN CORPUSCULAR HEMOGLOBIN 29.1 pg (27.0-33.4); MEAN CORPUSCULAR HGB CONC 31.9 g/dL (32.0-36.0); MEAN CORPUSCULAR VOLUME 91 fl (80-97); MONOCYTES % (AUTO) 9.3 % (3-13); RED BLOOD COUNT 3.46 10^6/uL (3.72-5.28); RED CELL DISTRIBUTION WIDTH 19.6 % (11.5-14.0); SEGMENTED NEUTROPHILS % (AUTO) 79.2 % (42-78); WHITE BLOOD COUNT 8.9 10^3/uL (4.0-10.5)
[2016-10-11 05:16] LABS: PROTHROMBIN TIME 29.7 SEC (11.4-15.4)
[2016-10-11 05:53] LABS: ANION GAP 11 (5-19); BLOOD UREA NITROGEN 20 mg/dL (7-20); CARBON DIOXIDE 35 mmol/L (22-30); CHLORIDE 94 mmol/L (98-107); GLUCOSE 258 mg/dL (75-110); MAGNESIUM 2.1 mg/dL (1.6-2.3); POTASSIUM 3.4 mmol/L (3.6-5.0); SODIUM 139.7 mmol/L (137-145)
[2016-10-11] MEDS: INSULIN LISPRO 100 UNIT/ML 3 ML VIAL SUBCUT PRN ×4 (06:30→22:18)
[2016-10-11] MEDS: HYDROCODONE/ACETAMINOPHEN 7.5-325 MG TABLET PO PRN ×4 (06:56→21:44)
[2016-10-11] MEDS ORDERED: POTASSI CL 20 MEQ/50 ML RIDER 50 ML IV ONE (08:09)
[2016-10-11] MEDS: NORMAL SALINE 250 ML with ARGATROBAN 250 MG IV PRN ×2 (08:47)
[2016-10-11] MEDS: FUROSEMIDE INJ/PF 40 MG/4 ML SDV IV SCH (10:22)
[2016-10-11] MEDS: POTASSIUM CHLORIDE 20 MEQ/15 ML UDCUP PO SCH ×2 (10:25→17:27)
[2016-10-11] MEDS: LEVOFLOXACIN 750 MG TABLET PO SCH (10:25)
[2016-10-11] MEDS: FAMOTIDINE INJ/PF 20 MG/2 ML SDV IV SCH ×2 (10:25→21:13)
[2016-10-11] MEDS: NYSTATIN TOPICAL POWDER 15 GM TP SCH ×2 (10:26→17:27)
--- NOTE | 2016-10-11 10:51 | PDOC PROGRESS REPORT ---
Subjective Progress Note for:: 10/11/16 Subjective:: Patient is sitting up in bed. She denies any chest pain or shortness of breath. No acute events overnight. She is been seen by the speech pathologist and is fit for mechanical soft diet with ground up meats and thin liquids. She is anxious to get the Dobbhoff tube out. Over the last week the patient has been able to be weaned off of the ventilator and is now transitioned to oxygen therapy with as needed BiPAP at night. Dr. Crowell still follows on the floor. Patient was able to be transitioned down to [facility] level care. There have been difficulties in managing her INR. Patient is on Levaquin and developed supratherapeutic INR at the beginning of the week. Coumadin was subsequently held and the INR at 6 was allowed to drift downward. Unfortunately, the patient received a dose of vitamin K on the shift supervisor, making it difficult for her INR to go back up. She has a mechanical aortic valv and an allergy to heparin products. On her last 2 admissions here the patient was not discharged home on any heparin products as was suspected before. Therefore, she was started on argatroban for bridging. The goals are to allow her INR to creep up and be maintained at least greater than 4 period of 3-4 days, as the INR is falsely elevated by argatroban. INR should be checked daily. Once argatroban is discontinued her INR should be between 2-1/2 and 3-1/2. Otherwise the patient has done well, she has been seen by speech. I have discontinued her Dobbhoff tube today and she is now on mechanical soft diet with ground meats and thin liquids. She received PT for the first time today. She will likely need sniff placement however the patient wants to go home. Physical Exam Vital Signs: Temp Pulse Resp BP Pulse Ox 97.9 F 88 16 123/91 H 99 10/11/16 07:14 10/11/16 08:40 10/11/16 08:40 10/11/16 07:14 10/11/16 08:40 Intake & Output 10/10/16 10/11/16 10/12/16 06:59 06:59 06:59 Intake Total 460 9867 Output Total 0338 9418 Balance -3440 -014 Weight 115.8 kg 114.9 kg General: Well developed, well-nourished morbidly obese white female sitting up in bed currently in no acute distress. Heart: Regular rate and rhythm. A 2/6 systolic ejection murmur heard best over the left upper sternal border. Click is audible. No gallops or rub Lungs: Diminished at the bases bilaterally with equal rise and fall of the chest.. Patient is on nasal cannula Abdomen: Obese. Nondistended. Dependent edema of the pannus. Soft. Right lower quadrant hematoma no larger than previous exam. Extremities: No clubbing, warm to the touch. Toes look discolored but are not particularly cyanotic. Trace lower extremity edema bilaterally. Pulses 2+. lower extremity edema resolved. Neuro: Awake, alert. Speech is clear. Cranial nerves are grossly intact. : Chen catheter is in place and draining daljit colored urine. Results Laboratory Results: 10/11/16 04:27 10/11/16 04:27 10/11/16 10/11/16 04:27 04:27 WBC 8.9 RBC 3.46 L Hgb 10.0 L Hct 31.5 L MCV 91 MCH 29.1 MCHC 31.9 L RDW 19.6 H Plt Count 164 Seg Neutrophils % 79.2 H Lymphocytes % 9.0 L Monocytes % 9.3 Eosinophils % 2.2 Basophils % 0.3 Absolute Neutrophils 7.1 Absolute Lymphocytes 0.8 Absolute Monocytes 0.8 Absolute Eosinophils 0.2 Absolute Basophils 0.0 Sodium 139.7 Potassium 3.4 L Chloride 94 L Carbon Dioxide 35 H Anion Gap 11 BUN 20 Creatinine 1.10 Est GFR ( Amer) > 60 Est GFR (Non-Af Amer) 50 L Glucose 258 H Calcium 9.0 Magnesium 2.1 10/03/16 10/04/16 10/06/16 23:49 04:30 04:20 Troponin I 0.027 NT-Pro-B Natriuret Pep 3990 H 2490 H 10/07/16 04:28 Troponin I NT-Pro-B Natriuret Pep 2020 H Impressions: Abdomen/Pelvis CT 10/05/16 00:00 IMPRESSION: Minimal decrease in the size of the previously noted hematoma/ seroma in the right flank. Interval development of bilateral pleural effusions with basilar opacities. Small amount of free fluid in the pelvis and right lower quadrant. Interventional Vascular Procedure 10/08/16 00:00 IMPRESSION: Please see combined report for performance of procedure and radiologic supervision and interpretation. PICC Line Insertion 10/08/16 00:00 IMPRESSION: SUCCESSFUL PLACEMENT OF A 5 FR dual LUMEN 42 CM PICC IN THE basilic VEIN. Chest X-Ray 10/09/16 06:00 IMPRESSION: 1. Support tubes and lines as above. Interval removal of the endotracheal tube. 2. Otherwise stable evaluation of the chest. Assessment & Plan - Diagnosis (1) Acute respiratory failure with hypoxemia Is this a current diagnosis for this admission?: YesPlan: This is being managed by pulmonology service. Continue to wean oxygen as appropriate. Patient is much improved. Resume home Pulmicort. (2) Aspiration pneumonia Qualifiers: Aspiration pneumonia type: unspecified Laterality: bilateral Lung location: unspecified part of lung Qualified Code(s): J69.0 - Pneumonitis due to inhalation of food and vomit Is this a current diagnosis for this admission?: YesPlan: Patient is currently ventilated. continue with Levaquin p.o. the patient has 2 more days of antibiotics. This will give her a total of 10 days. (3) Obesity hypoventilation syndrome Is this a current diagnosis for this admission?: YesPlan: Continue bilevel Pap as needed. (4) Morbid obesity with alveolar hypoventilation Plan: Weight loss through dietary changes. (5) Multiple ecchymoses of thigh Plan: These ecchymoses were present on admission. I am not certain what happened to the back of her thighs but it almost appears as though her legs were pressed against an object while she was in the seated position. Perhaps the chair itself. No family has been at the bedside. (6) Acute on chronic diastolic CHF (congestive heart failure) Is this a current diagnosis for this admission?: YesPlan: Has anasarca. Currently receiving any diuretics. Her fluids have been stopped. Continue Lasix the patient is diuresing well. Discontinue IV and continue home dose of 40 every morning. Resume home dose of Zaroxolyn. (7) Subtherapeutic anticoagulation Plan: Continue argatroban for bridging. Continue daily INRs. Discontinue argatroban and after the INR is greater than 4 for at least 4 consecutive days. Patient has a heparin allergy. There was some speculation that the patient had been discharged on her previous visit with Lovenox and tolerated this. However after reviewing the chart for her last hospitalization here in August and in July, there is no evidence of this. Proceed with argatroban for now. (8) Diabetes mellitus type 1 Qualifiers: Diabetes mellitus complication status: with unspecified complications Qualified Code(s): E10.8 - Type 1 diabetes mellitus with unspecified complications Is this a current diagnosis for this admission?: YesPlan: Continue sliding scale insulin. Now that she will be starting regular meals we will also change her to q. before meals at bedtime blood sugar checks. Resume Januvia. (9) Sore throat Plan: This is secondary to intubation. The patient is receiving viscous lidocaine with improvement. - Time Time Spent with patient: 35 or more minutes - Inpatient Certification Medical Necessity: Need Close Monitoring Due to Risk of Patient Decompensation
[2016-10-11] MEDS ORDERED: METOLAZONE 5 MG TABLET PO ONE (12:00)
[2016-10-11] MEDS ORDERED: SITAGLIPTIN PHOSPHATE 50 MG TABLET PO ONE (12:30)
--- NOTE | 2016-10-11 16:30 | PDOC PROGRESS REPORT ---
Subjective Progress Note for:: 10/07/16 Subjective:: Intubated and sedated Physical Exam Vital Signs: Temp Pulse Resp BP Pulse Ox 99.9 F 67 16 123/29 L 97 10/07/16 06:30 10/07/16 02:00 10/07/16 06:30 10/07/16 06:04 10/07/16 06:30 Intake & Output 10/06/16 10/07/16 10/08/16 06:59 06:59 06:59 Intake Total 2155 1484 Output Total 9647 3470 Balance -8593 -7861 Weight 122.3 kg 120.7 kg General appearance: PRESENT: no acute distress, disheveled, obese, well- developed Head exam: PRESENT: atraumatic, normocephalic Eye exam: PRESENT: conjunctiva pale Mouth exam: PRESENT: dry mucosa, neck supple, tongue midline, other - ET tube Neck exam: ABSENT: carotid bruit, JVD, lymphadenopathy, thyromegaly Respiratory exam: PRESENT: decreased breath sounds, prolonged expiratory phas, rhonchi, symmetrical, unlabored Cardiovascular exam: PRESENT: RRR, +S1, +S2 Pulses: PRESENT: normal radial pulses Rectal exam: PRESENT: deferred Gentrourinary exam: PRESENT: indwelling catheter Musculoskeletal exam: PRESENT: normal inspection Skin exam: PRESENT: other - Cellulitis bilateral lower extremities Results Laboratory Results: 10/07/16 04:28 10/07/16 04:28 10/07/16 10/07/16 10/07/16 04:28 04:28 04:40 WBC 7.7 RBC 3.05 L Hgb 8.7 L Hct 27.7 L MCV 91 MCH 28.4 MCHC 31.3 L RDW 19.3 H Plt Count 160 Seg Neutrophils % 84.0 H Lymphocytes % 7.0 L Monocytes % 5.1 Eosinophils % 3.5 Basophils % 0.4 Absolute Neutrophils 6.5 Absolute Lymphocytes 0.5 Absolute Monocytes 0.4 Absolute Eosinophils 0.3 Absolute Basophils 0.0 Carbonic Acid 1.41 H HCO3/H2CO3 Ratio 26:1 ABG pH 7.52 H ABG pCO2 46.8 H ABG pO2 75.2 L ABG HCO3 37.3 H ABG O2 Saturation 96.1 ABG Base Excess 13.1 FiO2 30% Sodium 138.9 Potassium 3.6 Chloride 96 L Carbon Dioxide 34 H Anion Gap 9 BUN 19 Creatinine 1.24 Est GFR ( Amer) 52 L Est GFR (Non-Af Amer) 43 L Glucose 204 H Calcium 8.4 Magnesium 2.0 Total Bilirubin 0.9 AST 16 ALT 21 Alkaline Phosphatase 60 Total Protein 5.9 L Albumin 3.0 L 10/03/16 23:50 Tracheal Aspirate Gram Stain - Final 10/03/16 23:50 Tracheal Aspirate Sputum Culture - Final NO GROWTH 2 DAYS 10/03/16 10/04/16 10/06/16 23:49 04:30 04:20 Troponin I 0.027 NT-Pro-B Natriuret Pep 3990 H 2490 H 10/07/16 04:28 Troponin I NT-Pro-B Natriuret Pep 2020 H Impressions: Abdomen/Pelvis CT 10/05/16 00:00 IMPRESSION: Minimal decrease in the size of the previously noted hematoma/ seroma in the right flank. Interval development of bilateral pleural effusions with basilar opacities. Small amount of free fluid in the pelvis and right lower quadrant. Chest X-Ray 10/07/16 06:00 IMPRESSION: NO CHANGE IN APPEARANCE OF THE CHEST. Assessment & Plan - Diagnosis (1) Obesity hypoventilation syndrome Is this a current diagnosis for this admission?: Yes (2) Acute respiratory failure with hypoxemia Is this a current diagnosis for this admission?: YesPlan: Improving slowly (3) Aspiration pneumonia Qualifiers: Aspiration pneumonia type: unspecified Laterality: bilateral Lung location: unspecified part of lung Qualified Code(s): J69.0 - Pneumonitis due to inhalation of food and vomit Is this a current diagnosis for this admission?: YesPlan: Unchanged (4) Cellulitis and abscess of leg Is this a current diagnosis for this admission?: Yes (5) JAMEEL (obstructive sleep apnea) Is this a current diagnosis for this admission?: YesPlan: will need NIPPV - Time Critical Time spent with patient: 35 or more minutes
--- NOTE | 2016-10-11 16:32 | PDOC PROGRESS REPORT ---
Subjective Progress Note for:: 10/08/16 Subjective:: Intubated Physical Exam Vital Signs: Temp Pulse Resp BP Pulse Ox 98.8 F 73 18 118/42 L 99 10/08/16 06:15 10/08/16 02:40 10/08/16 06:15 10/08/16 06:04 10/08/16 06:15 Intake & Output 10/07/16 10/08/16 10/09/16 06:59 06:59 06:59 Intake Total 1484 1515 149 Output Total 6714 9094 Balance -7861 -3260 149 Weight 120.7 kg 117.7 kg General appearance: PRESENT: no acute distress, disheveled, obese, well- developed Head exam: PRESENT: atraumatic, normocephalic Eye exam: PRESENT: conjunctiva pale Mouth exam: PRESENT: dry mucosa, neck supple, tongue midline, other - ET tube in place Neck exam: ABSENT: carotid bruit, JVD, lymphadenopathy, thyromegaly Respiratory exam: PRESENT: decreased breath sounds, prolonged expiratory phas, rhonchi, unlabored Cardiovascular exam: PRESENT: RRR, +S1, +S2 Pulses: PRESENT: normal radial pulses GI/Abdominal exam: PRESENT: normal bowel sounds, soft. ABSENT: distended, guarding, mass, organolmegaly, rebound, tenderness Rectal exam: PRESENT: deferred Gentrourinary exam: PRESENT: indwelling catheter Musculoskeletal exam: PRESENT: normal inspection Skin exam: PRESENT: other - Cellulitis bilateral lower extremities Results Laboratory Results: 10/08/16 04:23 10/08/16 04:23 10/08/16 10/08/16 10/08/16 04:23 04:23 05:30 WBC 8.4 RBC 3.22 L Hgb 9.1 L Hct 29.1 L MCV 90 MCH 28.1 MCHC 31.2 L RDW 18.9 H Plt Count 149 L Seg Neutrophils % 82.6 H Lymphocytes % 8.6 L Monocytes % 4.6 Eosinophils % 3.9 Basophils % 0.3 Absolute Neutrophils 7.0 Absolute Lymphocytes 0.7 Absolute Monocytes 0.4 Absolute Eosinophils 0.3 Absolute Basophils 0.0 Carbonic Acid 1.53 H HCO3/H2CO3 Ratio 23:1 ABG pH 7.47 H ABG pCO2 50.7 H ABG pO2 91.5 ABG HCO3 36.3 H ABG O2 Saturation 97.3 ABG Base Excess 11.4 FiO2 30% Sodium 139.1 Potassium 3.7 Chloride 95 L Carbon Dioxide 33 H Anion Gap 11 BUN 17 Creatinine 1.25 Est GFR ( Amer) 52 L Est GFR (Non-Af Amer) 43 L Glucose 221 H Calcium 8.9 Magnesium 2.2 Total Bilirubin 0.9 AST 15 ALT 28 Alkaline Phosphatase 60 Total Protein 6.0 L Albumin 3.1 L 10/03/16 10/04/16 10/06/16 23:49 04:30 04:20 Troponin I 0.027 NT-Pro-B Natriuret Pep 3990 H 2490 H 10/07/16 04:28 Troponin I NT-Pro-B Natriuret Pep 2020 H Impressions: Abdomen/Pelvis CT 10/05/16 00:00 IMPRESSION: Minimal decrease in the size of the previously noted hematoma/ seroma in the right flank. Interval development of bilateral pleural effusions with basilar opacities. Small amount of free fluid in the pelvis and right lower quadrant. Chest X-Ray 10/08/16 06:00 IMPRESSION: NO ACUTE RADIOGRAPHIC FINDING IN THE CHEST. Assessment & Plan - Diagnosis (1) Obesity hypoventilation syndrome Is this a current diagnosis for this admission?: Yes (2) Acute respiratory failure with hypoxemia Is this a current diagnosis for this admission?: YesPlan: Respiratory rate, FiO2, minute volume, airway pressures all suggest successful extubation will proceed with extubation (3) Aspiration pneumonia Qualifiers: Aspiration pneumonia type: unspecified Laterality: bilateral Lung location: unspecified part of lung Qualified Code(s): J69.0 - Pneumonitis due to inhalation of food and vomit Is this a current diagnosis for this admission?: YesPlan: Clinically improving (4) Cellulitis and abscess of leg Is this a current diagnosis for this admission?: Yes (5) JAMEEL (obstructive sleep apnea) Is this a current diagnosis for this admission?: Yes - Time Critical Time spent with patient: 35 or more minutes - 55 minutes extubation
--- NOTE | 2016-10-11 16:34 | PDOC PROGRESS REPORT ---
Subjective Progress Note for:: 10/11/16 Subjective:: Much better Physical Exam Vital Signs: Temp Pulse Resp BP Pulse Ox 97.9 F 88 16 123/91 H 99 10/11/16 07:14 10/11/16 08:40 10/11/16 08:40 10/11/16 07:14 10/11/16 08:40 Intake & Output 10/10/16 10/11/16 10/12/16 06:59 06:59 06:59 Intake Total 460 2077 Output Total 9663 4075 Balance -8190 -187 Weight 115.8 kg 114.9 kg 114.9 kg General appearance: PRESENT: no acute distress, disheveled, obese, well- developed Head exam: PRESENT: atraumatic, normocephalic Eye exam: PRESENT: conjunctiva pale, EOMI Mouth exam: PRESENT: dry mucosa, neck supple, tongue midline Neck exam: ABSENT: carotid bruit, JVD, lymphadenopathy, thyromegaly Respiratory exam: PRESENT: decreased breath sounds, prolonged expiratory phas, rhonchi, symmetrical, unlabored Cardiovascular exam: PRESENT: RRR, +S1, +S2 Pulses: PRESENT: normal radial pulses GI/Abdominal exam: PRESENT: normal bowel sounds, soft. ABSENT: distended, guarding, mass, organolmegaly, rebound, tenderness Rectal exam: PRESENT: deferred Musculoskeletal exam: PRESENT: normal inspection Neurological exam: PRESENT: alert, awake Psychiatric exam: PRESENT: normal mood Skin exam: PRESENT: dry, other - Cellulitis bilateral lower extremities Results Laboratory Results: 10/11/16 04:27 10/11/16 04:27 10/11/16 10/11/16 04:27 04:27 WBC 8.9 RBC 3.46 L Hgb 10.0 L Hct 31.5 L MCV 91 MCH 29.1 MCHC 31.9 L RDW 19.6 H Plt Count 164 Seg Neutrophils % 79.2 H Lymphocytes % 9.0 L Monocytes % 9.3 Eosinophils % 2.2 Basophils % 0.3 Absolute Neutrophils 7.1 Absolute Lymphocytes 0.8 Absolute Monocytes 0.8 Absolute Eosinophils 0.2 Absolute Basophils 0.0 Sodium 139.7 Potassium 3.4 L Chloride 94 L Carbon Dioxide 35 H Anion Gap 11 BUN 20 Creatinine 1.10 Est GFR ( Amer) > 60 Est GFR (Non-Af Amer) 50 L Glucose 258 H Calcium 9.0 Magnesium 2.1 10/03/16 10/04/16 10/06/16 23:49 04:30 04:20 Troponin I 0.027 NT-Pro-B Natriuret Pep 3990 H 2490 H 10/07/16 04:28 Troponin I NT-Pro-B Natriuret Pep 2020 H Impressions: Abdomen/Pelvis CT 10/05/16 00:00 IMPRESSION: Minimal decrease in the size of the previously noted hematoma/ seroma in the right flank. Interval development of bilateral pleural effusions with basilar opacities. Small amount of free fluid in the pelvis and right lower quadrant. Interventional Vascular Procedure 10/08/16 00:00 IMPRESSION: Please see combined report for performance of procedure and radiologic supervision and interpretation. PICC Line Insertion 10/08/16 00:00 IMPRESSION: SUCCESSFUL PLACEMENT OF A 5 FR dual LUMEN 42 CM PICC IN THE basilic VEIN. Chest X-Ray 10/09/16 06:00 IMPRESSION: 1. Support tubes and lines as above. Interval removal of the endotracheal tube. 2. Otherwise stable evaluation of the chest. Assessment & Plan - Diagnosis (1) Obesity hypoventilation syndrome Is this a current diagnosis for this admission?: Yes (2) Acute respiratory failure with hypoxemia Is this a current diagnosis for this admission?: No (3) Aspiration pneumonia Qualifiers: Aspiration pneumonia type: unspecified Laterality: bilateral Lung location: unspecified part of lung Qualified Code(s): J69.0 - Pneumonitis due to inhalation of food and vomit Is this a current diagnosis for this admission?: Yes (4) Cellulitis and abscess of leg Is this a current diagnosis for this admission?: Yes (5) JAMEEL (obstructive sleep apnea) Is this a current diagnosis for this admission?: Yes
[2016-10-11] MEDS: MONTELUKAST SODIUM 10 MG TABLET PO SCH (21:12)
[2016-10-11] MEDS: WARFARIN SODIUM 2.5 MG TABLET PO SCH (21:12)
[2016-10-11] MEDS: SIMVASTATIN 40 MG TABLET PO SCH (21:13)
[2016-10-11] MEDS: BUDESONIDE NEB 0.5 MG/2 ML AMPUL NEB SCH (21:23)
[2016-10-11] MEDS ORDERED: (PENDING PHARMACY ID) (Simvastatin [Zocor 80 Mg Tablet] 80 MG) PO SCH (22:00)
[2016-10-12] MEDS: NORMAL SALINE 250 ML with ARGATROBAN 250 MG IV PRN ×4 (00:54→19:51)
[2016-10-12] MEDS: IPRATROPIUM/ALBUTEROL 0.5-2.5 MG/3 ML AMPUL NEB SCH ×4 (02:20→20:12)
[2016-10-12] MEDS: HYDROCODONE/ACETAMINOPHEN 7.5-325 MG TABLET PO PRN ×4 (04:20→21:18)
[2016-10-12 04:39] LABS: ABSOLUTE EOSINOPHILS # (AUTO) 0.2 10^3/uL (0.0-0.6); ABSOLUTE NEUT (AUTO) 6.4 10^3/uL (1.7-8.2); BASOPHILS % (AUTO) 0.4 % (0-2); HEMATOCRIT 32.9 % (36.0-47.0); HEMOGLOBIN 10.5 g/dL (12.0-15.5); HGB HCT DIFFERENCE -1.4; LYMPHOCYTES % (AUTO) 11.6 % (13-45); MEAN CORPUSCULAR HEMOGLOBIN 28.9 pg (27.0-33.4); MEAN CORPUSCULAR VOLUME 91 fl (80-97); MONOCYTES % (AUTO) 11.8 % (3-13); RED BLOOD COUNT 3.64 10^6/uL (3.72-5.28); RED CELL DISTRIBUTION WIDTH 19.2 % (11.5-14.0); SEGMENTED NEUTROPHILS % (AUTO) 74.2 % (42-78); WHITE BLOOD COUNT 8.6 10^3/uL (4.0-10.5)
[2016-10-12 04:50] LABS: PROTHROMBIN TIME 31.1 SEC (11.4-15.4)
[2016-10-12 04:51] LABS: PARTIAL THROMBOPLASTIN TIME 99.9 SEC (23.5-35.8)
[2016-10-12 05:18] LABS: ANION GAP 12 (5-19); BLOOD UREA NITROGEN 21 mg/dL (7-20); CALCIUM 9.5 mg/dL (8.4-10.2); CARBON DIOXIDE 33 mmol/L (22-30); CHLORIDE 96 mmol/L (98-107); CREATININE RESULT 1.22 mg/dL (0.52-1.25); GLUCOSE 266 mg/dL (75-110); MAGNESIUM 2.3 mg/dL (1.6-2.3); POTASSIUM 3.6 mmol/L (3.6-5.0); SODIUM 141.1 mmol/L (137-145)
[2016-10-12] MEDS: FUROSEMIDE 80 MG TABLET PO SCH (08:24)
[2016-10-12] MEDS: INSULIN LISPRO 100 UNIT/ML 3 ML VIAL SUBCUT PRN ×4 (08:27→21:50)
[2016-10-12] MEDS: BUDESONIDE NEB 0.5 MG/2 ML AMPUL NEB SCH ×2 (08:40→20:12)
--- NOTE | 2016-10-12 11:06 | PDOC PROGRESS REPORT ---
Subjective Progress Note for:: 10/12/16 Subjective:: reason for visit: f/u pneumonia, acute hypoxic resp failure, septic shock hospital course: per other's notes - "YAMILETH RENAE is a 66 year old morbidly obese insulin-dependent diabetic female, with underlying home O2 dependent COPD, status post mechanical aortic valve replacement, on Coumadin for same, with underlying heparin allergy and difficult to crossmatch blood who presents in direct transfer from [facility] emergency room intubated and on Levophed drip, for acute respiratory failure from aspiration pneumonia, when she aspirated soup earlier today. Accepted by day hospitalist. Patient has been discussed with the hospitalist who discussed the patient with emergency room physician at [facility]. Patient is intubated and sedated and is able to provide no history whatsoever in terms of acute or chronic events, review of systems, personal habits, family history, etc. No friends or family are present. Old inpatient records are reviewed. No further information available this point in time." Over the last week the patient has been able to be weaned off of the ventilator and is now transitioned to oxygen therapy with as needed BiPAP at night. Dr. Crowell still follows on the floor. Patient was able to be transitioned down to [facility] level care. There have been difficulties in managing her INR. Patient is on Levaquin and developed supratherapeutic INR at the beginning of the week. Coumadin was subsequently held and the INR at 6 was allowed to drift downward. Unfortunately, the patient received a dose of vitamin K on the lieutenant shift supervisor, making it difficult for her INR to go back up. She has a mechanical aortic valv and an allergy to heparin products. On her last 2 admissions here the patient was not discharged home on any heparin products as was suspected before. Therefore, she was started on argatroban for bridging. The goals are to allow her INR to creep up and be maintained at least greater than 4 period of 3-4 days, as the INR is falsely elevated by argatroban. INR should be checked daily. Once argatroban is discontinued her INR should be between 2-1/2 and 3-1/2. Otherwise the patient has done well, she has been seen by speech. I have discontinued her Dobbhoff tube today and she is now on mechanical soft diet with ground meats and thin liquids. She received PT for the first time today. She will likely need sniff placement however the patient wants to go home." she denies chest pain, still having cough with alex colored phlegm but no fevers /chills, abdominal pain; reports multiple loose stools but screened cdiff neg overnight. ROS: all systems reviewed, see above, remaining systems negative Physical Exam Vital Signs: Temp Pulse Resp BP Pulse Ox 97.5 F 94 18 125/38 L 93 10/12/16 07:27 10/12/16 08:43 10/12/16 08:43 10/12/16 07:27 10/12/16 08:43 Intake & Output 10/11/16 10/12/16 10/13/16 06:59 06:59 06:59 Intake Total 2077 9224 Output Total 8424 5130 Balance -798 -476 Weight 114.9 kg 109.1 kg General appearance: PRESENT: no acute distress, morbidly obese, well-developed, well-nourished Head exam: PRESENT: atraumatic, normocephalic Eye exam: PRESENT: EOMI. ABSENT: conjunctival injection, scleral icterus Mouth exam: PRESENT: moist, neck supple Neck exam: PRESENT: full ROM. ABSENT: tracheal deviation Respiratory exam: PRESENT: crackles, unlabored. ABSENT: accessory muscle use, wheezes Cardiovascular exam: PRESENT: RRR. ABSENT: tachycardia Pulses: PRESENT: normal radial pulses, normal dorsalis pedis pul GI/Abdominal exam: PRESENT: normal bowel sounds, soft. ABSENT: tenderness Extremities exam: PRESENT: +1 edema. ABSENT: calf tenderness Neurological exam: PRESENT: alert, awake, oriented to person, oriented to place , oriented to time Psychiatric exam: PRESENT: appropriate affect, normal mood Skin exam: PRESENT: warm - and moist Results Laboratory Results: 10/12/16 04:17 10/12/16 04:17 10/12/16 10/12/16 04:17 04:17 WBC 8.6 RBC 3.64 L Hgb 10.5 L Hct 32.9 L MCV 91 MCH 28.9 MCHC 32.0 RDW 19.2 H Plt Count 181 Seg Neutrophils % 74.2 Lymphocytes % 11.6 L Monocytes % 11.8 Eosinophils % 2.0 Basophils % 0.4 Absolute Neutrophils 6.4 Absolute Lymphocytes 1.0 Absolute Monocytes 1.0 Absolute Eosinophils 0.2 Absolute Basophils 0.0 Sodium 141.1 Potassium 3.6 Chloride 96 L Carbon Dioxide 33 H Anion Gap 12 BUN 21 H Creatinine 1.22 Est GFR ( Amer) 53 L Est GFR (Non-Af Amer) 44 L Glucose 266 H Calcium 9.5 Magnesium 2.3 10/03/16 10/04/16 10/06/16 23:49 04:30 04:20 Troponin I 0.027 NT-Pro-B Natriuret Pep 3990 H 2490 H 10/07/16 04:28 Troponin I NT-Pro-B Natriuret Pep 2020 H Impressions: Abdomen/Pelvis CT 10/05/16 00:00 IMPRESSION: Minimal decrease in the size of the previously noted hematoma/ seroma in the right flank. Interval development of bilateral pleural effusions with basilar opacities. Small amount of free fluid in the pelvis and right lower quadrant. Interventional Vascular Procedure 10/08/16 00:00 IMPRESSION: Please see combined report for performance of procedure and radiologic supervision and interpretation. PICC Line Insertion 10/08/16 00:00 IMPRESSION: SUCCESSFUL PLACEMENT OF A 5 FR dual LUMEN 42 CM PICC IN THE basilic VEIN. Chest X-Ray 10/09/16 06:00 IMPRESSION: 1. Support tubes and lines as above. Interval removal of the endotracheal tube. 2. Otherwise stable evaluation of the chest. Status: Image reviewed by me - agree with rads Assessment & Plan - Diagnosis (1) Acute respiratory failure with hypoxemia Is this a current diagnosis for this admission?: No (2) Aspiration pneumonia Qualifiers: Aspiration pneumonia type: unspecified Laterality: bilateral Lung location: unspecified part of lung Qualified Code(s): J69.0 - Pneumonitis due to inhalation of food and vomit Is this a current diagnosis for this admission?: Yes (3) Acute on chronic diastolic CHF (congestive heart failure) Is this a current diagnosis for this admission?: Yes (4) Anticoagulated Is this a current diagnosis for this admission?: Yes (5) CKD (chronic kidney disease), stage III Is this a current diagnosis for this admission?: Yes (6) COPD (chronic obstructive pulmonary disease) Qualifiers: COPD type: emphysema Emphysema type: unspecified Qualified Code( s): J43.9 - Emphysema, unspecified Is this a current diagnosis for this admission?: Yes (7) Diabetes mellitus type 1 Qualifiers: Diabetes mellitus complication status: with unspecified complications Qualified Code(s): E10.8 - Type 1 diabetes mellitus with unspecified complications Is this a current diagnosis for this admission?: Yes (8) History of mechanical aortic valve replacement Is this a current diagnosis for this admission?: Yes (9) JAMEEL (obstructive sleep apnea) Is this a current diagnosis for this admission?: Yes - Time Time Spent with patient: 25-34 minutes Anticipated discharge: SNF Within: within 48 hours - ideally she should transition home via a SNF for short course of rehab; continue PT/OT while here but can likely d/c in next 48hrs
[2016-10-12] MEDS: SITAGLIPTIN PHOSPHATE 50 MG TABLET PO SCH (11:49)
[2016-10-12] MEDS: LEVOFLOXACIN 750 MG TABLET PO SCH (11:50)
[2016-10-12] MEDS: FAMOTIDINE INJ/PF 20 MG/2 ML SDV IV SCH ×2 (11:50→21:18)
[2016-10-12] MEDS: POTASSIUM CHLORIDE 20 MEQ/15 ML UDCUP PO SCH ×2 (11:50→18:19)
[2016-10-12] MEDS: NYSTATIN TOPICAL POWDER 15 GM TP SCH ×2 (11:51→18:27)
[2016-10-12] MEDS: ONDANSETRON HCL INJ/PF 4 MG/2 ML SDV IV PRN (18:27)
[2016-10-12] MEDS: MONTELUKAST SODIUM 10 MG TABLET PO SCH (21:17)
[2016-10-12] MEDS: SIMVASTATIN 40 MG TABLET PO SCH (21:18)
[2016-10-12] MEDS: WARFARIN SODIUM 2.5 MG TABLET PO SCH (21:18)
[2016-10-13] MEDS: HYDROCODONE/ACETAMINOPHEN 7.5-325 MG TABLET PO PRN ×4 (01:55→20:43)
[2016-10-13] MEDS: IPRATROPIUM/ALBUTEROL 0.5-2.5 MG/3 ML AMPUL NEB SCH ×4 (02:30→20:24)
[2016-10-13 04:16] LABS: PROTHROMBIN TIME 30.3 SEC (11.4-15.4)
[2016-10-13 04:18] LABS: PARTIAL THROMBOPLASTIN TIME 94.5 SEC (23.5-35.8)
[2016-10-13] MEDS: FUROSEMIDE 80 MG TABLET PO SCH (08:14)
[2016-10-13] MEDS: INSULIN LISPRO 100 UNIT/ML 3 ML VIAL SUBCUT PRN ×4 (08:16→22:04)
[2016-10-13] MEDS: BUDESONIDE NEB 0.5 MG/2 ML AMPUL NEB SCH ×2 (08:33→20:24)
[2016-10-13] MEDS: SITAGLIPTIN PHOSPHATE 50 MG TABLET PO SCH (09:26)
[2016-10-13] MEDS: LEVOFLOXACIN 750 MG TABLET PO SCH (09:26)
[2016-10-13] MEDS: FAMOTIDINE INJ/PF 20 MG/2 ML SDV IV SCH ×2 (09:27→22:08)
[2016-10-13] MEDS: NYSTATIN TOPICAL POWDER 15 GM TP SCH ×2 (09:29→18:12)
[2016-10-13] MEDS: POTASSIUM CHLORIDE 20 MEQ/15 ML UDCUP PO SCH (09:29)
[2016-10-13] MEDS ORDERED: POTASSIUM CHLORIDE 10 MEQ TABLET.SA PO ONE (11:30)
--- NOTE | 2016-10-13 12:11 | PDOC PROGRESS REPORT ---
Subjective Progress Note for:: 10/13/16 Subjective:: reason for visit: f/u pneumonia, acute hypoxic resp failure, septic shock hospital course: per other's notes - "YAMILETH RENAE is a 66 year old morbidly obese insulin-dependent diabetic female, with underlying home O2 dependent COPD, status post mechanical aortic valve replacement, on Coumadin for same, with underlying heparin allergy and difficult to crossmatch blood who presents in direct transfer from [facility] emergency room intubated and on Levophed drip, for acute respiratory failure from aspiration pneumonia, when she aspirated soup earlier today. Accepted by day hospitalist. Patient has been discussed with the hospitalist who discussed the patient with emergency room physician at [facility]. Patient is intubated and sedated and is able to provide no history whatsoever in terms of acute or chronic events, review of systems, personal habits, family history, etc. No friends or family are present. Old inpatient records are reviewed. No further information available this point in time." Over the last week the patient has been able to be weaned off of the ventilator and is now transitioned to oxygen therapy with as needed BiPAP at night. Dr. Crowell still follows on the floor. Patient was able to be transitioned down to [facility] level care. There have been difficulties in managing her INR. Patient is on Levaquin and developed supratherapeutic INR at the beginning of the week. Coumadin was subsequently held and the INR at 6 was allowed to drift downward. Unfortunately, the patient received a dose of vitamin K on the childcare attendant, making it difficult for her INR to go back up. She has a mechanical aortic valv and an allergy to heparin products. On her last 2 admissions here the patient was not discharged home on any heparin products as was suspected before. Therefore, she was started on argatroban for bridging. The goals are to allow her INR to creep up and be maintained at least greater than 4 period of 3-4 days, as the INR is falsely elevated by argatroban. INR should be checked daily. Once argatroban is discontinued her INR should be between 2-1/2 and 3-1/2. Otherwise the patient has done well, she has been seen by speech. I have discontinued her Dobbhoff tube today and she is now on mechanical soft diet with ground meats and thin liquids. She received PT for the first time today. She will likely need sniff placement however the patient wants to go home." she denies chest pain, still having cough with alex colored phlegm but no fevers /chills, abdominal pain; reports multiple loose stools but screened cdiff neg and stools slowing and firming now. she is now understanding of her need for rehab stint prior to going home and family agrees. still has alcaraz in place marking a negative daily fluid balance. ROS: all systems reviewed, see above, remaining systems negative Physical Exam Vital Signs: Temp Pulse Resp BP Pulse Ox 97.7 F 87 16 120/42 L 97 10/13/16 07:47 10/13/16 08:35 10/13/16 08:35 10/13/16 07:47 10/13/16 08:35 Intake & Output 10/12/16 10/13/16 10/14/16 06:59 06:59 06:59 Intake Total 1774 1941 Output Total 2250 2400 Balance -476 -459 Weight 109.1 kg General appearance: PRESENT: no acute distress, morbidly obese, well-developed, well-nourished Head exam: PRESENT: atraumatic, normocephalic Eye exam: PRESENT: EOMI. ABSENT: conjunctival injection, scleral icterus Mouth exam: PRESENT: moist, neck supple Neck exam: PRESENT: full ROM. ABSENT: tracheal deviation Respiratory exam: PRESENT: crackles, unlabored, supplemental o2 via NC. ABSENT : accessory muscle use, wheezes Cardiovascular exam: PRESENT: RRR. ABSENT: tachycardia Pulses: PRESENT: normal radial pulses, normal dorsalis pedis pul GI/Abdominal exam: PRESENT: normal bowel sounds, soft. ABSENT: tenderness Extremities exam: PRESENT: +1 edema. ABSENT: calf tenderness Neurological exam: PRESENT: alert, awake, oriented to person, oriented to place , oriented to time Psychiatric exam: PRESENT: appropriate affect, normal mood Skin exam: PRESENT: warm - and moist Results Laboratory Results: 10/12/16 04:17 10/12/16 04:17 10/03/16 10/04/16 10/06/16 23:49 04:30 04:20 Troponin I 0.027 NT-Pro-B Natriuret Pep 3990 H 2490 H 10/07/16 04:28 Troponin I NT-Pro-B Natriuret Pep 2020 H Assessment & Plan - Diagnosis (1) Acute respiratory failure with hypoxemia Is this a current diagnosis for this admission?: No (2) Aspiration pneumonia Qualifiers: Aspiration pneumonia type: unspecified Laterality: bilateral Lung location: unspecified part of lung Qualified Code(s): J69.0 - Pneumonitis due to inhalation of food and vomit Is this a current diagnosis for this admission?: Yes (3) Acute on chronic diastolic CHF (congestive heart failure) Is this a current diagnosis for this admission?: Yes (4) Anticoagulated Is this a current diagnosis for this admission?: Yes (5) CKD (chronic kidney disease), stage III Is this a current diagnosis for this admission?: Yes (6) COPD (chronic obstructive pulmonary disease) Qualifiers: COPD type: emphysema Emphysema type: unspecified Qualified Code( s): J43.9 - Emphysema, unspecified Is this a current diagnosis for this admission?: Yes (7) Diabetes mellitus type 1 Qualifiers: Diabetes mellitus complication status: with unspecified complications Qualified Code(s): E10.8 - Type 1 diabetes mellitus with unspecified complications Is this a current diagnosis for this admission?: Yes (8) History of mechanical aortic valve replacement Is this a current diagnosis for this admission?: Yes (9) JAMEEL (obstructive sleep apnea) Is this a current diagnosis for this admission?: Yes - Time Time Spent with patient: 25-34 minutes Medications reviewed and adjusted accordingly: Yes Anticipated discharge: Acute Rehab Within: within 48 hours - Plan Summary Plan Summary: overall condition continues to slowly improve but she is not back to baseline regarding her breathing, strength or anticoagulation. continue PT, continue to increase activity as tolerated and wean O2. continue argatroban for another day but increase her warfarin and monitor for INR. she and her son both state that she has tolerated multiple rounds of lovenox therapy in the past and that heparin causes hives but no difficulty breathing or anaphylaxis so we can use this if needed to continue as bridge to [place] INR.
[2016-10-13] MEDS: ONDANSETRON HCL INJ/PF 4 MG/2 ML SDV IV PRN ×2 (14:12→22:09)
[2016-10-13] MEDS: FLUTICASONE NASAL SPRAY 50 MCG/SPRY 120 SPRAY/16 GM NASL SCH (14:13)
[2016-10-13] MEDS: NORMAL SALINE 250 ML with ARGATROBAN 250 MG IV PRN ×2 (15:35)
--- NOTE | 2016-10-13 18:02 | PDOC PROGRESS REPORT ---
Subjective Progress Note for:: 10/12/16 Subjective:: better Physical Exam Vital Signs: Temp Pulse Resp BP Pulse Ox 97.7 F 88 18 131/34 H 96 10/13/16 15:35 10/13/16 15:35 10/13/16 15:35 10/13/16 15:35 10/13/16 16:59 Intake & Output 10/12/16 10/13/16 10/14/16 06:59 06:59 06:59 Intake Total 1774 1941 480 Output Total 2250 2400 400 Balance -476 -459 80 Weight 109.1 kg General appearance: PRESENT: no acute distress, cooperative, disheveled, obese, well-developed Head exam: PRESENT: atraumatic, normocephalic Eye exam: PRESENT: conjunctiva pale, EOMI Mouth exam: PRESENT: dry mucosa, neck supple Neck exam: ABSENT: carotid bruit, JVD, lymphadenopathy, thyromegaly Respiratory exam: PRESENT: decreased breath sounds, prolonged expiratory phas, rhonchi, symmetrical, unlabored Cardiovascular exam: PRESENT: RRR, +S1, +S2 Pulses: PRESENT: normal radial pulses GI/Abdominal exam: PRESENT: normal bowel sounds, soft. ABSENT: distended, guarding, mass, organolmegaly, rebound, tenderness Rectal exam: PRESENT: deferred Neurological exam: PRESENT: alert, awake Psychiatric exam: PRESENT: normal mood Skin exam: PRESENT: other - Cellulitis Results Laboratory Results: 10/12/16 04:17 10/12/16 04:17 10/03/16 10/04/16 10/06/16 23:49 04:30 04:20 Troponin I 0.027 NT-Pro-B Natriuret Pep 3990 H 2490 H 10/07/16 04:28 Troponin I NT-Pro-B Natriuret Pep 2020 H Impressions: Abdomen/Pelvis CT 10/05/16 00:00 IMPRESSION: Minimal decrease in the size of the previously noted hematoma/ seroma in the right flank. Interval development of bilateral pleural effusions with basilar opacities. Small amount of free fluid in the pelvis and right lower quadrant. Interventional Vascular Procedure 10/08/16 00:00 IMPRESSION: Please see combined report for performance of procedure and radiologic supervision and interpretation. PICC Line Insertion 10/08/16 00:00 IMPRESSION: SUCCESSFUL PLACEMENT OF A 5 FR dual LUMEN 42 CM PICC IN THE basilic VEIN. Chest X-Ray 10/09/16 06:00 IMPRESSION: 1. Support tubes and lines as above. Interval removal of the endotracheal tube. 2. Otherwise stable evaluation of the chest. Assessment & Plan - Diagnosis (1) Obesity hypoventilation syndrome Is this a current diagnosis for this admission?: Yes (2) Acute respiratory failure with hypoxemia Is this a current diagnosis for this admission?: No (3) Aspiration pneumonia Qualifiers: Aspiration pneumonia type: unspecified Laterality: bilateral Lung location: unspecified part of lung Qualified Code(s): J69.0 - Pneumonitis due to inhalation of food and vomit Is this a current diagnosis for this admission?: Yes (4) Cellulitis and abscess of leg Is this a current diagnosis for this admission?: Yes (5) JAMEEL (obstructive sleep apnea) Is this a current diagnosis for this admission?: Yes
--- NOTE | 2016-10-13 18:04 | PDOC PROGRESS REPORT ---
Subjective Progress Note for:: 10/13/16 Subjective:: Slept well last night feel good now Physical Exam Vital Signs: Temp Pulse Resp BP Pulse Ox 97.7 F 88 18 131/34 H 96 10/13/16 15:35 10/13/16 15:35 10/13/16 15:35 10/13/16 15:35 10/13/16 16:59 Intake & Output 10/12/16 10/13/16 10/14/16 06:59 06:59 06:59 Intake Total 1774 1941 620 Output Total 2250 2400 400 Balance -476 -459 220 Weight 109.1 kg General appearance: PRESENT: no acute distress, cooperative, disheveled, morbidly obese, well-developed Head exam: PRESENT: atraumatic, normocephalic Eye exam: PRESENT: conjunctiva pale, EOMI Mouth exam: PRESENT: dry mucosa, neck supple, tongue midline Neck exam: ABSENT: carotid bruit, JVD, lymphadenopathy, thyromegaly Respiratory exam: PRESENT: decreased breath sounds, prolonged expiratory phas, rhonchi, symmetrical, unlabored Cardiovascular exam: PRESENT: RRR, +S1, +S2 Pulses: PRESENT: normal radial pulses GI/Abdominal exam: PRESENT: normal bowel sounds, soft. ABSENT: distended, guarding, mass, organolmegaly, rebound, tenderness Rectal exam: PRESENT: deferred Extremities exam: PRESENT: +1 edema Neurological exam: PRESENT: alert, awake Psychiatric exam: PRESENT: normal mood Skin exam: PRESENT: other - Cellulitis Results Laboratory Results: 10/12/16 04:17 10/12/16 04:17 10/03/16 10/04/16 10/06/16 23:49 04:30 04:20 Troponin I 0.027 NT-Pro-B Natriuret Pep 3990 H 2490 H 10/07/16 04:28 Troponin I NT-Pro-B Natriuret Pep 2020 H Impressions: Abdomen/Pelvis CT 10/05/16 00:00 IMPRESSION: Minimal decrease in the size of the previously noted hematoma/ seroma in the right flank. Interval development of bilateral pleural effusions with basilar opacities. Small amount of free fluid in the pelvis and right lower quadrant. Interventional Vascular Procedure 10/08/16 00:00 IMPRESSION: Please see combined report for performance of procedure and radiologic supervision and interpretation. PICC Line Insertion 10/08/16 00:00 IMPRESSION: SUCCESSFUL PLACEMENT OF A 5 FR dual LUMEN 42 CM PICC IN THE basilic VEIN. Chest X-Ray 10/09/16 06:00 IMPRESSION: 1. Support tubes and lines as above. Interval removal of the endotracheal tube. 2. Otherwise stable evaluation of the chest. Assessment & Plan - Diagnosis (1) Obesity hypoventilation syndrome Is this a current diagnosis for this admission?: Yes (2) Acute respiratory failure with hypoxemia Is this a current diagnosis for this admission?: No (3) Aspiration pneumonia Qualifiers: Aspiration pneumonia type: unspecified Laterality: bilateral Lung location: unspecified part of lung Qualified Code(s): J69.0 - Pneumonitis due to inhalation of food and vomit Is this a current diagnosis for this admission?: Yes (4) Cellulitis and abscess of leg Is this a current diagnosis for this admission?: Yes (5) JAMEEL (obstructive sleep apnea) Is this a current diagnosis for this admission?: Yes
[2016-10-13] MEDS: INSULIN GLARGINE,HUM.REC.ANLOG 300 UNIT/3 ML INSULN.PEN SUBCUT SCH (22:04)
[2016-10-13] MEDS: POTASSIUM CHLORIDE 10 MEQ TABLET.SA PO SCH (22:05)
[2016-10-13] MEDS: WARFARIN SODIUM 4 MG TABLET PO SCH (22:05)
[2016-10-13] MEDS: SIMVASTATIN 40 MG TABLET PO SCH (22:05)
[2016-10-13] MEDS: MONTELUKAST SODIUM 10 MG TABLET PO SCH (22:06)
[2016-10-14] MEDS: IPRATROPIUM/ALBUTEROL 0.5-2.5 MG/3 ML AMPUL NEB SCH ×4 (02:12→19:59)
[2016-10-14] MEDS: HYDROCODONE/ACETAMINOPHEN 7.5-325 MG TABLET PO PRN ×3 (04:19→13:57)
[2016-10-14 06:32] LABS: ABSOLUTE EOSINOPHILS # (AUTO) 0.1 10^3/uL (0.0-0.6); ABSOLUTE LYMPHOCYTES (AUTO) 1.1 10^3/uL (0.5-4.7); ABSOLUTE NEUT (AUTO) 8.4 10^3/uL (1.7-8.2); BASOPHILS % (AUTO) 0.4 % (0-2); EOSINOPHILS % (AUTO) 1.4 % (0-6); HEMATOCRIT 33.3 % (36.0-47.0); HEMOGLOBIN 10.8 g/dL (12.0-15.5); HGB HCT DIFFERENCE -0.9; LYMPHOCYTES % (AUTO) 10.6 % (13-45); MEAN CORPUSCULAR HGB CONC 32.4 g/dL (32.0-36.0); MEAN CORPUSCULAR VOLUME 90 fl (80-97); MONOCYTES % (AUTO) 9.1 % (3-13); RED BLOOD COUNT 3.73 10^6/uL (3.72-5.28); RED CELL DISTRIBUTION WIDTH 19.7 % (11.5-14.0); SEGMENTED NEUTROPHILS % (AUTO) 78.5 % (42-78); WHITE BLOOD COUNT 10.7 10^3/uL (4.0-10.5)
[2016-10-14 06:38] LABS: PROTHROMBIN TIME 31.6 SEC (11.4-15.4)
[2016-10-14 06:39] LABS: PARTIAL THROMBOPLASTIN TIME 92.3 SEC (23.5-35.8)
[2016-10-14 06:59] LABS: ANION GAP 10 (5-19); BLOOD UREA NITROGEN 23 mg/dL (7-20); CALCIUM 9.4 mg/dL (8.4-10.2); CARBON DIOXIDE 35 mmol/L (22-30); CHLORIDE 91 mmol/L (98-107); GLUCOSE 304 mg/dL (75-110); MAGNESIUM 2.1 mg/dL (1.6-2.3); POTASSIUM 4.3 mmol/L (3.6-5.0); SODIUM 136.4 mmol/L (137-145)
[2016-10-14] MEDS: FUROSEMIDE 80 MG TABLET PO SCH (08:08)
[2016-10-14] MEDS: INSULIN LISPRO 100 UNIT/ML 3 ML VIAL SUBCUT PRN ×3 (08:09→22:20)
[2016-10-14] MEDS: BUDESONIDE NEB 0.5 MG/2 ML AMPUL NEB SCH ×2 (08:47→19:59)
[2016-10-14] MEDS: LEVOFLOXACIN 750 MG TABLET PO SCH (09:25)
[2016-10-14] MEDS: POTASSIUM CHLORIDE 10 MEQ TABLET.SA PO SCH ×2 (09:26→22:14)
[2016-10-14] MEDS: SITAGLIPTIN PHOSPHATE 50 MG TABLET PO SCH (09:26)
[2016-10-14] MEDS: FAMOTIDINE INJ/PF 20 MG/2 ML SDV IV SCH (09:27)
[2016-10-14] MEDS: ONDANSETRON HCL INJ/PF 4 MG/2 ML SDV IV PRN ×2 (09:27→19:43)
[2016-10-14] MEDS: NYSTATIN TOPICAL POWDER 15 GM TP SCH ×2 (09:29→17:20)
--- NOTE | 2016-10-14 11:40 | PDOC PROGRESS REPORT ---
Subjective Progress Note for:: 10/14/16 Physical Exam Vital Signs: Temp Pulse Resp BP Pulse Ox 98.0 F 80 18 126/39 H 97 10/14/16 08:17 10/14/16 08:17 10/14/16 08:17 10/14/16 08:17 10/14/16 08:17 Intake & Output 10/13/16 10/14/16 10/15/16 06:59 06:59 06:59 Intake Total 1941 1842 Output Total 2400 1650 Balance -459 192 Weight 105.8 kg General appearance: PRESENT: no acute distress, morbidly obese, well-developed, well-nourished Head exam: PRESENT: atraumatic, normocephalic Eye exam: PRESENT: EOMI. ABSENT: conjunctival injection, scleral icterus Mouth exam: PRESENT: moist, neck supple Neck exam: PRESENT: full ROM. ABSENT: tracheal deviation Respiratory exam: PRESENT: crackles, unlabored, supplemental o2 via NC. ABSENT : accessory muscle use, wheezes Cardiovascular exam: PRESENT: RRR. ABSENT: tachycardia Pulses: PRESENT: normal radial pulses, normal dorsalis pedis pul GI/Abdominal exam: PRESENT: normal bowel sounds, soft. ABSENT: tenderness : alcaraz in place with clear yellow urine present Extremities exam: PRESENT: +1 edema, no change. ABSENT: calf tenderness Neurological exam: PRESENT: alert, awake, oriented to person, oriented to place , oriented to time Psychiatric exam: PRESENT: appropriate affect, normal mood Skin exam: PRESENT: warm - and moist Results Laboratory Results: 10/14/16 06:05 10/14/16 06:05 10/14/16 10/14/16 06:05 06:05 WBC 10.7 H RBC 3.73 Hgb 10.8 L Hct 33.3 L MCV 90 MCH 29.0 MCHC 32.4 RDW 19.7 H Plt Count 185 Seg Neutrophils % 78.5 H Lymphocytes % 10.6 L Monocytes % 9.1 Eosinophils % 1.4 Basophils % 0.4 Absolute Neutrophils 8.4 H Absolute Lymphocytes 1.1 Absolute Monocytes 1.0 Absolute Eosinophils 0.1 Absolute Basophils 0.0 Sodium 136.4 L Potassium 4.3 Chloride 91 L Carbon Dioxide 35 H Anion Gap 10 BUN 23 H Creatinine 1.40 H Est GFR ( Amer) 46 L Est GFR (Non-Af Amer) 38 L Glucose 304 H Calcium 9.4 Magnesium 2.1 10/03/16 10/04/16 10/06/16 23:49 04:30 04:20 Troponin I 0.027 NT-Pro-B Natriuret Pep 3990 H 2490 H 10/07/16 04:28 Troponin I NT-Pro-B Natriuret Pep 2020 H Impressions: Abdomen/Pelvis CT 10/05/16 00:00 IMPRESSION: Minimal decrease in the size of the previously noted hematoma/ seroma in the right flank. Interval development of bilateral pleural effusions with basilar opacities. Small amount of free fluid in the pelvis and right lower quadrant. Interventional Vascular Procedure 10/08/16 00:00 IMPRESSION: Please see combined report for performance of procedure and radiologic supervision and interpretation. PICC Line Insertion 10/08/16 00:00 IMPRESSION: SUCCESSFUL PLACEMENT OF A 5 FR dual LUMEN 42 CM PICC IN THE basilic VEIN. Chest X-Ray 10/09/16 06:00 IMPRESSION: 1. Support tubes and lines as above. Interval removal of the endotracheal tube. 2. Otherwise stable evaluation of the chest. Assessment & Plan - Diagnosis (1) Acute kidney failure Qualifiers: Acute renal failure type: unspecified Qualified Code(s): N17.9 - Acute kidney failure, unspecified Is this a current diagnosis for this admission?: YesPlan: new and likely result of diuresis; will hold lasix and zaroxolyn and monitor renal function again in the morning (2) Acute respiratory failure with hypoxemia Is this a current diagnosis for this admission?: Yes (3) Aspiration pneumonia Qualifiers: Aspiration pneumonia type: unspecified Laterality: bilateral Lung location: unspecified part of lung Qualified Code(s): J69.0 - Pneumonitis due to inhalation of food and vomit Is this a current diagnosis for this admission?: Yes (4) Acute on chronic diastolic CHF (congestive heart failure) Is this a current diagnosis for this admission?: Yes (5) Anticoagulated Is this a current diagnosis for this admission?: YesPlan: stop the argatroban, continue coumadin at 4mg tonight, ck INR in morning and if she needs it can do a bridge of lovenox, family confirms she has tolerated this numerous times in the past (6) CKD (chronic kidney disease), stage III Is this a current diagnosis for this admission?: Yes (7) COPD (chronic obstructive pulmonary disease) Qualifiers: COPD type: emphysema Emphysema type: unspecified Qualified Code( s): J43.9 - Emphysema, unspecified Is this a current diagnosis for this admission?: Yes (8) Diabetes mellitus type 1 Qualifiers: Diabetes mellitus complication status: with unspecified complications Qualified Code(s): E10.8 - Type 1 diabetes mellitus with unspecified complications Is this a current diagnosis for this admission?: Yes (9) History of mechanical aortic valve replacement Is this a current diagnosis for this admission?: Yes (10) JAMEEL (obstructive sleep apnea) Is this a current diagnosis for this admission?: Yes - Time Time Spent with patient: 25-34 minutes Medications reviewed and adjusted accordingly: Yes - Plan Summary Plan Summary: anticipate transfer to [place] tomorrow for rehab; remove kieran today
[2016-10-14] MEDS ORDERED: ACETAMINOPHEN 325 MG TABLET PO PRN (13:12)
[2016-10-14] MEDS: FLUTICASONE NASAL SPRAY 50 MCG/SPRY 120 SPRAY/16 GM NASL SCH (13:57)
--- NOTE | 2016-10-14 15:08 | PDOC PROGRESS REPORT ---
Subjective Progress Note for:: 10/14/16 Subjective:: Without complaints Physical Exam Vital Signs: Temp Pulse Resp BP Pulse Ox 97.5 F 86 17 121/33 L 100 10/14/16 11:55 10/14/16 14:41 10/14/16 14:41 10/14/16 11:55 10/14/16 11:55 Intake & Output 10/13/16 10/14/16 10/15/16 06:59 06:59 06:59 Intake Total 1941 1842 305 Output Total 2400 1650 700 Balance -459 192 -395 Weight 105.8 kg General appearance: PRESENT: no acute distress, cooperative, disheveled, obese, well-developed Head exam: PRESENT: atraumatic, normocephalic Eye exam: PRESENT: conjunctiva pale, EOMI Mouth exam: PRESENT: dry mucosa, neck supple, tongue midline Neck exam: ABSENT: carotid bruit, JVD, lymphadenopathy, thyromegaly Respiratory exam: PRESENT: decreased breath sounds, prolonged expiratory phas, symmetrical, unlabored Cardiovascular exam: PRESENT: RRR, +S1, +S2 Pulses: PRESENT: normal radial pulses GI/Abdominal exam: PRESENT: normal bowel sounds, soft. ABSENT: distended, guarding, mass, organolmegaly, rebound, tenderness Rectal exam: PRESENT: deferred Extremities exam: PRESENT: +1 edema Neurological exam: PRESENT: alert, awake Psychiatric exam: PRESENT: normal mood Skin exam: PRESENT: dry, warm Results Laboratory Results: 10/14/16 06:05 10/14/16 06:05 10/14/16 10/14/16 06:05 06:05 WBC 10.7 H RBC 3.73 Hgb 10.8 L Hct 33.3 L MCV 90 MCH 29.0 MCHC 32.4 RDW 19.7 H Plt Count 185 Seg Neutrophils % 78.5 H Lymphocytes % 10.6 L Monocytes % 9.1 Eosinophils % 1.4 Basophils % 0.4 Absolute Neutrophils 8.4 H Absolute Lymphocytes 1.1 Absolute Monocytes 1.0 Absolute Eosinophils 0.1 Absolute Basophils 0.0 Sodium 136.4 L Potassium 4.3 Chloride 91 L Carbon Dioxide 35 H Anion Gap 10 BUN 23 H Creatinine 1.40 H Est GFR ( Amer) 46 L Est GFR (Non-Af Amer) 38 L Glucose 304 H Calcium 9.4 Magnesium 2.1 10/03/16 10/04/16 10/06/16 23:49 04:30 04:20 Troponin I 0.027 NT-Pro-B Natriuret Pep 3990 H 2490 H 10/07/16 04:28 Troponin I NT-Pro-B Natriuret Pep 2020 H Impressions: Abdomen/Pelvis CT 10/05/16 00:00 IMPRESSION: Minimal decrease in the size of the previously noted hematoma/ seroma in the right flank. Interval development of bilateral pleural effusions with basilar opacities. Small amount of free fluid in the pelvis and right lower quadrant. Interventional Vascular Procedure 10/08/16 00:00 IMPRESSION: Please see combined report for performance of procedure and radiologic supervision and interpretation. PICC Line Insertion 10/08/16 00:00 IMPRESSION: SUCCESSFUL PLACEMENT OF A 5 FR dual LUMEN 42 CM PICC IN THE basilic VEIN. Chest X-Ray 10/09/16 06:00 IMPRESSION: 1. Support tubes and lines as above. Interval removal of the endotracheal tube. 2. Otherwise stable evaluation of the chest. Assessment & Plan - Diagnosis (1) Obesity hypoventilation syndrome Is this a current diagnosis for this admission?: Yes (2) Acute respiratory failure with hypoxemia Is this a current diagnosis for this admission?: No (3) Aspiration pneumonia Qualifiers: Aspiration pneumonia type: unspecified Laterality: bilateral Lung location: unspecified part of lung Qualified Code(s): J69.0 - Pneumonitis due to inhalation of food and vomit Is this a current diagnosis for this admission?: Yes (4) Cellulitis and abscess of leg Is this a current diagnosis for this admission?: Yes (5) JAMEEL (obstructive sleep apnea) Is this a current diagnosis for this admission?: Yes
[2016-10-14] MEDS: SIMVASTATIN 40 MG TABLET PO SCH (22:15)
[2016-10-14] MEDS: WARFARIN SODIUM 4 MG TABLET PO SCH (22:15)
[2016-10-14] MEDS: MONTELUKAST SODIUM 10 MG TABLET PO SCH (22:16)
[2016-10-14] MEDS: INSULIN GLARGINE,HUM.REC.ANLOG 300 UNIT/3 ML INSULN.PEN SUBCUT SCH (22:16)
[2016-10-15] MEDS: HYDROCODONE/ACETAMINOPHEN 7.5-325 MG TABLET PO PRN ×3 (02:10→11:30)
[2016-10-15] MEDS: IPRATROPIUM/ALBUTEROL 0.5-2.5 MG/3 ML AMPUL NEB SCH ×3 (02:13→14:15)
[2016-10-15 06:15] LABS: PROTHROMBIN TIME 16.7 SEC (11.4-15.4)
[2016-10-15 06:34] LABS: ANION GAP 9 (5-19); BLOOD UREA NITROGEN 21 mg/dL (7-20); CALCIUM 9.3 mg/dL (8.4-10.2); CARBON DIOXIDE 37 mmol/L (22-30); CHLORIDE 91 mmol/L (98-107); CREATININE RESULT 1.38 mg/dL (0.52-1.25); GLUCOSE 255 mg/dL (75-110); MAGNESIUM 2.1 mg/dL (1.6-2.3); POTASSIUM 4.2 mmol/L (3.6-5.0); SODIUM 137.4 mmol/L (137-145)
[2016-10-15] MEDS: BUDESONIDE NEB 0.5 MG/2 ML AMPUL NEB SCH (08:34)
[2016-10-15] MEDS: INSULIN LISPRO 100 UNIT/ML 3 ML VIAL SUBCUT PRN (08:34)
[2016-10-15] MEDS: SITAGLIPTIN PHOSPHATE 50 MG TABLET PO SCH (09:42)
[2016-10-15] MEDS: POTASSIUM CHLORIDE 10 MEQ TABLET.SA PO SCH (09:42)
[2016-10-15] MEDS: LEVOFLOXACIN 750 MG TABLET PO SCH (09:43)
[2016-10-15] MEDS: NYSTATIN TOPICAL POWDER 15 GM TP SCH (09:44)
--- NOTE | 2016-10-15 09:49 | PDOC TRANSFER SUMMARY ---
General - Admit/Disc Date/PCP Admission Date/Primary Care Provider: 10/03/16 23:01 KIMI ANAND PA-C Discharge Date: 10/15/16 - Discharge Diagnosis (1) Acute kidney failure Is this a current diagnosis for this admission?: YesSummary: 2/2 diuresis; hold lasix and zaroxolyn until instructed by PCP at f/u in one week. (2) Acute respiratory failure with hypoxemia Is this a current diagnosis for this admission?: YesSummary: 2/2 pneumonia; resolved, now >93% on RA (3) Aspiration pneumonia Is this a current diagnosis for this admission?: YesSummary: continue another 7d levaquin; f/u PCP in one week (4) Acute on chronic diastolic CHF (congestive heart failure) Is this a current diagnosis for this admission?: YesSummary: hypovolemic at present but labile volume status with persistent BLE ankle edema ; re-eval with PCP in one week to address volume status and further diuretic use. betablocker on hold due to borderline low BPs, ACEi/ARB contraindicated due to acute kidney injury. last echo 2014 shows well preserved LV function and EF but grade 2/4 diastolic dysfunction. (5) Anticoagulated Is this a current diagnosis for this admission?: YesSummary: for St Arun aortic valve; pt has tolerated lovenox in the past and will need again as a bridge to Tx INR; will need INR every 2-3 days for coumadin dose adjustment per her PCP and continue lovenox until INR at goal >2.5<3.5 (6) CKD (chronic kidney disease), stage III Is this a current diagnosis for this admission?: YesSummary: continue to monitor Scr (7) COPD (chronic obstructive pulmonary disease) Is this a current diagnosis for this admission?: YesSummary: continue nebs and breathing treatments (8) Diabetes mellitus type 1 Is this a current diagnosis for this admission?: YesSummary: continue basal/bolus regimen and ACHS cks with low carb diet (9) History of mechanical aortic valve replacement Is this a current diagnosis for this admission?: YesSummary: anticoagulate as noted above (10) JAMEEL (obstructive sleep apnea) Is this a current diagnosis for this admission?: YesSummary: BIPAP at night as needed - Additional Information Resuscitation Status: Full Code Discharge Diet: Diabetic - regular consistency Discharge Activity: Slowly Increase Activity, Supervised Activity Home Medications: Albuterol Sulfate [Ventolin 0.042% Neb 1.25 mg/3 mL Ampul] 1.25 mg NEB RTQ6HP PRN 10/04/16 Albuterol Sulfate [Ventolin HFA MDI 18 GM] 2 puff IH Q4HP PRN 10/04/16 Budesonide [Pulmicort Neb 0.5 mg/2 ml Ampul] 0.5 mg NEB RTQ12 10/04/16 Fluticasone Propionate [Flonase Nasal [place] 50 Mcg/[place] 16 gm] 2 sprays NAREB Q12 10/04/16 Loratadine [Claritin 10 mg Tablet] 10 mg PO DAILY 10/04/16 Montelukast Sodium [Singulair 10 mg Tablet] 10 mg PO QHS 10/04/16 Olopatadine HCl [Pataday] 1 drop OU DAILY 10/04/16 Ranitidine HCl [Zantac 150 mg Tablet] 150 mg PO BID 10/04/16 Simvastatin [Zocor 80 mg Tablet] 80 mg PO QHS 10/04/16 Sitagliptin Phosphate [Januvia] 100 mg PO DAILY 10/04/16 Warfarin Sodium [Coumadin 2.5 mg Tablet] 2.5 mg PO MOFR@1000 10/04/16 Warfarin Sodium [Coumadin 5 mg Tablet] 5 mg PO SUTUWETHSA 10/04/16 Acetaminophen [Tylenol 325 mg Tablet] 650 mg PO Q8HP PRN tablet 10/15/16 Enoxaparin Sodium [Lovenox Inj 120 mg/0.8 ml Disp.syrin] 105 mg SUBCUT Q12 disp.syrin 10/15/16 Famotidine [Pepcid 20 mg Tablet] 20 mg PO DAILY tablet 10/15/16 Hydrocodone/Acetaminophen [Hydrocodon-Acetaminoph 7.5-325] 1 tab PO Q4HP PRN # 10 tablet 10/15/16 Insulin Glargine,Hum.rec.anlog [Lantus Insulin 100 Unit/mL] 30 unit SUBCUT QHS insuln.pen 10/15/16 Levofloxacin [Levaquin 750 mg Tablet] 750 mg PO DAILY #7 tablet 10/15/16 Nystatin [Mycostatin Topical Powder 15 gm] 1 applic TP BID bottle 10/15/16 Potassium Chloride [Klor-Con 10 Meq Tablet.sa] 20 meq PO Q12 tablet.sa History of Present Illness Admission Date/PCP: 10/03/16 23:01 KIMI ANAND PA-C Patient complains of: difficulty breathing History of Present Illness: YAMILETH RENAE is a 66 year old morbidly obese insulin-dependent diabetic female, with underlying home O2 dependent COPD, status post mechanical aortic valve replacement, on Coumadin for same, with underlying heparin allergy and difficult to crossmatch blood who presents in direct transfer from [facility] emergency room intubated and on Levophed drip, for acute respiratory failure from aspiration pneumonia, when she aspirated soup earlier today. Hospital Course Hospital Course: Accepted by day hospitalist. Patient has been discussed with the hospitalist who discussed the patient with emergency room physician at [facility]. Patient is intubated and sedated and is able to provide no history whatsoever in terms of acute or chronic events, review of systems, personal habits, family history, etc. No friends or family are present. Old inpatient records are reviewed. No further information available this point in time." Over the last week the patient has been able to be weaned off of the ventilator and is now transitioned to oxygen therapy with as needed BiPAP at night. Dr. Crowell followed on the floor. Patient was able to be transitioned down to [facility] level care. There have been difficulties in managing her INR. Patient is on Levaquin and developed supratherapeutic INR at the beginning of the week. Coumadin was subsequently held and the INR at 6 was allowed to drift downward. Unfortunately, the patient received a dose of vitamin K on the slot shift supervisor, making it difficult for her INR to go back up. She has a mechanical aortic valv and an allergy to heparin products. On her last 2 admissions here the patient was not discharged home on any heparin products as was suspected before. Therefore, she was started on argatroban for bridging. The goals are to allow her INR to creep up and be maintained at least greater than 4 period of 3-4 days, as the INR is falsely elevated by argatroban. INR should be checked daily. Once argatroban is discontinued her INR should be between 2-1/2 and 3-1/2. Otherwise the patient has done well, she has been seen by speech. I have discontinued her Dobbhoff tube today and she is now on mechanical soft diet with ground meats and thin liquids. She received PT for the first time today. She will likely need sniff placement however the patient wants to go home." I inherited her care Tuesday and she gradually weaned off the O2 and still maintaining RA sats >93% for me at the bedside. her renal function declined over the last couple of days due to continued efforts to diurese so her diuretics were held as of 10/14 and should resume at the discretion of facility MD or PCP in f/u in one week. she is working with PT but still too weak to go straight home so arrangements made for rehab at [facility] and she is agreeable to go. she is stable to move over today and ok to advance her diet to regular texture and thin liquids as no further swallow difficulties the further removed she is from extubation. Her INR did in fact drop once argatroban d/c'd but she confirms use of lovenox in the past so she can continue 1mg/kg bid as a bridge to therapeutic INR/coumadin level with her goal between 2.5 [address] Arun valve. she denies chest pain, still having cough with alex colored phlegm but no fevers /chills, hemoptysis, abdominal pain; reports multiple loose stools but screened cdiff neg and stools slowing and firming now. she is now understanding of her need for rehab stint prior to going home and family agrees. her alcaraz was removed yesterday and she is micturating spontaneously. Physical Exam Vital Signs: Temp Pulse Resp BP Pulse Ox 98.6 F 97 16 128/50 H 92 10/15/16 07:40 10/15/16 08:34 10/15/16 08:34 10/15/16 07:40 10/15/16 08:34 Intake & Output 10/14/16 10/15/16 10/16/16 06:59 06:59 06:59 Intake Total 1842 1085 Output Total 1650 2600 Balance 192 -1515 Weight 105.8 kg General appearance: PRESENT: obese, well-developed, well-nourished Head exam: PRESENT: atraumatic, normocephalic Eye exam: PRESENT: EOMI Mouth exam: PRESENT: moist Respiratory exam: PRESENT: crackles. ABSENT: accessory muscle use, wheezes Extremities exam: PRESENT: +1 edema Neurological exam: PRESENT: alert, awake, oriented to person, oriented to place Results Laboratory Results: 10/14/16 06:05 10/15/16 05:40 10/15/16 05:40 Sodium 137.4 Potassium 4.2 Chloride 91 L Carbon Dioxide 37 H Anion Gap 9 BUN 21 H Creatinine 1.38 H Est GFR ( Amer) 46 L Est GFR (Non-Af Amer) 38 L Glucose 255 H Calcium 9.3 Magnesium 2.1 10/03/16 10/04/16 10/06/16 23:49 04:30 04:20 Troponin I 0.027 NT-Pro-B Natriuret Pep 3990 H 2490 H 10/07/16 04:28 Troponin I NT-Pro-B Natriuret Pep 2020 H Impressions: Abdomen/Pelvis CT 10/05/16 00:00 IMPRESSION: Minimal decrease in the size of the previously noted hematoma/ seroma in the right flank. Interval development of bilateral pleural effusions with basilar opacities. Small amount of free fluid in the pelvis and right lower quadrant. Interventional Vascular Procedure 10/08/16 00:00 IMPRESSION: Please see combined report for performance of procedure and radiologic supervision and interpretation. PICC Line Insertion 10/08/16 00:00 IMPRESSION: SUCCESSFUL PLACEMENT OF A 5 FR dual LUMEN 42 CM PICC IN THE basilic VEIN. Chest X-Ray 10/09/16 06:00 IMPRESSION: 1. Support tubes and lines as above. Interval removal of the endotracheal tube. 2. Otherwise stable evaluation of the chest. Transfer Plan - Disposition Transfer Plan: transfer to [facility] for rehab; - Time Spent with Patient Time spent with patient: Greater than 30 Minutes Qualifiers PATEINT BEING DISCHARGED WITH ANY OF THE FOLLOWING DIAGNOSIS?: No VTE patient discharged on overlapping Therapy?: Yes
[2016-10-15] MEDS ORDERED: ENOXAPARIN SODIUM INJ 120 MG/0.8 ML DISP.SYRIN SUBCUT SCH (10:00)
[2016-10-15] MEDS ORDERED: FAMOTIDINE 20 MG TABLET PO SCH (10:00)
[2016-10-15 13:04] VITALS: BP 153/41
[2016-10-15 14:51] LABS: APPEARANCE,URINE CLEAR; BILIRUBIN,URINE NEGATIVE (NEGATIVE); GLUCOSE, URINE >=500 mg/dL (NEGATIVE); KETONES,URINE NEGATIVE (NEGATIVE); LEUKOCYTE ESTERASE,URINE NEGATIVE (NEGATIVE); NITRITE,URINE NEGATIVE (NEGATIVE); PROTEIN,URINE 30 mg/dL (NEGATIVE); URINE SPECIFIC GRAVITY 1.011; UROBILINOGEN,URINE NEGATIVE mg/dL (<2.0)
[2016-10-15] MEDS: FLUTICASONE NASAL SPRAY 50 MCG/SPRY 120 SPRAY/16 GM NASL SCH (14:58)
[2016-10-15] MEDS ORDERED: WARFARIN SODIUM 3 MG TABLET PO SCH (22:00)
[2016-10-17] MEDS ORDERED: METOLAZONE 5 MG TABLET PO SCH (10:00)
== END 2016-10-15 16:15 | DRG 207 ==
LOC: ICU 23:01 → 3S 10-09 14:48
PROVIDERS: ADMIT Family Medicine; ATTEND Family Medicine
PROC: 5A1955Z Respiratory Ventilation, Greater than 96 Consecutive Hours (ICD-10-PCS; principal; 2016-10-04)
PROC: 3E0F73Z Introduction of Anti-inflammatory into Respiratory Tract, Via Natural or Artificial Opening (ICD-10-PCS; 2016-10-04)
PROC: 5A09457 Assistance with Respiratory Ventilation, 24-96 Consecutive Hours, Continuous Positive Airway Pressure (ICD-10-PCS; 2016-10-08)
PROC: 02HV33Z Insertion of Infusion Device into Superior Vena Cava, Percutaneous Approach (ICD-10-PCS; 2016-10-08)
PROC: B548ZZA Ultrasonography of Superior Vena Cava, Guidance (ICD-10-PCS; 2016-10-08)
PROC: B518ZZA Fluoroscopy of Superior Vena Cava, Guidance (ICD-10-PCS; 2016-10-08)
DX: J96.01 Acute respiratory failure with hypoxia (principal); J69.0 Pneumonitis due to inhalation of food and vomit; I50.33 Acute on chronic diastolic (congestive) heart failure; J44.0 Chronic obstructive pulmonary disease with (acute) lower respiratory infection; N17.9 Acute kidney failure, unspecified; E66.2 Morbid (severe) obesity with alveolar hypoventilation; Z68.41 Body mass index [BMI] 40.0-44.9, adult; E10.22 Type 1 diabetes mellitus with diabetic chronic kidney disease; N18.3 Chronic kidney disease, stage 3 (moderate); D63.1 Anemia in chronic kidney disease; E78.5 Hyperlipidemia, unspecified; I48.91 Unspecified atrial fibrillation; M19.90 Unspecified osteoarthritis, unspecified site; F32.9 Major depressive disorder, single episode, unspecified; F41.1 Generalized anxiety disorder; B36.8 Other specified superficial mycoses; R58 Hemorrhage, not elsewhere classified; J44.9 Chronic obstructive pulmonary disease, unspecified; R79.1 Abnormal coagulation profile; Z78.1 Physical restraint status; Z95.2 Presence of prosthetic heart valve; Z99.81 Dependence on supplemental oxygen; Z79.01 Long term (current) use of anticoagulants; Z90.49 Acquired absence of other specified parts of digestive tract; Z90.710 Acquired absence of both cervix and uterus; Z88.3 Allergy status to other anti-infective agents; Z88.0 Allergy status to penicillin; Z88.2 Allergy status to sulfonamides; Z88.8 Allergy status to other drugs, medicaments and biological substances; Z91.040 Latex allergy status; Z91.012 Allergy to eggs; Z79.4 Long term (current) use of insulin; Z79.899 Other long term (current) drug therapy; Z83.3 Family history of diabetes mellitus; Z80.9 Family history of malignant neoplasm, unspecified; Z82.49 Family history of ischemic heart disease and other diseases of the circulatory system
CPT/HCPCS: 36415; 36569; 71010; 74176; 76937; 80048; 80053; 81001; 81025; 82803; 82962; 83036; 83735; 83880; 84443; 84484; 85025; 85027; 85362; 85379; 85384; 85610; 85730; 87040; 87070; 87086; 87205; 87493; 93005; 93010; 94002; 94003; 94640; 94660; 94799; C1769; C9121; G8978-GP; G8979-GP; G8996-GN; G8997-GN; G8998-GN; J0692; J1642; J1650; J1815; J1940; J1956; J2020; J2250; J2270; J2405; J3010; J3480; J3490; J7030; J7050; J7620; S0028

== ENCOUNTER 2016-12-07 06:10 | Inpatient (IN) | payer MEDICARE, BC ==
[2016-12-07] MEDS ORDERED: NORMAL SALINE 500 ML IV ONE (06:19)
--- NOTE | 2016-12-07 06:29 | ER Document Report ---
ED General - General Chief Complaint: Shortness Of Breath Stated Complaint: FEVER Time Seen by Provider: 12/07/16 06:14 TRAVEL OUTSIDE OF THE [place] IN LAST 30 DAYS: No - HPI Notes: 66 year old female with a past medical history of mechanical aortic valve on Coumadin, atrial fibrillation, insulin-dependent diabetes, morbid obesity obstructive sleep apnea, COPD and oxygen dependence (at night) and presents with generalized weakness and fever starting in the last 24 hours. Recently admitted in August with pneumonia and cellulitis of the leg. She is having diffuse weakness and chills today. Some cough but not productive. Some increased shortness of breath. She was dependent on oxygen apparently only has to use it at night. EMS arrived and her oxygen saturation was 90% on 4 L at home. She denies any specific pain. No vomiting but she has some mild nausea. - Related Data Allergies/Adverse Reactions: Heparin Analogues [Heparin Agents] Allergy (Unknown, Verified 12/07/16 06:58) latex [Latex] Allergy (Unknown, Verified 12/07/16 06:58) Penicillins Allergy (Unknown, Verified 12/07/16 06:58) vancomycin [Vancomycin] Allergy (Unknown, Verified 12/07/16 06:58) itching rash doxycycline Allergy (Verified 12/07/16 06:58) Urticaria egg [Egg] Allergy (Verified 12/07/16 06:58) sulfamethoxazole [From Bactrim] Allergy (Verified 12/07/16 06:58) trimethoprim [From Bactrim] Allergy (Verified 12/07/16 06:58) Home Medications: Current Home Medications Albuterol Sulfate [Proair HFA] 2 puff IH Q4HP PRN 12/07/16 [History] Albuterol Sulfate [Ventolin 0.042% Neb 1.25 mg/3 ml Ampul] 1 vial NEB RTQ6HP PRN 12/07/16 [History] Budesonide [Pulmicort Neb 0.5 mg/2 ml Ampul] 0.5 mg NEB RTQ12 12/07/16 [History] Fluticasone Propionate [Flonase Nasal [place] 50 Mcg/[place] 16 gm] 2 sprays NASL Q12 12/07/16 [History] Furosemide [Lasix 80 mg Tablet] 80 mg PO DAILY 12/07/16 [History] Gabapentin [Neurontin 300 mg Capsule] 300 mg PO Q8 12/07/16 [History] Hydrocodone/Acetaminophen [[place] 7.5-325 mg Tablet] 1 tab PO Q4HP PRN 12/07/16 [ History] Insulin Aspart [Novolog Flexpen] 0 unit SUBCUT .SLD SCALE 12/07/16 [History] Insulin Glargine,Hum.rec.anlog [[place]je[place] Solostar] 60 unit SQ QHS 12/07/16 [ History] Loratadine [Claritin 10 mg Tablet] 10 mg PO DAILY 12/07/16 [History] Metoprolol Tartrate [Lopressor 25 mg Tablet] 12.5 mg PO Q12 12/07/16 [History] Montelukast Sodium [Singulair 10 mg Tablet] 10 mg PO QHS 12/07/16 [History] Olopatadine HCl [Pataday] 1 drop OU DAILY 12/07/16 [History] Ranitidine HCl [Zantac 150 mg Tablet] 150 mg PO BID 12/07/16 [History] Simvastatin [Zocor 80 mg Tablet] 80 mg PO QHS 12/07/16 [History] Sitagliptin Phosphate [Januvia] 100 mg PO DAILY 12/07/16 [History] Warfarin Sodium [Coumadin 5 mg Tablet] 5 mg PO QHS 12/07/16 [History] Past Medical History - Social History Smoking Status: Former Smoker Family History: Reviewed & Not Pertinent - Past Medical History Cardiac Medical History: Reports: Hx Atrial Fibrillation, Hx Congestive Heart Failure - Diastolic, Hx Hypercholesterolemia Pulmonary Medical History: Reports: Hx Asthma, Hx COPD, Hx Pneumonia, Hx Respiratory Failure, Hx Sleep Apnea Neurological Medical History: Denies: Hx Seizures Endocrine Medical History: Reports: Hx Diabetes Mellitus Type 1. Denies: Hx Diabetes Mellitus Type 2, Hx Hyperthyroidism, Hx Hypothyroidism GI Medical History: Denies: Hx Cirrhosis, Hx Hepatitis Musculoskeltal Medical History: Reports Hx Arthritis Psychiatric Medical History: Reports: Hx Depression Infectious Medical History: Denies: Hx Hepatitis Past Surgical History: Reports: Hx Cholecystectomy, Hx Hysterectomy, Hx Orthopedic Surgery - right rotator cuff, Hx Valve Replacement - Mechanical aortic. Denies: Hx Pacemaker - Immunizations Hx Diphtheria, Pertussis, Tetanus Vaccination: Yes Hx Pneumococcal Vaccination: 03/21/12 Review of Systems - Review of Systems -: Yes All other systems reviewed and negative Physical Exam - Vital signs Vitals: Resp BP Pulse Ox 24 H 123/45 L 94 12/07/16 06:17 12/07/16 06:17 12/07/16 06:17 - Notes Notes: GENERAL: VS as per nursing doc. pleasant, morbidly obese, chronically ill patient in no acute distress. HEAD: Atraumatic, normocephalic. EYES: Pupils equal round and reactive to light, extraocular movements intact, sclera anicteric, no conjunctival injection or discharge. ENT: Nares patent, oropharynx clear without exudates, moist mucous membranes. NECK: Normal range of motion, supple without lymphadenopathy. LUNGS: Breath sounds decreased bilaterally with rhonchi diffusely and mild wheezing. HEART: Regular rate and rhythm with no audible murmur ABDOMEN: Soft, non-tender BACK: No CVA tenderness. EXTREMITIES: Normal range of motion, no calf tenderness, no edema. NEUROLOGICAL: Normal speech. Normal sensory and motor exams. No gross cerebellar abnormalities. PSYCH: Normal mood, normal affect. SKIN: Warm, dry, normal turgor, chronic cellulitic changes of the lower extremities. Mild erythema but no excessive warmth Course - Re-evaluation Re-evalutation: 12/07/16 07:[address] Collier. They will contact me back. Discussed with the patient and family reports patient has been having some diarrhea that apparently is starting to get fairly bad. She has had C. difficile in the past so we will obtain a sample if she has some stool here. Patient has a penicillin and Vancomycin allergy. - Vital Signs Vital signs: Temp Pulse Resp BP Pulse Ox 99.8 F 22 H 123/45 L 96 12/07/16 06:27 12/07/16 06:27 12/07/16 06:17 12/07/16 06:27 - Laboratory Result Diagrams: 12/07/16 06:19 12/07/16 06:19 Laboratory results interpreted by me: 12/07/16 12/07/16 12/07/16 06:19 06:19 06:19 WBC 22.6 H Hgb 11.2 L Hct 33.6 L RDW 18.7 H Band Neutrophils % 1 L Abs Neuts (Manual) 17.2 H PT 24.9 H VBG pH Potassium 3.1 L Est GFR ( Amer) 57 L Est GFR (Non-Af Amer) 47 L Glucose 154 H Direct Bilirubin 0.6 H NT-Pro-B Natriuret Pep Total Protein 5.5 L Albumin 2.7 L Urine Protein Urine Ketones Urine Blood 12/07/16 12/07/16 12/07/16 06:19 06:45 06:47 WBC Hgb Hct RDW Band Neutrophils % Abs Neuts (Manual) PT VBG pH 7.44 H Potassium Est GFR ( Amer) Est GFR (Non-Af Amer) Glucose Direct Bilirubin NT-Pro-B Natriuret Pep 3710 H Total Protein Albumin Urine Protein 100 H Urine Ketones TRACE H Urine Blood SMALL H - EKG Interpretation by [place] EKG shows normal: Sinus rhythm - Rate 89, ST depression and flattening in the lateral leads. Some artifact noted. No clear ischemia otherwise. QRS normal duration. - Consults Dr. Garrison Time consulted: 07:55 - Full admit, Consulted provider: will see as inpatient Discharge - Discharge Clinical Impression: Pneumonia, Fever, C. difficile diarrhea Condition: Fair Disposition: ADMITTED INPATIENT Admitting Provider: Cr. Garrison Unit Admitted: Telemetry
[2016-12-07 06:45] LABS: HEMATOCRIT 33.6 % (36.0-47.0); HEMOGLOBIN 11.2 g/dL (12.0-15.5); MEAN CORPUSCULAR HEMOGLOBIN 29.1 pg (27.0-33.4); MEAN CORPUSCULAR HGB CONC 33.4 g/dL (32.0-36.0); MEAN CORPUSCULAR VOLUME 87 fl (80-97); RED BLOOD COUNT 3.86 10^6/uL (3.72-5.28); RED CELL DISTRIBUTION WIDTH 18.7 % (11.5-14.0); WHITE BLOOD COUNT 22.6 10^3/uL (4.0-10.5)
[2016-12-07 06:48] LABS: ALANINE AMINOTRANSFERASE 19 U/L (9-52); ALBUMIN 2.7 g/dL (3.5-5.0); ALKALINE PHOSPHATASE 88 U/L (38-126); ANION GAP 9 (5-19); ASPARTATE AMINO TRANSFERASE 19 U/L (14-36); BILIRUBIN,DIRECT 0.6 mg/dL (0.0-0.4); BILIRUBIN,TOTAL 1.1 mg/dL (0.2-1.3); BLOOD UREA NITROGEN 14 mg/dL (7-20); CALCIUM 8.4 mg/dL (8.4-10.2); CARBON DIOXIDE 30 mmol/L (22-30); CHLORIDE 101 mmol/L (98-107); CREATININE RESULT 1.16 mg/dL (0.52-1.25); GLUCOSE 154 mg/dL (75-110); POTASSIUM 3.1 mmol/L (3.6-5.0); SODIUM 139.5 mmol/L (137-145); TOTAL PROTEIN 5.5 g/dL (6.3-8.2)
[2016-12-07 06:50] LABS: PROTHROMBIN TIME 24.9 SEC (11.4-15.4)
--- NOTE | 2016-12-07 06:55 | RADIOLOGY REPORT (SQ) ---
EXAM DESCRIPTION: CHEST SINGLE VIEW COMPLETED DATE/TIME: 12/07/2016 6:43 am REASON FOR STUDY: Fever COMPARISON: 10/09/2016. EXAM PARAMETERS: NUMBER OF VIEWS: One view. TECHNIQUE: Single frontal radiographic view of the chest acquired. RADIATION DOSE: NA LIMITATIONS: None. FINDINGS: LUNGS AND PLEURA: Mild patchiness of the right lower lung field. Small consolidative the left lung base. Moderate lung volumes. Prominent interstitium. MEDIASTINUM AND HILAR STRUCTURES: No masses. Contour normal. HEART AND VASCULAR STRUCTURES: Heart normal in size. Normal vasculature. BONES: Osteotomy plate and screw fixation extensively across the chest. HARDWARE: None in the chest. OTHER: No other significant finding. IMPRESSION: Moderate bibasilar pneumonia. TECHNICAL DOCUMENTATION: JOB ID: [id number]
[2016-12-07 07:02] LABS: VENOUS BLOOD BASE EXCESS 4.3 mmol/L; VENOUS BLOOD HCO3 29.1 mmol/L (20-32); VENOUS BLOOD PCO2 44.1 mmHg (35-63); VENOUS BLOOD PH 7.44 (7.30-7.42)
[2016-12-07] MEDS ORDERED: POTASSIUM CHLORIDE 10 MEQ TABLET.SA PO ONE ×2 (07:11→08:43)
[2016-12-07] MEDS ORDERED: LEVOFLOXACIN 750 MG/D5W RTU 750 MG/150 ML RTUPB IV ONE (07:15)
[2016-12-07 07:23] LABS: ANISOCYTOSIS 2+; BAND NEUTROPHILS % (MANUAL) 1 % (3-5); BASOPHILS % (MANUAL) 1 % (0-2); EOSINOPHILS % (MANUAL) 0 % (0-6); LYMPHOCYTES % (MANUAL) 19 % (13-45); OVALOCYTES SLIGHT; POIKILOCYTOSIS SLIGHT; POLYCHROMASIA SLIGHT; TOTAL CELLS COUNTED 100; TOXIC GRANULATION 1+; TOXIC VACUOLATION PRESENT
--- NOTE | 2016-12-07 07:56 | EKG REPORT ---
SEVERITY:- ABNORMAL ECG - SINUS RHYTHM ABNORMAL T, CONSIDER ISCHEMIA, LATERAL LEADS : Confirmed by: Dario Solis MD 07-Dec-2016 07:55:36
[2016-12-07] MEDS ORDERED: ONDANSETRON 4 MG TAB.RAPDIS PO PRN (08:35)
[2016-12-07] MEDS ORDERED: ALBUTEROL SULFATE 0.042% NEB (1.25 MG/3 ML) AMPUL NEB PRN (08:45)
[2016-12-07] MEDS ORDERED: HYDROCODONE/ACETAMINOPHEN 7.5-325 MG TABLET PO PRN (08:45)
[2016-12-07] MEDS ORDERED: DEXTROSE 50%-WATER 25 GM/50 ML DISP.SYRIN IV PRN ×2 (08:47)
[2016-12-07] MEDS ORDERED: DEXTROSE 40% GEL 15 GM TUBE PO PRN ×2 (08:47)
[2016-12-07] MEDS ORDERED: GLUCAGON,HUMAN RECOMB 1 MG INJ IM PRN (08:47)
[2016-12-07] MEDS ORDERED: METRONIDAZOLE 500 MG TABLET PO ONE (08:54)
[2016-12-07] MEDS ORDERED: LEVOFLOXACIN 750 MG/D5W RTU 750 MG/150 ML RTUPB IV SCH (09:00)
[2016-12-07 09:21] LABS: APPEARANCE,URINE CLOUDY; BILIRUBIN,URINE NEGATIVE (NEGATIVE); GLUCOSE, URINE NEGATIVE (NEGATIVE); KETONES,URINE TRACE mg/dL (NEGATIVE); LEUKOCYTE ESTERASE,URINE NEGATIVE (NEGATIVE); NITRITE,URINE NEGATIVE (NEGATIVE); PROTEIN,URINE 100 mg/dL (NEGATIVE); URINE SPECIFIC GRAVITY 1.015; UROBILINOGEN,URINE NEGATIVE mg/dL (<2.0)
--- NOTE | 2016-12-07 09:44 | PDOC H&P ---
History of Present Illness Admission Date/PCP: KIMI ANAND PA-C Patient complains of: Fever, Diarrhea, and Shortness of breath History of Present Illness: YAMILETH RENAE is a 66 year old female who presents to our facility with complaint of fever diarrhea and shortness of breath. Patient states that she began having fever approximately 2 days ago. Patient reports that she was in rehab and has been was discharged home approximately 2 weeks ago. Patient states that she had diarrhea multiple times at home however none yesterday. Patient reports that she has been on antibiotics recently for pneumonia. Patient states that she has been more congested and experiencing a nonproductive cough. Patient states that since she has been in rehab she does not wear nasal cannula 24 hour a day but only at bedtime. Patient reports that she noticed that she felt more confused in the last few days. Patient denies any recent steroids. Past Medical History Cardiac Medical History: Reports: Atrial Fibrillation, Congestive Heart Failure - Diastolic, Hyperlipidema Pulmonary Medical History: Reports: Asthma, Chronic Obstructive Pulmonary Disease (COPD), Pneumonia, Respiratory Failure, Sleep Apnea Neurological Medical History: Denies: Seizures Endocrine Medical History: Reports: Diabetes Mellitus Type 1 Denies: Diabetes Mellitus Type 2, Hyperthyroidism, Hypothyroidism GI Medical History: Denies: Cirrhosis, Hepatitis Musculoskeltal Medical History: Reports: Arthritis Psychiatric Medical History: Reports: Depression Hematology: Reports: Anemia Past Surgical History Past Surgical History: Reports: Cholecystectomy, Hysterectomy, Orthopedic Surgery - right rotator cuff, Valve Replacement - Mechanical aortic Denies: Pacemaker Social History Smoking Status: Former Smoker Frequency of Alcohol Use: None Hx Recreational Drug Use: No Drugs: None Hx Prescription Drug Abuse: No Family History Family History: Reviewed & Not Pertinent Parental Family History Reviewed: Yes Children Family History Reviewed: Yes Sibling(s) Family History Reviewed.: Yes Medication/Allergy Home Medications: Albuterol Sulfate [Ventolin 0.042% Neb 1.25 mg/3 mL Ampul] 1.25 mg NEB RTQ6HP PRN 10/04/16 Albuterol Sulfate [Ventolin HFA MDI 18 GM] 2 puff IH Q4HP PRN 10/04/16 Budesonide [Pulmicort Neb 0.5 mg/2 ml Ampul] 0.5 mg NEB RTQ12 10/04/16 Fluticasone Propionate [Flonase Nasal [place] 50 Mcg/[place] 16 gm] 2 sprays NAREB Q12 10/04/16 Loratadine [Claritin 10 mg Tablet] 10 mg PO DAILY 10/04/16 Montelukast Sodium [Singulair 10 mg Tablet] 10 mg PO QHS 10/04/16 Olopatadine HCl [Pataday] 1 drop OU DAILY 10/04/16 Ranitidine HCl [Zantac 150 mg Tablet] 150 mg PO BID 10/04/16 Simvastatin [Zocor 80 mg Tablet] 80 mg PO QHS 10/04/16 Sitagliptin Phosphate [Januvia] 100 mg PO DAILY 10/04/16 Warfarin Sodium [Coumadin 2.5 mg Tablet] 2.5 mg PO MOFR@1000 10/04/16 Warfarin Sodium [Coumadin 5 mg Tablet] 5 mg PO SUTUWETHSA 10/04/16 Acetaminophen [Tylenol 325 mg Tablet] 650 mg PO Q8HP PRN tablet 10/15/16 Enoxaparin Sodium [Lovenox Inj 120 mg/0.8 ml Disp.syrin] 105 mg SUBCUT Q12 disp.syrin 10/15/16 Famotidine [Pepcid 20 mg Tablet] 20 mg PO DAILY tablet 10/15/16 Hydrocodone/Acetaminophen [Hydrocodon-Acetaminoph 7.5-325] 1 tab PO Q4HP PRN # 10 tablet 10/15/16 Insulin Glargine,Hum.rec.anlog [Lantus Insulin 100 Unit/mL] 30 unit SUBCUT QHS insuln.pen 10/15/16 Levofloxacin [Levaquin 750 mg Tablet] 750 mg PO DAILY #7 tablet 10/15/16 Nystatin [Mycostatin Topical Powder 15 gm] 1 applic TP BID bottle 10/15/16 Potassium Chloride [Klor-Con 10 Meq Tablet.sa] 20 meq PO Q12 tablet.sa Allergies/Adverse Reactions: Heparin Analogues [Heparin Agents] Allergy (Unknown, Verified 12/07/16 06:58) latex [Latex] Allergy (Unknown, Verified 12/07/16 06:58) Penicillins Allergy (Unknown, Verified 12/07/16 06:58) vancomycin [Vancomycin] Allergy (Unknown, Verified 12/07/16 06:58) itching rash doxycycline Allergy (Verified 12/07/16 06:58) Urticaria egg [Egg] Allergy (Verified 12/07/16 06:58) sulfamethoxazole [From Bactrim] Allergy (Verified 12/07/16 06:58) trimethoprim [From Bactrim] Allergy (Verified 12/07/16 06:58) Review of Systems Constitutional: ABSENT: chills, fever(s), headache(s), weight gain, weight loss Eyes: ABSENT: visual disturbances Ears: ABSENT: hearing changes Cardiovascular: ABSENT: chest pain, dyspnea on exertion, edema, orthropnea, palpitations Respiratory: PRESENT: cough, dyspnea, sputum Gastrointestinal: PRESENT: diarrhea. ABSENT: abdominal pain, constipation, hematemesis, hematochezia, nausea, vomiting Genitourinary: ABSENT: dysuria, hematuria Musculoskeletal: ABSENT: joint swelling Integumentary: ABSENT: rash, wounds Neurological: ABSENT: abnormal gait, abnormal speech, confusion, dizziness, focal weakness, syncope Psychiatric: ABSENT: anxiety, depression, homidical ideation, suicidal ideation Hematologic/Lymphatic: ABSENT: easy bleeding, easy bruising Physical Exam Vital Signs: Temp Pulse Resp BP Pulse Ox 99.8 F 22 H 123/45 L 96 12/07/16 06:27 12/07/16 06:27 12/07/16 06:17 12/07/16 06:27 Intake & Output 12/06/16 12/07/16 12/08/16 06:59 06:59 06:59 Weight 111.5 kg General appearance: PRESENT: other - alert, laying in bed, Nasal canula in place 2 liters, obese Head exam: PRESENT: atraumatic, normocephalic Eye exam: PRESENT: conjunctiva pink, EOMI. ABSENT: scleral icterus Ear exam: PRESENT: normal external ear exam Mouth exam: PRESENT: moist, tongue midline Neck exam: ABSENT: carotid bruit, JVD, lymphadenopathy, thyromegaly Respiratory exam: PRESENT: rhonchi, other - + Coarse breath sounds, + diminished at bases Cardiovascular exam: PRESENT: RRR, systolic murmur, other - +Mechanical click heard. ABSENT: diastolic murmur, rubs Pulses: PRESENT: normal dorsalis pedis pul Vascular exam: PRESENT: normal capillary refill GI/Abdominal exam: PRESENT: normal bowel sounds, soft, other - + abd hematoma on right side. ABSENT: distended, guarding, mass, organolmegaly, rebound, tenderness Rectal exam: PRESENT: deferred Extremities exam: PRESENT: full ROM, +1 edema, other - 1+ pitting edema of lower ext. ABSENT: calf tenderness, clubbing Neurological exam: PRESENT: alert, awake, oriented to person, oriented to place , oriented to time, oriented to situation, CN II-XII grossly intact. ABSENT: motor sensory deficit Psychiatric exam: PRESENT: appropriate affect, normal mood. ABSENT: homicidal ideation, suicidal ideation Skin exam: PRESENT: dry, intact, warm. ABSENT: cyanosis, rash Results Laboratory Results: 12/07/16 06:19 12/07/16 06:19 12/07/16 12/07/16 12/07/16 06:19 06:19 06:19 WBC 22.6 H RBC 3.86 Hgb 11.2 L Hct 33.6 L MCV 87 MCH 29.1 MCHC 33.4 RDW 18.7 H Plt Count 209 Seg Neutrophils % Not Reportable Lymphocytes % Not Reportable Monocytes % Not Reportable Eosinophils % Not Reportable Basophils % Not Reportable Absolute Neutrophils Not Reportable Absolute Lymphocytes Not Reportable Absolute Monocytes Not Reportable Absolute Eosinophils Not Reportable Absolute Basophils Not Reportable VBG pH VBG pCO2 VBG HCO3 VBG Base Excess Sodium 139.5 Potassium 3.1 L Chloride 101 Carbon Dioxide 30 Anion Gap 9 BUN 14 Creatinine 1.16 Est GFR ( Amer) 57 L Est GFR (Non-Af Amer) 47 L Glucose 154 H Lactic Acid 1.0 Calcium 8.4 Total Bilirubin 1.1 AST 19 ALT 19 Alkaline Phosphatase 88 Total Protein 5.5 L Albumin 2.7 L 12/07/16 06:45 WBC RBC Hgb Hct MCV MCH MCHC RDW Plt Count Seg Neutrophils % Lymphocytes % Monocytes % Eosinophils % Basophils % Absolute Neutrophils Absolute Lymphocytes Absolute Monocytes Absolute Eosinophils Absolute Basophils VBG pH 7.44 H VBG pCO2 44.1 VBG HCO3 29.1 VBG Base Excess 4.3 Sodium Potassium Chloride Carbon Dioxide Anion Gap BUN Creatinine Est GFR ( Amer) Est GFR (Non-Af Amer) Glucose Lactic Acid Calcium Total Bilirubin AST ALT Alkaline Phosphatase Total Protein Albumin 12/07/16 06:19 NT-Pro-B Natriuret Pep 3710 H Impressions: Chest X-Ray 12/07/16 06:15 IMPRESSION: Moderate bibasilar pneumonia. Assessment & Plan - Diagnosis (1) Sepsis Is this a current diagnosis for this admission?: Yes Plan: Secondary to C. diff and Nosocomial Pneumonia: Will continue current treatment. (2) C. difficile diarrhea Is this a current diagnosis for this admission?: Yes Plan: Pt has allergy to Vanco. Will place on Flagyl. Pt placed in contact Isolation. (3) Nosocomial pneumonia Is this a current diagnosis for this admission?: Yes Plan: Pt with multiple drug allergies. Will try Imipenem for treatment. Pt was recently on Levaquin. Pt now with C. diff. Will CT chest for further evaluation of lungs. (4) Hypokalemia Is this a current diagnosis for this admission?: Yes Plan: Will give Potassium replacement. Will check labs in am. (5) Obesity hypoventilation syndrome Is this a current diagnosis for this admission?: Yes Plan: Pt refuses to use CPAP. Will continue Nasal Canula. (6) COPD (chronic obstructive pulmonary disease) Qualifiers: COPD type: emphysema Emphysema type: unspecified Qualified Code(s): J43.9 - Emphysema, unspecified Is this a current diagnosis for this admission?: Yes Plan: Pt currently not experiencing acute exacerbation. Will write for scheduled breathing treatments. (7) History of mechanical aortic valve replacement Is this a current diagnosis for this admission?: Yes Plan: Will continue Coumadin. Pt's INR on the lower side. Goal is 2.5-3.5 (8) JAMEEL (obstructive sleep apnea) Is this a current diagnosis for this admission?: Yes Plan: Pt suppose to use CPAP but does not use it. Will continue Nasal Canula. (9) DVT prophylaxis Is this a current diagnosis for this admission?: Yes Plan: Will continue Coumadin. - Time Time Spent: 50 to 70 Minutes
[2016-12-07] MEDS: FAMOTIDINE 20 MG TABLET PO SCH (09:50)
[2016-12-07] MEDS: LORATADINE 10 MG TABLET PO SCH (09:50)
[2016-12-07] MEDS ORDERED: NYSTATIN TOPICAL POWDER 15 GM TP SCH (10:00)
[2016-12-07] MEDS ORDERED: WARFARIN SODIUM 5 MG TABLET PO SCH (10:00)
[2016-12-07] MEDS ORDERED: CEFTRIAXONE 1 GM/D5W RTU 1 GM/50 ML RTUPB IV SCH (10:00)
[2016-12-07] MEDS ORDERED: FLUTICASONE NASAL SPRAY 50 MCG/SPRY 120 SPRAY/16 GM NAREB SCH (10:00)
[2016-12-07] MEDS ORDERED: POTASSIUM CHLORIDE 10 MEQ TABLET.SA PO SCH (10:00)
[2016-12-07 10:30] LABS: ARTERIAL BLOOD BASE EXCESS 6.8 mmol/L; ARTERIAL BLOOD O2 SATURATION 98.1 % (94-98)
[2016-12-07] MEDS ORDERED: IMIPENEM/CILASTATIN SODIUM 500 MG in NORMAL SALINE 100 ML IV SCH (12:00)
[2016-12-07] MEDS ORDERED: SULFAMETHOXAZOLE/TRIMETHOPRIM 320 MG in DEXTROSE 5%-WATER 500 ML IV SCH (12:00)
[2016-12-07] MEDS: INSULIN LISPRO 100 UNIT/ML 3 ML VIAL SUBCUT PRN ×3 (12:19→22:37)
[2016-12-07] MEDS: FLUTICASONE NASAL SPRAY 50 MCG/SPRY 120 SPRAY/16 GM NAREB SCH ×2 (12:20→21:26)
[2016-12-07] MEDS: METRONIDAZOLE 500 MG TABLET PO SCH ×2 (12:22→16:41)
--- NOTE | 2016-12-07 12:56 | EKG REPORT ---
SEVERITY:- ABNORMAL ECG - PROBABLE LVH WITH SECONDARY REPOL ABNRM SINUS RHYTHM : Confirmed by: Dario Solis MD 07-Dec-2016 12:55:53
[2016-12-07] MEDS: IMIPENEM/CILASTATIN SODIUM 500 MG in DEXTROSE 5%-WATER 100 ML IV SCH ×2 (13:52→18:40)
[2016-12-07] MEDS: ACETAMINOPHEN 325 MG TABLET PO PRN ×2 (14:08→23:43)
[2016-12-07] MEDS: IPRATROPIUM/ALBUTEROL 0.5-2.5 MG/3 ML AMPUL NEB SCH ×2 (14:24→20:18)
--- NOTE | 2016-12-07 15:39 | RADIOLOGY REPORT (SQ) ---
EXAM DESCRIPTION: CT CHEST WITHOUT COMPLETED DATE/TIME: 12/07/2016 3:28 pm REASON FOR STUDY: Pneumonia COMPARISON: Chest x-ray dated 12/07/2016. Chest CT dated 11/03/2014. TECHNIQUE: CT scan performed of the chest without intravenous contrast. Images reviewed with lung, soft tissue and bone windows. Reconstructed coronal and sagittal MPR images reviewed. All images st ored on PACS. All CT scanners at this facility use dose modulation, iterative reconstruction, and/or weight based d osing when appropriate to reduce radiation dose to as low as reasonably achievable (ALARA). [facility]: Dose Right [facility]: CareDose [facility]: Dose Right [facility]: Teradose 4D [facility]: [employer] RADIATION DOSE: Up-to-date CT equipment and radiation dose reduction techniques were employed. CTDIv ol: 19.0 mGy. DLP: 617 mGy-cm. mGy. LIMITATIONS: No technical limitations. FINDINGS: LUNGS AND PLEURA: Consolidations in the right and left lower lobe with air bronchograms. Small right pleural effusion. HILAR AND MEDIASTINAL STRUCTURES: No identified masses or abnormal nodes. No obvious aneurysm. HEART AND VASCULAR STRUCTURES: No aneurysm. No pericardial effusion. UPPER ABDOMEN: No significant findings. Limited exam. THYROID AND OTHER SOFT TISSUES: No masses. No adenopathy. BONES: No significant finding. HARDWARE: Hardware in the anterior chest wall. OTHER: No other significant findings. IMPRESSION: CONSOLIDATIONS IN THE LOWER LOBES CONSISTENT WITH PNEUMONIA. SMALL RIGHT PLEURAL EFFUSI ON. TECHNICAL DOCUMENTATION: JOB ID: [id number] Quality ID # [id number]: Final reports with documentation of one or more dose reduction techniques (e.g., Au tomated exposure control, adjustment of the mA and/or kV according to patient size, use of iterative reconstruction technique) 2010 [employer]- All Rights Reserved
[2016-12-07] MEDS: HYDROCODONE/ACETAMINOPHEN 7.5-325 MG TABLET PO PRN ×2 (16:41→21:25)
[2016-12-07] MEDS ORDERED: FUROSEMIDE INJ/PF 40 MG/4 ML SDV IV ONE (17:00)
[2016-12-07] MEDS: BUDESONIDE NEB 0.5 MG/2 ML AMPUL NEB SCH (20:18)
[2016-12-07] MEDS: WARFARIN SODIUM 5 MG TABLET PO SCH (21:24)
[2016-12-07] MEDS: SIMVASTATIN 40 MG TABLET PO SCH (21:24)
[2016-12-07] MEDS: MONTELUKAST SODIUM 10 MG TABLET PO SCH (21:24)
[2016-12-07] MEDS ORDERED: (PENDING PHARMACY ID) (Insulin Glargine,Hum.Rec.Anlog [Toujeo Solostar] 60 UNIT) SQ SCH (22:00)
[2016-12-07] MEDS ORDERED: INSULIN GLARGINE,HUM.REC.ANLOG 300 UNIT/3 ML INSULN.PEN SUBCUT SCH (22:00)
[2016-12-08] MEDS: METRONIDAZOLE 500 MG TABLET PO SCH ×3 (00:31→16:21)
[2016-12-08] MEDS: IMIPENEM/CILASTATIN SODIUM 500 MG in DEXTROSE 5%-WATER 100 ML IV SCH ×5 (00:31→23:51)
[2016-12-08] MEDS: HYDROCODONE/ACETAMINOPHEN 7.5-325 MG TABLET PO PRN ×4 (01:18→22:31)
[2016-12-08] MEDS: ACETAMINOPHEN 325 MG TABLET PO PRN ×2 (04:33→12:50)
[2016-12-08 06:38] LABS: HEMATOCRIT 31.8 % (36.0-47.0); HEMOGLOBIN 10.7 g/dL (12.0-15.5); HGB HCT DIFFERENCE 0.3; MEAN CORPUSCULAR HEMOGLOBIN 29.1 pg (27.0-33.4); MEAN CORPUSCULAR HGB CONC 33.5 g/dL (32.0-36.0); MEAN CORPUSCULAR VOLUME 87 fl (80-97); RED BLOOD COUNT 3.66 10^6/uL (3.72-5.28); RED CELL DISTRIBUTION WIDTH 18.8 % (11.5-14.0); WHITE BLOOD COUNT 21.5 10^3/uL (4.0-10.5)
[2016-12-08 06:46] LABS: PROTHROMBIN TIME 29.6 SEC (11.4-15.4)
[2016-12-08 06:48] LABS: ANION GAP 10 (5-19); BLOOD UREA NITROGEN 13 mg/dL (7-20); CALCIUM 8.4 mg/dL (8.4-10.2); CARBON DIOXIDE 29 mmol/L (22-30); CHLORIDE 98 mmol/L (98-107); CREATININE RESULT 1.05 mg/dL (0.52-1.25); GLUCOSE 179 mg/dL (75-110); POTASSIUM 3.1 mmol/L (3.6-5.0); SODIUM 137.2 mmol/L (137-145)
[2016-12-08 07:34] LABS: ANISOCYTOSIS 2+; BAND NEUTROPHILS % (MANUAL) 2 % (3-5); BASOPHILS % (MANUAL) 0 % (0-2); EOSINOPHILS % (MANUAL) 0 % (0-6); LYMPHOCYTES % (MANUAL) 2 % (13-45); OVALOCYTES SLIGHT; POIKILOCYTOSIS SLIGHT; POLYCHROMASIA SLIGHT; TOTAL CELLS COUNTED 100
[2016-12-08] MEDS: IPRATROPIUM/ALBUTEROL 0.5-2.5 MG/3 ML AMPUL NEB SCH ×3 (07:55→20:17)
[2016-12-08] MEDS: BUDESONIDE NEB 0.5 MG/2 ML AMPUL NEB SCH ×2 (07:55→20:17)
[2016-12-08] MEDS ORDERED: POTASSIUM CHLORIDE 10 MEQ TABLET.SA PO ONE ×2 (08:30→15:00)
[2016-12-08] MEDS: INSULIN LISPRO 100 UNIT/ML 3 ML VIAL SUBCUT PRN ×4 (08:35→22:29)
[2016-12-08] MEDS: LORATADINE 10 MG TABLET PO SCH (09:35)
[2016-12-08] MEDS: MAGNESIUM SULFATE/D5W 1 GM/100 ML RTUPB IV SCH ×2 (09:35→11:08)
[2016-12-08] MEDS: FLUTICASONE NASAL SPRAY 50 MCG/SPRY 120 SPRAY/16 GM NAREB SCH ×2 (09:36→23:27)
[2016-12-08] MEDS: FAMOTIDINE 20 MG TABLET PO SCH ×2 (09:36→22:30)
[2016-12-08] MEDS ORDERED: ALBUTEROL SULFATE HFA (90 MCG/PUFF) 8 GM MDI (1 MDI/ER DISP) IH PRN (13:06)
[2016-12-08] MEDS ORDERED: ALBUTEROL SULFATE 0.042% NEB (1.25 MG/3 ML) AMPUL NEB PRN ×2 (13:06→14:34)
[2016-12-08] MEDS ORDERED: HYDROCODONE/ACETAMINOPHEN 7.5-325 MG TABLET PO PRN (13:06)
--- NOTE | 2016-12-08 13:25 | PDOC PROGRESS REPORT ---
Subjective Progress Note for:: 12/08/16 Subjective:: Pt states that she is feeling better. Pt states that she had a rash and became warm when she was given Vancomycin. Pt states that she does not want to take medication again if she does not have to. Explained to pt that this is how we treat C. diff. Pt was told that she could have experienced what we call Red Man 's Syndrome. Pt still declined Vancomycin. Physical Exam Vital Signs: Temp Pulse Resp BP Pulse Ox 97.8 F 75 18 112/38 L 95 12/08/16 07:31 12/08/16 07:55 12/08/16 07:55 12/08/16 07:31 12/08/16 07:55 Intake & Output 12/07/16 12/08/16 12/09/16 06:59 06:59 06:59 Intake Total 909 Output Total 677 Balance 232 General appearance: PRESENT: no acute distress, well-developed, well-nourished, other - sitting in chair. Head exam: PRESENT: atraumatic, normocephalic Eye exam: PRESENT: conjunctiva pink, EOMI. ABSENT: scleral icterus Ear exam: PRESENT: normal external ear exam Mouth exam: PRESENT: moist, tongue midline Neck exam: ABSENT: carotid bruit, JVD, lymphadenopathy, thyromegaly Respiratory exam: PRESENT: other - Good air movement, + diminished at bases, faint rhochi heard at bases Cardiovascular exam: PRESENT: RRR, other - mechanical click heard Pulses: PRESENT: normal dorsalis pedis pul Vascular exam: PRESENT: normal capillary refill GI/Abdominal exam: PRESENT: normal bowel sounds, soft. ABSENT: distended, guarding, mass, organolmegaly, rebound, tenderness Rectal exam: PRESENT: deferred Extremities exam: PRESENT: full ROM. ABSENT: calf tenderness, clubbing Neurological exam: PRESENT: alert, awake, oriented to person, oriented to place , oriented to time, oriented to situation, CN II-XII grossly intact. ABSENT: motor sensory deficit Psychiatric exam: PRESENT: appropriate affect, normal mood. ABSENT: homicidal ideation, suicidal ideation Skin exam: PRESENT: dry, intact, warm. ABSENT: cyanosis, rash Results Laboratory Results: 12/08/16 05:42 12/08/16 05:42 12/08/16 12/08/16 05:42 05:42 WBC 21.5 H RBC 3.66 L Hgb 10.7 L Hct 31.8 L MCV 87 MCH 29.1 MCHC 33.5 RDW 18.8 H Plt Count 190 Seg Neutrophils % Not Reportable Lymphocytes % Not Reportable Monocytes % Not Reportable Eosinophils % Not Reportable Basophils % Not Reportable Absolute Neutrophils Not Reportable Absolute Lymphocytes Not Reportable Absolute Monocytes Not Reportable Absolute Eosinophils Not Reportable Absolute Basophils Not Reportable Sodium 137.2 Potassium 3.1 L Chloride 98 Carbon Dioxide 29 Anion Gap 10 BUN 13 Creatinine 1.05 Est GFR ( Amer) > 60 Est GFR (Non-Af Amer) 52 L Glucose 179 H Calcium 8.4 Impressions: Chest CT 12/07/16 00:00 IMPRESSION: CONSOLIDATIONS IN THE LOWER LOBES CONSISTENT WITH PNEUMONIA. SMALL RIGHT PLEURAL EFFUSION. Chest X-Ray 12/07/16 06:15 IMPRESSION: Moderate bibasilar pneumonia. Assessment & Plan - Diagnosis (1) Sepsis Is this a current diagnosis for this admission?: Yes Plan: Secondary to C. diff and Nosocomial Pneumonia: Will continue current treatment. (2) C. difficile diarrhea Is this a current diagnosis for this admission?: Yes Plan: Flagyl. 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 Pt continue to decline PO Vancomycin for now. Pt was told that it is part of treatment for this condition. Pt placed in contact Isolation. (3) Nosocomial pneumonia Is this a current diagnosis for this admission?: Yes Plan: Pt with multiple drug allergies. Pt tolerating Imipenem for treatment. CT of chest demonstrated bilateral lower lobe pneumonia. (4) Hypokalemia Is this a current diagnosis for this admission?: Yes Plan: Will give potassium replacement. (5) Obesity hypoventilation syndrome Is this a current diagnosis for this admission?: Yes Plan: Pt refuses to use CPAP. Will continue Nasal Canula. (6) COPD (chronic obstructive pulmonary disease) Qualifiers: COPD type: emphysema Emphysema type: unspecified Qualified Code(s): J43.9 - Emphysema, unspecified Is this a current diagnosis for this admission?: Yes Plan: Pt currently not experiencing acute exacerbation. Breathing treatments PRN. (7) History of mechanical aortic valve replacement Is this a current diagnosis for this admission?: Yes Plan: Will continue Coumadin. Pt's INR today in 2.65. Goal is 2.5-3.5 (8) JAMEEL (obstructive sleep apnea) Is this a current diagnosis for this admission?: Yes Plan: Pt suppose to use CPAP but does not use it. Will continue Nasal Canula. (9) DVT prophylaxis Is this a current diagnosis for this admission?: Yes Plan: Will continue Coumadin. (10) Bacteremia Is this a current diagnosis for this admission?: Yes Plan: One blood culture Gram Positive Cocci. Will continue current treatment until more is known. - Time Time Spent with patient: 25-34 minutes
[2016-12-08] MEDS ORDERED: ALBUTEROL SULFATE HFA (90 MCG/PUFF) 200 PUFF/8.5 GM MDI IH PRN (14:43)
[2016-12-08] MEDS ORDERED: GABAPENTIN 300 MG CAPSULE PO ONE (15:30)
[2016-12-08] MEDS ORDERED: (PENDING PHARMACY ID) (Ranitidine Hcl [Zantac 150 Mg Tablet] 150 MG) PO SCH (18:00)
[2016-12-08] MEDS ORDERED: BUDESONIDE NEB 0.5 MG/2 ML AMPUL NEB SCH (20:00)
[2016-12-08] MEDS ORDERED: FLUTICASONE NASAL SPRAY 50 MCG/SPRY 120 SPRAY/16 GM NASL SCH ×2 (22:00)
[2016-12-08] MEDS ORDERED: (PENDING PHARMACY ID) (Simvastatin [Zocor 80 Mg Tablet] 80 MG) PO SCH (22:00)
[2016-12-08] MEDS ORDERED: WARFARIN SODIUM 5 MG TABLET PO SCH (22:00)
[2016-12-08] MEDS ORDERED: (PENDING PHARMACY ID) (Warfarin Sodium 5 MG) PO SCH (22:00)
[2016-12-08] MEDS ORDERED: SIMVASTATIN 40 MG TABLET PO SCH (22:00)
[2016-12-08] MEDS ORDERED: MONTELUKAST SODIUM 10 MG TABLET PO SCH (22:00)
[2016-12-08] MEDS: METOPROLOL TARTRATE 25 MG TABLET PO SCH (22:29)
[2016-12-08] MEDS: WARFARIN SODIUM 5 MG TABLET PO SCH (22:30)
[2016-12-08] MEDS: GABAPENTIN 300 MG CAPSULE PO SCH (22:31)
[2016-12-08] MEDS: SIMVASTATIN 40 MG TABLET PO SCH (22:31)
[2016-12-08] MEDS: MONTELUKAST SODIUM 10 MG TABLET PO SCH (22:32)
[2016-12-09] MEDS: METRONIDAZOLE 500 MG TABLET PO SCH ×3 (01:48→17:10)
[2016-12-09 05:56] LABS: HEMATOCRIT 35.5 % (36.0-47.0); HEMOGLOBIN 11.8 g/dL (12.0-15.5); HGB HCT DIFFERENCE -0.1; MEAN CORPUSCULAR HEMOGLOBIN 29.2 pg (27.0-33.4); MEAN CORPUSCULAR HGB CONC 33.4 g/dL (32.0-36.0); MEAN CORPUSCULAR VOLUME 88 fl (80-97); RED BLOOD COUNT 4.05 10^6/uL (3.72-5.28); RED CELL DISTRIBUTION WIDTH 19.4 % (11.5-14.0); WHITE BLOOD COUNT 21.1 10^3/uL (4.0-10.5)
[2016-12-09] MEDS: GABAPENTIN 300 MG CAPSULE PO SCH ×3 (06:13→21:45)
[2016-12-09] MEDS: IMIPENEM/CILASTATIN SODIUM 500 MG in DEXTROSE 5%-WATER 100 ML IV SCH ×3 (06:13→17:10)
[2016-12-09 06:17] LABS: ANION GAP 9 (5-19); BLOOD UREA NITROGEN 15 mg/dL (7-20); CARBON DIOXIDE 32 mmol/L (22-30); CHLORIDE 96 mmol/L (98-107); CREATININE RESULT 1.08 mg/dL (0.52-1.25); GLUCOSE 163 mg/dL (75-110); MAGNESIUM 2.3 mg/dL (1.6-2.3); SODIUM 136.6 mmol/L (137-145)
[2016-12-09 06:21] LABS: BAND NEUTROPHILS % (MANUAL) 2 % (3-5); BASOPHILS % (MANUAL) 0 % (0-2); EOSINOPHILS % (MANUAL) 0 % (0-6); LYMPHOCYTES % (MANUAL) 5 % (13-45); TOTAL CELLS COUNTED 100
[2016-12-09 06:27] LABS: ANISOCYTOSIS 1+; OVALOCYTES SLIGHT; POIKILOCYTOSIS SLIGHT; TOXIC GRANULATION 1+
[2016-12-09] MEDS: IPRATROPIUM/ALBUTEROL 0.5-2.5 MG/3 ML AMPUL NEB SCH ×3 (07:38→21:15)
[2016-12-09] MEDS: BUDESONIDE NEB 0.5 MG/2 ML AMPUL NEB SCH ×2 (07:39→21:22)
--- NOTE | 2016-12-09 08:21 | Physician Advisory Note ---
Physician Advisor ProgressNote .: [facility] to the [facility], I have reviewed the medical record for this patient. Physician Advisor Statement: Please consider documenting, if you agree: 1. findings that support dx of sepsis - or state "sepsis was considered but ruled out" (Did you truly clinically feel pt was septic initially, or did pt just happen to show some criteria? Did you treat patient with recommended sepsis tx?) - (+) leukocytosis, tachypnea, tachycardia at times, hypotension w/MAP in 60s at times, but no AMS/thrombocytopenia/ARF/hyperbili>1.1, no low P/F ratio initially, no hyperlactatemia.... Given 500ml IVF in ED but no IVF after that. Given IV abx promptly, but that was appropriate for the pneumonia anywasy. - meets Sepsis-2 criteria but not Sepsis-3 criteria. Meeting criteria doesn' t necessarily mean the pt was septic, just that it was appropriate to consider sepsis. What attending thought clinically (& therefore how he treated) is what counts most. 2. please either state "bacteremia" or "sepsis ...", but not both - coders/reviewers see bacteremia as a mild issue w/bacteria in blood that could be a contaminant, and sepsis as a severe issue with serious s/s resulting from bacteria in blood. If both terms are documented, coders are required to ask attending which one it was, and attending is required to respond to query. If the attending is locums, he does not get paid extra for the time spent having to re-review chart & respond to queries after his shift is over & pt has gone home. 3. "Pneumonia BLL, suspect GNR given recent hospitalization & rehab stay, COPD , ..." 4. "morbid obesity, w/BMI 46.4" Thanks! CK
[2016-12-09] MEDS: OLOPATADINE HCL 0.1% OPH SOLN 5 ML OU SCH (09:22)
[2016-12-09] MEDS: FLUTICASONE NASAL SPRAY 50 MCG/SPRY 120 SPRAY/16 GM NAREB SCH ×2 (09:22→21:45)
[2016-12-09] MEDS: METOPROLOL TARTRATE 25 MG TABLET PO SCH ×2 (09:23→21:46)
[2016-12-09] MEDS: LORATADINE 10 MG TABLET PO SCH (09:23)
[2016-12-09] MEDS: FAMOTIDINE 20 MG TABLET PO SCH ×2 (09:23→21:46)
[2016-12-09] MEDS ORDERED: LORATADINE 10 MG TABLET PO SCH (10:00)
[2016-12-09] MEDS ORDERED: ONDANSETRON 4 MG TAB.RAPDIS PO PRN (13:00)
[2016-12-09] MEDS: HYDROCODONE/ACETAMINOPHEN 7.5-325 MG TABLET PO PRN (13:15)
[2016-12-09] MEDS ORDERED: DIPHENHYDRAMINE HCL 50 MG CAPSULE PO PRN (13:32)
--- NOTE | 2016-12-09 13:45 | PDOC PROGRESS REPORT ---
Subjective Progress Note for:: 12/09/16 Subjective:: Pt has agreed to take Oral Vancomycin. Pt states that she is having a lot of diarrhea. Physical Exam Vital Signs: Temp Pulse Resp BP Pulse Ox 98.7 F 80 18 106/34 L 93 12/09/16 07:18 12/09/16 07:39 12/09/16 07:39 12/09/16 07:18 12/09/16 07:39 Intake & Output 12/08/16 12/09/16 12/10/16 06:59 06:59 06:59 Intake Total 909 1878 Output Total 677 100 Balance 232 1778 Weight 111.5 kg General appearance: PRESENT: no acute distress, well-developed, well-nourished, other - sitting in chair. Head exam: PRESENT: atraumatic, normocephalic Eye exam: PRESENT: conjunctiva pink, EOMI. ABSENT: scleral icterus Ear exam: PRESENT: normal external ear exam Mouth exam: PRESENT: moist, tongue midline Neck exam: ABSENT: carotid bruit, JVD, lymphadenopathy, thyromegaly Respiratory exam: PRESENT: clear to auscultation erick. ABSENT: rales, rhonchi, wheezes Cardiovascular exam: PRESENT: RRR. ABSENT: diastolic murmur, rubs, systolic murmur Pulses: PRESENT: normal dorsalis pedis pul GI/Abdominal exam: PRESENT: normal bowel sounds, soft. ABSENT: distended, guarding, mass, organolmegaly, rebound, tenderness Rectal exam: PRESENT: deferred Extremities exam: PRESENT: full ROM. ABSENT: calf tenderness, clubbing, pedal edema Neurological exam: PRESENT: alert, awake, oriented to person, oriented to place , oriented to time, oriented to situation, CN II-XII grossly intact. ABSENT: motor sensory deficit Psychiatric exam: PRESENT: appropriate affect, normal mood. ABSENT: homicidal ideation, suicidal ideation Skin exam: PRESENT: dry, intact, warm. ABSENT: cyanosis, rash Results Laboratory Results: 12/09/16 05:20 12/09/16 05:20 12/09/16 12/09/16 05:20 05:20 WBC 21.1 H RBC 4.05 Hgb 11.8 L Hct 35.5 L MCV 88 MCH 29.2 MCHC 33.4 RDW 19.4 H Plt Count 229 Seg Neutrophils % Not Reportable Lymphocytes % Not Reportable Monocytes % Not Reportable Eosinophils % Not Reportable Basophils % Not Reportable Absolute Neutrophils Not Reportable Absolute Lymphocytes Not Reportable Absolute Monocytes Not Reportable Absolute Eosinophils Not Reportable Absolute Basophils Not Reportable Sodium 136.6 L Potassium 4.0 Chloride 96 L Carbon Dioxide 32 H Anion Gap 9 BUN 15 Creatinine 1.08 Est GFR ( Amer) > 60 Est GFR (Non-Af Amer) 51 L Glucose 163 H Calcium 9.0 Magnesium 2.3 12/07/16 19:25 Nasophary (Mrsa Only) MRSA Culture - Final NO MRSA RECOVERED Impressions: Chest CT 12/07/16 00:00 IMPRESSION: CONSOLIDATIONS IN THE LOWER LOBES CONSISTENT WITH PNEUMONIA. SMALL RIGHT PLEURAL EFFUSION. Chest X-Ray 12/07/16 06:15 IMPRESSION: Moderate bibasilar pneumonia. Assessment & Plan - Diagnosis (1) Sepsis Is this a current diagnosis for this admission?: Yes Plan: Secondary to C. diff and Nosocomial Pneumonia: Will add Vancomycin Oral for C. diff treatment. Will continue Imipenem/Cilastatin. Resp 26, BP 99/40, WBC 22.6, +C.diff - Sepsis but not Septic Shock. (2) C. difficile diarrhea Is this a current diagnosis for this admission?: Yes Plan: Flagyl. 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 Will add PO Vancomycin. Pt placed in contact Isolation. (3) Nosocomial pneumonia Is this a current diagnosis for this admission?: Yes Plan: Pt with multiple drug allergies. Pt tolerating Imipenem for treatment. CT of chest demonstrated bilateral lower lobe pneumonia. (4) Hypokalemia Is this a current diagnosis for this admission?: Yes Plan: resolved. (5) Obesity hypoventilation syndrome Is this a current diagnosis for this admission?: Yes Plan: Pt refuses to use CPAP. Will continue Nasal Canula. (6) COPD (chronic obstructive pulmonary disease) Qualifiers: COPD type: emphysema Emphysema type: unspecified Qualified Code(s): J43.9 - Emphysema, unspecified Is this a current diagnosis for this admission?: Yes Plan: Pt currently not experiencing acute exacerbation. Breathing treatments PRN. (7) History of mechanical aortic valve replacement Is this a current diagnosis for this admission?: Yes Plan: Will hold Coumadin. Pt's INR today in 3.54 . Goal is 2.5-3.5 (8) JAMEEL (obstructive sleep apnea) Is this a current diagnosis for this admission?: Yes Plan: Pt suppose to use CPAP but does not use it. Will continue Nasal Canula. (9) DVT prophylaxis Is this a current diagnosis for this admission?: Yes Plan: Will continue Coumadin. (10) Bacteremia Is this a current diagnosis for this admission?: Yes Plan: One blood culture Gram Positive Cocci. Will continue current treatment until more is known. This could be a contaminate. - Time Time Spent with patient: 15-24 minutes
[2016-12-09] MEDS: VANCOMYCIN HCL INJ 500 MG VIAL PO SCH (17:11)
[2016-12-09] MEDS: INSULIN LISPRO 100 UNIT/ML 3 ML VIAL SUBCUT PRN ×2 (17:11→22:42)
[2016-12-09] MEDS: SIMVASTATIN 40 MG TABLET PO SCH (21:46)
[2016-12-09] MEDS: MONTELUKAST SODIUM 10 MG TABLET PO SCH (21:46)
[2016-12-10] MEDS: IMIPENEM/CILASTATIN SODIUM 500 MG in DEXTROSE 5%-WATER 100 ML IV SCH ×4 (00:06→17:29)
[2016-12-10] MEDS: VANCOMYCIN HCL INJ 500 MG VIAL PO SCH ×4 (00:06→17:29)
[2016-12-10] MEDS: METRONIDAZOLE 500 MG TABLET PO SCH ×3 (01:10→17:29)
[2016-12-10] MEDS: HYDROCODONE/ACETAMINOPHEN 7.5-325 MG TABLET PO PRN ×5 (01:19→22:51)
[2016-12-10 05:01] LABS: ABSOLUTE BASOPHILS # (AUTO) 0.1 10^3/uL (0.0-0.2); ABSOLUTE EOSINOPHILS # (AUTO) 0.5 10^3/uL (0.0-0.6); ABSOLUTE LYMPHOCYTES (AUTO) 1.4 10^3/uL (0.5-4.7); ABSOLUTE NEUT (AUTO) 14.9 10^3/uL (1.7-8.2); BASOPHILS % (AUTO) 0.4 % (0-2); HEMATOCRIT 34.5 % (36.0-47.0); HEMOGLOBIN 11.3 g/dL (12.0-15.5); HGB HCT DIFFERENCE -0.6; MEAN CORPUSCULAR HEMOGLOBIN 28.6 pg (27.0-33.4); MEAN CORPUSCULAR HGB CONC 32.9 g/dL (32.0-36.0); MEAN CORPUSCULAR VOLUME 87 fl (80-97); MONOCYTES % (AUTO) 5.5 % (3-13); RED BLOOD COUNT 3.97 10^6/uL (3.72-5.28); SEGMENTED NEUTROPHILS % (AUTO) 83.1 % (42-78); WHITE BLOOD COUNT 17.9 10^3/uL (4.0-10.5)
[2016-12-10 05:11] LABS: PROTHROMBIN TIME 36.9 SEC (11.4-15.4)
[2016-12-10 05:18] LABS: BLOOD UREA NITROGEN 19 mg/dL (7-20); CALCIUM 8.9 mg/dL (8.4-10.2); CHLORIDE 98 mmol/L (98-107); CREATININE RESULT 1.04 mg/dL (0.52-1.25); GLUCOSE 194 mg/dL (75-110); POTASSIUM 4.4 mmol/L (3.6-5.0)
[2016-12-10 05:19] LABS: ANION GAP 7 (5-19); CARBON DIOXIDE 31 mmol/L (22-30); SODIUM 135.9 mmol/L (137-145)
[2016-12-10] MEDS: GABAPENTIN 300 MG CAPSULE PO SCH ×3 (06:12→22:24)
[2016-12-10] MEDS: BUDESONIDE NEB 0.5 MG/2 ML AMPUL NEB SCH ×2 (08:28→21:30)
[2016-12-10] MEDS: IPRATROPIUM/ALBUTEROL 0.5-2.5 MG/3 ML AMPUL NEB SCH ×3 (08:28→21:29)
[2016-12-10] MEDS ORDERED: WARFARIN SODIUM 2.5 MG TABLET PO SCH (10:00)
[2016-12-10] MEDS: FAMOTIDINE 20 MG TABLET PO SCH ×2 (10:01→22:24)
[2016-12-10] MEDS: FLUTICASONE NASAL SPRAY 50 MCG/SPRY 120 SPRAY/16 GM NAREB SCH ×2 (10:01→22:24)
[2016-12-10] MEDS: OLOPATADINE HCL 0.1% OPH SOLN 5 ML OU SCH (10:01)
[2016-12-10] MEDS: METOPROLOL TARTRATE 25 MG TABLET PO SCH ×2 (10:02→22:24)
[2016-12-10] MEDS: LORATADINE 10 MG TABLET PO SCH (10:02)
[2016-12-10] MEDS: INSULIN LISPRO 100 UNIT/ML 3 ML VIAL SUBCUT PRN ×2 (12:03→17:30)
--- NOTE | 2016-12-10 15:43 | PDOC PROGRESS REPORT ---
Subjective Progress Note for:: 12/10/16 Subjective:: Pt states that she is feeling better. Pt states that she is tolerating Vancomycin. Pt states that she had a more formed stool. Physical Exam Vital Signs: Temp Pulse Resp BP Pulse Ox 97.4 F 62 16 118/37 L 99 12/10/16 10:56 12/10/16 14:02 12/10/16 14:02 12/10/16 10:56 12/10/16 14:02 Intake & Output 12/09/16 12/10/16 12/11/16 06:59 06:59 06:59 Intake Total 1878 2450 Output Total 100 Balance 1778 2450 Weight 111.5 kg General appearance: PRESENT: no acute distress, well-developed, well-nourished Head exam: PRESENT: atraumatic, normocephalic Eye exam: PRESENT: conjunctiva pink, EOMI. ABSENT: scleral icterus Ear exam: PRESENT: normal external ear exam Mouth exam: PRESENT: moist, tongue midline Neck exam: ABSENT: carotid bruit, JVD, lymphadenopathy, thyromegaly Respiratory exam: PRESENT: clear to auscultation erick. ABSENT: rales, rhonchi, wheezes Cardiovascular exam: PRESENT: RRR. ABSENT: diastolic murmur, rubs, systolic murmur Pulses: PRESENT: normal dorsalis pedis pul Vascular exam: PRESENT: normal capillary refill GI/Abdominal exam: PRESENT: normal bowel sounds, soft. ABSENT: distended, guarding, mass, organolmegaly, rebound, tenderness Rectal exam: PRESENT: deferred Extremities exam: PRESENT: full ROM. ABSENT: calf tenderness, clubbing, pedal edema Neurological exam: PRESENT: alert, awake, oriented to person, oriented to place , oriented to time, oriented to situation, CN II-XII grossly intact. ABSENT: motor sensory deficit Psychiatric exam: PRESENT: appropriate affect, normal mood. ABSENT: homicidal ideation, suicidal ideation Skin exam: PRESENT: dry, intact, warm. ABSENT: cyanosis, rash Results Laboratory Results: 12/10/16 04:30 12/10/16 04:30 12/10/16 12/10/16 04:30 04:30 WBC 17.9 H RBC 3.97 Hgb 11.3 L Hct 34.5 L MCV 87 MCH 28.6 MCHC 32.9 RDW 19.0 H Plt Count 238 Seg Neutrophils % 83.1 H Lymphocytes % 8.0 L Monocytes % 5.5 Eosinophils % 3.0 Basophils % 0.4 Absolute Neutrophils 14.9 H Absolute Lymphocytes 1.4 Absolute Monocytes 1.0 Absolute Eosinophils 0.5 Absolute Basophils 0.1 Sodium 135.9 L Potassium 4.4 Chloride 98 Carbon Dioxide 31 H Anion Gap 7 BUN 19 Creatinine 1.04 Est GFR ( Amer) > 60 Est GFR (Non-Af Amer) 53 L Glucose 194 H Calcium 8.9 12/08/16 00:41 Sputum Gram Stain - Final 12/08/16 00:41 Sputum Sputum Culture - Final NO GROWTH 2 DAYS 12/07/16 19:25 Nasophary (Mrsa Only) MRSA Culture - Final NO MRSA RECOVERED Impressions: Chest CT 12/07/16 00:00 IMPRESSION: CONSOLIDATIONS IN THE LOWER LOBES CONSISTENT WITH PNEUMONIA. SMALL RIGHT PLEURAL EFFUSION. Chest X-Ray 12/07/16 06:15 IMPRESSION: Moderate bibasilar pneumonia. Assessment & Plan - Diagnosis (1) Sepsis Qualifiers: Sepsis type: sepsis due to unspecified organism Qualified Code(s): A41.9 - Sepsis, unspecified organism Is this a current diagnosis for this admission?: Yes Plan: Secondary to C. diff and Nosocomial Pneumonia: Will continue Vancomycin and flagyl oral for C. diff treatment. Will continue Imipenem/Cilastatin. (2) C. 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 Will continue PO Vancomycin and Flagyl. Pt placed in contact Isolation. (3) Nosocomial pneumonia Is this a current diagnosis for this admission?: Yes Plan: Pt with multiple drug allergies. Pt tolerating Imipenem for treatment. CT of chest demonstrated bilateral lower lobe pneumonia. (4) Hypokalemia Is this a current diagnosis for this admission?: Yes Plan: resolved. (5) Obesity hypoventilation syndrome Is this a current diagnosis for this admission?: Yes Plan: Pt refuses to use CPAP. Will continue Nasal Canula. (6) COPD (chronic obstructive pulmonary disease) Qualifiers: COPD type: emphysema Emphysema type: unspecified Qualified Code(s): J43.9 - Emphysema, unspecified Is this a current diagnosis for this admission?: Yes Plan: Pt currently not experiencing acute exacerbation. Breathing treatments PRN. (7) Bacteremia Is this a current diagnosis for this admission?: Yes Plan: One blood culture Gram Positive Cocci. Will continue current treatment until more is known. This could be a contaminate. (8) History of mechanical aortic valve replacement Is this a current diagnosis for this admission?: Yes Plan: Will hold Coumadin. Pt's INR today in 3.54 . Goal is 2.5-3.5 (9) JAMEEL (obstructive sleep apnea) Is this a current diagnosis for this admission?: Yes Plan: Pt suppose to use CPAP but does not use it. Will continue Nasal Canula. (10) DVT prophylaxis Is this a current diagnosis for this admission?: Yes Plan: Will continue INR 3.52.
[2016-12-10] MEDS: MONTELUKAST SODIUM 10 MG TABLET PO SCH (22:24)
[2016-12-10] MEDS: SIMVASTATIN 40 MG TABLET PO SCH (22:24)
[2016-12-11] MEDS: IMIPENEM/CILASTATIN SODIUM 500 MG in DEXTROSE 5%-WATER 100 ML IV SCH ×5 (00:08→23:13)
[2016-12-11] MEDS: VANCOMYCIN HCL INJ 500 MG VIAL PO SCH ×5 (00:09→23:13)
[2016-12-11] MEDS: INSULIN LISPRO 100 UNIT/ML 3 ML VIAL SUBCUT PRN ×5 (00:58→23:13)
[2016-12-11] MEDS: METRONIDAZOLE 500 MG TABLET PO SCH ×3 (00:59→17:07)
[2016-12-11] MEDS ORDERED: NORMAL SALINE 1000 ML 500 ML IV ONE ×4 (02:15→05:30)
[2016-12-11] MEDS: ACETAMINOPHEN 325 MG TABLET PO PRN (05:29)
[2016-12-11] MEDS: GABAPENTIN 300 MG CAPSULE PO SCH ×3 (05:29→22:04)
[2016-12-11 05:55] LABS: ABSOLUTE BASOPHILS # (AUTO) 0.1 10^3/uL (0.0-0.2); ABSOLUTE EOSINOPHILS # (AUTO) 0.5 10^3/uL (0.0-0.6); ABSOLUTE LYMPHOCYTES (AUTO) 1.1 10^3/uL (0.5-4.7); ABSOLUTE MONOCYTES (AUTO) 0.8 10^3/uL (0.1-1.4); ABSOLUTE NEUT (AUTO) 9.3 10^3/uL (1.7-8.2); BASOPHILS % (AUTO) 0.6 % (0-2); EOSINOPHILS % (AUTO) 4.6 % (0-6); HEMATOCRIT 35.4 % (36.0-47.0); HEMOGLOBIN 11.5 g/dL (12.0-15.5); HGB HCT DIFFERENCE -0.9; LYMPHOCYTES % (AUTO) 9.7 % (13-45); MEAN CORPUSCULAR HEMOGLOBIN 28.4 pg (27.0-33.4); MEAN CORPUSCULAR HGB CONC 32.4 g/dL (32.0-36.0); MEAN CORPUSCULAR VOLUME 88 fl (80-97); MONOCYTES % (AUTO) 6.4 % (3-13); RED BLOOD COUNT 4.04 10^6/uL (3.72-5.28); RED CELL DISTRIBUTION WIDTH 19.1 % (11.5-14.0); SEGMENTED NEUTROPHILS % (AUTO) 78.7 % (42-78); WHITE BLOOD COUNT 11.8 10^3/uL (4.0-10.5)
[2016-12-11 05:58] LABS: BLOOD UREA NITROGEN 16 mg/dL (7-20); CALCIUM 8.5 mg/dL (8.4-10.2); CHLORIDE 103 mmol/L (98-107); CREATININE RESULT 0.94 mg/dL (0.52-1.25); GLUCOSE 193 mg/dL (75-110); MAGNESIUM 2.4 mg/dL (1.6-2.3); POTASSIUM 4.5 mmol/L (3.6-5.0)
[2016-12-11 06:06] LABS: ANION GAP 5 (5-19); CARBON DIOXIDE 31 mmol/L (22-30); SODIUM 138.8 mmol/L (137-145)
--- NOTE | 2016-12-11 06:25 | EKG REPORT ---
SEVERITY:- ABNORMAL ECG - A FLUTTER 2:1 AVB : Confirmed by: Dario Solis MD 11-Dec-2016 06:25:20
[2016-12-11] MEDS ORDERED: DIGOXIN 0.25 MG TABLET PO ONE (07:32)
[2016-12-11] MEDS: IPRATROPIUM/ALBUTEROL 0.5-2.5 MG/3 ML AMPUL NEB SCH ×2 (09:01→14:14)
[2016-12-11] MEDS: BUDESONIDE NEB 0.5 MG/2 ML AMPUL NEB SCH ×2 (09:02→20:40)
[2016-12-11] MEDS ORDERED: DIGOXIN INJ 0.5 MG/2 ML AMPULE IV ONE (09:30)
--- NOTE | 2016-12-11 09:37 | Progress Note ---
Provider Note Provider Note: December 11, 2016: During the later hours of the evening shift, nursing staff reported that patient was tachycardic. No specific complaints on the part of the patient. Vital signs otherwise remarkable only for borderline low blood pressure, with systolic pressure in the upper 90s, which did preclude giving her as needed dose of beta-india for the tachycardia. No fever. EKG revealed sinus tachycardia. Pulse remained approximately 140, despite 4 separate 500 cc boluses of normal saline. Approximately 6:30 PM, patient's floor nurse and I went to her bedside. She was actually asleep in the recliner. Awoke easily. Skin warm and dry. She was smiling pleasant and cooperative. No obvious distress other than perhaps mildly anxious. Abdomen was soft and completely nontender to palpation. States she was having no pain other than her usual chronic pain. Above discussed with daytime hospitalist team.
[2016-12-11] MEDS: LORATADINE 10 MG TABLET PO SCH (09:54)
[2016-12-11] MEDS: FAMOTIDINE 20 MG TABLET PO SCH ×2 (09:54→22:02)
[2016-12-11] MEDS: OLOPATADINE HCL 0.1% OPH SOLN 5 ML OU SCH (09:55)
[2016-12-11] MEDS: FLUTICASONE NASAL SPRAY 50 MCG/SPRY 120 SPRAY/16 GM NAREB SCH ×2 (09:55→22:05)
[2016-12-11] MEDS: METOPROLOL TARTRATE 25 MG TABLET PO SCH ×2 (10:03→22:04)
--- NOTE | 2016-12-11 13:48 | PDOC PROGRESS REPORT ---
Subjective Progress Note for:: 12/11/16 Subjective:: Pt stats that she is doing ok. Nursing states that pt's heart rate has been elevated. Physical Exam Vital Signs: Temp Pulse Resp BP Pulse Ox 97.8 F 72 18 101/49 L 97 12/11/16 07:24 12/11/16 09:02 12/11/16 09:02 12/11/16 07:24 12/11/16 09:02 Intake & Output 12/10/16 12/11/16 12/12/16 06:59 06:59 06:59 Intake Total 2450 3012 Balance 2450 3012 Weight 111.5 kg General appearance: PRESENT: no acute distress, well-developed, well-nourished Head exam: PRESENT: atraumatic, normocephalic Eye exam: PRESENT: conjunctiva pink, EOMI. ABSENT: scleral icterus Ear exam: PRESENT: normal external ear exam Mouth exam: PRESENT: moist, tongue midline Neck exam: ABSENT: carotid bruit, JVD, lymphadenopathy, thyromegaly Respiratory exam: PRESENT: clear to auscultation erick. ABSENT: rales, rhonchi, wheezes Cardiovascular exam: PRESENT: irregular rhythm, tachycardia Pulses: PRESENT: normal dorsalis pedis pul Vascular exam: PRESENT: normal capillary refill GI/Abdominal exam: PRESENT: normal bowel sounds, soft. ABSENT: distended, guarding, mass, organolmegaly, rebound, tenderness Rectal exam: PRESENT: deferred Extremities exam: PRESENT: full ROM. ABSENT: calf tenderness, clubbing, pedal edema Neurological exam: PRESENT: alert, awake, oriented to person, oriented to place , oriented to time, oriented to situation, CN II-XII grossly intact. ABSENT: motor sensory deficit Psychiatric exam: PRESENT: appropriate affect, normal mood. ABSENT: homicidal ideation, suicidal ideation Skin exam: PRESENT: dry, intact, warm. ABSENT: cyanosis, rash Results Laboratory Results: 12/11/16 05:38 12/11/16 05:38 12/11/16 12/11/16 05:38 05:38 WBC 11.8 H RBC 4.04 Hgb 11.5 L Hct 35.4 L MCV 88 MCH 28.4 MCHC 32.4 RDW 19.1 H Plt Count 199 Seg Neutrophils % 78.7 H Lymphocytes % 9.7 L Monocytes % 6.4 Eosinophils % 4.6 Basophils % 0.6 Absolute Neutrophils 9.3 H Absolute Lymphocytes 1.1 Absolute Monocytes 0.8 Absolute Eosinophils 0.5 Absolute Basophils 0.1 Sodium 138.8 Potassium 4.5 Chloride 103 Carbon Dioxide 31 H Anion Gap 5 BUN 16 Creatinine 0.94 Est GFR ( Amer) > 60 Est GFR (Non-Af Amer) > 60 Glucose 193 H Calcium 8.5 Magnesium 2.4 H 12/08/16 00:41 Sputum Gram Stain - Final 12/08/16 00:41 Sputum Sputum Culture - Final NO GROWTH 2 DAYS Impressions: Chest CT 12/07/16 00:00 IMPRESSION: CONSOLIDATIONS IN THE LOWER LOBES CONSISTENT WITH PNEUMONIA. SMALL RIGHT PLEURAL EFFUSION. Chest X-Ray 12/07/16 06:15 IMPRESSION: Moderate bibasilar pneumonia. Assessment & Plan - Diagnosis (1) Atrial flutter Qualifiers: Atrial flutter type: typical Qualified Code(s): I48.3 - Typical atrial flutter Is this a current diagnosis for this admission?: Yes Plan: Will give Cardiazem. Pt was given Digoxin which did not help with rate control. (2) Sepsis Qualifiers: Sepsis type: sepsis due to unspecified organism Qualified Code(s): A41.9 - Sepsis, unspecified organism Is this a current diagnosis for this admission?: Yes Plan: Secondary to C. diff and Nosocomial Pneumonia: Will continue Vancomycin and flagyl oral for C. diff treatment. Will continue Imipenem/Cilastatin. (3) C. 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 Will continue PO Vancomycin and Flagyl. Pt placed in contact Isolation. (4) Nosocomial pneumonia Is this a current diagnosis for this admission?: Yes Plan: Pt with multiple drug allergies. Pt tolerating Imipenem for treatment. CT of chest demonstrated bilateral lower lobe pneumonia. (5) Hypokalemia Is this a current diagnosis for this admission?: Yes Plan: resolved. (6) Obesity hypoventilation syndrome Is this a current diagnosis for this admission?: Yes Plan: Pt refuses to use CPAP. Will continue Nasal Canula. (7) COPD (chronic obstructive pulmonary disease) Qualifiers: COPD type: emphysema Emphysema type: unspecified Qualified Code(s): J43.9 - Emphysema, unspecified Is this a current diagnosis for this admission?: Yes Plan: Pt currently not experiencing acute exacerbation. Breathing treatments PRN. (8) Bacteremia Is this a current diagnosis for this admission?: Yes Plan: One blood culture Gram Positive Cocci. Will continue current treatment until more is known. This could be a contaminate. (9) History of mechanical aortic valve replacement Is this a current diagnosis for this admission?: Yes Plan: Will hold Coumadin. Pt's INR today in 3.54 . Goal is 2.5-3.5 (10) JAMEEL (obstructive sleep apnea) Is this a current diagnosis for this admission?: Yes Plan: Pt suppose to use CPAP but does not use it. Will continue Nasal Canula. (11) DVT prophylaxis Is this a current diagnosis for this admission?: Yes Plan: Will continue INR daily. - Time Time Spent with patient: 15-24 minutes
[2016-12-11] MEDS ORDERED: DILTIAZEM HCL 30 MG TABLET PO ONE (14:00)
[2016-12-11] MEDS: HYDROCODONE/ACETAMINOPHEN 7.5-325 MG TABLET PO PRN ×2 (14:14→22:03)
[2016-12-11 14:49] LABS: PROTHROMBIN TIME 38.4 SEC (11.4-15.4)
--- NOTE | 2016-12-11 17:03 | EKG REPORT ---
SEVERITY:- ABNORMAL ECG - A FLUTTER 2:1 AVB REPOLARIZATION ABNORMALITY, PROB RATE RELATED : Confirmed by: Dario Solis MD 11-Dec-2016 17:02:50
[2016-12-11] MEDS: DILTIAZEM HCL 30 MG TABLET PO SCH ×2 (17:07→23:13)
[2016-12-11] MEDS: MONTELUKAST SODIUM 10 MG TABLET PO SCH (22:03)
[2016-12-11] MEDS: SIMVASTATIN 40 MG TABLET PO SCH (22:04)
[2016-12-12] MEDS: METRONIDAZOLE 500 MG TABLET PO SCH ×3 (00:20→17:33)
[2016-12-12 04:20] LABS: ABSOLUTE BASOPHILS # (AUTO) 0.1 10^3/uL (0.0-0.2); ABSOLUTE EOSINOPHILS # (AUTO) 0.5 10^3/uL (0.0-0.6); ABSOLUTE LYMPHOCYTES (AUTO) 1.4 10^3/uL (0.5-4.7); ABSOLUTE MONOCYTES (AUTO) 0.9 10^3/uL (0.1-1.4); ABSOLUTE NEUT (AUTO) 10.2 10^3/uL (1.7-8.2); BASOPHILS % (AUTO) 0.4 % (0-2); EOSINOPHILS % (AUTO) 3.6 % (0-6); HEMATOCRIT 35.9 % (36.0-47.0); HEMOGLOBIN 11.4 g/dL (12.0-15.5); HGB HCT DIFFERENCE -1.7; LYMPHOCYTES % (AUTO) 10.9 % (13-45); MEAN CORPUSCULAR HEMOGLOBIN 28.4 pg (27.0-33.4); MEAN CORPUSCULAR HGB CONC 31.9 g/dL (32.0-36.0); MEAN CORPUSCULAR VOLUME 89 fl (80-97); MONOCYTES % (AUTO) 7.1 % (3-13); RED BLOOD COUNT 4.02 10^6/uL (3.72-5.28); RED CELL DISTRIBUTION WIDTH 19.1 % (11.5-14.0); WHITE BLOOD COUNT 13.1 10^3/uL (4.0-10.5)
[2016-12-12 04:43] LABS: ANION GAP 7 (5-19); BLOOD UREA NITROGEN 16 mg/dL (7-20); CALCIUM 8.5 mg/dL (8.4-10.2); CARBON DIOXIDE 28 mmol/L (22-30); CHLORIDE 103 mmol/L (98-107); CREATININE RESULT 0.94 mg/dL (0.52-1.25); GLUCOSE 241 mg/dL (75-110); POTASSIUM 5.2 mmol/L (3.6-5.0); SODIUM 137.9 mmol/L (137-145)
[2016-12-12] MEDS: HYDROCODONE/ACETAMINOPHEN 7.5-325 MG TABLET PO PRN ×4 (04:45→22:11)
[2016-12-12] MEDS: IMIPENEM/CILASTATIN SODIUM 500 MG in DEXTROSE 5%-WATER 100 ML IV SCH ×2 (05:16→11:33)
[2016-12-12] MEDS: VANCOMYCIN HCL INJ 500 MG VIAL PO SCH ×3 (05:16→17:33)
[2016-12-12] MEDS: DILTIAZEM HCL 30 MG TABLET PO SCH (05:17)
[2016-12-12] MEDS: GABAPENTIN 300 MG CAPSULE PO SCH ×3 (05:17→21:55)
[2016-12-12] MEDS: INSULIN LISPRO 100 UNIT/ML 3 ML VIAL SUBCUT PRN ×4 (07:53→21:55)
[2016-12-12] MEDS: BUDESONIDE NEB 0.5 MG/2 ML AMPUL NEB SCH ×2 (08:19→20:56)
[2016-12-12] MEDS: FAMOTIDINE 20 MG TABLET PO SCH ×2 (10:57→21:55)
[2016-12-12] MEDS: LORATADINE 10 MG TABLET PO SCH (10:58)
[2016-12-12] MEDS: OLOPATADINE HCL 0.1% OPH SOLN 5 ML OU SCH (10:58)
[2016-12-12] MEDS: FLUTICASONE NASAL SPRAY 50 MCG/SPRY 120 SPRAY/16 GM NAREB SCH ×2 (10:58→21:55)
[2016-12-12] MEDS: METOPROLOL TARTRATE 25 MG TABLET PO SCH ×2 (10:59→21:55)
[2016-12-12] MEDS ORDERED: DILTIAZEM HCL 180 MG CAPSULE.CR PO ONE (12:30)
--- NOTE | 2016-12-12 16:51 | PDOC PROGRESS REPORT ---
Subjective Progress Note for:: 12/12/16 Subjective:: Pt states that she is doing better. Pt states that her breathing is better. Pt states that she would like to go home soon. Physical Exam Vital Signs: Temp Pulse Resp BP Pulse Ox 98.9 F 50 L 20 120/49 L 95 12/12/16 08:01 12/12/16 08:19 12/12/16 08:19 12/12/16 08:01 12/12/16 08:19 Intake & Output 12/11/16 12/12/16 12/13/16 06:59 06:59 06:59 Intake Total 3012 3270 600 Output Total 1200 900 Balance 3012 2070 -300 General appearance: PRESENT: no acute distress, well-developed, well-nourished Head exam: PRESENT: atraumatic Eye exam: PRESENT: conjunctiva pink, EOMI. ABSENT: scleral icterus Ear exam: PRESENT: normal external ear exam Mouth exam: PRESENT: moist, tongue midline Neck exam: ABSENT: carotid bruit, JVD, lymphadenopathy, thyromegaly Respiratory exam: PRESENT: clear to auscultation erick. ABSENT: rales, rhonchi, wheezes Cardiovascular exam: PRESENT: irregular rhythm, tachycardia Pulses: PRESENT: normal dorsalis pedis pul Vascular exam: PRESENT: normal capillary refill GI/Abdominal exam: PRESENT: normal bowel sounds, soft. ABSENT: distended, guarding, mass, organolmegaly, rebound, tenderness Rectal exam: PRESENT: deferred Extremities exam: PRESENT: full ROM. ABSENT: calf tenderness, clubbing, pedal edema Neurological exam: PRESENT: alert, awake, oriented to person, oriented to place , oriented to time, oriented to situation, CN II-XII grossly intact. ABSENT: motor sensory deficit Psychiatric exam: PRESENT: appropriate affect, normal mood. ABSENT: homicidal ideation, suicidal ideation Skin exam: PRESENT: dry, intact, warm. ABSENT: cyanosis, rash Results Laboratory Results: 12/12/16 04:08 12/12/16 04:08 12/12/16 12/12/16 04:08 04:08 WBC 13.1 H RBC 4.02 Hgb 11.4 L Hct 35.9 L MCV 89 MCH 28.4 MCHC 31.9 L RDW 19.1 H Plt Count 243 Seg Neutrophils % 78.0 Lymphocytes % 10.9 L Monocytes % 7.1 Eosinophils % 3.6 Basophils % 0.4 Absolute Neutrophils 10.2 H Absolute Lymphocytes 1.4 Absolute Monocytes 0.9 Absolute Eosinophils 0.5 Absolute Basophils 0.1 Sodium 137.9 Potassium 5.2 H Chloride 103 Carbon Dioxide 28 Anion Gap 7 BUN 16 Creatinine 0.94 Est GFR ( Amer) > 60 Est GFR (Non-Af Amer) > 60 Glucose 241 H Calcium 8.5 Impressions: Chest CT 12/07/16 00:00 IMPRESSION: CONSOLIDATIONS IN THE LOWER LOBES CONSISTENT WITH PNEUMONIA. SMALL RIGHT PLEURAL EFFUSION. Chest X-Ray 12/07/16 06:15 IMPRESSION: Moderate bibasilar pneumonia. Assessment & Plan - Diagnosis (1) Atrial flutter Qualifiers: Atrial flutter type: typical Qualified Code(s): I48.3 - Typical atrial flutter Is this a current diagnosis for this admission?: Yes Plan: Pt placed on Diltiazem 180 mg PO Qdaily. Pt heart rate is better controlled. (2) Sepsis Qualifiers: Sepsis type: sepsis due to unspecified organism Qualified Code(s): A41.9 - Sepsis, unspecified organism Is this a current diagnosis for this admission?: Yes Plan: Secondary to C. diff and Nosocomial Pneumonia: Will continue Vancomycin and flagyl oral for C. diff treatment. Will continue Imipenem/Cilastatin. (3) C. 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 Will continue PO Vancomycin and Flagyl. Pt placed in contact Isolation. (4) Nosocomial pneumonia Is this a current diagnosis for this admission?: Yes Plan: Pt with multiple drug allergies. Pt tolerating Imipenem for treatment. CT of chest demonstrated bilateral lower lobe pneumonia. (5) Hypokalemia Is this a current diagnosis for this admission?: Yes Plan: resolved. (6) Obesity hypoventilation syndrome Is this a current diagnosis for this admission?: Yes Plan: Pt refuses to use CPAP. Will continue Nasal Canula. (7) COPD (chronic obstructive pulmonary disease) Qualifiers: COPD type: emphysema Emphysema type: unspecified Qualified Code(s): J43.9 - Emphysema, unspecified Is this a current diagnosis for this admission?: Yes Plan: Pt currently not experiencing acute exacerbation. Breathing treatments PRN. (8) Bacteremia Is this a current diagnosis for this admission?: Yes Plan: Secondary to Contamination Staph Capitis. (9) History of mechanical aortic valve replacement Is this a current diagnosis for this admission?: Yes Plan: Will hold Coumadin. Pt's INR today in 3.72 . Will continue to monitor. Goal is 2.5-3.5 (10) JAMEEL (obstructive sleep apnea) Is this a current diagnosis for this admission?: Yes Plan: Pt suppose to use CPAP but does not use it. Will continue Nasal Canula. (11) DVT prophylaxis Is this a current diagnosis for this admission?: Yes Plan: Will continue INR daily. - Time Time Spent with patient: 15-24 minutes Anticipated discharge: Home - Home Possibly tomorrow.
[2016-12-12] MEDS: IMIPENEM/CILASTATIN SODIUM 500 MG in NORMAL SALINE 100 ML IV SCH (17:34)
[2016-12-12] MEDS: MONTELUKAST SODIUM 10 MG TABLET PO SCH (21:55)
[2016-12-12] MEDS: SIMVASTATIN 40 MG TABLET PO SCH (21:55)
[2016-12-13] MEDS: IMIPENEM/CILASTATIN SODIUM 500 MG in NORMAL SALINE 100 ML IV SCH ×4 (00:24→17:27)
[2016-12-13] MEDS: VANCOMYCIN HCL INJ 500 MG VIAL PO SCH ×4 (00:25→17:28)
[2016-12-13] MEDS: METRONIDAZOLE 500 MG TABLET PO SCH ×3 (00:25→17:27)
[2016-12-13] MEDS: GABAPENTIN 300 MG CAPSULE PO SCH ×3 (05:26→21:47)
[2016-12-13] MEDS: INSULIN LISPRO 100 UNIT/ML 3 ML VIAL SUBCUT PRN ×4 (08:23→22:45)
[2016-12-13] MEDS: BUDESONIDE NEB 0.5 MG/2 ML AMPUL NEB SCH ×2 (08:50→20:49)
[2016-12-13] MEDS ORDERED: DILTIAZEM HCL 180 MG CAPSULE.CR PO SCH (10:00)
[2016-12-13] MEDS: METOPROLOL TARTRATE 25 MG TABLET PO SCH ×2 (10:43→21:47)
[2016-12-13] MEDS: FAMOTIDINE 20 MG TABLET PO SCH ×2 (10:43→21:47)
[2016-12-13] MEDS: LORATADINE 10 MG TABLET PO SCH (10:43)
[2016-12-13] MEDS: HYDROCODONE/ACETAMINOPHEN 7.5-325 MG TABLET PO PRN ×3 (10:43→21:47)
[2016-12-13] MEDS: OLOPATADINE HCL 0.1% OPH SOLN 5 ML OU SCH (10:44)
[2016-12-13] MEDS: FLUTICASONE NASAL SPRAY 50 MCG/SPRY 120 SPRAY/16 GM NAREB SCH ×2 (10:44→21:47)
[2016-12-13] MEDS ORDERED: DILTIAZEM HCL 240 MG CAPSULE.CR PO ONE (11:41)
--- NOTE | 2016-12-13 14:54 | PDOC PROGRESS REPORT ---
Subjective Progress Note for:: 12/13/16 Subjective:: Patient states that she is doing much better. Patient states that she is excited about the idea of going home soon. Physical Exam Vital Signs: Temp Pulse Resp BP Pulse Ox 99.1 F 72 18 124/40 L 98 12/13/16 11:27 12/13/16 11:27 12/13/16 11:27 12/13/16 11:27 12/13/16 11:27 Intake & Output 12/12/16 12/13/16 12/14/16 06:59 06:59 06:59 Intake Total 3270 1790 675 Output Total 1200 1350 Balance 2070 440 675 General appearance: PRESENT: no acute distress, well-developed, well-nourished Head exam: PRESENT: atraumatic, normocephalic Eye exam: PRESENT: conjunctiva pink, EOMI. ABSENT: scleral icterus Ear exam: PRESENT: normal external ear exam Mouth exam: PRESENT: moist, tongue midline Neck exam: ABSENT: carotid bruit, JVD, lymphadenopathy, thyromegaly Respiratory exam: PRESENT: clear to auscultation erick. ABSENT: rales, rhonchi, wheezes Cardiovascular exam: PRESENT: irregular rhythm, tachycardia Pulses: PRESENT: normal dorsalis pedis pul Vascular exam: PRESENT: normal capillary refill GI/Abdominal exam: PRESENT: normal bowel sounds, soft. ABSENT: distended, guarding, mass, organolmegaly, rebound, tenderness Rectal exam: PRESENT: deferred Extremities exam: PRESENT: full ROM. ABSENT: calf tenderness, clubbing, pedal edema Neurological exam: PRESENT: alert, awake, oriented to person, oriented to place , oriented to time, oriented to situation, CN II-XII grossly intact. ABSENT: motor sensory deficit Psychiatric exam: PRESENT: appropriate affect, normal mood. ABSENT: homicidal ideation, suicidal ideation Skin exam: PRESENT: dry, intact, warm. ABSENT: cyanosis, rash Results Laboratory Results: 12/12/16 04:08 12/12/16 04:08 Impressions: Chest CT 12/07/16 00:00 IMPRESSION: CONSOLIDATIONS IN THE LOWER LOBES CONSISTENT WITH PNEUMONIA. SMALL RIGHT PLEURAL EFFUSION. Chest X-Ray 12/07/16 06:15 IMPRESSION: Moderate bibasilar pneumonia. Assessment & Plan - Diagnosis (1) Atrial flutter Qualifiers: Atrial flutter type: typical Qualified Code(s): I48.3 - Typical atrial flutter Is this a current diagnosis for this admission?: Yes Plan: We will continue diltiazem 80 mg p.o. daily and metoprolol 12.5 mg p.o. twice daily. Patient's INR is 3.3. Coumadin currently being held. Patient's INR is higher than normal due to patient's antibiotics. (2) Sepsis Qualifiers: Sepsis type: sepsis due to unspecified organism Qualified Code(s): A41.9 - Sepsis, unspecified organism Is this a current diagnosis for this admission?: Yes Plan: Secondary to C. diff and Nosocomial Pneumonia: Will continue Vancomycin and flagyl oral for C. diff treatment. Patient will need to complete a total of 14 days treatment for C. difficile colitis. Patient will need 7 more days of treatment for C. difficile if discharged home tomorrow. Patient will complete treatment with imipenem tomorrow. Patient currently 6 out of 7 days of treatment of meropenem for pneumonia (3) C. 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 Will continue PO Vancomycin and Flagyl. Pt placed in contact Isolation. If patient is discharged home tomorrow she will need 7 more days of antibiotics. (4) Nosocomial pneumonia Is this a current diagnosis for this admission?: Yes Plan: Pt with multiple drug allergies. Pt tolerating Imipenem for treatment. CT of chest demonstrated bilateral lower lobe pneumonia. Patient will complete 7 days of IV antibiotic treatment tomorrow. Patient's current number of days of antibiotic treatment is 6 out of 7 (5) Hypokalemia Is this a current diagnosis for this admission?: Yes Plan: resolved. (6) Obesity hypoventilation syndrome Is this a current diagnosis for this admission?: Yes Plan: Pt refuses to use CPAP. Will continue Nasal Canula. (7) COPD (chronic obstructive pulmonary disease) Qualifiers: COPD type: emphysema Emphysema type: unspecified Qualified Code(s): J43.9 - Emphysema, unspecified Is this a current diagnosis for this admission?: Yes Plan: Pt currently not experiencing acute exacerbation. Breathing treatments PRN. (8) Bacteremia Is this a current diagnosis for this admission?: Yes Plan: Secondary to Contamination Staph Capitis. (9) History of mechanical aortic valve replacement Is this a current diagnosis for this admission?: Yes Plan: Will hold Coumadin. Pt's INR today in 3.30 . Will continue to monitor. Goal is 2.5-3.5 (10) JAMEEL (obstructive sleep apnea) Is this a current diagnosis for this admission?: Yes Plan: Pt suppose to use CPAP but does not use it. Will continue Nasal Canula. (11) DVT prophylaxis Is this a current diagnosis for this admission?: Yes Plan: Will continue INR daily. - Time Time Spent with patient: 15-24 minutes
[2016-12-13] MEDS: SIMVASTATIN 40 MG TABLET PO SCH (21:47)
[2016-12-13] MEDS: MONTELUKAST SODIUM 10 MG TABLET PO SCH (21:47)
[2016-12-14] MEDS: METRONIDAZOLE 500 MG TABLET PO SCH ×2 (00:53→09:32)
[2016-12-14] MEDS: IMIPENEM/CILASTATIN SODIUM 500 MG in NORMAL SALINE 100 ML IV SCH ×2 (00:53→06:04)
[2016-12-14] MEDS: VANCOMYCIN HCL INJ 500 MG VIAL PO SCH ×2 (00:53→06:04)
[2016-12-14] MEDS: HYDROCODONE/ACETAMINOPHEN 7.5-325 MG TABLET PO PRN ×2 (04:05→09:25)
[2016-12-14] MEDS: GABAPENTIN 300 MG CAPSULE PO SCH (06:04)
[2016-12-14 06:38] LABS: HEMATOCRIT 34.7 % (36.0-47.0); HEMOGLOBIN 11.2 g/dL (12.0-15.5); HGB HCT DIFFERENCE -1.1; MEAN CORPUSCULAR HEMOGLOBIN 28.3 pg (27.0-33.4); MEAN CORPUSCULAR HGB CONC 32.2 g/dL (32.0-36.0); MEAN CORPUSCULAR VOLUME 88 fl (80-97); RED BLOOD COUNT 3.95 10^6/uL (3.72-5.28); RED CELL DISTRIBUTION WIDTH 19.3 % (11.5-14.0)
[2016-12-14 06:45] LABS: ANION GAP 7 (5-19); BLOOD UREA NITROGEN 17 mg/dL (7-20); CALCIUM 8.4 mg/dL (8.4-10.2); CARBON DIOXIDE 29 mmol/L (22-30); CHLORIDE 101 mmol/L (98-107); GLUCOSE 226 mg/dL (75-110); POTASSIUM 5.4 mmol/L (3.6-5.0); SODIUM 136.6 mmol/L (137-145)
[2016-12-14] MEDS: BUDESONIDE NEB 0.5 MG/2 ML AMPUL NEB SCH (07:33)
[2016-12-14] MEDS: INSULIN LISPRO 100 UNIT/ML 3 ML VIAL SUBCUT PRN ×2 (08:04→11:48)
[2016-12-14] MEDS: METOPROLOL TARTRATE 25 MG TABLET PO SCH (09:24)
[2016-12-14] MEDS: LORATADINE 10 MG TABLET PO SCH (09:24)
[2016-12-14] MEDS: FAMOTIDINE 20 MG TABLET PO SCH (09:26)
[2016-12-14] MEDS: OLOPATADINE HCL 0.1% OPH SOLN 5 ML OU SCH (09:28)
[2016-12-14] MEDS: FLUTICASONE NASAL SPRAY 50 MCG/SPRY 120 SPRAY/16 GM NAREB SCH (09:28)
[2016-12-14] MEDS ORDERED: FUROSEMIDE 80 MG TABLET PO SCH (10:00)
[2016-12-14] MEDS ORDERED: SITAGLIPTIN PHOSPHATE 50 MG TABLET PO SCH (10:00)
[2016-12-14] MEDS ORDERED: DILTIAZEM HCL 180 MG CAPSULE.CR PO SCH (10:00)
[2016-12-14] MEDS ORDERED: DILTIAZEM HCL 240 MG CAPSULE.CR PO SCH (10:00)
[2016-12-14] MEDS ORDERED: FUROSEMIDE INJ/PF 20 MG/2 ML SDV IV ONE (10:02)
[2016-12-14 12:13] VITALS: BP 121/48
--- NOTE | 2016-12-14 15:56 | PDOC DISCHARGE SUMMARY ---
General - Admit/Disc Date/PCP Admission Date/Primary Care Provider: 12/07/16 08:35 KIMI ANAND PA-C Discharge Date: 12/14/16 - Discharge Diagnosis (1) Sepsis Is this a current diagnosis for this admission?: Yes (2) Pneumonia Is this a current diagnosis for this admission?: Yes (3) C. difficile diarrhea Is this a current diagnosis for this admission?: Yes (4) Atrial flutter Is this a current diagnosis for this admission?: Yes (5) Acute on chronic diastolic CHF (congestive heart failure) Is this a current diagnosis for this admission?: Yes (6) Acute on chronic respiratory failure with hypoxemia Is this a current diagnosis for this admission?: Yes (7) COPD (chronic obstructive pulmonary disease) Is this a current diagnosis for this admission?: Yes (8) Diabetes mellitus type 1 Is this a current diagnosis for this admission?: Yes (9) History of mechanical aortic valve replacement Is this a current diagnosis for this admission?: Yes (10) JAMEEL (obstructive sleep apnea) Is this a current diagnosis for this admission?: Yes (11) Morbid obesity with BMI of 45.0-49.9, adult Is this a current diagnosis for this admission?: Yes (12) Obesity hypoventilation syndrome Is this a current diagnosis for this admission?: Yes - Additional Information Resuscitation Status: Full Code Discharge Diet: Cardiac, Diabetic Discharge Activity: Activity As Tolerated, Slowly Increase Activity Home Medications: Albuterol Sulfate [Proair HFA] 2 puff IH Q4HP PRN 12/07/16 Albuterol Sulfate [Ventolin 0.042% Neb 1.25 mg/3 mL Ampul] 1 vial NEB RTQ6HP PRN 12/07/16 Budesonide [Pulmicort Neb 0.5 mg/2 ml Ampul] 0.5 mg NEB RTQ12 12/07/16 Furosemide [Lasix 80 mg Tablet] 80 mg PO DAILY 12/07/16 Gabapentin [Neurontin 300 mg Capsule] 300 mg PO Q8 12/07/16 Hydrocodone/Acetaminophen [[place] 7.5-325 mg Tablet] 1 tab PO Q4HP PRN 12/07/16 Insulin Aspart [Novolog Flexpen] 0 unit SUBCUT .SLD SCALE 12/07/16 Insulin Glargine,Hum.rec.anlog [Toujeo Solostar] 60 unit SQ QHS 12/07/16 Loratadine [Claritin 10 mg Tablet] 10 mg PO DAILY 12/07/16 Metoprolol Tartrate [Lopressor 25 mg Tablet] 12.5 mg PO Q12 12/07/16 Montelukast Sodium [Singulair 10 mg Tablet] 10 mg PO QHS 12/07/16 Olopatadine HCl [Pataday] 1 drop OU DAILY 12/07/16 Ranitidine HCl [Zantac 150 mg Tablet] 150 mg PO BID 12/07/16 Sitagliptin Phosphate [Januvia] 100 mg PO DAILY 12/07/16 Warfarin Sodium [Coumadin 5 mg Tablet] 5 mg PO QHS 12/07/16 Diltiazem HCl [Cardizem Cd 180 mg Capsule] 180 mg PO DAILY #30 capsule.cr Fluticasone Propionate [Flonase Nasal Jeannette 50 Mcg/Jeannette 16 gm] 1 sprays NASL Q12 #0 12/14/16 Metronidazole [Flagyl 500 mg Tablet] 500 mg PO Q8H #21 tablet 12/14/16 Vancomycin HCl [Vancocin HCl] 125 mg PO Q6H #28 capsule 12/14/16 History of Present Illness History of Present Illness: YAMILETH RENAE is a 66 year old female who presents to our facility with complaint of fever diarrhea and shortness of breath. Patient states that she began having fever approximately 2 days ago. Patient reports that she was in rehab and has been was discharged home approximately 2 weeks ago. Patient states that she had diarrhea multiple times at home however none yesterday. Patient reports that she has been on antibiotics recently for pneumonia. Patient states that she has been more congested and experiencing a nonproductive cough. Patient states that since she has been in rehab she does not wear nasal cannula 24 hour a day but only at bedtime. Patient reports that she noticed that she felt more confused in the last few days. Patient denies any recent steroids. Hospital Course Hospital Course: Patient presented to the hospital with diarrhea and shortness of breath. Patient was found to have pneumonia which was considered healthcare associated that she had a recent hospitalization approximately 2 weeks before admission. Patient was also found to be C. difficile positive. Patient was started on oral vancomycin and Flagyl. She tolerated this well. Patient was felt to likely have "red man" syndrome associated with her vancomycin allergy as opposed to a true allergy. This was removed from her allergy list. Patient was started on imipenem for her pneumonia. This improved quite rapidly. Patient subsequently developed a flutter and received several IV fluid boluses. Patient became volume overloaded with an acute exacerbation of her diastolic heart failure. Patient was diuresed successfully. Patient's Coumadin was continued and she has a history of aortic valve replacement. Patient was started on Cardizem with improvement of her heart rate. Due to the initiation of Cardizem, patient's Zocor has been stopped. She has been instructed to follow-up with her primary care physician to discuss the reinitiation of this. Patient was noted to be mildly hyperkalemic on discharge, but had not been on a diuretic in several days. Patient was given Lasix and home health will draw BMP and send this to her primary. Patient's stools were firming up and not having significant diarrhea. Patient was stable for discharge home with home health. Physical Exam Vital Signs: Temp Pulse Resp BP Pulse Ox 98.4 F 50 L 19 121/48 L 100 12/14/16 10:52 12/14/16 10:52 12/14/16 10:52 12/14/16 10:52 12/14/16 10:52 Intake & Output 12/13/16 12/14/16 12/15/16 06:59 06:59 06:59 Intake Total 1790 1825 Output Total 1350 Balance 440 1825 Exam: General: morbid obesity, Awake alert and oriented x3, no acute respiratory distress HEENT: female pattern baldness, AT/NC, PERRL, EOMI, oropharynx is moist, pink, no scleral icterus, no conjunctival injection Neck: No JVD, trachea midline Chest: occasional rales CV: IRR, normal S1 and S2, no rub, or gallop; +2/6sm rusb Abdomen: Soft, nontender to palpation, nondistended, active bowel sounds; no rebound, rigidity, or guarding Extremities: No cyanosis, clubbing; 1+edema Skin: evidence of chronic venous stasis Neuro: Cranial nerves II through XII are grossly intact without focal deficits; awake alert and oriented x3 Psych: Normal mood and affect Results Laboratory Results: 12/14/16 05:57 12/14/16 05:57 12/14/16 12/14/16 05:57 05:57 WBC 13.0 H RBC 3.95 Hgb 11.2 L Hct 34.7 L MCV 88 MCH 28.3 MCHC 32.2 RDW 19.3 H Plt Count 223 Sodium 136.6 L Potassium 5.4 H Chloride 101 Carbon Dioxide 29 Anion Gap 7 BUN 17 Creatinine 0.90 Est GFR ( Amer) > 60 Est GFR (Non-Af Amer) > 60 Glucose 226 H Calcium 8.4 12/09/16 14:40 Blood Blood Culture - Final NO GROWTH IN 5 DAYS 12/09/16 15:00 Blood Blood Culture - Final NO GROWTH IN 5 DAYS Impressions: Chest CT 12/07/16 00:00 IMPRESSION: CONSOLIDATIONS IN THE LOWER LOBES CONSISTENT WITH PNEUMONIA. SMALL RIGHT PLEURAL EFFUSION. Chest X-Ray 12/07/16 06:15 IMPRESSION: Moderate bibasilar pneumonia. Qualifiers PATEINT BEING DISCHARGED WITH ANY OF THE FOLLOWING DIAGNOSIS?: Heart Failure HF Pt being discharged on ACEI for LVEF less than 40%?: No Reason(s) for not prescribing ACEI:: Not indicated - ef>40 HF Pt being discharged on ARBS for LVEF less than 40%?: No Reason(s) for not prescribing ARBS:: Not indicated - ef>40 HF Pt with Afib discharged with Warfarin?: Yes HF Pt discharged on evidence-based Beta Kirit:: Yes
== END 2016-12-14 11:59 | disposition home health service (06) | DRG 371 ==
LOC: ER 06:10 → EH 08:35 → UNDOADMIN 08:59 → EH 08:59 → 3S 11:28
PROVIDERS: ADMIT Emergency Medicine; ATTEND Emergency Medicine
DX: A04.7 Enterocolitis due to Clostridium difficile (principal); J18.9 Pneumonia, unspecified organism; I50.33 Acute on chronic diastolic (congestive) heart failure; J96.21 Acute and chronic respiratory failure with hypoxia; E66.2 Morbid (severe) obesity with alveolar hypoventilation; Z68.42 Body mass index [BMI] 45.0-49.9, adult; I48.3 Typical atrial flutter; J43.9 Emphysema, unspecified; E87.6 Hypokalemia; E87.5 Hyperkalemia; E10.9 Type 1 diabetes mellitus without complications; E78.5 Hyperlipidemia, unspecified; M19.90 Unspecified osteoarthritis, unspecified site; F32.9 Major depressive disorder, single episode, unspecified; Z79.01 Long term (current) use of anticoagulants; Z79.899 Other long term (current) drug therapy; Z79.4 Long term (current) use of insulin; Z95.2 Presence of prosthetic heart valve; Z90.49 Acquired absence of other specified parts of digestive tract; Z90.710 Acquired absence of both cervix and uterus; Z87.891 Personal history of nicotine dependence; Z91.040 Latex allergy status; Z88.8 Allergy status to other drugs, medicaments and biological substances; Z88.0 Allergy status to penicillin; Z88.1 Allergy status to other antibiotic agents; Z91.012 Allergy to eggs
CPT/HCPCS: 36415; 36600; 51701; 71010; 71250; 80048; 80053; 81001; 82803; 82962; 83036; 83605; 83735; 83880; 85025; 85027; 85610; 87040; 87070; 87077; 87086; 87186; 87205; 87493; 93005; 93010; 94640; 96361; 96374; 99285; G8978-GP; G8979-GP; G8987-GO; G8988-GO; G8989-GO; J0743; J1160; J1815; J1940; J1956; J3370; J3475; J3490; J7030; J7040; J7620

== ENCOUNTER 2019-05-18 20:07 | Emergency (ER) | payer MEDICARE, BC, MEDICAID ==
[2019-05-18] MEDS ORDERED: ACETAMINOPHEN 325 MG TABLET PO ONE (20:57)
--- NOTE | 2019-05-18 21:04 | ER Document Report ---
ED Medical Screen (RME) - General Chief Complaint: Fever Stated Complaint: FALL/LOWER BACK PAIN Time Seen by Provider: 05/18/19 20:57 Primary Care Provider: DIO KHOURY MD [Primary Care Provider] - Follow up as needed TRAVEL OUTSIDE OF THE [place] IN LAST 30 DAYS: No - HPI Notes: 05/18/19 21:02 Patient is a 69-year-old female with multiple comorbidities including but not l imited to oxygen dependent COPD, CHF, hypertension, on Coumadin, ambulatory dysfunction presents complaining of fever and not feeling well over the past couple days. Patient states that about a week ago she did fall into an island in her house and slid to the floor. She started noticing more pain and swelling to the left pelvis/left lateral side over the past several days. She did not get evaluated prior. She has not had any changes in her breathing. She is not having any chest pain or shortness of breath outside of her normal. Patient states that the swelling in her legs is normal for her. I have treated and performed a rapid initial assessment of this patient. A comprehensive ED assessment and evaluation of the patient, analysis of test results and completion of medical decision making process will be conducted by additional ED providers. PHYSICAL EXAMINATION: GENERAL: Well-appearing, well-nourished and in no acute distress. A&Ox4. Answers questions appropriately. Vitals: Patient does meet Sirs criteria Lungs: Diminished bilaterally. Left hip: Very difficult to assess based on body habitus and in a wheelchair, but there is some ecchymosis to the left lateral hip/pelvis area that we will investigate. - Related Data Allergies/Adverse Reactions: Heparin Analogues [Heparin Agents] Allergy (Unknown, Verified 12/07/16 06:58) latex [Latex] Allergy (Unknown, Verified 12/07/16 06:58) Penicillins Allergy (Unknown, Verified 12/07/16 06:58) doxycycline Allergy (Verified 12/07/16 06:58) Urticaria sulfamethoxazole [From Bactrim] Allergy (Verified 12/07/16 06:58) trimethoprim [From Bactrim] Allergy (Verified 12/07/16 06:58) vancomycin Allergy (Verified 01/20/17 13:24) Past Medical History - Past Medical History Cardiac Medical History: Reports: Hx Atrial Fibrillation, Hx Congestive Heart Failure - Diastolic, Hx Hypercholesterolemia Pulmonary Medical History: Reports: Hx Asthma, Hx COPD, Hx Pneumonia, Hx Respiratory Failure, Hx Sleep Apnea Neurological Medical History: Denies: Hx Seizures Endocrine Medical History: Reports: Hx Diabetes Mellitus Type 1. Denies: Hx Diabetes Mellitus Type 2, Hx Hyperthyroidism, Hx Hypothyroidism GI Medical History: Denies: Hx Cirrhosis, Hx Hepatitis Musculoskeltal Medical History: Reports Hx Arthritis Psychiatric Medical History: Reports: Hx Depression Infectious Medical History: Denies: Hx Hepatitis Past Surgical History: Reports: Hx Cholecystectomy, Hx Hysterectomy, Hx Orthopedic Surgery - right rotator cuff, Hx Valve Replacement - Mechanical aortic. Denies: Hx Pacemaker - Immunizations Hx Diphtheria, Pertussis, Tetanus Vaccination: Yes Physical Exam - Vital signs Vitals: Temp Pulse Resp BP Pulse Ox 101.1 F H 122 H 24 H 116/49 L 88 L 05/18/19 20:48 05/18/19 20:48 05/18/19 20:48 05/18/19 20:48 05/18/19 20:48 Course - Vital Signs Vital signs: Temp Pulse Resp BP Pulse Ox 101.1 F H 122 H 24 H 116/49 L 88 L 05/18/19 20:48 05/18/19 20:48 05/18/19 20:48 05/18/19 20:48 05/18/19 20:48 Doctor's Discharge - Discharge Referrals: DIO KHOURY MD [Primary Care Provider] - Follow up as needed
[2019-05-18] MEDS ORDERED: NORMAL SALINE 250 ML IV ONE (21:05)
--- NOTE | 2019-05-18 22:18 | RADIOLOGY REPORT (SQ) ---
EXAM DESCRIPTION: CT PELVIS WITHOUT IV CONTRAST COMPLETED DATE/TME: 05/18/2019 21:01 CLINICAL HISTORY: 69 years, Female, ecchymosis left lateral, fall COMPARISON: Abdomen and pelvis September 25, 2016 TECHNIQUE: Images stored on PACS. All CT scanners at this facility use dose modulation, iterative reconstruction, and/or weight based dosing when appropriate to reduce radiation dose to as low as reasonably achievable (ALARA). [facility]: Dose Right [facility]: CareDose [facility]: Dose Right [facility]: Teradose 4D [facility]: [employer] LIMITATIONS: None. FINDINGS: No acute fractures identified of the pelvis. Osteoarthritis. Surrounding soft tissues demonstrate a hematoma superficial to the left buttock and superficial to the left ilium, left posterior lateral. This measures 7.8 x 7.9 x 11.3 cm. Large superficial fluid collection right lower quadrant, similar to prior. Etiology unclear. This is incompletely imaged. Visualized abdominal contents are unremarkable IMPRESSION: No acute displaced fracture is identified of the pelvis. Superficial hematoma overlying the left hemipelvis posteriorly. TECHNICAL DOCUMENTATION: Quality ID # [id number]: Final reports with documentation of one or more dose reduction techniques (e.g., Automated exposure control, adjustment of the mA and/or kV according to patient size, use of iterative reconstruction technique) copyright 2011 [employer]- All Rights Reserved
--- NOTE | 2019-05-18 22:22 | RADIOLOGY REPORT (SQ) ---
EXAM DESCRIPTION: [facility]: XR CHEST 2 VIEWS Views: 2 CLINICAL HISTORY: 69 years Female; fever; COMPARISON: 10/09/2016, 12/07/2016 FINDINGS: Lungs: Lungs are clear, with no focal infiltrate, pneumothorax, or pleural effusion. Mediastinum: Prosthetic aortic valve is again noted. No mediastinal widening or shift. Bones: Anterior fixation plates spanning the sternum and multiple ribs are again noted. As on prior exam, the 2 lower fixation plates and slightly. IMPRESSION: 1. No acute pulmonary findings 2. Previous aortic valve replacement, as on prior exam.
--- NOTE | 2019-05-18 22:34 | ER Document Report ---
ED General - General Chief Complaint: Fever Stated Complaint: FALL/LOWER BACK PAIN Time Seen by Provider: 05/18/19 20:57 Primary Care Provider: DIO KHOURY MD [Primary Care Provider] - Follow up as needed Mode of Arrival: Medic Information source: Patient TRAVEL OUTSIDE OF THE [place] IN LAST 30 DAYS: No - HPI Onset: Last week Onset/Duration: Gradual Quality of pain: Achy Severity: Moderate Pain Level: 3 Associated symptoms: Fever, Other - left hip/flank pain, generalized weakness Exacerbated by: Denies Relieved by: Denies Similar symptoms previously: No Recently seen / treated by doctor: No Notes: 69 year old female with a history of AFib on Coumadin, COPD on 2L of O2, CHF, JAMEEL, HLD, DM, Obesity and Ambulatory Issues here for worsening pain in her left hip/flank area, generalized weakness, worsening shortness of breath, and fevers for the last week. The patient fell last week and she thinks the pain she is having is related to the fall since she is on coumadin and has developed internal hematomas before. The patient denies body aches, sore throat but she is having a cough and congestion. - Related Data Allergies/Adverse Reactions: Heparin Analogues [Heparin Agents] Allergy (Unknown, Verified 12/07/16 06:58) latex [Latex] Allergy (Unknown, Verified 12/07/16 06:58) Penicillins Allergy (Unknown, Verified 12/07/16 06:58) doxycycline Allergy (Verified 12/07/16 06:58) Urticaria sulfamethoxazole [From Bactrim] Allergy (Verified 12/07/16 06:58) trimethoprim [From Bactrim] Allergy (Verified 12/07/16 06:58) vancomycin Allergy (Verified 01/20/17 13:24) Past Medical History - General Information source: Patient - Social History Smoking Status: Former Smoker Frequency of alcohol use: None Drug Abuse: None Lives with: Alone Family History: Reviewed & Not Pertinent Patient has suicidal ideation: No Patient has homicidal ideation: No - Past Medical History Cardiac Medical History: Reports: Hx Atrial Fibrillation, Hx Congestive Heart Failure - Diastolic, Hx Hypercholesterolemia Pulmonary Medical History: Reports: Hx Asthma, Hx COPD, Hx Pneumonia, Hx Respiratory Failure, Hx Sleep Apnea Neurological Medical History: Denies: Hx Seizures Endocrine Medical History: Reports: Hx Diabetes Mellitus Type 1. Denies: Hx Diabetes Mellitus Type 2, Hx Hyperthyroidism, Hx Hypothyroidism GI Medical History: Denies: Hx Cirrhosis, Hx Hepatitis Musculoskeletal Medical History: Reports Hx Arthritis Psychiatric Medical History: Reports: Hx Depression Infectious Medical History: Denies: Hx Hepatitis Past Surgical History: Reports: Hx Cholecystectomy, Hx Hysterectomy, Hx Orthopedic Surgery - right rotator cuff, Hx Valve Replacement - Mechanical aortic. Denies: Hx Pacemaker - Immunizations Hx Diphtheria, Pertussis, Tetanus Vaccination: Yes Hx Pneumococcal Vaccination: 03/21/12 Review of Systems - Review of Systems Constitutional: Fever, Weakness EENT: No symptoms reported Cardiovascular: No symptoms reported Respiratory: No symptoms reported Gastrointestinal: No symptoms reported Genitourinary: No symptoms reported Female Genitourinary: No symptoms reported Musculoskeletal: Other - left buttock and flank pain with mild left hip pain Skin: No symptoms reported Hematologic/Lymphatic: No symptoms reported Neurological/Psychological: No symptoms reported -: Yes All other systems reviewed and negative Physical Exam - Vital signs Vitals: Temp Pulse Resp BP Pulse Ox 101.1 F H 122 H 24 H 116/49 L 88 L 05/18/19 20:48 05/18/19 20:48 05/18/19 20:48 05/18/19 20:48 05/18/19 20:48 - Notes Notes: GENERAL: Chronically ill-appearing, well-nourished and in no acute distress. HEAD: Atraumatic, normocephalic. EYES: Pupils equal round and reactive to light, extraocular movements intact, sclera anicteric, conjunctiva are normal. ENT: Nares patent, oropharynx clear without exudates. Moist mucous membranes. NECK: Normal range of motion, supple without lymphadenopathy or JVD. LUNGS: Breath sounds clear to auscultation bilaterally and equal. No wheezes rales or rhonchi. HEART: Irregular rhythm, tachycardic, without murmurs, rubs or gallops. ABDOMEN: Soft, nontender, normoactive bowel sounds. No guarding, no rebound. No masses appreciated. EXTREMITIES: Normal range of motion, no pitting or edema. No clubbing or cyanosis. MSK: Tender over left pelvis and hip redundant tissue and panus NEUROLOGICAL: Cranial nerves II through XII grossly intact. Normal speech, normal gait. PSYCH: Normal mood, normal affect. SKIN: Warm, Dry, normal turgor, no rashes or lesions noted. Course - Re-evaluation Re-evalutation: 05/19/19 01:48 The patient is here for what sounds like 2 separate issues: pain in her left side/flank/hip which is due to a hemtoma (seen on CT today) from a fall with a supratherapeutic INR (in the 5s today) and URI like symptoms with a fever of 101F here in the ER. The patient's BNP is about baseline for her and she does not personally feel very volume overloaded. The patient's chest xray shows no sign of pneumonia. The patient tested negative for the Flu. The patient will need to provide a urine. Assuming the UA is negative the patient will be safe to go home with outpatient follow up as she likely has a viral syndrome. The patient is on Coumadin for AFib so she was told to hold her Coumadin until she has a repeat INR on Tuesday at her doctors office. 05/19/19 01:52 - Vital Signs Vital signs: Temp Pulse Resp BP Pulse Ox 99.2 F 122 H 20 107/47 L 100 05/18/19 22:59 05/18/19 20:48 05/19/19 01:01 05/19/19 01:01 05/19/19 01:01 - Laboratory Result Diagrams: 05/18/19 22:21 05/18/19 22:21 Laboratory results interpreted by me: 05/18/19 05/18/19 05/18/19 22:15 22:21 22:21 WBC 11.5 H RBC 2.83 L Hgb 8.3 L Hct 25.4 L RDW 17.8 H Lymph % (Auto) 7.2 L Absolute Neuts (auto) 9.7 H Seg Neutrophils % 84.9 H PT INR VBG pH VBG HCO3 Potassium 3.5 L Chloride 97 L Carbon Dioxide 38 H BUN 31 H Est GFR ( Amer) 53 L Est GFR (MDRD) Non-Af 44 L Glucose 171 H POC Glucose 182 H NT-Pro-B Natriuret Pep 05/18/19 05/18/19 05/18/19 22:21 22:21 23:43 WBC RBC Hgb Hct RDW Lymph % (Auto) Absolute Neuts (auto) Seg Neutrophils % PT 52.9 H* INR 5.67 H* VBG pH 7.46 H VBG HCO3 36.4 H Potassium Chloride Carbon Dioxide BUN Est GFR ( Amer) Est GFR (MDRD) Non-Af Glucose POC Glucose NT-Pro-B Natriuret Pep 3700 H - Diagnostic Test Radiology reviewed: Image reviewed, Reports reviewed - EKG Interpretation by Me EKG shows normal: [place], QRS Complexes, ST-T Waves Rate: Tachycardia Rhythm: A.Fib Discharge - Discharge Clinical Impression: Hematoma and contusion Condition: Stable Disposition: HOME, SELF-CARE Instructions: Fever ([facility]), Viral Syndrome ([facility]), Hematoma ([facility]) Additional Instructions: Follow up with your primary care doctor on Tuesday to have your INR rechecked. Hold your coumadin until your INR is rechecked Tuesday since your INR is 5.6 today in the ER. Use Tylenol and your previously prescribed pain medications for your hip/side pain. You had a fever in the ER but your chest Xray showed no pneumonia. You likely have a viral syndrome. Tell your doctor about your fevers and monitor for fevers in the days to come. Referrals: DIO KHOURY MD [Primary Care Provider] - Follow up as needed
[2019-05-18 22:54] LABS: ABSOLUTE LYMPHOCYTES (AUTO) 0.8 10^3/uL (0.5-4.7); ABSOLUTE MONOCYTES (AUTO) 0.9 10^3/uL (0.1-1.4); ABSOLUTE NEUT (AUTO) 9.7 10^3/uL (1.7-8.2); BASOPHILS % (AUTO) 0.3 % (0-2); EOSINOPHILS % (AUTO) 0.2 % (0-6); HEMATOCRIT 25.4 % (36.0-47.0); HEMOGLOBIN 8.3 g/dL (12.0-15.5); LYMPHOCYTES % (AUTO) 7.2 % (13-45); MEAN CORPUSCULAR HEMOGLOBIN 29.3 pg (27.0-33.4); MEAN CORPUSCULAR HGB CONC 32.7 g/dL (32.0-36.0); MEAN CORPUSCULAR VOLUME 90 fl (80-97); MONOCYTES % (AUTO) 7.4 % (3-13); PLATELET COUNT 182 10^3/uL (150-450); RED BLOOD COUNT 2.83 10^6/uL (3.72-5.28); RED CELL DISTRIBUTION WIDTH 17.8 % (11.5-14.0); SEGMENTED NEUTROPHILS % (AUTO) 84.9 % (42-78); TOTAL CELLS COUNTED % (AUTO) 100 %; WHITE BLOOD COUNT 11.5 10^3/uL (4.0-10.5)
[2019-05-18 23:01] LABS: VENOUS BLOOD BASE EXCESS 11.5 mmol/L; VENOUS BLOOD HCO3 36.4 mmol/L (20-32); VENOUS BLOOD PCO2 52.1 mmHg (35-63); VENOUS BLOOD PH 7.46 (7.30-7.42)
[2019-05-18 23:09] LABS: ALBUMIN 3.6 g/dL (3.5-5.0); ALKALINE PHOSPHATASE 70 U/L (38-126); ANION GAP 5 (5-19); ASPARTATE AMINO TRANSFERASE 22 U/L (14-36); BILIRUBIN,DIRECT 0.2 mg/dL (0.0-0.4); BLOOD UREA NITROGEN 31 mg/dL (7-20); CALCIUM 8.8 mg/dL (8.4-10.2); CARBON DIOXIDE 38 mmol/L (22-30); CHLORIDE 97 mmol/L (98-107); GLUCOSE 171 mg/dL (75-110); POTASSIUM 3.5 mmol/L (3.6-5.0); TOTAL PROTEIN 6.8 g/dL (6.3-8.2)
[2019-05-18 23:22] LABS: A TYPE INFLUENZA AG NEGATIVE (NEGATIVE); B INFLUENZA AG NEGATIVE (NEGATIVE)
[2019-05-19 00:18] LABS: INTERNATIONAL RATION (INR) 5.67; PROTHROMBIN TIME 52.9 SEC (11.4-15.4)
--- NOTE | 2019-05-19 01:11 | EKG REPORT ---
SEVERITY:- OTHERWISE NORMAL ECG - SINUS TACHYCARDIA : Confirmed by: Maegan Walker MD 19-May-2019 01:10:52
[2019-05-19 02:44] LABS: APPEARANCE,URINE CLEAR; BILIRUBIN,URINE NEGATIVE (NEGATIVE); COLOR,URINE YELLOW; GLUCOSE, URINE NEGATIVE (NEGATIVE); KETONES,URINE NEGATIVE (NEGATIVE); PROTEIN,URINE NEGATIVE (NEGATIVE); URINE SPECIFIC GRAVITY 1.013; UROBILINOGEN,URINE NEGATIVE mg/dL (<2.0)
[2019-05-19 05:03] VITALS: BP 100/45
== END 2019-05-19 05:03 | disposition home or self-care (01) ==
LOC: ER 20:07
DX: J06.9 Acute upper respiratory infection, unspecified (principal); S70.02XA Contusion of left hip, initial encounter; R50.9 Fever, unspecified; M54.5 Low back pain; R10.9 Unspecified abdominal pain; R53.1 Weakness; W19.XXXA Unspecified fall, initial encounter; I48.91 Unspecified atrial fibrillation; J44.9 Chronic obstructive pulmonary disease, unspecified; Z79.02 Long term (current) use of antithrombotics/antiplatelets; Z91.040 Latex allergy status; Z88.0 Allergy status to penicillin; Z88.3 Allergy status to other anti-infective agents; Z99.81 Dependence on supplemental oxygen
CPT/HCPCS: 93005; 99284; 96360; 51701; 36415; 87040; 82962; 83605; 85025; 85610; 80053; 81001; 82803; 87804; 83880; 71046; 72192; 93010; A9270; J7050

== ENCOUNTER 2020-04-14 14:09 | Emergency (ER) | payer MEDICARE, BC, MEDICAID ==
[2020-04-14 14:18] VITALS: BP 135/45
--- NOTE | 2020-04-14 14:45 | ER Document Report ---
ED Medical Screen (RME) - General Chief Complaint: Leg Pain Stated Complaint: LEG PAIN Time Seen by Provider: 04/14/20 14:37 Primary Care Provider: DIO KHOURY MD [Primary Care Provider] - Follow up as needed TRAVEL OUTSIDE OF THE [place] IN LAST 30 DAYS: No - HPI Notes: Patient is a 70-year-old female with a history of COPD and diabetes who presents with bilateral calf pain and swelling, right greater than left. Patient states she fell 3 weeks ago and had pain to her right leg, which improved, however, patient developed the calf pain a few days ago. Patient is on oxygen at home. She denies shortness of breath, chest pain, abdominal pain, fever, and vomiting. - Related Data Allergies/Adverse Reactions: Heparin Analogues [Heparin Agents] Allergy (Unknown, Verified 12/07/16 06:58) latex [Latex] Allergy (Unknown, Verified 12/07/16 06:58) Penicillins Allergy (Unknown, Verified 12/07/16 06:58) doxycycline Allergy (Verified 12/07/16 06:58) Urticaria sulfamethoxazole [From Bactrim] Allergy (Verified 12/07/16 06:58) trimethoprim [From Bactrim] Allergy (Verified 12/07/16 06:58) vancomycin Allergy (Verified 01/20/17 13:24) Past Medical History - Past Medical History Cardiac Medical History: Reports: Hx Atrial Fibrillation, Hx Congestive Heart Failure - Diastolic, Hx Hypercholesterolemia Pulmonary Medical History: Reports: Hx Asthma, Hx COPD, Hx Pneumonia, Hx Respiratory Failure, Hx Sleep Apnea Neurological Medical History: Denies: Hx Seizures Endocrine Medical History: Reports: Hx Diabetes Mellitus Type 1. Denies: Hx Diabetes Mellitus Type 2, Hx Hyperthyroidism, Hx Hypothyroidism GI Medical History: Denies: Hx Cirrhosis, Hx Hepatitis Musculoskeltal Medical History: Reports Hx Arthritis Psychiatric Medical History: Reports: Hx Depression Infectious Medical History: Denies: Hx Hepatitis Past Surgical History: Reports: Hx Cholecystectomy, Hx Hysterectomy, Hx Orthopedic Surgery - right rotator cuff, Hx Valve Replacement - Mechanical aortic. Denies: Hx Pacemaker - Immunizations Hx Diphtheria, Pertussis, Tetanus Vaccination: Yes Physical Exam - Vital signs Vitals: Temp Pulse Resp BP Pulse Ox 98.1 F 116 H 20 135/45 H 97 04/14/20 14:15 04/14/20 14:15 04/14/20 14:15 04/14/20 14:15 04/14/20 14:15 - Extremities Calf: Other - edema. No: Tender Ankle: Edema Foot: Edema Course - Re-evaluation Re-evalutation: I have greeted and performed a rapid initial assessment of this patient. A comprehensive ED assessment and evaluation of the patient, analysis of test results and completion of medical decision making process will be conducted by an additional ED providers. - Vital Signs Vital signs: Temp Pulse Resp BP Pulse Ox 98.1 F 116 H 20 135/45 H 97 04/14/20 14:15 04/14/20 14:15 04/14/20 14:15 04/14/20 14:15 04/14/20 14:15 Doctor's Discharge - Discharge Referrals: DIO KHOURY MD [Primary Care Provider] - Follow up as needed
[2020-04-14 15:13] LABS: ABSOLUTE EOSINOPHILS # (AUTO) 0.1 10^3/uL (0.0-0.6); ABSOLUTE LYMPHOCYTES (AUTO) 0.4 10^3/uL (0.5-4.7); ABSOLUTE MONOCYTES (AUTO) 0.5 10^3/uL (0.1-1.4); ABSOLUTE NEUT (AUTO) 6.5 10^3/uL (1.7-8.2); BASOPHILS % (AUTO) 0.3 % (0-2); EOSINOPHILS % (AUTO) 1.8 % (0-6); HEMATOCRIT 31.6 % (36.0-47.0); HEMOGLOBIN 9.9 g/dL (12.0-15.5); LYMPHOCYTES % (AUTO) 5.6 % (13-45); MEAN CORPUSCULAR HEMOGLOBIN 27.6 pg (27.0-33.4); MEAN CORPUSCULAR HGB CONC 31.2 g/dL (32.0-36.0); MEAN CORPUSCULAR VOLUME 88 fl (80-97); MONOCYTES % (AUTO) 6.4 % (3-13); PLATELET COUNT 198 10^3/uL (150-450); RED BLOOD COUNT 3.58 10^6/uL (3.72-5.28); RED CELL DISTRIBUTION WIDTH 19.4 % (11.5-14.0); SEGMENTED NEUTROPHILS % (AUTO) 85.9 % (42-78); TOTAL CELLS COUNTED % (AUTO) 100 %; WHITE BLOOD COUNT 7.6 10^3/uL (4.0-10.5)
[2020-04-14 15:27] LABS: ALBUMIN 3.5 g/dL (3.5-5.0); ALKALINE PHOSPHATASE 98 U/L (38-126); ASPARTATE AMINO TRANSFERASE 24 U/L (14-36); BILIRUBIN,DIRECT 0.5 mg/dL (0.0-0.4); BILIRUBIN,TOTAL 0.9 mg/dL (0.2-1.3); BLOOD UREA NITROGEN 38 mg/dL (7-20); CHLORIDE 93 mmol/L (98-107); GLUCOSE 148 mg/dL (75-110); POTASSIUM 3.3 mmol/L (3.6-5.0)
[2020-04-14 15:34] LABS: ANION GAP 7 (5-19)
[2020-04-14 15:37] LABS: CARBON DIOXIDE 40 mmol/L (22-30)
--- NOTE | 2020-04-14 15:47 | RADIOLOGY REPORT (SQ) ---
EXAM DESCRIPTION: CHEST SINGLE VIEW IMAGES COMPLETED DATE/TIME: 04/14/2020 3:32 pm REASON FOR STUDY: bilateral leg swelling COMPARISON: PA and lateral views of the chest from 05/18/2019. EXAM PARAMETERS: NUMBER OF VIEWS: One view. TECHNIQUE: An AP view of the chest was obtained. RADIATION DOSE: NA LIMITATIONS: None. FINDINGS: LUNGS AND PLEURA: No consolidation, pleural effusion or pneumothorax. MEDIASTINUM AND HILAR STRUCTURES: No mediastinal or hilar contour abnormality. HEART AND VASCULAR STRUCTURES: The cardiac silhouette is enlarged. BONES: No acute findings. HARDWARE: Sternotomy hardware. OTHER: No other finding. IMPRESSION: Cardiomegaly without a superimposed acute cardiopulmonary process. TECHNICAL DOCUMENTATION: JOB ID: [id number] 2010 [employer]- All Rights Reserved Reading location - IP/workstation name: [email or web address]
--- NOTE | 2020-04-14 17:38 | RADIOLOGY REPORT (SQ) ---
EXAM DESCRIPTION: VENOUS BILATERAL LOWER IMAGES COMPLETED DATE/TIME: 04/14/2020 5:08 pm REASON FOR STUDY: bilateral calf pain and swelling COMPARISON: None. TECHNIQUE: Dynamic and static amor scale and color images acquired of both lower extremity venous sy stems. Selected spectral images acquired with additional compression and augmentation maneuvers. Imag es stored on PACS. LIMITATIONS: None. FINDINGS: RIGHT LEG COMMON FEMORAL AND FEMORAL: Normal phasicity, compression and augmentation. No visualized echogenic m aterial on amor scale. No defects on color images. POPLITEAL: Normal compression and augmentation. No visualized echogenic material on amor scale. No de fects on color images. CALF VESSELS: Normal compression and augmentation. No visualized echogenic material on amor scale. No defects on color image. GSV AND SSV: Normal compression. No visualized echogenic material on amor scale. No defects on color images. ANY DEEP VENOUS INSUFFICIENCY: Not evaluated. ANY EVIDENCE OF POPLITEAL CYST: No. OTHER: No other significant finding. LEFT LEG COMMON FEMORAL AND FEMORAL: Normal phasicity, compression and augmentation. No visualized echogenic m aterial on amor scale. No defects on color images. POPLITEAL: Normal compression and augmentation. No visualized echogenic material on amor scale. No de fects on color images. CALF VESSELS: Normal compression and augmentation. No visualized echogenic material on amor scale. No defects on color images. GSV AND SSV: Normal compression. No visualized echogenic material on amor scale. No defects on color images. ANY DEEP VENOUS INSUFFICIENCY: Not evaluated. ANY EVIDENCE POPLITEAL CYST: No. OTHER: No other significant finding. IMPRESSION: NO EVIDENCE DVT OR SVT IN EITHER LEG. TECHNICAL DOCUMENTATION: JOB ID: [id number] [employer]- All Rights Reserved Reading location - IP/workstation name: [email or web address]
--- NOTE | 2020-04-14 18:02 | ER Document Report ---
Entered by FLORI OTRIZ SCRIBE 04/14/20 1721 Acting as scribe for:TALIA PURVIS DO ED Extremity Problem, Lower - General Chief Complaint: Leg Swelling Stated Complaint: LEG PAIN Time Seen by Provider: 04/14/20 14:37 Primary Care Provider: DIO KHOURY MD [Primary Care Provider] - 04/15/20 Mode of Arrival: Ambulatory Information source: Patient Notes: This 70-year-old female patient presents to the emergency department today for concern of possible DVT. Son at bedside reports that the patient has home health come out to her house multiple times a week and today they were concerned because of lower extremity swelling. She has a wound to the right proximal tibia that is dressed. She is on Cipro daily and has been for quite some time. She mentions that she had her INR checked last week and it was 6.2 and she was told to hold her Coumadin for 3 days. She denies any fevers, cough, COVID-19 contacts, chest pain, shortness of breath. TRAVEL OUTSIDE OF THE [place] IN LAST 30 DAYS: No - Related Data Allergies/Adverse Reactions: Heparin Analogues [Heparin Agents] Allergy (Unknown, Verified 04/14/20 14:45) latex [Latex] Allergy (Unknown, Verified 04/14/20 14:45) Penicillins Allergy (Unknown, Verified 04/14/20 14:45) doxycycline Allergy (Verified 04/14/20 14:45) Urticaria sulfamethoxazole [From Bactrim] Allergy (Verified 04/14/20 14:45) trimethoprim [From Bactrim] Allergy (Verified 04/14/20 14:45) vancomycin Allergy (Verified 04/14/20 14:45) Past Medical History - General Information source: Patient - Social History Smoking Status: Never Smoker Cigarette use (# per day): No Chew tobacco use (# tins/day): No Frequency of alcohol use: None Drug Abuse: None Lives with: Family Family History: Reviewed & Not Pertinent - Past Medical History Cardiac Medical History: Reports: Hx Atrial Fibrillation, Hx Congestive Heart Failure - Diastolic, Hx Hypercholesterolemia Pulmonary Medical History: Reports: Hx Asthma, Hx COPD, Hx Pneumonia, Hx Respiratory Failure, Hx Sleep Apnea Endocrine Medical History: Reports: Hx Diabetes Mellitus Type 1 Musculoskeletal Medical History: Reports Hx Arthritis Psychiatric Medical History: Reports: Hx Depression Past Surgical History: Reports: Hx Cholecystectomy, Hx Hysterectomy, Hx Orthopedic Surgery - right rotator cuff, Hx Valve Replacement - Mechanical aortic - Immunizations Hx Diphtheria, Pertussis, Tetanus Vaccination: Yes Hx Pneumococcal Vaccination: 03/21/12 Review of Systems - Review of Systems Constitutional: No symptoms reported EENT: No symptoms reported Cardiovascular: denies: Chest pain Respiratory: denies: Short of breath Gastrointestinal: No symptoms reported Genitourinary: No symptoms reported Female Genitourinary: No symptoms reported Musculoskeletal: See HPI, Leg swelling, Ankle swelling Skin: No symptoms reported Hematologic/Lymphatic: No symptoms reported Neurological/Psychological: No symptoms reported -: Yes All other systems reviewed and negative Physical Exam - Vital signs Vitals: Temp Pulse Resp BP Pulse Ox 98.1 F 116 H 20 135/45 H 97 04/14/20 14:15 04/14/20 14:15 04/14/20 14:15 04/14/20 14:15 04/14/20 14:15 - Notes Notes: Physical Exam: General: Alert, appears at baseline. HEENT: Normocephalic. Atraumatic. PERRL. Extraocular movements intact. Oropharynx clear. Neck: Supple. Non-tender. Respiratory: No respiratory distress. Clear and equal breath sounds bilaterally. Cardiovascular: Irregularly irregular. Not tachycardic. Abdominal: Morbidly obese. Multiple hernias to the epigastrium and right flank. Non-tender. No distension. Normal Bowel Sounds. Back: No gross abnormalities. Extremities: Moves all four extremities. Upper extremities: Normal inspection. Normal ROM. Lower extremities: 2-3+ edema bilaterally. Chronic skin changes. There is a dressing over the right proximal leg. Neurological: Normal cognition. AAOx4. Normal speech. Psychological: Normal affect. Normal Mood. Skin: Warm. Dry. Normal color. Course - Re-evaluation Re-evalutation: 04/14/20 17:55 MDM 70 year old with right leg pain and bilateral le edema. Concerned over possibility of dvt and directed to come in by home health nurse for doppler. She takes hydrocodone daily for pain relief. No fever and no chest pain and no covid exposure. She and her son feel comfortable with discharge and followup. - Vital Signs Vital signs: Temp Pulse Resp BP Pulse Ox 98.1 F 116 H 20 135/45 H 97 04/14/20 14:15 04/14/20 14:15 04/14/20 14:15 04/14/20 14:15 04/14/20 14:15 - Laboratory Results Result Diagrams: 04/14/20 14:55 04/14/20 14:55 Laboratory Results Interpreted: 04/14/20 04/14/20 04/14/20 14:55 14:55 14:55 RBC 3.58 L Hgb 9.9 L Hct 31.6 L MCHC 31.2 L RDW 19.4 H Lymph % (Auto) 5.6 L Absolute Lymphs (auto) 0.4 L Seg Neutrophils % 85.9 H Potassium 3.3 L Chloride 93 L Carbon Dioxide 40 H* BUN 38 H Creatinine 1.53 H Est GFR ( Amer) 41 L Est GFR (MDRD) Non-Af 34 L Glucose 148 H Direct Bilirubin 0.5 H NT-Pro-B Natriuret Pep 3230 H Critical Laboratory Results Reviewed: No Critical Results - Radiology Results Critical Radiology Results Reviewed: No Critical Results Discharge - Discharge Clinical Impression: Leg edema Atrial fibrillation Qualifiers: Atrial fibrillation type: unspecified Qualified Code(s): I48.91 - Unspecified atrial fibrillation Condition: Stable Disposition: HOME, SELF-CARE Instructions: Dependent Edema ([facility]), Edema, Peripheral ([facility]) Additional Instructions: Rest, fluids, see your doctor in follow up. Call them in the morning. Please return here for chest pain or shortness of breath, other problems or other concerns. Referrals: DIO KHOURY MD [Primary Care Provider] - 04/15/20 I personally performed the services described in the documentation, reviewed and edited the documentation which was dictated to the scribe in my presence, and it accurately records my words and actions.
== END 2020-04-14 20:01 | disposition home or self-care (01) ==
LOC: ER 14:09
DX: I50.32 Chronic diastolic (congestive) heart failure (principal); I48.91 Unspecified atrial fibrillation; M79.661 Pain in right lower leg; M79.662 Pain in left lower leg; K46.9 Unspecified abdominal hernia without obstruction or gangrene; E10.9 Type 1 diabetes mellitus without complications; J44.9 Chronic obstructive pulmonary disease, unspecified; Z79.891 Long term (current) use of opiate analgesic; Z79.2 Long term (current) use of antibiotics; Z88.8 Allergy status to other drugs, medicaments and biological substances; Z91.040 Latex allergy status; Z88.0 Allergy status to penicillin; Z88.1 Allergy status to other antibiotic agents
CPT/HCPCS: 36415; 71045; 80053; 83880; 85025; 93970; 99285